=== PATIENT | male | born 1970 | race Caucasian/White ===

== ENCOUNTER 2025-05-21 10:47 | Inpatient (IN) | payer MEDICAID, SELFPAY ==
[2025-05-21] VITALS (7 sets, daily range): BP systolic 119–140; BP diastolic 71–88; PULSE 66–111; RESP 4–20; TEMP 36.5–36.9; O2SAT 91–99; BMI 25.0
--- NOTE | ~2025-05-21 | XR_ITS ---
EXAMINATION: XR CHEST CLINICAL INFORMATION: hypoxia, sz, ?aspiration COMPARISON: None available. TECHNIQUE: Frontal view of the chest was obtained. FINDINGS: The cardiac, hilar, and mediastinal contours are normal. Low lung volumes. Lungs otherwise clear. No pneumothorax or effusion. No focal osseous or soft tissue abnormality. XR/XR chest 1V IMPRESSION: Low lung volumes without evidence of active disease. No evidence of aspiration. Electronically signed by: Kyle Gibson MD 05/21/2025 11:22 AM EDT
--- NOTE | ~2025-05-21 | CT_ITS ---
EXAMINATION: CT HEAD WITHOUT CONTRAST CLINICAL INFORMATION: seizure COMPARISON: None available. TECHNIQUE: Contiguous axial imaging was performed from the skull base to vertex without intravenous administration of contrast. This CT examination was performed using dose optimization techniques as appropriate, variously including the following: *Automated exposure control *Adjustment of mA and/or kV according to patient size (this includes techniques or standardized protocols for targeted exams where dose is matched to indication/reason for exam; i.e. extremities or head) *Use of iterative reconstruction technique DLP: 723 mGy-cm FINDINGS: Traumatic deformities in the nasal bones. No acute cortical disruption in the bony calvarium or the skull base. No acute intracranial hemorrhage, mass effect, midline shift, hydrocephalus or herniation. Patel-white matter differentiation is normal. Prominence of the extra-axial CSF spaces cerebral sulci, ventricles likely central volume loss. Calcified plaques in the cavernous supraclinoid segments both ICAs. Small retention cysts versus polyp, left maxillary sinus. No air-fluid levels in the paranasal sinuses. Tympanic cavities and mastoid air cells are aerated. Normal position of the cerebellar tonsils. No gross masses or dissection or suprasellar region. No hematoma in the intraconal or extraconal compartments of the orbits. The eyeballs are intact.. CT/CT head/brain wo IV con IMPRESSION: No acute fracture, bony calvarium. No acute intracranial hemorrhage. Global cerebral atrophy. Traumatic deformity, nasal bones. Electronically signed by: Justin Mcdermott MD 05/21/2025 12:10 PM EDT
--- NOTE | 2025-05-21 11:04 | ED.SEIZURE ---
HPI - Seizure General Chief Complaint: Seizure Stated Complaint: SEIZURE, POSTICTAL Time Seen by Provider: 05/21/25 11:01 History of Present Illness ED Provider: иван HPI Narrative: 55 M with Sz and dementia hx, BIBEMS from home after Sz. ?ASM adherence. Patient provides minimal history due to clinical condition Related Data Home Medications ?Medication ?Instructions ?Recorded ?Confirmed ketoconazole 2 % topical cream 1 appl topical BID PRN Itching 05/21/25 05/21/25 lacosamide 200 mg tablet 200 mg PO BID 05/21/25 05/21/25 lamotrigine 150 mg tablet 300 mg PO BID 05/21/25 05/21/25 phenytoin 50 mg chewable tablet 150 mg PO BID 05/21/25 05/21/25 risperidone 1 mg/mL oral solution 1 mg PO BID 05/21/25 05/21/25 sertraline 100 mg tablet 150 mg PO DAILY 05/21/25 05/21/25 trazodone 50 mg tablet 50 - 150 mg PO BEDTIME PRN Sleep 05/21/25 05/21/25 zonisamide 100 mg capsule 400 mg PO BEDTIME 05/21/25 05/21/25 Allergies Allergy/AdvReac Type Severity Reaction Status Date / Time Unable to Assess Allergy Verified 05/21/25 11:07 [facility] Past Medical History Medical History (Updated 05/22/25 @ 11:32 by Karie Todd MD) Mood disorder Seizure disorder Traumatic brain injury Social History Social History Household Members: Unknown / Unable to assess Unable to assess alcohol history related to: Unknown Patient Tobacco Use Status: Tobacco use Unknown Use of substances other than those prescribed or required for medical reasons: Unknown Currently Displaying Signs/Symptoms of Drug Intoxication Withdrawal: No Advance Directives: Yes Advance Directives Information Provided: Yes Advance Directives on File: Yes Advance Directives Date on File: 05/21/25 Physical Exam Exam: Exam: EXAM: Gen: Drowsy opens eyes to loud verbal Head: Atraumatic Eyes: Anicteric, Normal conjunctiva. Pupils 3-4 mm symmetric reactive ENT: Moist mucosa, no pallor. ? Neck: Supple. Skin: ?No observable rash or bruising on exposed or examined skin Respiratory: Breathing comfortably, No distress.Clear to auscultation bilaterally, symmetric chest expansion, No wheeze, rales, ronchi. Cardiovascular: Regular rate and rhythm. No murmurs or rub. Well perfused periphery, warm extremities. No edema. ? Abdominal: No focal tenderness. Soft, no objective distension. No palpable masses or obvious organomegaly. ?No guarding, no rebound tenderness or other peritoneal findings. : No flank tenderness. Neuro: Drowsy, voluntary movements of the extremities but not following commands for motor or sensory assessment. Normal tone. Psych: Calm. Cooperative. MSK: No grossly visible deformity. Vital signs: See flowsheet Vital Signs: Vital Signs: Last Vital Signs Temp 97.9 F 05/22/25 07:26 Pulse 103 H 05/22/25 07:26 Resp 20 05/22/25 07:26 BP 124/79 05/22/25 07:26 Pulse Ox 99 05/22/25 07:26 O2 Del Method Room Air 05/22/25 07:26 BMI result Body Mass Index 23.1 Medications Administered Generic Name Dose Route Start Last Admin Trade Name Freq PRN Reason Stop Dose Admin Enoxaparin Sodium 40 mg 05/21/25 16:00 05/21/25 18:46 Enoxaparin Sodium 40 Mg/0.4 Ml Syringe SUBCUT Not Given Q24H MANOJ Lactated Ringer's 1,000 mls @ 80 mls/hr 05/22/25 01:30 05/22/25 02:15 Lr IVCONT 80 mls/hr .[id number] MANOJ Administration Lacosamide 200 mg 05/21/25 21:00 05/22/25 09:09 Lacosamide 100 Mg Tablet PO 200 mg BID MANOJ Administration Lamotrigine 300 mg 05/21/25 21:00 05/22/25 09:08 Lamotrigine 100 Mg Tablet PO 300 mg BID MANOJ Administration Phenytoin Sodium 100 mg 05/21/25 21:00 05/22/25 09:25 Phenytoin Sodium Extended 100 Mg Capsule PO Not Given TID MANOJ Sertraline HCl 150 mg 05/22/25 09:00 05/22/25 09:09 Sertraline Hcl 50 Mg Tablet PO 150 mg DAILY MANOJ Administration Sodium Chloride 3 ml 05/21/25 16:00 05/22/25 09:10 0.9 % Sodium Chloride Flush 3 Ml Syringe IVFLUSH Not Given QSHIFT MANOJ Trazodone HCl 50 mg 05/21/25 21:00 05/22/25 09:09 Trazodone Hcl 50 Mg Tablet PO 50 mg BID MANOJ Administration Zonisamide 400 mg 05/21/25 21:00 05/21/25 21:27 Zonisamide 100 Mg Capsule PO Not Given BEDTIME MANOJ Discontinued Medications Generic Name Dose Route Start Last Admin Trade Name Govind PRN Reason Stop Dose Admin Diazepam 5 mg 05/22/25 01:10 05/22/25 01:11 Diazepam 10 Mg/2 Ml Cartridge IVPUSH 05/22/25 01:11 5 mg STAT STA Administration Medical Decision Making Medical Decision Making MDM Narrative: Medical Decision Makin-year-old male purportedly with dementia, 2022 he had a subdural hematoma. Initial history limited due to patient underlying dementia and clinical condition. Later in the workup I received more extensive history report from outside hospital which are reviewed extensively. The patients spouse also arrives reporting the patient has been explained that the patient has been agitated at home and refusing anti seizure medicine. She denies any injuries or focal deficits. This is an ongoing issue tracking for months to years the setting of early onset Alzheimers. She is requesting placement. Patient self is minimally contributory to the history. Given complicated polypharmacy, medication nonadherence I made would defer medication recommendations to not emergent neurology consultation. Levels have been sent off we can follow those up. Will seek a labs a broadly to evaluate for infection or electrolyte derangement or other metabolic etiology which is less likely. Head CT without trauma or mass as the patient did previously have subdural hematoma he does not currently have this. Preliminary Favored Differential Diagnosis: Breakthrough seizure, metabolic derangement, intracranial hemorrhage, intracranial mass, psychosis or agitation secondary to cognitive decline and dementia, dehydration, substance use disorder, less likely withdrawal syndrome among additional considered etiologies Testing Interpreted Independently: ?See below for details Radiology or Lab testing Results Reviewed: ?See below for details Consults: ?See below for details Independent Historians/External Chart Reviews: ?See below for details Social Determinants of Health Impacting MDM/Planning: ?See below for details Consult Healthcare Provider Management of the patient was discussed with: Hospitalist Lab Data MDM Lab Attestation statement: I reviewed the patient's lab results. no actionable lab findings to suggest metabolic etiology of seizure 05/22/25 07:35 05/22/25 07:35 Labs: Lab Results 05/21/25 05/21/25 05/22/25 Range/Units 11:31 14:41 07:35 WBC 7.8 6.4 (4.8-10.8) X10*3/uL RBC 4.90 4.43 L (4.60-5.80) X10*6/uL Hgb 15.1 13.7 L (14.0-18.0) g/dl Hct 41.7 L 37.4 L (42.0-52.0) % MCV 85.1 84.4 (80.0-98.0) fL MCH 30.8 30.9 (27.0-33.0) pg MCHC 36.2 H 36.6 H (31.0-36.0) g/dl RDW 12.4 12.2 (11.0-16.0) % Plt Count 163 152 L (160-400) X10*3/uL MPV 8.7 L 8.3 L (9.4-12.4) fL Immature Gran % (Auto) 0.5 H 1.1 H (0.0-0.4) % Neut % (Auto) 86.9 H 79.7 H (45-73) % Lymph % (Auto) 6.1 L 10.1 L (20-40) % [place] % (Auto) 6.2 8.9 (2-11) % Eos % (Auto) 0.0 0.0 (0-4) % Baso % (Auto) 0.3 0.2 (0-2) % Lymph # (Auto) 0.5 L 0.7 L (1.2-4.9) X10*3/uL [place] # (Auto) 0.5 0.6 (0.1-1.2) X10*3/uL Eos # (Auto) 0.0 0.0 (0.0-0.4) X10*3/uL Baso # (Auto) 0.0 0.0 (0.0-0.2) X10*3/uL Abs Immat Gran (auto) 0.04 H 0.07 H (0.00-0.03) X10*3/uL Absolute Neuts (auto) 6.7 5.1 (2.0-8.3) x10*3/uL Absolute Nucleated RBC 0.000 0.000 (0.0-0.012) X10*3/uL Nucleated RBC % (auto) 0.0 0.0 (0.0-0.2) /100WBC Sodium 140 142 (135-145) mmol/L Potassium 3.6 3.3 (3.3-5.1) mmol/L Chloride 108 109 H (96-108) mmol/L Carbon Dioxide 24 23 (22-29) mmol/L Anion Gap 12 13 (12-20) BUN 12 11 (9-16) mg/dL Creatinine 0.74 0.62 (0.5-1.4) mg/dL Estim Creat Clear Calc 95.8 114.3 Estimated GFR > 60 > 60 Random Glucose 97 103 (60-115) mg/dL Lactic Acid 2.1 H* (0.5-2.0) mmol/L Lactic Acid F/U @ 2Hr 1.1 (0.5-2.0) mmol/L Calcium 9.1 8.5 D (8.4-10.2) mg/dL Magnesium 2.2 (1.6-2.6) mg/dL Total Bilirubin 0.5 (0.0-1.0) mg/dL AST 32 (5-37) U/L ALT 14 (0-40) U/L Alkaline Phosphatase 126 H (39-117) U/L Total Protein 7.2 (6.5-8.0) g/dL Albumin 4.7 (3.5-5.0) g/dL Prolactin 14.0 (2.0-18.0) ng/mL Valproic Acid < 12.5 L (50.0-100.0) mcg/mL Independent Interpretation I performed an independent interpretation of an: Rhythm Strip ( sinus rhythm) and CT Scan ( no hemorrhage or mass) Independent Historian Clinical information obtained from an independent historian. History obtained from or confirmed by: Spouse External Record Review External record reviewed: Outpatient record and Prior outpatient radiology [facility] MRI external records reviewed from 2022 with finding of the thin subdural collection of the posterolateral left temporal convexity measuring 2 mm also from [facility] previous records reveal medication list that consisted of Adderall, bupropion, lorazepam, trazodone, Zoloft no written provider notes available Discharge Plan Discharge Clinical Impression: Seizure disorder Patient Disposition: Admitted As Inpatient Discharge Date/Time: 05/22/25 02:25
[2025-05-21 11:39] LABS: MANUAL DIFF FLAG NO
[2025-05-21 11:52] LABS: Hematocrit 41.7 % (42.0-52.0); Hemoglobin 15.1 g/dl (14.0-18.0); Imm Gran Abs Auto 0.04 X10*3/uL (0.00-0.03); Imm Gran Pct Auto 0.5 % (0.0-0.4); Lymphocytes Absolute Auto 0.5 X10*3/uL (1.2-4.9); Mean Corpuscular HGB Conc 36.2 g/dl (31.0-36.0); Mean Corpuscular Hemoglobin 30.8 pg (27.0-33.0); Mean Corpuscular Volume 85.1 fL (80.0-98.0); NRBC Abs Auto 0.000 X10*3/uL (0.0-0.012); NRBC Pct Auto 0.0 /100WBC (0.0-0.2); Platelet Count 163 X10*3/uL (160-400); Red Blood Count 4.90 X10*6/uL (4.60-5.80); White Blood Count 7.8 X10*3/uL (4.8-10.8)
[2025-05-21 12:04] LABS: Alanine Aminotransferase 14 U/L (0-40); Albumin Level 4.7 g/dL (3.5-5.0); Alkaline Phosphatase 126 U/L (39-117); Anion Gap 12 (12-20); Aspartate Amino Transferase 32 U/L (5-37); Blood Urea Nitrogen 12 mg/dL (9-16); Calcium 9.1 mg/dL (8.4-10.2); Carbon Dioxide 24 mmol/L (22-29); Chloride 108 mmol/L (96-108); Creatinine Clr Calc Pharmacy 95.8; Estimated Glomerular Filt Rate > 60; Magnesium 2.2 mg/dL (1.6-2.6); Potassium 3.6 mmol/L (3.3-5.1); Sodium 140 mmol/L (135-145); Total Protein 7.2 g/dL (6.5-8.0)
[2025-05-21 13:37] LABS: Reflex Lactate? Lactic Acid Added
[2025-05-21 14:59] LABS: ~Lactic Acid-LAB USE ONLY 1.1 mmol/L (0.5-2.0)
--- NOTE | 2025-05-21 15:22 | P.HPHOSP_ITS ---
History of Present Illness Date of Service: 05/21/25 Chief Complaint: Seizure This is a 55-year-old male with pertinent history of TBI, seizure disorder, PTSD, Alzheimer's dementia who was brought to the emergency department for evaluation of a seizure. Patient is a poor historian and unable to provide any history. History obtained with the help of at bedside and ER provider. Patient's states that patient has been having episodes of delusions and agitation at home. He has been refusing his home p.o. medications including antiepileptics. Patient only took 2 of his antiepileptics 1 day prior to presentation. Patient had an episode of seizure at home witnessed by and he was sent to the ER. Patient is currently postictal at the time of my evaluation. The states that she does not feel safe with him being at home due to his periods of agitation and noncompliance with medications leading to seizures. Patient has been admitted multiple times for breakthrough seizure previously for medication noncompliance. Unable to obtain review of systems. Review of Systems 2 Review of Systems: Yes Unobtainable due to mental condition and Unobtainable due to mental status [facility] Medical History (Updated 05/21/25 @ 15:50 by Pennie Blount MD) Mood disorder Seizure disorder Traumatic brain injury Pertinent family history: Unable to obtain Social History Advance Directives: Yes Advance Directives Information Provided: Yes Advance Directives on File: Yes Advance Directives Date on File: 05/21/25 Meds Allergies Allergy/AdvReac Type Severity Reaction Status Date / Time Unable to Assess Allergy Verified 05/21/25 11:07 Home Medications ?Medication ?Instructions ?Recorded ?Confirmed ?Last Taken ?Type ketoconazole 2 % topical cream 1 appl topical BID 04/25 05/18 Unknown History lacosamide 200 mg tablet 200 mg PO BID 05/21/25 Unkn own History lamotrigine 100 mg tablet 0 mg PO DIRECTED 05/21/25 Unknown History lamotrigine 150 mg tablet 150 mg PO BID 05/21/25 Unkn own History phenytoin 50 mg chewable tablet 100 mg PO TID 05/21/25 Unknown History risperidone 1 mg/mL oral solution 1 mg PO BID 05/21/25 Unknown History sertraline 100 mg tablet 0 mg PO DIRECTED 05/21/25 Unknown History sertraline 25 mg tablet 25 mg PO DAILY 05/21/25 Unk nown History trazodone 50 mg tablet 50 - 150 mg PO BEDTIME PRN S leep 05/21/25 Unknown History zonisamide 100 mg capsule 200 mg PO BID 05/21/25 Unkn own History Physical Exam 2 Vital Signs and Narrative: Vital Signs: Last Vital Signs Temp 97.7 F 05/21/25 11:04 Pulse 111 H 05/21/25 15:12 Resp 4 L 05/21/25 15:12 BP 128/72 05/21/25 15:12 Pulse Ox 97 05/21/25 15:12 O2 Del Method Room Air 05/21/25 15:12 BMI result Body Mass Index 25.0 Const: Other: Middle-aged male lying in bed in no distress Neck supple, no JVD Regular rate and rhythm, S1-S2 heard Regular breath sounds bilaterally, no wheezing or crackles appreciated Abdomen soft nontender, no guarding, no rigidity Patient is drowsy but awakens to verbal stimulus, unable to assess orientation Psych: lethargic No pedal edema Results Labs 05/21/25 11:31 05/21/25 11:31 Labs: Laboratory Results - last 24 hr 05/21/25 05/21/25 11:31 14:41 MCV 85.1 MCH 30.8 MCHC 36.2 H RDW 12.4 Plt Count 163 MPV 8.7 L Immature Gran % (Auto) 0.5 H Neut % (Auto) 86.9 H Lymph % (Auto) 6.1 L [place] % (Auto) 6.2 Eos % (Auto) 0.0 Baso % (Auto) 0.3 Lymph # (Auto) 0.5 L [place] # (Auto) 0.5 Eos # (Auto) 0.0 Baso # (Auto) 0.0 Abs Immat Gran (auto) 0.04 H Absolute Neuts (auto) 6.7 Absolute Nucleated RBC 0.000 Nucleated RBC % (auto) 0.0 Anion Gap 12 Estim Creat Clear Calc 95.8 Estimated GFR > 60 Random Glucose 97 Lactic Acid 2.1 H* Lactic Acid F/U @ 2Hr 1.1 Calcium 9.1 Magnesium 2.2 Total Bilirubin 0.5 AST 32 ALT 14 Alkaline Phosphatase 126 H Total Protein 7.2 Albumin 4.7 Valproic Acid < 12.5 L Imaging Radiologist's Impressions: Impressions Chest X-Ray 05/21/25 10:05 IMPRESSION: Low lung volumes without evidence of active disease. No evidence of aspiration. Electronically signed by: Kyle Gibson MD 05/21/2025 11:22 AM EDT RP Head CT 05/21/25 11:38 IMPRESSION: No acute fracture, bony calvarium. No acute intracranial hemorrhage. Global cerebral atrophy. Traumatic deformity, nasal bones. Electronically signed by: Justin Mcdermott MD 05/21/2025 12:10 PM EDT RP Assessment and Plan (1) Breakthrough seizure: Status: Acute Plan This is a 55-year-old male with pertinent history of TBI, seizure disorder, PTSD, Alzheimer's dementia who was brought to the emergency department for evaluation of a seizure #. Breakthrough seizure in a patient with seizure disorder due to medication noncompliance: Will admit patient and resume home anti-epileptics (Lamictal 300 mg twice daily, Dilantin 150 mg twice daily, Vimpat 200 mg twice daily, zonisamide 400 mg daily). May need placement given cognitive impairment and recurrent admissions in the setting of medication noncompliance. Ongoing seizure precautions. Valproic acid level subtherapeutic. #. Mood disorder: reports that patient is having episodes of psychosis and is refusing p.o. meds. Will consult psych to optimize #. Alzheimer's dementia: Maintain sleep-wake cycle #. Acute lactic acidosis due to seizure Med rec pending DVT prophylaxis: Lovenox Full code. Discussed with at bedside Quality Stroke Does the patient have a stroke diagnosis?: No VTE Prior VTE?: No VTE Risk Level:: Medical - moderate - high VTE Device Contraindication: Treatment Not Indicated VTE Drug Contraindication: N/A - Med Ordered
--- OUTSIDE RECORDS SUMMARY | 2025-05-21 15:56 | XMS_ITS | Encounter Summary ---
Author Organization Formerly [facility] Address [address] [place] [address] [place] [address] Phone Care Team Providers Care Spray Gun Repairer Helper Name Role Phone Phyllis Bello Unavailable [phone] Phyllis Bello Primary Care Provider [phone] Nate Ritter MD Unavailable [phone] Nate Ritter MD Unavailable [phone] Josy Hernandez MD Primary Care Provider [phone] Phyllis Bello Primary Care Provider + [phone] Philip Lara DO Unavailable [phone] Encounter Details Date Type Department Care Team (Latest Contact Info) Description 01/29/2023 Transcribe Orders Virtual Department [address] [place] [address] Jennifer Choudhary PA-C [address] [place] [address] [email or web address] Alcoholic cirrhosis, unspecified whether ascites present (Primary Dx) Social History Tobacco Use Types Packs/Day Years Used Date Smoking Tobacco: Every Day Cigarettes Smokeless Tobacco: Never Comments:rolls his own, pot as well Alcohol Use Standard Drinks/Week Comments Not Currently 0 (1 standard drink = 0.6 oz pur e alcohol) Education Answer Date Recorded Are you interested in more education? Not on palma e 01/19/2023 Are you concerned about learning? Not on file 01/19/2023 No 01/19/2023 No 01/19/2023 Sex and Gender Information Value Date Recorded Sex Assigned at Male 11/19/2017 4:38 PM EST Legal Sex Male 9:37 PM EDT Gender Identity Male 11/19/2017 4:38 PM EST Sexual Orientation Straight 11/19/2017 4: 38 PM EST documented as of this encounter Plan of Treatment Upcoming Encounters Date Type Department Care Team (Late st Contact Info) Description 01/08/2026 8:30 AM EDT Office Visit [facility] [address] [place] [address] Philip Lara DO [address] [place] [phone] [email or web address] documented as of this encounter Results * US ABDOMEN LIMITED RIGHT UPPER QUADRANT (03/16/2023 8:06 AM EDT) Anatomical Region Laterality Modality Abdomen Ultrasound 03/18/2023 7:38 PM EDT Impressions 03/18/2023 9:27 PM EDT No suspicious focal liver lesion. Narrative 03/18/2023 9:27 PM EDT US ABDOMEN LIMITED RIGHT UPPER QUADRANT TECHNIQUE: US Abdominal limited right upper quadrant. COMPARISON: None FINDINGS: Liver: Coarse echotexture. No focal lesions. Main Portal Vein: Patent with normal direction of flow. Gallbladder: Prior cholecystectomy. Biliary: Normal. No intrahepatic or extrahepatic biliary ductal dilatation. The common bile duct measures 9 mm. Procedure Note Vladimir Barros MD - 03/18/2023 US ABDOMEN LIMITED RIGHT UPPER QUADRANT TECHNIQUE: US Abdominal limited right upper quadrant. COMPARISON: None FINDINGS: Liver: Coarse echotexture. No focal lesions. Main Portal Vein: Patent with normal direction of flow. Gallbladder: Prior cholecystectomy. Biliary: Normal. No intrahepatic or extrahepatic biliary ductaldilatation. The common bile duct measures 9 mm. IMPRESSION: No suspicious focal liver lesion. Jennifer Choudhary PA-C IMG US ABDOMEN Final Result documented in this encounter Visit Diagnoses Diagnosis Alcoholic cirrhosis, unspecified whether ascites present- Primary Alcoholic cirrhosis, unspecified whether ascites present documented in this encounter Additional Health Concerns Infection Onset Date Last Indicated Resolved Time CoV-Risk Comment:Neg covid 04/22/2024 04/22/2024 04/23/2024 7:03 AM E DT CoV-Risk Comment:Per note documentation 10/30/2024 10/30/2024 12:40 AM EST CDiff-Risk 01/30/2025 01/30/2025 01/30/2025 6:35 PM EDT CoV-Risk 01/30/2025 01/31/2025 02/11/2025 1:21 AM EDT Assessment Noted Time PHQ-2 Depression Total Score: 2 05/24/20 22 3:24 PM EDT documented as of this encounter Care Teams Spray Gun Repairer Helper Relationship Specialty Start Date End Date Phyllis Bello PA [address] [place] [id number] PCP - General Slat Basket Maker Helper Machine 08/09/17 03/02/23 Josy Hernandez MD [address] [place] [address], [address] [place] [address] [email or web address] PCP - General Family Medicine 03/03/23 06/17/23 Phyllis Bello PA [address] [place] [address] PCP - General Physician Peanut Sheller 06/18/23 Phyllis Bello PA [address] [place] [address] [place] [phone] Historical LMR Provider 07/09/17 Nate Ritter MD [address] [place] [address], [address] [address] Neurology 06/24/19 Nate Ritter MD [address] [place] [address], [address] [address] Neurology 01/10/22 Philip Lara DO [address] [place] [id number] Geriatric Medicine 01/01/24 documented as of this encounter Additional Source Comments The information contained in this document represents components of the legal health record. It is not the complete legal health record.Formerly [facility]
--- OUTSIDE RECORDS SUMMARY | 2025-05-21 15:56 | XMS_ITS | Encounter Summary ---
Author Organization [facility] Address [address] [place] [address] Phone Care Team Providers Care Vacuum Cleaner Assembler Name Role Phone Phyllis Bello Unavailable [phone] Nate Ritter MD Unavailable [phone] Nate Ritter MD Unavailable [phone] Phyllis Bello Primary Care Provider [phone] Philip Lara DO Unavailable Encounter Details Date Type Department Care Team (Late st Contact Info) Description 12/22/2023 Procedure Pass [facility], [address] [id number] Social History Tobacco Use Types Packs/Day Years Used Date Smoking Tobacco: Every Day Cigarettes Smokeless Tobacco: Never Comments:rolls his own, pot as well Alcohol Use Standard Drinks/Week Comments Not Currently 0 (1 standard drink = 0.6 oz pur e alcohol) none since 2018 Education Answer Date Recorded Are you interested in more education? Not on palma e 01/19/2023 Are you concerned about learning? Not on file 01/19/2023 No 01/19/2023 No 01/19/2023 Digital Access Answer Date Recorded No 02/16/2023 No 02/16/2023 Reliable internet access at home? Not on file 02/16/2023 Device with a working camera? Not on file Sex and Gender Information Value Date Recorded Sex Assigned at Male 11/19/2017 4:38 PM EST Legal Sex Male 9:37 PM EDT Gender Identity Male 11/19/2017 4:38 PM EST Sexual Orientation Straight 11/19/2017 4: 38 PM EST documented as of this encounter Plan of Treatment Upcoming Encounters Date Type Department Care Team (Late st Contact Info) Description 01/08/2026 8:30 AM EDT Office Visit [facility] [address] [place] [address] Philip Lara DO [address] [place] [address] [email or web address] documented as of this encounter Visit Diagnoses Not on filedocumented in this encounter Additional Health Concerns Infection [...] documented as of this encounter Care Teams Vacuum Cleaner Assembler Relationship Specialty Start Date End Date Phyllis Bello PA [address] [place] [phone] PCP - General Physician Ship/Rec/Doc Control 06/18/23 Phyllis Bello PA [address] [place] [address] [place] [phone] Historical LMR Provider 07/09/17 Nate Ritter MD [address] [place] [address], [address] [place] [address] [email or web address] Neurology 06/24/19 Nate Ritter MD [address] [place] [address], [address] [address] Neurology 01/10/22 Philip Lara DO [address] [place] [address] [email or web address] Geriatric Medicine 01/01/24 documented as of this encounter Additional Source Comments The information contained in this document represents components of the legal health record. It is not the complete legal health record.[facility]
--- OUTSIDE RECORDS SUMMARY | 2025-05-21 15:56 | XMS_ITS | Encounter Summary ---
Author Organization [facility] Address [address] [place] [address] Phone Care Team Providers Care Surgical Nurse Name Role Phone Phyllis Bello Unavailable [phone] Nate Ritter MD Unavailable [phone] Nate Ritter MD Unavailable [phone] Phyllis Bello Primary Care Provider [phone] Philip Lara DO Unavailable [phone] Encounter Details Date Type Department Care Team (Late st Contact Info) Description 12/19/2023 Procedure Pass [facility], Ct Scan - [address] [phone] Social History Tobacco Use Types Packs/Day Years [...] PM EST documented as of this encounter Functional Status * Calculated C-SSRS Risk Score (Lifetime/Recent) Answer Date of Assessment Author No Risk Indicated 12/20/2023 6:00 PM EDT Carmen Mckeon RN * [place] Suicide Severity Rating Scale (Screener/Recent Self-Report) Question Answer Date of Assessment Author 1. Wish to be (Past 1 Month) No 024 6:00 PM EDT Carmen Mckeon RN 2. Non-Specific Active Suici florentino Thoughts (Past 1 Month) No 12/20/2023 6:00 PM EDT Son Mckeon RN 6. Suicidal Behavior (Lifetime) No 6:00 PM EDT Carmen Mckeon RN documented as of this encounter Plan of Treatment Upcoming Encounters Date Type Department Care Team (Late st Contact Info) Description 01/08/2026 8:30 AM EDT Office Visit [facility] Geriatrics [address] [place] [address] Philip Lara DO [address] [place] [address] [email or web address] documented as of this encounter Visit Diagnoses [...] Time PHQ-2 Depression Total Score: 2 05/24/20 3:24 PM EDT documented as of this encounter Care Teams Surgical Nurse Relationship Specialty Start Date End Date Phyllis Bello PA [address] [place] [address] PCP - General Physician Cellophane Casting Machine Repairer 06/18/23 Phyllis Bello PA [address] [place] [address] [place] [phone] Historical LMR Provider 07/09/17 Nate Ritter MD [address] [place] [address] Neurology 06/24/19 Nate Ritter MD [address] [place] [address] Neurology 01/10/22 Philip Lara DO [address] [place] [address] Geriatric Medicine 01/01/24 documented as of this encounter Additional Source Comments The information contained in this document represents components of the legal health record. It is not the complete legal health record.[facility]
--- OUTSIDE RECORDS SUMMARY | 2025-05-21 15:56 | XMS_ITS | Encounter Summary ---
Author Organization [facility] Address [facility] [employer] [facility] [address] [place] [address] Phone Care Team Providers Care Fluorescent Lamp Replacer Name Role Phone Phyllis Bello Unavailable [phone] Nate Ritter MD Unavailable [phone] Nate Ritter MD Unavailable [phone] Phyllis Bello Primary Care Provider [phone] Philip Lara DO Unavailable [phone] Encounter Details Date Type Department Care Team (Latest Contact Info) Description 01/03/2024 Transcribe Orders Virtual Department [address] [place], [place] [phone] Phyllis Bello PA [address] [place] [phone] Other specified symptoms and signs involving the circulatory and respiratory systems (Primary Dx) Social History Tobacco Use Types [...] Description 01/08/2026 8:30 AM EDT Office Visit [facility] Geriatrics [address] [place] [address] Philip Lara DO [address] [place] [address] [email or web address] documented as of this encounter Results * FL (Speech) Video Swallow Study (01/30/2024 10:29 AM EDT) Anatomical Region Laterality Modality Radio Fluoroscop y 01/30/2024 12:1 2 PM EDT Impressions 01/30/2024 12:59 PM EDT No marv aspiration or epiglottic penetration was observed during this examination. Cricopharyngeal bar. Please refer to the clinical notes by the Speech Pathologist for detailed description of the Modified Swallow findings. FLUOROSCOPY TIME: 1 minute 28 seconds NUMBER OF IMAGES: [id number] ATTESTATION: I, Maikol Hernandez as teaching physician, have reviewed the images for this case and if necessary edited the report originally created by Misha Callaway. Narrative 01/30/2024 12:59 PM EDT FL MODIFIED BARIUM SWALLOW HISTORY: Choking when swallowing COMPARISON: Chest radiograph 01/14/2024. OPERATORS: Misha Callaway SUPERVISING PHYSICIAN: Maikol Hernandez TECHNIQUE: Fluoroscopic assistance was provided for the speech pathologist during video swallow. The patient was observed in the lateral projection while being fed various consistencies of barium (thin liquids, applesauce, pudding, cracker and cracker). FINDINGS: The oral and pharyngeal stages of swallowing will be reported separately by the Department of Speech and Language Pathology. All trial barium consistencies passed through the pharynx without difficulty. No epiglottic penetration was demonstrated during this examination. A prominent cricopharyngeal bar is observed without achalasia or a Zenker's diverticulum. No significant pharyngeal residue. Procedure Note Maikol Hernandez MD - 01/30/2024 FL MODIFIED BARIUM SWALLOW HISTORY: Choking when swallowing COMPARISON: Chest radiograph 01/14/2024. OPERATORS: Misha Callaway SUPERVISING PHYSICIAN: Maikol Hernandez TECHNIQUE: Fluoroscopic assistance was provided for the speech pathologist duringvideo swallow. The patient was observed in the lateral projection whilebeing fed various consistencies of barium (thin liquids, applesauce,pudding, cracker and cracker). FINDINGS: The oral and pharyngeal stages of swallowing will be reported separatelyby the Department of Speech and Language Pathology. All trial barium consistencies passed through the pharynx withoutdifficulty. No epiglottic penetration was demonstrated during thisexamination. A prominent cricopharyngeal bar is observed without achalasiaor a Zenker's diverticulum. No significant pharyngeal residue. IMPRESSION: No marv aspiration or epiglottic penetration was observed during thisexamination. Cricopharyngeal bar. Please refer to the clinical notes by the Speech Pathologist for detaileddescription of the Modified Swallow findings. FLUOROSCOPY TIME: 1 minute 28 seconds NUMBER OF IMAGES: [id number] ATTESTATION: I, Maikol Hernandez as teaching physician, have reviewed theimages for this case and if necessary edited the report originally createdby Misha Callaway. Phyllis CABRALES IMG FL EXAMS Final Resu lt documented in this encounter Visit Diagnoses Diagnosis Other specified symptoms and signs involving the circulatory and respiratory systems- Primary Dysphagia, unspecified type- Primary Other specified symptoms and signs involving the circulatory and respiratory systems documented in this encounter Additional Health Concerns [...] documented as of this encounter Care Teams Fluorescent Lamp Replacer Relationship Specialty Start Date End Date Phyllis Bello PA [address] [place] [address] PCP - General Physician Assessment Technician 06/18/23 Phyllis Bello PA [address] [place] [address] [place] [address] Historical LMR Provider 07/09/17 Nate Ritter MD [address] [place] [address], [address] [address] Neurology 06/24/19 Nate Ritter MD [address] [place] [address], [address] [address] Neurology 01/10/22 Philip Lara DO [address] [place] [address] [email or web address] Geriatric Medicine 01/01/24 documented as of this encounter Additional Source Comments The information contained in this document represents components of the legal health record. It is not the complete legal health record.[facility]
--- OUTSIDE RECORDS SUMMARY | 2025-05-21 15:56 | XMS_ITS | Encounter Summary ---
Author Organization [facility] Address [address] [place] [address] Phone Care Team Providers Care Apiculturist Name Role Phone Phyllis Bello Unavailable [phone] Nate Ritter MD Unavailable [phone] Nate Ritter MD Unavailable [phone] Phyllis Bello Primary Care Provider [phone] Philip Lara DO Unavailable [phone] Encounter Details Date Type Department Care Team (Late st Contact Info) Description 06/18/2023 Procedure Pass [facility] Endoscopy Admitting Dept Virtual Department [address] [place] [address] Social History Tobacco Use Types Packs/Day Years [...] Description 01/08/2026 8:30 AM EDT Office Visit [facility] Geriatrics [address] [place] [address] Philip Lara DO [address] [place] [address] [email or web address] documented as of this [...] documented as of this encounter Care Teams Apiculturist Relationship Specialty Start Date End Date Phyllis Bello PA [address] [place] [address] PCP - General Physician Process Architect 06/18/23 Phyllis Bello PA [address] [place] [address] [place] [address] Historical LMR Provider 07/09/17 Nate Ritter MD [address] [place] [address] [place] [address] Neurology 06/24/19 Nate Ritter MD [address] [place] [address], [address] [place] [address] Neurology 01/10/22 Philip Lara DO [address] [place] [address] [email or web address] Geriatric Medicine 01/01/24 documented as of this encounter Additional Source Comments The information contained in this document represents components of the legal health record. It is not the complete legal health record.[facility]
--- OUTSIDE RECORDS SUMMARY | 2025-05-21 15:57 | XMS_ITS | Encounter Summary ---
Author Organization [facility] Address [address] [place] [address] [place] [address] Phone Care Team Providers Care Commercial Loan Specialist Name Role Phone Zohra Saenz MD Unavailable Estelita Bobby NP Unavailable Phyllis Bello Unavailable [phone] Nate Dockery MD Unavailable [phone] Phyllis Bello Primary Care Provider + Nate Ritter MD Unavailable [phone] Rod Cunningham Unavailable [phone] Josy Hernandez MD Unavailable + Prakash Tolentino MD Unavailable + Josy Hernandez MD Unavailable + Prakash Tolentino MD Unavailable + Josy Hernandez MD Unavailable + Nate Ritter MD Unavailable [phone] Josy Hernandez MD Primary Care Provider [phone] Phyllis Bello Primary Care Provider [phone] Philip Lara DO Unavailable Encounter Details Date Type Department Care Team (Late st Contact Info) Description 10/22/2020 Procedure Pass [facility], Ct Scan - [address] [address] Social History Tobacco Use Types Packs/Day Years Used Date Smoking Tobacco: Every Day Cigarettes Smokeless Tobacco: Never Comments:rolls his own, pot as well Alcohol Use Standard Drinks/Week Comments Yes 0 (1 standard drink = 0.6 oz pur e alcohol) daily consumption of beer Sex and Gender Information Value Date Recorded Sex Assigned at Male 11/19/2017 4:38 PM EST Legal Sex Male 9:37 PM EDT Gender Identity Male 11/19/2017 4:38 PM EST Sexual Orientation Straight 11/19/2017 4: 38 PM EST documented as of this encounter Plan of Treatment Upcoming Encounters Date Type Department Care Team (Late Contact Info) Description 01/08/2026 8:30 AM EDT Office Visit [facility] Geriatrics [address] [place] [address] Philip Lara DO [address] [place] [address] [email or web address] documented as of this encounter Visit Diagnoses Not on filedocumented in this encounter Additional Health Concerns Infection Onset Date Last Indicated Resolved Time 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 11/02/2017 01/09/2022 9:16 AM EDT CoV-Risk Comment:Per note documentation 06/29/2021 06/29/2021 11:05 AM EDT CoV-Risk Comment:Neg covid 04/22/2024 04/22/2024 04/23/2024 7:03 AM E DT CoV-Risk Comment:Per note documentation 10/30/2024 10/30/2024 12:40 AM EST CDiff-Risk 01/30/2025 01/30/2025 01/30/2025 6:35 PM EDT CoV-Risk 01/30/2025 01/31/2025 02/11/2025 1:21 AM EDT documented as of this encounter Care Teams Commercial Loan Specialist Relationship Specialty Start Date End Date Bello, Phyllis Renetta, PA [address] [place] [address] PCP - General Upkeep Worker 08/09/17 03/02/23 Josy Hernandez MD [address] [place] [address] [email or web address] PCP - General Family Medicine 03/03/23 06/17/23 Phyllis Bello PA [address] [place] [address] PCP - General Physician Director Clinical Operations 06/18/23 Zohra Saenz MD [address] [place] [address] Historical LMR Provider 07/09/17 2 Estelita Bobby NP [address] [place] [address] 2_[place] [address] [email or web address] Historical LMR Provider 07/09/17 10/01/21 Phyllis Bello PA [address] [place] [address] [place] [address] Historical LMR Provider 07/09/17 Nate Dockery MD [address] [place] [address], [address] [place] [address] [email or web address] Historical LMR Provider 07/09/17 2 Nate Ritter MD [address] [place] [address] [address] [place] [address] [email or web address] Neurology 06/24/19 Rod Cunningham, [facility] [address] [place] [address] [email or web address] Work 08/23/20 06/13/22 Josy Hernandez MD [address] [place] [address] [email or web address] Insurance Assigned Provider 08/29/20 02/27/21 Prakash Tolentino MD [address] [place] [address] [email or web address] Insurance Assigned Provider 02/27/21 04/02/21 Josy Hernandez MD [address] [place] [address] [email or web address] Insurance Assigned Provider 04/02/21 06/04/21 Prakash Tolentino MD [address] [place] [address] [email or web address] Insurance Assigned Provider 06/04/21 07/30/21 Josy Hernandez MD [address] [place] [address] [email or web address] Insurance Assigned Provider 07/30/21 06/03/22 Nate Ritter MD [address] [place] [address], [address] [place] [address] Neurology 01/10/22 Philip Lara DO [address] [place], [place] [address] [email or web address] Geriatric Medicine 01/01/24 documented as of this encounter Additional Source Comments The information contained in this document represents components of the legal health record. It is not the complete legal health record.[facility]
--- OUTSIDE RECORDS SUMMARY | 2025-05-21 15:57 | XMS_ITS | Encounter Summary ---
Author Organization [facility] Address [address] [place] [address] [place] [address] Phone Care Team Providers Care Manager Disaster Recovery Name Role Phone Zohra Saenz MD Unavailable Estelita Bobby NP Unavailable [phone] Phyllis Bello Unavailable [phone] Nate Dockery MD Unavailable [phone] Phyllis Bello Primary Care Provider [phone] Nate Ritter MD Unavailable [phone] Prakash Tolentino MD Unavailable [phone] Rod Cunningham Unavailable [phone] Josy Hernandez MD Unavailable [phone] Prakash Tolentino MD Unavailable + Josy Hernandez MD Unavailable [phone] Prakash Tolentino MD Unavailable + Josy Hernandez MD Unavailable [phone] Nate Ritter MD Unavailable [phone] Josy Hernandez MD Primary Care Provider [phone] Phyllis Bello Primary Care Provider [phone] Philip Lara DO Unavailable Encounter Details Date Type Department Care Team (Late st Contact Info) Description 05/15/2020 Procedure Pass [facility], Ct Scan - [facility] [address] [place] [address] Social History Tobacco Use Types Packs/Day Years Used Date Smoking Tobacco: Every Day Cigarettes Smokeless Tobacco: Never Comments:rolls his own Alcohol Use Standard Drinks/Week Comments Yes 0 [...] Description 01/08/2026 8:30 AM EDT Office Visit [facility] Geriatrics [address] [place] [address] Philip Lara, [address] [place] [address] [email or web address] documented as of this encounter Visit Diagnoses [...] documented as of this encounter Care Teams Manager Disaster Recovery Relationship Specialty Start Date End Date Phyllis Bello PA [address] [place] [address] PCP - General Lcac Radar Operator/Navigator 08/09/17 03/02/23 Josy Hernandez MD [address] [place] [address] [email or web address] PCP - General Family Medicine 03/03/23 06/17/23 Phyllis Bello PA [address] [place] [address] PCP - General Physician Professional Athlete 06/18/23 Zohra Cisneros MD [address] [place] [address] Historical LMR Provider 07/09/17 2 Estelita Bobby NP [address] [place] [address] 2_[place] [address] [email or web address] Historical LMR Provider 07/09/17 10/01/21 Phyllis Bello PA [address] [place] [address] [place] [address] Historical LMR Provider 07/09/17 Nate Dockery MD [address] [place] [address], [address] [place] [address] [email or web address] Historical LMR Provider 07/09/17 2 Nate Ritter MD [address] [place] [address], [address] [place] [address] [email or web address] Neurology 06/24/19 Prakash Tolentino MD [address] [place] [address] [email or web address] Insurance Assigned Provider 08/30/19 08/29/20 Rod Cunningham, [address] [address] [email or web address] Social Work 08/23/20 06/13/22 Josy Hernandez MD [address] [place] [address] [email or web address] Insurance Assigned Provider 08/29/20 02/27/21 Prakash Tolentino MD [address] [place] [address] [email or web address] Insurance Assigned Provider 02/27/21 04/02/21 Josy Hernandez MD [address] [place] [address] [email or web address] Insurance Assigned Provider 04/02/21 06/04/21 Prakash Tolentino MD [address] [place] [address] [email or web address] Insurance Assigned Provider 06/04/21 07/30/21 Josy Hernandez MD [address] [place] [address] [email or web address] Insurance Assigned Provider 07/30/21 06/03/22 Nate Ritter MD [address] [place] [address], [address] [place] [address] Neurology 01/10/22 Philip Lara DO [address] [place] [address] Geriatric Medicine 01/01/24 documented as of this encounter Additional Source Comments The information contained in this document represents components of the legal health record. It is not the complete legal health record.[facility]
--- OUTSIDE RECORDS SUMMARY | 2025-05-21 15:57 | XMS_ITS | Encounter Summary ---
Author Organization [facility] Address [address] [place] [address] Phone Care Team Providers Care Railway Traction Line Worker Name Role Phone Phyllis Bello Unavailable [phone] Nate Ritter MD Unavailable [phone] Nate Ritter MD Unavailable [phone] Phyllis Bello Primary Care Provider [phone] Philip Lara DO Unavailable [phone] Encounter Details Date Type Department Care Team (Late st Contact Info) Description 01/30/2025 Procedure Pass , [address] [phone] Social History Tobacco Use Types Packs/Day Years [...] on file 01/19/2023 No 01/19/2023 No 01/19/2023 Food Answer Date Recorded Within the past 6 months we worried whether our food would run out before we got money to buy more. Unable to assess 025 Within the past 6 months the food we bought just didn't last and we didn't have enough money to get more. Unable to assess 01/31/2025 Residential Stability Answer Date Recor ded What is your housing situation today? Unable to assess 01/31/2025 How many times have you moved in the past 12 mon ths? Unable to assess 01/31/2025 Paying for Meds Answer Date Recorded Do you have trouble paying for medicines? Unable to assess 01/31/2025 Paying Utility Bills Answer Date Record ed Do you have trouble paying y our heating or electricity bill? Unable to assess 01/31/2025 Transportation Answer Date Recorded Has the lack of transportati on kept you from medical appointments or from getting medications? Unable to assess 01/31/2025 Digital Access Answer Date Recorded No 01/31/2025 No 01/31/2025 Do you have reliable internet access at home? Un able to assess 01/31/2025 Do you have a device (e.g., phone, tablet, computer) with a working camera? Unable to assess 01/31/2025 Intimate Partner Violence Answer Date R ecorded Are you denied basic needs s uch as food, clothing, or medical care? Patient unable to respond 01/30/2025 In the past 12 months have y ou been in a relationship with a person who hurts, threatens, or tries to control you? Patient unable to respond 01/30/2025 Are you denied basic needs s uch as food, clothing, or medical care? Patient unable to respond 01/30/2025 In the past 12 months have y ou been in a relationship with a person who hurts, threatens, or tries to control you? Patient unable to respond 01/30/2025 Sex and Gender Information Value Date Recorded Sex Assigned at Male 11/19/2017 4:38 PM EST Legal Sex Male 9:37 PM EDT Gender Identity Male 11/19/2017 4:38 PM EST Sexual Orientation Straight 11/19/2017 4: 38 PM EST documented as of this encounter Functional Status * Calculated C-SSRS Risk Score (Lifetime/Recent) Answer Date of Assessment Author No Risk Indicated 01/30/2025 6:29 AM EDT Lisa Obando RN * [place] Suicide Severity Rating Scale (Screener/Recent Self-Report) Question Answer Date of Assessment Author 1. Cheo to be (Past 1 Month) No 025 6:29 AM EDT Lisa Hernandez, KEVIN 2. Non-Specific Active Suici florentino Thoughts (Past 1 Month) No 01/30/2025 6:29 AM EDT Kishore Hernandez ra RN 6. Suicidal Behavior (Lifetime) No 6:29 AM EDT Lisa Hernandez, KEVIN documented as of this encounter Plan of Treatment Upcoming Encounters Date Type Department Care Team (Late st Contact Info) Description 01/08/2026 8:30 AM EDT Office Visit [facility] Geriatrics [address] [place] [address] Philip Lara DO [address] [place] [address] [email or web address] documented as of this encounter Visit Diagnoses Not on filedocumented in this encounter Additional Health Concerns Infection Onset Date Last Indicated Resolved Time CDiff-Risk 01/30/2025 01/30/2025 01/30/2025 6:35 PM EDT CoV-Risk 01/30/2025 01/31/2025 02/11/2025 1:21 AM EDT Assessment Noted Time PHQ-9 Depression Total Score: 6 12/27/19 9:55 AM EDT PHQ-2 Depression Total Score: 0 12/27/19 9:55 AM EDT documented as of this encounter Care Teams Railway Traction Line Worker Relationship Specialty Start Date End Date Phyllis Bello PA [address] [place] [address] PCP - General Physician Manager Utilization Management 06/18/23 Phyllis Bello PA [address] [place] [address] [place] [address] Historical LMR Provider 07/09/17 Nate Ritter MD [address] [place] [address], [address] [place] [address] [email or web address] Neurology 06/24/19 Nate Ritter MD [address] [place] [address], [address] [place] [address] Neurology 01/10/22 Philip Lara DO [address] [place] [address] [email or web address] Geriatric Medicine 01/01/24 documented as of this encounter Additional Source Comments The information contained in this document represents components of the legal health record. It is not the complete legal health record.[facility]
--- OUTSIDE RECORDS SUMMARY | 2025-05-21 15:57 | XMS_ITS | Encounter Summary ---
Author Organization [facility] Address [address] [place] [address] [place] [address] Phone Care Team Providers Care Reliability Engineer Name Role Phone Zohra Saenz MD Unavailable Estelita Bobby NP Unavailable [phone] Phyllis Bello Unavailable [phone] Nate Dockery MD Unavailable [phone] Phyllis Bello Primary Care Provider + Nate Ritter MD Unavailable [phone] Rod Cunningham Unavailable [phone] Josy Hernandez MD Unavailable + Prakash Tolentino MD Unavailable + Josy Hernandez MD Unavailable + Prakash Tolentino MD Unavailable + Josy Hernandez MD Unavailable + Nate Ritter MD Unavailable [phone] Josy Hernandez MD Primary Care Provider [phone] Phyllis Bello Primary Care Provider [phone] Philip Lara DO Unavailable [phone] Encounter Details Date Type Department Care Team (Late st Contact Info) Description 12/01/2020 Procedure Pass [facility], Ct Scan - [address] [address] Social History Tobacco Use Types Packs/Day Years [...] Description 01/08/2026 8:30 AM EDT Office Visit [facility] [address] [place] [address] Philip Lara DO [address] [place] [address] [email or web address] documented as of this encounter Care Teams Reliability Engineer Relationship Specialty Start Date End Date Bello, Phyllis Renetta, PA [address] [place] [address] PCP - General Residence Hall Director 08/09/17 03/02/23 Josy Hernanedz MD [address] [place] [address] [email or web address] PCP - General Family Medicine 03/03/23 06/17/23 Phyllis Bello PA [address] [place] [address] PCP - General Physician Preparole Counseling Aide 06/18/23 Zohra Saenz MD [address] [place] [address] Historical LMR Provider 07/09/17 2 Estelita Bobby NP [address] [place] [address] 2_[place] [address] [email or web address] Historical LMR Provider 07/09/17 10/01/21 Phyllis Bello PA [address] [place] [address] [place] [address] Historical LMR Provider 07/09/17 Nate Dockery MD [address] [place] [address], [address] [place] [address] [email or web address] Historical LMR Provider 07/09/17 2 Nate Ritter MD [address] [place] [address] [address] [place] [address] [email or web address] Neurology 06/24/19 Rod Cunningham, [facility] [address] [place] [address] [email or web address] Social Work 08/23/20 06/13/22 Josy Hernandez MD [address] [place] [address] [email or web address] Insurance Assigned Provider 08/29/20 02/27/21 Prakash Tolentino MD [address] [place] [address] [email or web address] Insurance Assigned Provider 02/27/21 04/02/21 Josy Hrenandez MD [address] [place] [address] [email or web address] Insurance Assigned Provider 04/02/21 06/04/21 Prakash Tolentino MD [address] [place] [address] [email or web address] Insurance Assigned Provider 06/04/21 07/30/21 Josy Hernandez MD [address] [place] [address] [email or web address] Insurance Assigned Provider 07/30/21 06/03/22 Nate Ritter MD [address] [place] [address], [address] [place] [address] Neurology 01/10/22 Philip Lara DO [address] [place], [place] [id number] [email or web address] Geriatric Medicine 01/01/24 documented as of this encounter Additional Source Comments The information contained in this document represents components of the legal health record. It is not the complete legal health record.[facility]
--- OUTSIDE RECORDS SUMMARY | 2025-05-21 15:57 | XMS_ITS | Encounter Summary ---
Author Organization [facility] Address [address] [place] [address] Phone Care Team Providers Care Industrial Training Specialist Name Role Phone Phyllis Bello Unavailable [phone] Nate Ritter MD Unavailable [phone] Nate Ritter MD Unavailable [phone] Phyllis Bello Primary Care Provider [phone] Philip Lara DO Unavailable [phone] Encounter Details Date Type Department Care Team (Late st Contact Info) Description 10/30/2024 Procedure Pass [facility], Ct Scan - [address] [id number] Social History Tobacco Use Types Packs/Day Years [...] before we got money to buy more. Never True 04/22/2024 Within the past 6 months the food we bought just didn't last and we didn't have enough money to get more. Never True Residential Stability Answer Date Recor ded What is your housing situation today? I have bunny pascual 04/22/2024 How many times have you move d in the past 12 months? Zero (I did not move) 04/22/2024 Paying for Meds Answer Date Recorded Do you have trouble paying for medicines? No 04/22/2024 Paying Utility Bills Answer Date Record ed Do you have trouble paying your heating or elect ricity bill? No 04/22/2024 Transportation Answer Date Recorded Has the lack of transportati on kept you from medical appointments or from getting medications? No 04/22/2024 Digital Access Answer Date Recorded No 04/22/2024 Yes 04/22/2024 Do you have reliable internet access at home? Ye s 04/22/2024 Do you have a device (e.g., phone, tablet, computer) with a working camera? Yes 04/22/2024 Intimate Partner Violence Answer Date R ecorded Are you denied basic needs s uch as food, clothing, or medical care? Patient unable to respond 10/31/2024 In the past 12 months have y ou been in a relationship with a person who hurts, threatens, or tries to control you? Patient unable to respond 10/31/2024 Are you denied basic needs s uch as food, clothing, or medical care? Patient unable to respond 10/31/2024 In the past 12 months have y ou been in a relationship with a person who hurts, threatens, or tries to control you? Patient unable to respond 10/31/2024 Sex and Gender Information Value Date Recorded Sex Assigned at Male 11/19/2017 4:38 PM EST Legal Sex Male 9:37 PM EDT Gender Identity Male 11/19/2017 4:38 PM EST Sexual Orientation Straight 11/19/2017 4: 38 PM EST documented as of this encounter Plan of Treatment Upcoming Encounters Date Type Department Care Team (Late st Contact Info) Description 01/08/2026 8:30 AM EDT Office Visit [facility] [address] [place] [address] [place] [address] Philip Lara, [address] [place] [address] documented as of this encounter Visit Diagnoses Not on filedocumented in this encounter Additional Health Concerns Infection Onset Date Last Indicated Resolved Time CoV-Risk Comment:Per note documentation 10/30/2024 10/30/2024 12:40 AM EST CDiff-Risk 01/30/2025 01/30/2025 01/30/2025 6:35 PM EDT CoV-Risk 01/30/2025 01/31/2025 02/11/2025 1:21 AM EDT Assessment Noted Time PHQ-9 Depression Total Score: 7 07/14/20 4:02 PM EDT PHQ-2 Depression Total Score: 1 07/14/20 4:02 PM EDT documented as of this encounter Care Teams Industrial Training Specialist Relationship Specialty Start Date End Date Phyllis Bello PA [address] [place] [address] PCP - General Physician Ocular Care Aide 06/18/23 Phyllis Bello PA [address] [place] [address] [place] [address] Historical LMR Provider 07/09/17 Nate Ritter MD [address] [place] [address] Neurology 06/24/19 Nate Ritter MD [address] [place] [address] Neurology 01/10/22 Philip Lara DO [address] [place] [address] [email or web address] Geriatric Medicine 01/01/24 documented as of this encounter Additional Source Comments The information contained in this document represents components of the legal health record. It is not the complete legal health record.[facility]
--- OUTSIDE RECORDS SUMMARY | 2025-05-21 15:57 | XMS_ITS | Encounter Summary ---
Author Organization [facility] Address [address] [place] [address] Phone Care Team Providers Care Senior Systems Software Engineer Name Role Phone Phyllis Bello Unavailable [phone] Nate Ritter MD Unavailable [phone] Nate Ritter MD Unavailable [phone] Phyllis Bello Primary Care Provider [phone] Philip Lara DO Unavailable [phone] Encounter Details Date Type Department Care Team (Late st Contact Info) Description 03/24/2025 Procedure Pass [facility], Ct Scan - [address] [id number] Social History Tobacco Use Types Packs/Day Years [...] money to get more. Unable to assess 03/24/2025 Residential Stability Answer Date Recor ded What is your housing situation today? Unable to assess 03/24/2025 How many times have you moved in the past 12 mon ths? Unable to assess 03/24/2025 Paying for Meds Answer Date Recorded Do you have trouble paying for medicines? Unable to assess 03/24/2025 Paying Utility Bills Answer Date Record ed Do you have trouble paying y our heating or electricity bill? Unable to assess 03/24/2025 Transportation Answer Date Recorded Has the lack of transportati on kept you from medical appointments or from getting medications? Unable to assess 03/24/2025 Digital Access Answer Date Recorded No 03/24/2025 No 03/24/2025 Do you have reliable internet access at home? Un able to assess 03/24/2025 Do you have a device (e.g., phone, tablet, computer) with a working camera? Unable to assess 03/24/2025 Intimate Partner Violence Answer Date R ecorded Are you denied basic needs s uch as food, clothing, or medical care? Patient unable to respond 03/24/2025 In the past 12 months have y ou been in a relationship with a person who hurts, threatens, or tries to control you? Patient unable to respond 03/24/2025 Are you denied basic needs s uch as food, clothing, or medical care? Patient unable to respond 03/24/2025 In the past 12 months have y ou been in a relationship with a person who hurts, threatens, or tries to control you? Patient unable to respond 03/24/2025 Sex and Gender Information Value Date Recorded Sex Assigned at Male 11/19/2017 4:38 PM EST Legal Sex Male 9:37 PM EDT Gender Identity Male 11/19/2017 4:38 PM EST Sexual Orientation Straight 11/19/2017 4: 38 PM EST documented as of this encounter Functional Status * Calculated C-SSRS Risk Score (Lifetime/Recent) Answer Date of Assessment Author No Risk Indicated 03/24/2025 9:00 PM EDT Chelsie Fishman RN * Foard Suicide Severity Rating Scale (Screener/Recent Self-Report) Question Answer Date of Assessment Author 1. Wish to be (Past 1 Month) No 03/24/2025 9:00 PM EDT Vadim Galindo RN 2. Non-Specific Active Suicidal Thoughts (Past 1 Month) No 03/24/2025 9:00 PM EDT Vadim Galindo RN 6. Suicidal Behavior (Lifetime) No 03/24/2025 9:00 PM EDT Vadim Galindo RN documented as of this encounter Plan of Treatment Upcoming Encounters Date Type Department Care Team (Late st Contact Info) Description 01/08/2026 8:30 AM EDT Office Visit [facility] [address] [place] [address] Philip Lara DO [address] [place] [address] [email or web address] documented as of this encounter Visit Diagnoses Not on filedocumented in this encounter Additional Health Concerns Assessment Noted Time PHQ-9 Depression Total Score: 6 12/27/19 9:55 AM EDT PHQ-2 Depression Total Score: 0 12/27/19 9:55 AM EDT documented as of this encounter Care Teams Senior Systems Software Engineer Relationship Specialty Start Date End Date Phyllis Bello PA [address] [place] [address] PCP - General Physician Batch And Furnace Operator 06/18/23 Phyllis Bello PA [address] [place] [address] [place] [address] Historical LMR Provider 07/09/17 Nate Ritter MD [address] [place] [address], [address] [place] [address] Neurology 06/24/19 Nate Ritter MD [address] [place] [address], [address] [place] [address] [email or web address] Neurology 01/10/22 Philip Lara DO [address] [place] [address] [email or web address] Geriatric Medicine 01/01/24 documented as of this encounter Additional Source Comments The information contained in this document represents components of the legal health record. It is not the complete legal health record.[facility]
--- OUTSIDE RECORDS SUMMARY | 2025-05-21 15:57 | XMS_ITS | Encounter Summary ---
Author Organization [facility] Address [address] [place] [address] [place] [address] Phone Care Team Providers Care Stock Trader Name Role Phone Zohra Saenz MD Unavailable Estelita Bobyb NP Unavailable [phone] Phyllis Bello Unavailable [phone] Nate Dockery MD Unavailable [phone] Phyllis Bello Primary Care Provider + Josy Hernandez MD Unavailable + Nate Ritter MD Unavailable [phone] Prakash Tolentino MD Unavailable + Rod Cunningham Unavailable [phone] Josy Hernandez MD Unavailable + Prakash Tolentino MD Unavailable + Josy Hernandez MD Unavailable + Prakash Tolentino MD Unavailable + Josy Hernandez MD Unavailable + Nate Ritter MD Unavailable [phone] Josy Hernandez MD Primary Care Provider [phone] Phyllis Belol Primary Care Provider [phone] Philip Lara DO Unavailable [phone] Encounter Details Date Type Department Care Team (Latest Contact Info) Description 07/08/2019 Transcribe Orders Virtual Department [address] [place] [address] Nate Ritter MD [address] [place] [address], [address] [place] [address] 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 Alcohol Use Standard Drinks/Week Comments No 0 (1 standard drink = 0.6 oz pure alcohol) sober since 06/2017; previous alcohol use upward of 12 nips /day Sex and Gender Information Value Date Recorded [...] [facility] [address] [place] [address] Philip Lara, [address] [place] [address] [email or web address] documented as of this encounter Visit Diagnoses Diagnosis Episode of change in speech- Primary documented in this encounter Additional Health Concerns Infection Onset Date Last Indicated Resolved Time 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 11/02/2017 01/09/2022 9:16 AM EDT CoV-Risk 01/21/2020 01/21/2020 02/04/2020 1:23 AM EDT CoV-Risk Comment:Per note documentation 06/29/2021 06/29/2021 11:05 AM EDT CoV-Risk Comment:Neg covid 04/22/2024 04/22/2024 04/23/2024 7:03 AM E DT CoV-Risk Comment:Per note documentation 10/30/2024 10/30/2024 12:40 AM EST CDiff-Risk 01/30/2025 01/30/2025 01/30/2025 6:35 PM EDT CoV-Risk 01/30/2025 01/31/2025 02/11/2025 1:21 AM EDT documented as of this encounter Care Teams Stock Trader Relationship Specialty Start Date End Date Phyllis Bello PA [address] [place] [address] PCP - General Rehabilitation Counselor 08/09/17 03/02/23 Josy Hernandez MD [address] [place] [address] [email or web address] PCP - General Family Medicine 03/03/23 06/17/23 Phlylis Bello PA [address] [place] [address] PCP - General Physician Gang Knife Fish Chopper 06/18/23 Zohra Saenz MD [address] [place] [address] Historical LMR Provider 07/09/17 2 Estelita Bobby NP [address] [place] [address] 2_[place] [address] [email or web address] Historical LMR Provider 07/09/17 10/01/21 Phyllis Bello PA [address] [place] [address] [place] [address] Historical LMR Provider 07/09/17 Nate Dockery MD [address] [place] [address], [address] [place] [address] [email or web address] Historical LMR Provider 07/09/17 2 Josy Hernandez MD [address] [place] [address] Insurance Assigned Provider 12/22/17 08/30/19 Nate Ritter MD [address] [place] [address], [address] [place] [address] Neurology 06/24/19 Prakash Tolentino MD [address] [place] [address] Insurance Assigned Provider 08/30/19 08/29/20 Rod Cunningham, [address] [address] iCMP Social Work 08/23/20 06/13/22 Josy Hernandez MD [address] [place] [address] Insurance Assigned Provider 08/29/20 02/27/21 Prakash Tolentino MD [address] [place] [address] Insurance Assigned Provider 02/27/21 04/02/21 Josy Hernandez MD [address] [place] [address] [email or web address] Insurance Assigned Provider 04/02/21 06/04/21 Prakash Tolentino MD [address] [place] [address] [email or web address] Insurance Assigned Provider 06/04/21 07/30/21 Josy Hernandez MD [address] [place] [address] [email or web address] Insurance Assigned Provider 07/30/21 06/03/22 Nate Ritter MD [address] [place] [address], [address] [place] [address] Neurology 01/10/22 Philip Lara DO [address] [place] [address] [email or web address] Geriatric Medicine 01/01/24 documented as of this encounter Additional Source Comments The information contained in this document represents components of the legal health record. It is not the complete legal health record.[facility]
--- OUTSIDE RECORDS SUMMARY | 2025-05-21 15:57 | XMS_ITS | Encounter Summary ---
Author Organization [facility] Address [address] [place] [address] Phone Care Team Providers Care Network Relations Consultant Name Role Phone Phyllis Bello Unavailable [phone] Nate Ritter MD Unavailable [phone] Nate Ritter MD Unavailable [phone] Phyllis Bello Primary Care Provider [phone] Philip Lara DO Unavailable [phone] Reason for Visit * Reason Onset Date Comments ED, [facility], [facility] 05/21/2025 Encounter Details Date Type Department Care Team ([facility] st Contact Info) Description 05/21/2025 Telephone [facility] [address] [place], [place] [phone] Naveed Carter RN [address] [place] [address] ED, Unsafe, [facility] Social History Tobacco Use Types Packs/Day Years [...] got money to buy more. Never True 04/22/2025 Within the past 6 months the food we bought just didn't last and we didn't have enough money to get more. Never True Residential Stability Answer Date Recor ded What is your housing situation today? I have bunny sing 04/22/2025 How many times have you move d in the past 12 months? Zero (I did not move) 04/22/2025 Paying for Meds Answer Date Recorded Do you have trouble paying for medicines? No 04/22/2025 Paying Utility Bills Answer Date Record ed Do you have trouble paying your heating or elect ricity bill? No 04/22/2025 Transportation Answer Date Recorded Has the lack of transportati on kept you from medical appointments or from getting medications? No 04/22/2025 Digital Access Answer Date Recorded No 04/22/2025 Yes 04/22/2025 Do you have reliable internet access at home? Ye s 04/22/2025 Do you have a device (e.g., phone, tablet, computer) with a working camera? Yes 04/22/2025 Intimate Partner Violence Answer Date R ecorded Are you denied basic needs s uch as food, clothing, or medical care? Patient unable to respond 04/22/2025 In the past 12 months have y ou been in a relationship with a person who hurts, threatens, or tries to control you? Patient unable to respond 04/22/2025 Are you denied basic needs s uch as food, clothing, or medical care? Patient unable to respond 04/22/2025 In the past 12 months have y ou been in a relationship with a person who hurts, threatens, or tries to control you? Patient unable to respond 04/22/2025 Sex and Gender Information Value Date Recorded Sex Assigned at Male 11/19/2017 4:38 PM EST Legal Sex Male 9:37 PM EDT Gender Identity Male 11/19/2017 4:38 PM EST Sexual Orientation Straight 11/19/2017 4: 38 PM EST documented as of this encounter Progress Notes * Naveed Carter RN - 05/21/2025 1:10 PM EDT Spoke to Radha Morgan, [facility], who also spoke with Beverly this morning and endorses safety risk. * Naveed Carter RN - 05/21/2025 12:43 PM EDT Call from Beverly. Affect tearful. Currently Kennedy is at ED at [facility]. Behavior has been progressively erratic and out of control, carrying knives,not taking his meds andhaving seizures. [facility]. It is not safe for him, and it is not safe for me I am not safe He is not safe Expresses concern that [facility] is not familiar with pt, his PCP is at [facility] and Geriatric and most receent care within [facility] Advised I will send notes to [facility] and ask [facility] to do the same on her behalf. Advised I am sorry to hear this is happening, advised to cont to advocate for pt and self, adv to inform care team she does not feel it is safe to bring him home and that she needs for him to be admitted for eval and stabilization. Agreeable to plan. Spoke to [facility] Nursing--they will fax recent notes and problem and med list. Recent OV note, Dot Consult during recent admission, and recent TE and PVI call faxed to [facility] ED at [phone]. Radha Morgan at [facility] updated. documented in this encounter Plan of Treatment Upcoming Encounters Date Type Department Care Team (Late st Contact Info) Description 01/08/2026 8:30 AM EDT Office Visit [facility] [address] Philip Lara DO [address] [place] [address] documented as of this encounter Visit Diagnoses Not on filedocumented in this encounter Additional Health Concerns Assessment Noted Time PHQ-9 Depression Total Score: 6 12/27/19 9:55 AM EDT PHQ-2 Depression Total Score: 0 12/27/19 9:55 AM EDT documented as of this encounter Care Teams Network Relations Consultant Relationship Specialty Start Date End Date Phyllis Bello PA [address] [place] [address] PCP - General Physician Artificial Breast Fabricator 06/18/23 Phyllis Bello PA [address] [place] [address] [place] [address] Historical LMR Provider 07/09/17 Nate Ritter MD [address] [place] [address], [address] [place] [address] Neurology 06/24/19 Nate Ritter MD [address] [place] [address], [address] [place] [address] Neurology 01/10/22 Philip Lara DO [address] [place] [address] Geriatric Medicine 01/01/24 documented as of this encounter Additional Source Comments The information contained in this document represents components of the legal health record. It is not the complete legal health record.[facility]
--- OUTSIDE RECORDS SUMMARY | 2025-05-21 15:57 | XMS_ITS | Encounter Summary ---
Author Organization [facility] Address [address] [place] [address] [place] [address] Phone Care Team Providers Care Full Stack Java Developer Name Role Phone Zohra Saenz MD Unavailable Estelita Bobby NP Unavailable [phone] Phyllis Bello Unavailable [phone] Nate Dockery MD Unavailable [phone] Phyllis Bello Primary Care Provider + Josy Hernandez MD Unavailable + Nate Ritter MD Unavailable [phone] Prakash Tolentino MD Unavailable + Rod Cunningham Unavailable [phone] Josy Hernandez MD Unavailable + Prakash Tolentino MD Unavailable + Josy Hernandez MD Unavailable + Praksah Tolentino MD Unavailable + oJsy Hernandez MD Unavailable + Nate Ritter MD Unavailable [phone] Josy Hernandez MD Primary Care Provider [phone] Phyllis Bello Primary Care Provider + [phone] Philip Lara DO Unavailable [phone] Encounter Details Date Type Department Care Team (Latest Contact Info) Description 07/08/2019 Transcribe Orders Virtual Department [address] [place] [address] Nate Ritter MD [address] [place] [address], [address] [place] [address] [email or web address] Episode of change in speech (Primary [...] Description 01/08/2026 8:30 AM EDT Office Visit [facility] [address] [place] [address] Philip Lara, [address] [place] [address] [email or web address] documented as of this encounter Results * US Carotid Duplex (Bilateral) (07/14/2019 3:36 PM EDT) Anatomical Region Laterality Modality Heart, Thoracic Vasculature, Neck Ultrasound 07/14/2019 6:28 PM EDT Impressions 07/14/2019 6:30 PM EDT Small amount of plaque within the right carotid bulb and minimal amount within the left carotid bulb. No evidence of hemodynamically significant stenosis. POS - [id number] Narrative 07/14/2019 6:30 PM EDT HISTORY: Questionable CVA. COMPARISON: None. CAROTID ULTRASOUND FINDINGS: RIGHT: Carotid artery morphology: Small amount of calcified plaque in the bulb. Narrowing of the diameter of the lumen of the proximal internal carotid artery appears less than 50% compared with the distal internal carotid artery. Peak systolic and diastolic velocity internal carotid artery: Systolic: 84 cm/sec, Diastolic: 28 cm/sec. Both values are within normal limits. Vertebral artery: Normal antegrade flow. LEFT: Carotid artery morphology: Very small amount of plaque in the bulb. Narrowing of the diameter of the lumen of the proximal internal carotid artery appears less than 50% compared with the distal internal carotid artery. Peak systolic and diastolic velocity internal carotid artery: Systolic: 94 cm/sec, Diastolic: 25 cm/sec. Both values are within normal limits. Vertebral artery: Normal antegrade flow. Any stenosis measurement is relative to the distal ICA diameters. Procedure Note Luis Manuel Corbett MD - 07/14/2019 HISTORY: Questionable CVA. COMPARISON: None. CAROTID ULTRASOUND FINDINGS: RIGHT: Carotid artery morphology: Small amount of calcified plaque in the bulb.Narrowing of the diameter of the lumen of the proximal internal carotidartery appears less than 50% compared with the distal internal carotidartery. Peak systolic and diastolic velocity internal carotid artery: Systolic:84 cm/sec, Diastolic: 28 cm/sec. Both values are within normal limits. Vertebral artery: Normal antegrade flow. LEFT: Carotid artery morphology: Very small amount of plaque in the bulb.Narrowing of the diameter of the lumen of the proximal internal carotidartery appears less than 50% compared with the distal internal carotidartery. Peak systolic and diastolic velocity internal carotid artery: Systolic:94 cm/sec, Diastolic: 25 cm/sec. Both values are within normal limits. Vertebral artery: Normal antegrade flow. Any stenosis measurement is relative to the distal ICA diameters. IMPRESSION: Small amount of plaque within the right carotid bulb and minimal amountwithin the left carotid bulb. No evidence of hemodynamically significantstenosis. POS - [id number] us Nate Ritter MD CV US NEUROVASCULAR Final Re sult documented in this encounter Visit Diagnoses Diagnosis Episode of change in speech- Primary Episode of change in speech documented in this encounter Additional Health Concerns [...] documented as of this encounter Care Teams Full Stack Java Developer Relationship Specialty Start Date End Date Phyllis Bello PA [address] [place] [address] PCP - General Foiling Machine Adjuster 08/09/17 03/02/23 Josy Hernandez MD [address] [place] [address] [email or web address] PCP - General Family Medicine 03/03/23 06/17/23 Phyllis Bello PA [address] [place] [address] PCP - General Physician Loader Operator/Ground Leader 06/18/23 Zohra Saenz MD [address] [place] [address] Historical LMR Provider 07/09/17 2 Estelita Bobby NP [address] [place] [address] 2_[place] [address] [email or web address] Historical LMR Provider 07/09/17 10/01/21 Phyllis Bello PA [address] [place] [address] [place] [address] Historical LMR Provider 07/09/17 Nate Dockery MD [address] [place] [address], [address] [place] [address] [email or web address] Historical LMR Provider 07/09/17 2 Josy Hernandez MD [address] [place] [address] Insurance Assigned Provider 12/22/17 08/30/19 Nate Ritter MD [address] [place] [address], [address] [place] [address] Neurology 06/24/19 Prakash Tolentino MD [address] [place] [address] Insurance Assigned Provider 08/30/19 08/29/20 Rod Cunningham [address] [address] [email or web address] Social Work 08/23/20 06/13/22 Josy Hernandez MD [address] [place] [address] [email or web address] Insurance Assigned Provider 08/29/20 02/27/21 Prakash Tolentino MD [address] [place] [address] [email or web address] Insurance Assigned Provider 02/27/21 04/02/21 Josy Hernandez MD [address] [place] [address] [email or web address] Insurance Assigned Provider 04/02/21 06/04/21 Prakash Tolentino MD [address] [place] [address] [email or web address] Insurance Assigned Provider 06/04/21 07/30/21 Josy Hernandez MD [address] [place] [address] [email or web address] Insurance Assigned Provider 07/30/21 06/03/22 Nate Ritter MD [address] [place] [address], [address] [place] [address] Neurology 01/10/22 Philip Lara DO [address] [place] [address] [email or web address] Geriatric Medicine 01/01/24 documented as of this encounter Additional Source Comments The information contained in this document represents components of the legal health record. It is not the complete legal health record.[facility]
--- OUTSIDE RECORDS SUMMARY | 2025-05-21 15:57 | XMS_ITS | Clinical Summary ---
Author Organization [facility] Address [address] [place] [address] Care Team Providers Care Track Walker Name Role Phone Phyllis Bello Primary Care Provider [phone] Allergies Active Allergy Reactions Criticality Noted Date Comments Levetiracetam Rash High 01/13/2022 depression/anxiety Morphine Hallucinations 10/09/2017 Topiramate Rash Low 10/25/2020 Suspected rash may have been due to topamax Medications sertraline (ZOLOFT) 100 mg tablet Take 125 mg by mouth once a day. 05/11/20 22 Active clotrimazole-betam ethasone (LOTRISONE) cream SMARTSIG:Topic al Twice Daily 07/20/20 23 Active ibuprofen (MOTRIN) 200 mg tablet Take 200 mg by mouth every 6 hours as needed. 01/14/20 22 Active ketoconazole (NIZORAL) 2% cream SMARTSIG:Topic al Daily 07/20/20 23 Active cyanocobalamin (vitamin B-12) 1,000 mcg tablet Take 1,000 mcg by mouth once a day. Active traZODone (DESYREL) 50 mg tablet SMARTSI.5-1 Tablet(s) By Mouth 1-2 Times Daily Active diazePAM 15 mg/2 spray (7.5/0.1mL x 2) spray,non-aerosolI ndications:Focal epilepsy with impairment of consciousness, intractable (HCC) Administer 15 mg into affected nostril(s) daily as needed (As needed for seizures lasting more than 5 minutes or for more than -3 seizures in an hour). 2 each 1 10/03/19 25 Active risperiDONE (RisperDAL) 1 mg/mL oral solution Take 1 mg by mouth. 04/30/20 25 Active ondansetron (ZOFRAN ODT) 4 mg disintegrating tablet 03/30/20 Active zonisamide (ZONEGRAN) 100 mg capsuleIndications :Focal epilepsy with impairment of consciousness, intractable (HCC) Take 4 capsules (400 mg total) by mouth once a day. 120 capsule 05/06/20 025 Active phenytoin (DILANTIN) 50 mg chewable tablet Chew and swallow 3 tablets (150 mg total) by mouth 2 times a day. 180 tablet 05/06/20 025 Active lamoTRIgine (LaMICtal) 150 mg tabletIndications: Focal epilepsy with impairment of consciousness, intractable (HCC) Take 1 tablet (150 mg total) by mouth 2 times a day. 180 tablet 05/06/20 025 Active lacosamide (VIMPAT) 200 mg tablet tabletIndications: Focal epilepsy with impairment of consciousness, intractable (HCC) Take 1 tablet (200 mg total) by mouth every 12 hours. 60 tablet 05/06/20 025 Active thiamine HCl (VITAMIN B1) 100 mg tablet Take 100 mg by mouth once a day. 025 Discontin ued(Disco ntinued by Patient) Active Problems Problem Noted Date Diagnosed Date Memory impairment 06/04/2024 Focal epilepsy with impairme nt of consciousness, intractable 08/24/2022 Overview (12/19/2023): ONSET: Apr 2017, GTC witnessed by SEMIOLOGY: No warning, describes rummaging mode , can answer questions but not always coherently, postictal confusion, patient amnestic LAST SEIZURES: Focal impaired aware seizures 1 month ago, q2mo GTCs x2 March 2022 (possibly missed doses), prolonged postictal period so may have a cluster of GTC due to missed doses of medication Sober since 2018 01/11/2022 -- EEG bilateral independent discharges in the temporal region R>L Slowing of background, theta 10/23/2017 MRI Brain -- No evidence of acute infarction, intracranial hemorrhage, mass, or mass effect. No findings of mesial temporal sclerosis. Moderate atrophy. New fluid signal within mastoid air cells suggestive of mastoiditis. Assessment & Plan (10/03/2024 7:12 PM EST): - Continue current regimen given improved seizure control and no significant side effects: phenytoin 150 mg BID zonisamide 300 mg nightly lamotrigine 300 mg BID lacosamide 200 mg BID - reviewed surveillance bloodwork Seizure precautions were reviewed as well as side effects of the medication(s). The patient knows to contact me should side effects occur. I spent a total of 30 minutes on the date of encounter, which included: Obtaining and/or reviewing separately obtained history Performing a medically appropriate exam and/or evaluation Counseling and educating the patient/family/caregiver Ordering medications, tests, procedures Documenting clinical information in the health record Assessment & Plan (06/17/2024 3:05 PM EDT): Per our discussion today, we will gradually start Briviact and gradually taper off Phenytoin. Rxs: Briviact 25mg tabs Phenytoin 50mg tabs Week 1 Briviact 1 tab (25mg) twice daily Phenytoin 100mg three times daily Week 2 Briviact 2 tabs (50mg) twice daily Phenytoin 50mg in am, 50mg midday, 100mg in pm Week 3 Briviact 3 tabs (75mg) twice daily Phenytoin 50mg twice daily Follow-up in clinic with Gustavo CABRALES (will provide new script for 75mg tabs) Week 4 & 5 Briviact 3 tabs (75mg) twice daily Discontinue Phenytoin Week 6 Briviact 3 tabs (75mg) twice daily Undergo repeat blood work - otherwise continue current regimen Lacosamide 200mg BID Lamotrigine 300mg BID Zonisamide 300mg daily Seizure precautions were reviewed as well as side effects of the medication(s). The patient knows to contact me should side effects occur. I spent a total of 30 minutes on the date of encounter, which included: Obtaining and/or reviewing separately obtained history Performing a medically appropriate exam and/or evaluation Counseling and educating the patient/family/caregiver Ordering medications, tests, procedures Documenting clinical information in the health record Assessment & Plan (06/04/2024 10:34 AM EDT): - will consider adjusting anti-seizure regimen which has three NA channel blockers and diversify the mechanism of action. Additionally, Dilantin has may drug drug interactions and doesn't seem to be having an impact on his seizure control. - will inquire on insurance coverage of Briviact and XCopri, other options include clobazam, oxcarbazepine - discussed most efficient way to do this med change would be to bring patient into hospital. doesn't feel comfortable at this time and doesn't have time off. Will clarify at next appointment that she doesn't need to accompany him - continue current regimen for now Lacosamide 200mg BID Lamotrigine 300mg BID Zonisamide 300mg daily Phenytoin 150mg BID Sertraline 125mg daily Trazodone 25mg nightly Seizure precautions were reviewed as well as side effects of the medication(s). The patient knows to contact me should side effects occur. I spent a total of 30 minutes on the date of encounter, which included: Obtaining and/or reviewing separately obtained history Performing a medically appropriate exam and/or evaluation Counseling and educating the patient/family/caregiver Ordering medications, tests, procedures Documenting clinical information in the health record Assessment & Plan (12/19/2023 6:48 PM EDT): - check ASM levels, I suspect dizziness is due to combination of Lamotrigine and Lacosamide at higher doses and with the addition of Zonisamide, we may be able to decrease the Lamotrigine dosage to address side effects of imbalance and dizziness. Another future consideration would be to convert to Lamotrigine ER or to exchange the Lamotrigine and Lacosamide with XCopri or just uptitrate the Zonisamide slightly to assess for improved seizure control - obtain routine and ambulatory 72 hour EEG to assess for seizure control now first - continue Lamotrigine 300mg BID - continue Lacosamide 200mg BID - continue Zonisamide 200mg daily - counseled on abstaining from daily marijuana use and provided information on how THC may be proconvulsant - will order neuropsychological testing - will refer to dementia clinic for further evaluation Seizure precautions were reviewed as well as side effects of the medication(s). The patient knows to contact me should side effects occur. I spent a total of 30 minutes on the date of encounter, which included: Obtaining and/or reviewing separately obtained history Performing a medically appropriate exam and/or evaluation Counseling and educating the patient/family/caregiver Ordering medications, tests, procedures Documenting clinical information in the health record Assessment & Plan (11/08/2022 8:35 AM EST): ASSESSMENT: ONSET: Apr 2017, GTC witnessed by SEMIOLOGY: No warning, describes rummaging mode , can answer questions but not always coherently, postictal confusion, patient amnestic LAST SEIZURES: Focal impaired aware seizures 1 month ago, q2mo GTCs x2 March 2022 (possibly missed doses), prolonged postictal period so may have a cluster of GTC due to missed doses of medication Sober since 201701/11/2022 -- EEG bilateral independent discharges in the temporal region R>L Slowing of background, theta 10/23/2017 MRI Brain -- No evidence of acute infarction, intracranial hemorrhage, mass, or mass effect. No findings of mesial temporal sclerosis. Moderate atrophy. New fluid signal within mastoid air cells suggestive of mastoiditis. PLAN: - continue Lacosamide 200mg BID - continue Lamotrigine 300mg BID - continue Zonisamide 200mg daily - continue Sertraline 200mg daily - recommend an EKG at next clinic visit - reviewed recent ASM levels from Aug 2022 Zonisamide, Latmorigine, Lacosamide and hepatic function - consider amb EEG to assess for interictal activity subclinical seizures, patient deferred for now Seizure precautions were reviewed as well as side effects of the medication(s). The patient knows to contact me should side effects occur. I spent a total of 30 minutes on the date of encounter, which included: Obtaining and/or reviewing separately obtained history Performing a medically appropriate exam and/or evaluation Counseling and educating the patient/family/caregiver Ordering medications, tests, procedures Documenting clinical information in the health record Assessment & Plan (08/24/2022 12:50 PM EST): - continue Lacosamide 200mg BID - continue Lamotrigine 300mg BID - continue Zonisamide 200mg daily - continue Sertraline 200mg daily - recommend an EKG at next clinic visit - check levels including Zonisamide, Latmorigine, Lacosamide and hepatic function and consider slight adjustment down on one of the sodium channel blockers now that compliance has improved and patient is getting medication directly from his . Seizure precautions were reviewed as well as side effects of the medication(s). The patient knows to contact me should side effects occur. I spent a total of 60 minutes on the date of encounter, which included: Obtaining and/or reviewing separately obtained history Performing a medically appropriate exam and/or evaluation Counseling and educating the patient/family/caregiver Ordering medications, tests, procedures Documenting clinical information in the health record Encounters Date Type Department Care Team Description 05/06/2025 4:00 PM EDT Office Visit [facility] [address] [place] [address] Yoandy Galaviz PA Focal epilepsy with impairment of consciousness, intractable (HCC) (Primary Dx) from Last 3 Months Social History Tobacco Use Types Packs/Day Years Used Date Smoking Tobacco: Every Day Cigarettes Smokeless Tobacco: Current Tobacco Cessation:Ready to Q uit: Not Asked; Counseling Given: Not Answered Alcohol Use Standard Drinks/Week Comments Not Currently 0 (1 standard drink = 0.6 oz pur e alcohol) Sex and Gender Information Value Date Recorded Sex Assigned at Male 11/08/2022 7:07 AM EST Legal Sex Male 10:14 AM EDT Gender Identity Male 11/08/2022 7:07 AM EST Sexual Orientation Straight 11/08/2022 7: 07 AM EST Last Filed Vital Signs Vital Sign Reading Time Taken Comments Blood Pressure 118/75 05/06/2025 3:57 PM EDT Pulse 77 05/06/2025 3:57 PM EDT Temperature - - Respiratory Rate 17 07/25/2022 12:48 PM EDT Oxygen Saturation 99% 05/06/2025 3:57 PM EDT Inhaled Oxygen Concentration - - Weight 62.9 kg (138 lb 9.6 oz) 05/06/2025 3:57 P M EDT Height 165.1 cm (5' 5 ) 07/25/2022 12:48 PM EDT Body Mass Index 23.06 07/25/2022 12:48 PM EDT Plan of Treatment Upcoming Encounters Date Type Department Care Team (Late st Contact Info) Description 12/22/2025 10:00 AM EDT Office Visit [facility] [address] [place] [address] Laurel Cabral MD [address] [place] [address] Health Maintenance Due Date Last Done Comments Cologuard 1968 Colon Cancer Screening 1968 Colonoscopy 1968 FOBT / Fit Test 1968 HIV Screening 1968 Hepatitis C Screening 1968 Sigmoidoscopy 1968 Pneumococcal Vaccine: 50+ Ye ars (2 of 2 - PCV) 06/30/2016 06/30/2015 CT Lung Cancer Screening (Baseline) 2018 Hepatitis B Vaccines (2 of 3 - 19+ 3-dose series) 10/13/2019 09/15/2019 Zoster Vaccines (2 of 2) 01/18/2021 11/23/2020 DTaP,Tdap,and Td Vaccines (2 - Td or Tdap) 10/20/2023 10/20/2013 COVID-19 Vaccine (3 - 2023-2 5 season) 2024 09/23/2021, 12/08/2020 Alcohol/Substance Use Screening 09/24/2024 Depression Screening and Follow-Up 09/24/2024 Social Drivers of Health Genna ual Screening 09/24/2024 Influenza Vaccine (#1) 2025 , 09/15/2019, 10/24/2017, Additional history exists RSV Vaccine (60+ years old a nd patients) (1 - 1-dose 75+ series) 2043 Insurance [id number] MEDICAID Care Teams Track Walker Relationship Specialty Start Date End Date Phyllis Bello [address] [place] [address] PCP - General 04/10/22
--- OUTSIDE RECORDS SUMMARY | 2025-05-21 15:57 | XMS_ITS | Encounter Summary ---
Author Organization [facility] Address [address] [place] [address] Phone Care Team Providers Care Senior Developer Name Role Phone Phyllis Bello Unavailable [phone] Nate Ritter MD Unavailable [phone] Nate Ritter MD Unavailable [phone] Phyllis Bello Primary Care Provider [phone] Philip Lara DO Unavailable [phone] Encounter Details Date Type Department Care Team (Late st Contact Info) Description 04/22/2024 Procedure Pass [facility], Ct Scan - [address] [id number] Social History Tobacco Use Types Packs/Day Years [...] or medical care? Patient unable to respond 04/22/2024 In the past 12 months have y ou been in a relationship with a person who hurts, threatens, or tries to control you? Patient unable to respond 04/22/2024 Are you denied basic needs s uch as food, clothing, or medical care? Patient unable to respond 04/22/2024 In the past 12 months have y ou been in a relationship with a person who hurts, threatens, or tries to control you? Patient unable to respond 04/22/2024 Sex and Gender Information Value Date Recorded Sex Assigned at Male 11/19/2017 4:38 PM EST Legal Sex Male 9:37 PM EDT Gender Identity Male 11/19/2017 4:38 PM EST Sexual Orientation Straight 11/19/2017 4: 38 PM EST documented as of this encounter Functional Status * Calculated C-SSRS Risk Score (Lifetime/Recent) Answer Date of Assessment Author Moderate Risk 04/22/2024 4:00 PM EDT Cherise Edge RN * [place] Suicide Severity Rating Scale (Screener/Recent Self-Report) Question Answer Date of Assessment Author 1. Wish to be (Past 1 Month) No 04/22/2024 4:00 PM EDT Cherise Edge, KEVIN 2. Non-Specific Active Suicidal Thoughts (Past 1 Month) No 04/22/2024 4:00 PM EDT Cherise Edge RN 6. Suicidal Behavior (Lifetime) Yes 04/22/2024 4:00 PM EDT Cherise Edge RN 6. Suicidal Behavior (3 Months) No 04/22/2024 4:00 PM EDT Cherise Edge RN documented as of this encounter Plan of Treatment Upcoming Encounters Date Type Department Care Team (Late st Contact Info) Description 01/08/2026 8:30 AM EDT Office Visit [facility] [address] [place] [address] Philip Lara DO [address] [place] [address] [email or web address] documented as of this encounter Visit Diagnoses [...] as of this encounter Care Teams Senior Developer Relationship Specialty Start Date End Date Phyllis Bello PA [address] [place] [address] PCP - General Physician Ems Coordinator 06/18/23 Phyllis Bello PA [address] [place] [address] Historical LMR Provider 07/09/17 Nate Ritter MD [address] [place] [address], [address] [address] Neurology 06/24/19 Nate Ritter MD [address] [place] [address], [address] [address] Neurology 01/10/22 Philip Lara DO [address] [place] [address] [email or web address] Geriatric Medicine 01/01/24 documented as of this encounter Additional Source Comments The information contained in this document represents components of the legal health record. It is not the complete legal health record.[facility]
--- OUTSIDE RECORDS SUMMARY | 2025-05-21 15:57 | XMS_ITS | Encounter Summary ---
Author Organization [facility] Address [address] [place] [address] [place] [address] Phone Care Team Providers Care Hydraulic Auto Jack Mechanic Name Role Phone Zohra Saenz MD Unavailable Esetlita Bobby NP Unavailable [phone] Phyllis Bello Unavailable +[phone] Nate Dockery MD Unavailable Phyllis Bello Primary Care Provider + [phone] Nate Ritter MD Unavailable +[phone] Rod CunninghamSW Unavailable +[phone] Prakash Tolentino MD Unavailable +[phone] Josy Hernandez MD Unavailable +[phone] Nate Ritter MD Unavailable +[phone] Josy Hernandez MD Primary Care Provider [phone] Phyllis Bello Primary Care Provider + [phone] Philip Lara DO Unavailable +[phone] Encounter Details Date Type Department Care Team (Late st Contact Info) Description 07/01/2021 Procedure Pass [facility], [address] [id number] Social History Tobacco Use Types Packs/Day Years [...] Description 01/08/2026 8:30 AM EDT Office Visit [facility] 22 [place] [address] Philip Lara DO 22 [place] [address] [email or web address] documented as of this encounter Visit Diagnoses [...] Noted Time PHQ-2 Depression Total Score: 2 12/24/19 21 11:03 AM EDT documented as of this encounter Care Teams Hydraulic Auto Jack Mechanic Relationship Specialty Start Date End Date Phyllis Bello PA [address] [place] [address] PCP - General Wharf Helper 08/09/17 03/02/23 Josy Hernandez MD [address] [place] [address] [email or web address] PCP - General Family Medicine 03/03/23 06/17/23 Phyllis Bello PA [address] [place] [address] PCP - General Physician Install And Repair Technician 06/18/23 Zohra Saenz MD [address] [place] [address] Historical LMR Provider 07/09/17 2 Estelita Bobby, JOSEPHINE [address] [place] [address] 2_[place] [address] [email or web address] Historical LMR Provider 07/09/17 10/01/21 Phyllis Bello PA [address] [place] [address] [place] [address] Historical LMR Provider 07/09/17 Nate Dockery MD [address] [place] [address], [address] [place], [place] [id number] [email or web address] Historical LMR Provider 07/09/17 2 Nate Ritter MD [address] [place] [address], [address] [place], [place] [phone] Neurology 06/24/19 Rod Cunningham, [facility] [address] [place] [address] iCMP Social Work 08/23/20 06/13/22 Prakash Tolentino MD [address] [place] [address] Insurance Assigned Provider 06/04/21 07/30/21 Josy Hernandez MD [address] [place] [address] Insurance Assigned Provider 07/30/21 06/03/22 Nate Ritter MD [address] [place], [place] [address] [place] [address] Neurology 01/10/22 Philip Lara DO [address] [place] [address] [email or web address] Geriatric Medicine 01/01/24 documented as of this encounter Additional Source Comments The information contained in this document represents components of the legal health record. It is not the complete legal health record.[facility]
--- OUTSIDE RECORDS SUMMARY | 2025-05-21 15:57 | XMS_ITS | Encounter Summary ---
Author Organization [facility] Address [address] [place] [address] [place] [address] Phone Care Team Providers Care Turntable Engineer Name Role Phone Zohra Saenz MD Unavailable Estelita Bobby NP Unavailable Phyllis Bello Unavailable +[phone] Nate Dockery MD Unavailable [phone] Phyllis Bello Primary Care Provider + [phone] Nate Ritter MD Unavailable +[phone] Rod Cunningham Unavailable +[phone] Josy Hernandez MD Unavailable +[phone] Prakash Tolentino MD Unavailable +[phone] Josy Hernandez MD Unavailable +[phone] Nate Ritter MD Unavailable +[phone] Josy Hernandez MD Primary Care Provider [phone] Phyllis Bello Primary Care Provider + [phone] Philip Lara DO Unavailable +[phone] Encounter Details Date Type Department Care Team (Late st Contact Info) Description 2021 Procedure Pass , Ct Scan - [facility] [address] [place] [address] Social History Tobacco Use Types Packs/Day Years [...] Description 01/08/2026 8:30 AM EDT Office Visit [facility] Geriatrics [address] [place] [address] Philip Lara DO [address] [place] [address] [email or web address] documented as of this encounter [...] Time PHQ-2 Depression Total Score: 2 12/24/19 11:03 AM EDT documented as of this encounter Care Teams Turntable Engineer Relationship Specialty Start Date End Date hPyllis Bello PA 238 [place] [address] PCP - General Basting Marker 08/09/17 03/02/23 Josy Hernandez MD 238 [place] [address] [email or web address] PCP - General Family Medicine 03/03/23 06/17/23 Phyllis Bello PA [address] [place] [address] PCP - General Physician Passenger Car Inspector 06/18/23 Zohra Saenz MD [address] [place] [address] Historical LMR Provider 07/09/17 2 Estelita Bobby, JOSEPHINE [address] [place] [address] 2_[place] [address] [email or web address] Historical LMR Provider 07/09/17 10/01/21 Phyllis Bello PA [address] [place] [address] [place] [address] Historical LMR Provider 07/09/17 Nate Dockery MD [address] [place] [address], [address] [place], [place] [phone] [email or web address] Historical LMR Provider 07/09/17 2 Nate Ritter MD [address] [place] [address], [address] [place] [address] Neurology 06/24/19 Rod Cunningham [address] [address] iCMP Social Work 08/23/20 06/13/22 Josy Hernandez MD [address] [place] [address] Insurance Assigned Provider 04/02/21 06/04/21 Prakash Tolentino MD [address] [place] [address] Insurance Assigned Provider 06/04/21 07/30/21 Josy Hernandez MD [address] [place] [address] Insurance Assigned Provider 07/30/21 06/03/22 Nate Ritter MD [address] [place] [address], [address] [place] [address] Neurology 01/10/22 Philip Lara DO [address] [place] [address] Geriatric Medicine 01/01/24 documented as of this encounter Additional Source Comments The information contained in this document represents components of the legal health record. It is not the complete legal health record.[facility]
--- OUTSIDE RECORDS SUMMARY | 2025-05-21 15:57 | XMS_ITS | Encounter Summary ---
Author Organization [facility] Address [address] [place] [address] [place] [address] Phone Care Team Providers Care Field Inspector Name Role Phone Pyhllis Bello Unavailable +[phone] Phyllis Bello Primary Care Provider + [phone] Nate Ritter MD Unavailable +[phone] MarisaRodSW Unavailable [phone] Josy Hernandez MD Unavailable [phone] Nate Ritter MD Unavailable +[phone] Josy Hernandez MD Primary Care Provider [phone] Phyllis Bello Primary Care Provider + [phone] Philip Lara DO Unavailable [phone] Encounter Details Date Type Department Care Team (Late st Contact Info) Description 12/23/2021 Procedure Pass [facility], Ct Scan - [address] [address] Social History Tobacco Use Types Packs/Day Years [...] Date of Assessment Author No Risk Indicated 12/26/2021 4:48 AM EDT Wilmar Eddy i, RN * Brilliant Suicide Severity Rating Scale (Screener/Recent Self-Report) Question Answer Date of Assessment Author 1. Wish to be (Past 1 Month) No 12/26/2021 4:48 AM EDT Wilmar Samaniego, KEVIN 2. Non-Specific Active Suicidal Thoughts (Past 1 Month) No 12/26/2021 4:48 AM EDT Wilmar Samaniego, KEVIN 6. Suicidal Behavior (Lifetime) No 12/26/2021 4:48 AM EDT Wilmar Samaniego, KEVIN documented as of this encounter Plan of Treatment Upcoming Encounters Date Type Department Care Team (Late st Contact Info) Description 01/08/2026 8:30 AM EDT Office Visit [facility] 22 [place] [address] Philip Lara DO [address] [place] [address] 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/02/2017 01/09/2022 9:16 AM EDT CoV-Risk Comment:Neg covid 04/22/2024 04/22/2024 04/23/2024 7:03 AM E DT CoV-Risk Comment:Per note documentation 10/30/2024 10/30/2024 12:40 AM EST CDiff-Risk 01/30/2025 01/30/2025 01/30/2025 6:35 PM EDT CoV-Risk 01/30/2025 01/31/2025 02/11/2025 1:21 AM EDT Assessment Noted Time PHQ-2 Depression Total Score: 2 12/24/19 21 11:03 AM EDT documented as of this encounter Care Teams Field Inspector Relationship Specialty Start Date End Date Phyllis Bello PA [address] [place] [address] PCP - General Intermediate School Teacher 08/09/17 03/02/23 Josy Hernandez MD [address] [place] [address] PCP - General Family Medicine 03/03/23 06/17/23 Phyllis Bello PA [address] [place] [address] PCP - General Physician Spent Grain Dryer 06/18/23 Phyllis Bello PA [address] [place] [address] [place] [address] Historical LMR Provider 07/09/17 Nate Ritter MD [address] [place] [address], [address] [address] Neurology 06/24/19 Rod Cunningham, CHIMNEY SUPERVISOR BRICK [address] [place] [address] iCMP Social Work 08/23/20 06/13/22 Josy Hernandez MD [address] [place] [address] Insurance Assigned Provider 07/30/21 06/03/22 Nate Ritter MD NPI: [id number] [place] [address], [address] [place] [address] Neurology 01/10/22 Philip Lara DO [address] [place] [address] [email or web address] Geriatric Medicine 01/01/24 documented as of this encounter Additional Source Comments The information contained in this document represents components of the legal health record. It is not the complete legal health record.[facility]
--- OUTSIDE RECORDS SUMMARY | 2025-05-21 15:57 | XMS_ITS | Encounter Summary ---
Author Organization [facility] Address [address] [place] [address] [place] [address] Phone Care Team Providers Care Edi Programmer Analyst Name Role Phone Zohra Saenz MD Unavailable Estelita Bobby NP Unavailable Phyllis Bello Unavailable [phone] Nate Dockery MD Unavailable [phone] Phyllis Bello Primary Care Provider + [phone] Nate Ritter MD Unavailable +[phone] Rod CunninghamSW Unavailable [phone] Prakash Tolentino MD Unavailable +[phone] Josy Hernandez MD Unavailable +[phone] Nate Ritter MD Unavailable +[phone] Josy Hernandez MD Primary Care Provider [phone] Phyllis Bello Primary Care Provider + [phone] Philip Lara DO Unavailable [phone] Encounter Details Date Type Department Care Team (Late st Contact Info) Description 06/29/2021 Procedure Pass [facility], Ct Scan - [address] [id number] Social History Tobacco Use Types Packs/Day Years [...] Date of Assessment Author No Risk Indicated 06/30/2021 4:00 AM EDT Sherri Still RN * Catron Suicide Severity Rating Scale (Screener/Recent Self-Report) Question Answer Date of Assessment Author 1. Wish to be (Past 1 Month) No 021 4:00 AM EDT Sherri Still RN 2. Non-Specific Active Suici florentino Thoughts (Past 1 Month) No 06/30/2021 4:00 AM EDT Jaja Still RN 6. Suicidal Behavior (Lifetime) No 4:00 AM EDT Sherri Still RN documented as of this encounter Plan of Treatment Upcoming Encounters Date Type Department Care Team (Late st Contact Info) Description 01/08/2026 8:30 AM EDT Office Visit [facility] Ger[facility] [address] [place] [address] [place] [address] Philip Lara DO [address] [place] [address] [email or web address] documented as of this encounter Visit Diagnoses [...] documented as of this encounter Care Teams Edi Programmer Analyst Relationship Specialty Start Date End Date Phyllis Bello PA [address] [place] [address] PCP - General Hard Tile Setter 08/09/17 03/02/23 Josy Hernandez MD [address] [place] [address] [email or web address] PCP - General Family Medicine 03/03/23 06/17/23 Phyllis Bello PA [address] [place] [address] PCP - General Physician Student Development Dean 06/18/23 Zohra Saenz MD [address] [place] [address] Historical LMR Provider 07/09/17 2 Estelita Bobby NP [address] [place] [address] 2_[place] [address] [email or web address] Historical LMR Provider 07/09/17 10/01/21 Phyllis Bello PA [address] [place] [address] [place] [address] Historical LMR Provider 07/09/17 Nate Dockery MD [address] [place] [address], [address] [place] [address] Historical LMR Provider 07/09/17 2 Nate Ritter MD [address] [place] [address], [address] [place] [address] Neurology 06/24/[address] [address] iCMP Social Work 08/23/20 06/13/22 Prakash Tolentino MD [address] [place] [address] Insurance Assigned Provider 06/04/21 07/30/21 Josy Hernandez MD [address] [place] [address] Insurance Assigned Provider 07/30/21 06/03/22 Nate Ritter MD [address] [place] [address], [address] [place] [address] Neurology 01/10/22 Philip Lara DO 22 [place] [address] Geriatric Medicine 01/01/24 documented as of this encounter Additional Source Comments The information contained in this document represents components of the legal health record. It is not the complete legal health record.[facility]
--- OUTSIDE RECORDS SUMMARY | 2025-05-21 15:57 | XMS_ITS | Encounter Summary ---
Author Organization [facility] Address [address] [place] [address] [place] [address] Phone Care Team Providers Care Property Adjuster Name Role Phone Zohra Saenz MD Unavailable Estelita Bobby NP Unavailable Phyllis Bello Unavailable [phone] Nate Dockery MD Unavailable Phyllis Bello Primary Care Provider +[phone] Nate Ritter MD Unavailable [phone] Prakash Tolentino MD Unavailable +[phone] Rod Cunningham Unavailable [phone] Josy Hernandez MD Unavailable [phone] Prakash Tolentino MD Unavailable + Josy Hernandez MD Unavailable +[phone] Prakash Tolentino MD Unavailable + Josy Hernandez MD Unavailable +[phone] Nate Ritter MD Unavailable [phone] Josy Hernandez MD Primary Care Provider [phone] Phyllis Bello Primary Care Provider +[phone] Philip Lara DO Unavailable Encounter Details Date Type Department Care Team (Late st Contact Info) Description 05/15/2020 Procedure Pass [facility], Ct Scan - [facility] 30 [place] [address] Social History Tobacco Use Types Packs/Day Years [...] AM EDT Office Visit [facility] [address] [place] [address] Philip Lara, [address] [place] [address] [email or web address] documented as of this encounter Visit Diagnoses [...] documented as of this encounter Care Teams Property Adjuster Relationship Specialty Start Date End Date Phyllis Bello PA [address] [place] [address] PCP - General Dump Truck Driver Off Highway 08/09/17 03/02/23 Josy Hernandez MD [address] [place] [address] [email or web address] PCP - General Family Medicine 03/03/23 06/17/23 Phyllis Bello PA [address] [place] [address] PCP - General Physician Towboat Operator 06/18/23 Zohra Cisneros MD [address] [place] [address] Historical LMR Provider 07/09/17 2 Estelita Bobby NP [address] [place] [address] 2_[place] [address] [email or web address] Historical LMR Provider 07/09/17 10/01/21 Phyllis Bello PA [address] [place] [address] [place] [address] Historical LMR Provider 07/09/17 Nate Dockery MD [address] [place] [address], [address] [place] [address] [email or web address] Historical LMR Provider 07/09/17 2 Nate Ritter MD [address] [place] [address], [address] [place] [address] [email or web address] Neurology 06/24/19 Prakash Tolentino MD [address] [place] [address] [email or web address] Insurance Assigned Provider 08/30/19 08/29/20 Rod Cunningham, [address] [address] [email or web address] Social Work 08/23/20 06/13/22 Josy Hernandez MD [address] [place] [address] [email or web address] Insurance Assigned Provider 08/29/20 02/27/21 Prakash Tolentino MD [address] [place] [address] [email or web address] Insurance Assigned Provider 02/27/21 04/02/21 Josy Hernandez MD [address] [place] [address] [email or web address] Insurance Assigned Provider 04/02/21 06/04/21 Prakash Tolentino MD [address] [place] [address] [email or web address] Insurance Assigned Provider 06/04/21 07/30/21 Josy Hernandez MD [address] [place] [address] [email or web address] Insurance Assigned Provider 07/30/21 06/03/22 Nate Ritter MD [address] [place] [address], [address] [place] [address] Neurology 01/10/22 Philip Lara DO [address] [place] [address] Geriatric Medicine 01/01/24 documented as of this encounter Additional Source Comments The information contained in this document represents components of the legal health record. It is not the complete legal health record.[facility]
--- OUTSIDE RECORDS SUMMARY | 2025-05-21 15:58 | XMS_ITS | Encounter Summary ---
Author Organization [facility] Address [address] [place] [address] [place] [address] Phone Care Team Providers Care Display Manager Name Role Phone Zohra Saenz MD Unavailable Estelita Bobby NP Unavailable [phone] Phyllis Bello Unavailable +[phone] Nate Dockery MD Unavailable [phone] Phyllis Bello Primary Care Provider + Josy Hernandez MD Unavailable + Nate Ritter MD Unavailable +[phone] Prakash Tolentino MD Unavailable + Rod Cunningham Unavailable [phone] Josy Hernandez MD Unavailable + Prakash Tolentino MD Unavailable + Josy Hernandez MD Unavailable + Prakash Tolentino MD Unavailable + Josy Hernandez MD Unavailable + Nate Ritter MD Unavailable [phone] Josy Hernandez MD Primary Care Provider +[phone] Phyllis Bello Primary Care Provider [phone] Philip Lara DO Unavailable Encounter Details Date Type Department Care Team (Late st Contact Info) Description 10/23/2017 Procedure Pass , [address] [place] [address] Social History Tobacco Use Types Packs/Day Years Used Date Smoking Tobacco: Every Day Smokeless Tobacco: Never Alcohol Use Standard Drinks/Week Comments Yes 0 (1 standard drink = 0.6 oz pure alcohol) previous alcohol use upward of 12 nips [...] Description 01/08/2026 8:30 AM EDT Office Visit [facility] Geriatrics [address] [place] [address] Philip Lara, [address] [place] [address] [email or web address] documented as of this encounter Visit Diagnoses [...] 10/30/2024 10/30/2024 12:40 AM EST CDiff-Risk 01/30/2025 01/30/202501/3001/30/2025 6:35 PM EDT CoV-Risk 01/30/2025 01/31/2025 02/11/2025 1:21 AM EDT documented as of this encounter Care Teams Display Manager Relationship Specialty Start Date End Date Phyllis Bello PA [address] [place] [address] PCP - General Cantilever Crane Operator 08/09/17 03/02/23 Josy Hernandez MD [address] [place] [address] [email or web address] PCP - General Family Medicine 03/03/23 06/17/23 Phyllis Bello PA [address] [place] [address] PCP - General Physician Customs Port Director 06/18/23 Zohra Saenz MD [address] [place] [address] Historical LMR Provider 07/09/17 2 Estelita Bobby NP [address] [place] [address] 2_[place] [address] [email or web address] Historical LMR Provider 07/09/17 10/01/21 Phyllis Bello PA [address] [place] [address] [place] [address] Historical LMR Provider 07/09/17 Nate Dockery MD [address] [facility], [address] [place] [address] [email or web address] Historical LMR Provider 07/09/17 2 Josy Hernandez MD [address] [place] [address] [email or web address] Insurance Assigned Provider 12/22/17 08/30/19 Nate Ritter MD [address] [place] [address], [address] [place] [address] [email or web address] Neurology 06/24/19 Prakash Tolentino MD [address] [place] [address] [email or web address] Insurance Assigned Provider 08/30/19 08/29/20 Rod Cunningham [address] [address] [email or web address] Social Work 08/23/20 06/13/22 Josy Hernandez MD [address] [place] [address] [email or web address] Insurance Assigned Provider 08/29/20 02/27/21 Prakash Tolentino MD [address] [place] [address] [email or web address] Insurance Assigned Provider 02/27/21 04/02/21 Josy Hernandez MD [address] [place] [address] [email or web address] Insurance Assigned Provider 04/02/21 06/04/21 Prakash Tolentino MD [address] [place] [address] [email or web address] Insurance Assigned Provider 06/04/21 07/30/21 Josy Hernandez MD [address] [place] [address] [email or web address] Insurance Assigned Provider 07/30/21 06/03/22 Nate Ritter MD [address] [place], [place] [address] [place] [address] [email or web address] Neurology 01/10/22 Philip Lara DO [address] [place] [address] [email or web address] Geriatric Medicine 01/01/24 documented as of this encounter Additional Source Comments The information contained in this document represents components of the legal health record. It is not the complete legal health record.[facility]
--- OUTSIDE RECORDS SUMMARY | 2025-05-21 15:58 | XMS_ITS | Encounter Summary ---
Author Organization [facility] Address [address] [place] [address] [place] [address] Phone Care Team Providers Care Casting Agent Name Role Phone Zohra Saenz MD Unavailable Estelita Bobby NP Unavailable [phone] Phyllis Bello Unavailable +[phone] Nate Dockery MD Unavailable +[phone] Phyllis Bello Primary Care Provider + oJsy Hernandez MD Unavailable + Nate Ritter MD Unavailable +[phone] Prakash Tolentino MD Unavailable + Rod Cunningham Unavailable Josy Hernandez MD Unavailable + Prakash Tolentino MD Unavailable + Josy Hernandez MD Unavailable + Prakash Tolentino MD Unavailable + Josy Hernandez MD Unavailable + Nate Ritter MD Unavailable +[phone] Josy Hernandez MD Primary Care Provider +1- Phyllis Bello Primary Care Provider +[phone] Philip Lara DO Unavailable +[phone] Encounter Details Date Type Department Care Team (Late Contact Info) Description 10/19/2017 Procedure Pass [facility] Endoscopy Admitting Dept Virtual Department 30 [place] [address] Social History Tobacco Use Types Packs/Day Years Used Date Smoking Tobacco: Every Day Alcohol Use Standard Drinks/Week Comments Yes 0 [...] Upcoming Encounters Date Type Department Care Team ([facility] Contact Info) Description 01/08/2026 8:30 AM EDT Office Visit [facility] Geriatrics [address] [place] [address] Philip Lara DO [address] [place] [address] [email or web address] documented as of this encounter Visit Diagnoses [...] documented as of this encounter Care Teams Casting Agent Relationship Specialty Start Date End Date Phyllis Bello PA [address] [place] [address] PCP - General Abalone Diver 08/09/17 03/02/23 Josy Hernandez MD [address] [place] [address] [email or web address] PCP - General Family Medicine 03/03/23 06/17/23 Phyllis Bello PA [address] [place] [address] PCP - General Physician Apprentice Technician 06/18/23 SalazarZohra De La Garza MD [address] [place] [address] Historical LMR Provider 07/09/17 2 Estelita Bobby LUNCHROOM ATTENDANT [address] [place] [address] 2_[place] [address] [email or web address] Historical LMR Provider 07/09/17 10/01/21 Phyllis Bello PA [address] [place] [address] [place] [address] Historical LMR Provider 07/09/17 Nate Dockery MD [address] [place] [address], [address] [place] [address] [email or web address] Historical LMR Provider 07/09/17 2 Josy Hernandez MD [address] [place] [address] [email or web address] Insurance Assigned Provider 12/22/17 08/30/19 Nate Ritter MD [address] [place] [address], [address] [place] [address] [email or web address] Neurology 06/24/19 Prakash Tolentino MD [address] [place] [address] [email or web address] Insurance Assigned Provider 08/30/19 08/29/20 Rod Cunningham [address] [address] [email or web address] iCMP Social Work 08/23/20 06/13/22 Josy Hernnadez MD [address] [place] [address] [email or web address] Insurance Assigned Provider 08/29/20 02/27/21 Prakash Tolentino MD [address] [place] [address] [email or web address] Insurance Assigned Provider 02/27/21 04/02/21 Josy Hernandez MD [address] [place] [address] [email or web address] Insurance Assigned Provider 04/02/21 06/04/21 Prakash Tolentino MD [address] [place] [address] [email or web address] Insurance Assigned Provider 06/04/21 07/30/21 Josy Hernandez MD [address] [place] [address] [email or web address] Insurance Assigned Provider 07/30/21 06/03/22 Nate Ritter MD [address] [place] [address], [address] [place] [address] [email or web address] Neurology 01/10/22 Philip Lara DO [address] [place] [address] [email or web address] Geriatric Medicine 01/01/24 documented as of this encounter Additional Source Comments The information contained in this document represents components of the legal health record. It is not the complete legal health record.[facility]
--- OUTSIDE RECORDS SUMMARY | 2025-05-21 15:58 | XMS_ITS | Encounter Summary ---
Author Organization [facility] Address [address] [place] [address] [place] [address] Phone Care Team Providers Care Catalog Library Assistant Name Role Phone Zohra Saenz MD Unavailable Estelita Bobby NP Unavailable [phone] Phyllis Bello Unavailable +[phone] Nate Dockery MD Unavailable [phone] Phyllis Bello Primary Care Provider + Josy Hernandez MD Unavailable + Nate Ritter MD Unavailable +[phone] Prakash Tolentino MD Unavailable + Rod Cunningham Unavailable +[phone] Josy Hernandez MD Unavailable + Prakash Tolentino MD Unavailable + Josy Hernandez MD Unavailable + Prakash Tolentino MD Unavailable + Josy Hernandez MD Unavailable + Nate Ritter MD Unavailable +[phone] Josy Hernandez MD Primary Care Provider +[phone]- Phyllis Bello Primary Care Provider +[phone] Philip Lara DO Unavailable Encounter Details Date Type Department Care Team (Late st Contact Info) Description 10/17/2017 Procedure Pass [facility], Ct Scan - [facility] [address] [place] [address] Social History Tobacco Use Types Packs/Day Years [...] Description 01/08/2026 8:30 AM EDT Office Visit [facility] Geriatrics [address] [place] [address] Philip Lara, [address] [place] [address] [email or web address] documented as of this encounter Visit Diagnoses [...] documented as of this encounter Care Teams Catalog Library Assistant Relationship Specialty Start Date End Date Phyllis Bello PA [address] [place] [address] PCP - General Floor Representative 08/09/17 03/02/23 Josy Hernandez MD [address] [place] [address] [email or web address] PCP - General Family Medicine 03/03/23 06/17/23 Phyllis Bello PA [address] [place] [address] PCP - General Physician Cushion Installer 06/18/23 Zohra Saenz MD [address] [place] [address] Historical LMR Provider 07/09/17 2 Estelita Bobby NP [address] [place] [address] 2_[place] [address] [email or web address] Historical LMR Provider 07/09/17 10/01/21 Phyllis Bello PA [address] [place] [address] [place] [id number] Historical LMR Provider 07/09/17 Nate Dockery MD [address] [place] [address], [address] [place] [address] [email or web address] Historical LMR Provider 07/09/17 2 Josy Hernandez MD [address] [place] [address] [email or web address] Insurance Assigned Provider 12/22/17 08/30/19 Nate Ritter MD [address] [place] [address], [address] [place] [address] [email or web address] Neurology 06/24/19 Prakash Tolentino MD [address] [place] [address] [email or web address] Insurance Assigned Provider 08/30/19 08/29/20 Rod Cunningham [address] [address] [email or web address] iCMP Social Work 08/23/20 06/13/22 Josy Hernandez MD [address] [place] [address] [email or web address] Insurance Assigned Provider 08/29/20 02/27/21 Prakash Tolentino MD [address] [place] [address] [email or web address] Insurance Assigned Provider 02/27/21 04/02/21 oJsy Hernandez MD [address] [place] [address] [email or web address] Insurance Assigned Provider 04/02/21 06/04/21 Prakash Tolentino MD [address] [place] [address] [email or web address] Insurance Assigned Provider 06/04/21 07/30/21 Josy Hernandez MD [address] [place] [address] [email or web address] Insurance Assigned Provider 07/30/21 06/03/22 Nate Ritter MD [address] [place] [address], [address] [place] [address] [email or web address] Neurology 01/10/22 Philip Lara DO [address] [place] [address] [email or web address] Geriatric Medicine 01/01/24 documented as of this encounter Additional Source Comments The information contained in this document represents components of the legal health record. It is not the complete legal health record.[facility]
--- OUTSIDE RECORDS SUMMARY | 2025-05-21 15:58 | XMS_ITS | Encounter Summary ---
Author Organization [facility] Address [address] [place] [address] [place] [address] Phone Care Team Providers Care Operator Maintainer Name Role Phone Zohra Saenz MD Unavailable Estelita Bobby NP Unavailable Phyllis Bello Unavailable [phone] Nate Dockery MD Unavailable [phone] Phyllis Bello Primary Care Provider + [phone] Nate Ritter MD Unavailable [phone] Rod CunninghamSW Unavailable [phone] Prakash Tolentino MD Unavailable +[phone] Josy Hernandez MD Unavailable +[phone] Nate Ritter MD Unavailable +[phone] Josy Hernandez MD Primary Care Provider [phone] Phyllis Bello Primary Care Provider + [phone] Philip Lara DO Unavailable +[phone] Encounter Details Date Type Department Care Team (Late st Contact Info) Description 07/29/2021 Procedure Pass Non-Invasive Cardiology 30 [place], [place] [phone] Social History Tobacco Use Types Packs/Day Years [...] 01/08/2026 8:30 AM EDT Office Visit [facility] Geriatrics 22 [place] [address] Philip Lara DO [address] [place] [address] [email or web address] documented as of this encounter Visit Diagnoses [...] documented as of this encounter Care Teams Operator Maintainer Relationship Specialty Start Date End Date Phyllis Bello PA [address] [place] [address] PCP - General Funeral Home Manager 08/09/17 03/02/23 Josy Hernandez MD [address] [place] [address] PCP - General Family Medicine 03/03/23 06/17/23 Phyllis Bello PA [address] [place] [address] PCP - General Physician Manager Background 06/18/23 Zohra Cisneros MD [address] [place] [address] Historical LMR Provider 07/09/17 Estelita Caceres NP [address] [place] [address] 2_[place] [address] [email or web address] Historical LMR Provider 07/09/17 10/01/21 Phyllis Bello PA [address] [place] [phone] Historical LMR Provider 07/09/17 Nate Dockery MD [address] [place] [address], [address] [place] [address] [email or web address] Historical LMR Provider 07/09/17 2 Nate Ritter MD [address] [place] [address], [address] [place] [address] Neurology 06/24/19 Rod Cunningham, [address] [address] iCMP Social Work 08/23/20 06/13/22 Prakash Tolentino MD [address] [place] [address] Insurance Assigned Provider 06/04/21 07/30/21 Josy Hernandez MD [address] [place] [address] Insurance Assigned Provider 07/30/21 06/03/22 Nate Ritter MD [address] [place] [address], [address] [place] [address] Neurology 01/10/22 Philip Lara DO 22 [place] [address] Geriatric Medicine 01/01/24 documented as of this encounter Additional Source Comments The information contained in this document represents components of the legal health record. It is not the complete legal health record.[facility]
--- OUTSIDE RECORDS SUMMARY | 2025-05-21 15:58 | XMS_ITS | Encounter Summary ---
Author Organization [facility] Address [address] [place] [address] [place] [address] Phone Care Team Providers Care Squeak Rattle And Leak Repairer Name Role Phone Zohra Saenz MD Unavailable Estelita Bobby NP Unavailable [phone] Phyllis Bello Unavailable +[phone] Nate Dockery MD Unavailable [phone] Phyllis Bello Primary Care Provider + Josy Hernandez MD Unavailable + Nate Ritter MD Unavailable +[phone] Prakash Tolentino MD Unavailable + Rod Cunningham Unavailable [phone] Josy Hernandez MD Unavailable + Prakash Tolentino MD Unavailable + Josy Hernandez MD Unavailable + Prakash Tolentino MD Unavailable + Josy Hernandez MD Unavailable + Nate Ritter MD Unavailable +[phone] Josy Hernandez MD Primary Care Provider +[phone]- Phyllis Bello Primary Care Provider +[phone] Philip Lara DO Unavailable [phone] Encounter Details Date Type Department Care Team ([facility] Contact Info) Description 11/02/2017 Documentation [facility] Infectious Disease Virtual Department [address] [place] [address] Pcp, Not Required [address] [place] [address] Social History Tobacco Use Types Packs/Day Years [...] Upcoming Encounters Date Type Department Care Team ([facility] Contact Info) Description 01/08/2026 8:30 AM EDT Office Visit [facility] Geriatrics 22 [place] [address] Philip Lara DO 22 [place] [address] [email or web address] documented as of this encounter [...] documented as of this encounter Care Teams Squeak Rattle And Leak Repairer Relationship Specialty Start Date End Date Phyllis Bello PA [address] [place] [address] PCP - General Mortgage Analyst 08/09/17 03/02/23 Josy Hernandez MD [address] [place] [address] [email or web address] PCP - General Family Medicine 03/03/23 06/17/23 Phyllis Bello PA [address] [place] [address] PCP - General Physician Supervisor Cigar Making Machine 06/18/23 Zohra Saenz MD [address] [place] [address] Historical LMR Provider 07/09/17 2 Estelita Bobby NP [address] [place] [address] 2_[place] [address] [email or web address] Historical LMR Provider 07/09/17 10/01/21 Phyllis Bello PA [address] [place] [address] [place] [phone] Historical LMR Provider 07/09/17 Nate Dockery MD [address] [place] [address], [address] [place] [address] [email or web address] Historical LMR Provider 07/09/17 2 Josy Hernandez MD [address] [place] [address] [email or web address] Insurance Assigned Provider 12/22/17 08/30/19 Nate Ritter MD [address] [place] [address], [address] [place] [address] [email or web address] Neurology 06/24/19 Prakash Tolentino MD [address] [place] [address] [email or web address] Insurance Assigned Provider 08/30/19 08/29/20 Rod Cunningham [address] [address] [email or web address] iCMP Social Work 08/23/20 06/13/22 Josy Hernandez MD [address] [place] [address] [email or web address] Insurance Assigned Provider 08/29/20 02/27/21 Prakash Tolentino MD [address] [place] [address] [email or web address] Insurance Assigned Provider 02/27/21 04/02/21 Josy Hernandez MD [address] [place] [address] Insurance Assigned Provider 04/02/21 06/04/21 Prakash Tolentino MD [address] [place] [address] [email or web address] Insurance Assigned Provider 06/04/21 07/30/21 Josy Hernandez MD [address] [place] [address] [email or web address] Insurance Assigned Provider 07/30/21 06/03/22 Nate Ritter MD [address] [place], [place] [address] [place] [address] Neurology 01/10/22 Philip Lara DO [address] [place] [address] [email or web address] Geriatric Medicine 01/01/24 documented as of this encounter Additional Source Comments The information contained in this document represents components of the legal health record. It is not the complete legal health record.[facility]
--- OUTSIDE RECORDS SUMMARY | 2025-05-21 15:58 | XMS_ITS | Encounter Summary ---
Author Organization [facility] Address [address] [place] [address] [place] [address] Phone Care Team Providers Care Contracts Administrator Name Role Phone Phyllis Bello Unavailable +[phone] Phyllis Bello Primary Care Provider + [phone] Nate Ritter MD Unavailable +[phone] MarisaRod FOOD AND BEVERAGE ASSOCIATE Unavailable +[phone] Josy Hernandez MD Unavailable +[phone] Nate Ritter MD Unavailable +[phone] Josy Hernandez MD Primary Care Provider [phone] Phyllis Bello Primary Care Provider + [phone] Philip Lara DO Unavailable +[phone] Encounter Details Date Type Department Care Team (Late st Contact Info) Description 12/27/2021 Procedure Pass [facility], [address] [address] Social History Tobacco Use Types Packs/Day Years [...] Description 01/08/2026 8:30 AM EDT Office Visit [facility] Geriatrics [address] [place] [address] Philip Lara DO 22 [place] [address] [email or web address] documented as of this encounter Visit Diagnoses [...] documented as of this encounter Care Teams Contracts Administrator Relationship Specialty Start Date End Date Phyllis Bello PA [address] [place] [address] PCP - General Underwear Hemmer 08/09/17 03/02/23 Josy Hernandez MD [address] [place] [address] PCP - General Family Medicine 03/03/23 06/17/23 Phyllis Bello PA [address] [place] [address] PCP - General Physician Sprayer Leather 06/18/23 Phyllis Bello PA [address] [place] [address] [place] [address] Historical LMR Provider 07/09/17 Nate Ritter MD [address] [place] [address], [address] [address] Neurology 06/24/19 Rod Cunningham, [address] [address] iCMP Social Work 08/23/20 06/13/22 Josy Hernandez MD [address] [place] [address] Insurance Assigned Provider 07/30/21 06/03/22 Nate Ritter MD [address] [place] [address], [address] [address] Neurology 01/10/22 Philip Lara DO 22 [place] [address] Geriatric Medicine 01/01/24 documented as of this encounter Additional Source Comments The information contained in this document represents components of the legal health record. It is not the complete legal health record.[facility]
--- OUTSIDE RECORDS SUMMARY | 2025-05-21 15:58 | XMS_ITS | Encounter Summary ---
Author Organization [facility] Address [address] [place] [address] [place] [address] Phone Care Team Providers Care Railcar Mechanic Name Role Phone Phyllis Bello Unavailable [phone] Phyllis Bello Primary Care Provider + [phone] Nate Ritter MD Unavailable +[phone] MarisaRodSW Unavailable [phone] Josy Hernandez MD Unavailable [phone] Nate Ritter MD Unavailable +[phone] Josy Hernandez MD Primary Care Provider [phone] Phyllis Bello Primary Care Provider + [phone] Philip Lara DO Unavailable +[phone] Encounter Details Date Type Department Care Team (Late st Contact Info) Description 01/08/2022 Procedure Pass [facility], Ct Scan - [address] [id number] Social History Tobacco Use Types Packs/Day Years [...] Date of Assessment Author No Risk Indicated 01/10/2022 3:00 PM EDT Rhina Carreon RN * [place] Suicide Severity Rating Scale (Screener/Recent Self-Report) Question Answer Date of Assessment Author 1. Wish to be (Past 1 Month) No 01/10/2022 3:00 PM EDT Rhina Francisco, KEVIN 2. Non-Specific Active Suicidal Thoughts (Past 1 Month) No 01/10/2022 3:00 PM EDT Rhina Francisco RN 6. Suicidal Behavior (Lifetime) No 01/10/2022 3:00 PM EDT Rhina Francisco RN documented as of this encounter Plan of Treatment Upcoming Encounters Date Type Department Care Team (Late st Contact Info) Description 01/08/2026 8:30 AM EDT Office Visit [facility] Geriatrics [address] [place] [address] Philip Lara DO [address] [place] [address] [email or web address] documented as of this encounter Visit [...] documented as of this encounter Care Teams Railcar Mechanic Relationship Specialty Start Date End Date Phyllis Bello PA [address] [place] [address] PCP - General Audioprosthologist 08/09/17 03/02/23 Josy Hernandez MD [address] [place] [address] PCP - General Family Medicine 03/03/23 06/17/23 Phyllis Bello PA [address] [place] [address] PCP - General Physician Soaker Helper 06/18/23 Phyllis Bello PA [address] [place] [address] [place] [address] Historical LMR Provider 07/09/17 Nate Ritter MD [address] [place] [address], [address] [place] [address] Neurology 06/24/19 Rod Cunningham, [address] [address] iCMP Social Work 08/23/20 06/13/22 Josy Hernandez MD [address] [place] [address] Insurance Assigned Provider 07/30/21 06/03/22 Nate Ritter MD [address] [place] [address], [address] [place] [address] [email or web address] Neurology 01/10/22 Philip Lara DO [address] [place] [address] [email or web address] Geriatric Medicine 01/01/24 documented as of this encounter Additional Source Comments The information contained in this document represents components of the legal health record. It is not the complete legal health record.[facility]
--- OUTSIDE RECORDS SUMMARY | 2025-05-21 15:58 | XMS_ITS | Encounter Summary ---
Author Organization [facility] Address [address] [place] [address] [place] [address] Phone Care Team Providers Care Rug Receiving Clerk Name Role Phone Zohra Saenz MD Unavailable Estelita Bobby NP Unavailable [phone] Phyllis Bello Unavailable [phone] Nate Dockery MD Unavailable Phyllis Bello Primary Care Provider + Josy Hernandez MD Unavailable + Nate Ritter MD Unavailable [phone] Prakash Tolentino MD Unavailable + Rod Cunningham Unavailable [phone] Josy Hernandez MD Unavailable + Prakash Tolentino MD Unavailable + Josy Hernandez MD Unavailable + Prakash Tolentino MD Unavailable + Josy Hernandez MD Unavailable + Nate Ritter MD Unavailable [phone] Josy Hernandez MD Primary Care Provider [phone] Phyllis Bello Primary Care Provider + [phone] Philip Larash DO Unavailable [phone] Encounter Details Date Type Department Care Team (Latest Contact Info) Description 03/20/2018 Transcribe Orders [facility] [address] [place] [address] Vee Peraza PA [address] [place] [address] Other cirrhosis of liver (Primary Dx) Social History Tobacco Use Types [...] Description 01/08/2026 8:30 AM EDT Office Visit [facility] [address] [place] [address] Philip Larash, [address] [place] [address] [email or web address] documented as of this encounter Results * PT-INR (03/20/2018 11:22 AM EDT) PT 11.0 10.2 - 12.9 sec [facility] INR 1.0 0.9 - 1.1 [facility] Comment:Therapeutic range fo r oral Vitamin K antagonists: 2.0-3.5 Blood 03/20/2018 11:2 2 AM EDT 03/20/2018 11:34 AM EDT us [facility] BLOOD ORDERABLES Final Result Performing Organization Address City/[facility]/ZIP Co de Phone Number [address] [address] * Ferritin (03/20/2018 11:22 AM EDT) FERRITIN 320 30 - 400 ug/L [facility] Blood 03/20/2018 11:2 2 AM EDT 03/20/2018 11:34 AM EDT us [facility] BLOOD ORDERABLES Final Result Performing Organization Address [facility] Co de Phone Number [address] [address] * Hepatitis C antibody, qualitative (03/20/2018 11:22 AM EDT) HCV Negative Negative [facility] Comment: This is a screening test and should be confirmed with molecular testing Blood 03/20/2018 11:2 2 AM EDT 03/20/2018 11:34 AM EDT [facility] BLOOD ORDERABLES Final Result Performing Organization Address [facility] Co de Phone Number [address] [address] * (ABNORMAL) Liver fibrosis test (03/20/2018 11:22 AM EDT) Cow Milk Conv Class 0.24 [facility] MED AND PAT+ Neuron Specific Enolase (NOTE) [facility] PAT+ Comment:RESULT: F0-F1 Interleukin 2 no fibrosis [facility] PAT+ Comment: (NOTE) FibroTest estimates liver fibrosis FibroTest Score Stage Interpretation 0.00-0.21 F0 no fibrosis 0.21-0.27 F0-F1 no fibrosis 0.27-0.31 F1 minimal fibrosis 0.31-0.48 F1-F2 minimal fibrosis 0.48-0.58 F2 moderate fibrosis 0.58-0.72 F3 advanced fibrosis 0.72-0.74 F3-F4 advanced fibrosis 0.74-1.00 F4 severe fibrosis (Cirrhosis) ActiTest Score 0.06 [facility] MED AND PAT+ ANCA YOANNA at 1:20 dilution A0 [facility] MED [facility] PAT+ ActiTest Interpretation no activity [facility] MED AND PAT+ Comment: (NOTE) ActiTest estimates necroinflammatory activity ActiTest Score Grade Interpretation 0.00-0.17 A0 no activity 0.17-0.29 A0-A1 no activity 0.29-0.36 A1 minimal activity 0.36-0.52 A1-A2 minimal activity 0.52-0.60 A2 significant activity 0.60-0.62 A2-A3 significant activity 0.62-1.00 A3 severe activity FibroTest-ActiTest Comment SEE NOTE [facility] LAB MED AND PAT+ Comment: (NOTE) The reliability of results is dependent on compliance with the preanalytical and analytical conditions recommended by [employer]. The tests have to be deferred for: acute hemolysis, acute hepatitis, acute inflammation, extra hepatic cholestasis. The advice of a specialist should be sought for interpretation in chronic hemolysis and Gilbert's syndrome. The test interpretation is not validated in liver transplant patients. Isolated extreme values of one of the components should lead to caution in interpreting the results. In case of discordance between a biopsy result and a test, it is recommended to seek advice of a specialist. The causes of these discordances could be due to a flaw of the test or to a flaw in the biopsy: i.e. a liver biopsy has a 33% variability rate for one fibrosis stage. FibroTest is interpretable for chronic hepatitis B and C, alcoholic and non alcoholic steatosis. ActiTest is interpretable for chronic hepatitis B and C. ADDITIONAL INFORMATION This test was developed and its performance characteristics determined by [facility] in a manner consistent with CLIA requirements. This test has not been cleared or approved by the U.S. Food and Drug Administration. BioPredictive Serial Number [id number] [facility] LAB MED AND PAT+ Apolipoprotein A1, S 121 >=120 mg/dL [facility] PAT+ Ebjgk-0-Iydtjpdzxkskm, S 148 100 - 280 mg/dL [facility] MED AND PAT+ Haptoglobin, S 146 30 - 200 mg/dL [facility] MED [facility] PAT+ Alanine Aminotransferase (ALT), S 18 7 - 55 U/L [facility] MED [facility] PAT+ Gamma Glutamyltransferase (GGT), S 62(H) 8 - 61 U/L [facility] MED AND PAT+ Bilirubin, Total, S 0.6 <=1.2 mg/dL [facility] MED AND PAT+ Blood 03/20/2018 11:2 2 AM EDT 03/20/2018 11:34 AM EDT us [facility] BLOOD ORDERABLES Final Result [facility] MED AND PAT+ [address] [place] [address] * (ABNORMAL) Comprehensive metabolic panel (03/20/2018 11:22 AM EDT) SODIUM 136 133 - 146 mmol/L [facility] POTASSIUM 4.6 3.3 - 5.1 mmol/L [facility] CHLORIDE 94(L) 96 - 108 mmol/L [facility] CO2 28 21 - 35 mmol/L [facility] BUN 5(L) 6 - 19 mg/dL [facility] CREATININE 0.60 0.5 - 1.5 mg/dL [facility] GLUCOSE 95 70 - 99 mg/dL [facility] ALBUMIN 4.9(H) 3.9 - 4.8 g/dL [facility] TOTAL PROTEIN 8.1(H) 6.5 - 8.0 g/dL [facility] CALCIUM 9.9 8.4 - 10.3 mg/dL [facility] ALKALINE PHOSPHATASE 116 39 - 117 U/L [facility] TOTAL BILIRUBIN 0.6 0.0 - 1.2 mg/dL [facility] AST 16 0 - 37 U/L [facility] ALT 17 0 - 40 U/L [facility] GLOBULIN 3.2 1 - 4.8 g/dL [facility] EGFR 118 >59 mL/min/1.7 3m2 [facility] Comment:If patient is black, multiply result by 1.159. Estimated glomerular filtration rate calculated using the CKD-EPI equation. ANION GAP 19 10 - 20 mmol/L [facility] Blood 03/20/2018 11:2 2 AM EDT 03/20/2018 11:34 AM EDT us [facility] BLOOD ORDERABLES Final Result [address] [address] * (ABNORMAL) CBC (03/20/2018 11:22 AM EDT) WBC 6.14 3.40 - 11.20 K/uL [facility] RBC 4.97 4.50 - 5.50 M/uL [facility] HGB 15.4 13.0 - 17.0 g/dL [facility] HCT 41.6 40.0 - 51.0 % [facility] PLT 197 130 - 400 K/uL [facility] MCV 83.7 79.0 - 98.0 fL [facility] MCH 31.0 27.0 - 34.8 pg [facility] MCHC 37.0(H) 31.5 - 36.0 g/dL [facility] RDW 12.3 10.8 - 14.6 % [facility] MPV 9.3(L) 9.4 - 12.4 fl [facility] NRBC 0.00 /100 WBCs [facility] ABSOLUTE NRBC 0.00 K/uL [facility] Blood 03/20/2018 11:2 2 AM EDT 03/20/2018 11:34 AM EDT us [facility] BLOOD ORDERABLES Final Result Performing Organization Address City/[facility]/ZIP Co de Phone Number [address] [address] * Smooth Muscle Antibody (03/20/2018 11:22 AM EDT) ANTI-SMOOTH MUSCLE AB Negative Negative [facility] MED AND PAT+ Comment: (NOTE) ADDITIONAL INFORMATION This test was developed and its performance characteristics determined by [facility] in a manner consistent with CLIA requirements. This test has not been cleared or approved by the U.S. Food and Drug Administration. Blood 03/20/2018 11:2 2 AM EDT 03/20/2018 11:33 AM EDT us [facility] BLOOD ORDERABLES Final Result Performing Organization Address [facility] Co de Phone Number [facility] MED AND PAT+ [address] [place] [address] * (ABNORMAL) Antinuclear antibody (YOANNA) (03/20/2018 11:22 AM EDT) Pathologist [facility] YOANNA SCREEN ON HEP 2 Positive(A ) Negative [facility] Comment:An YOANNA Titer has bee n reflexed. The results will follow. Blood 03/20/2018 11:2 2 AM EDT 03/20/2018 11:34 AM EDT us [facility] BLOOD ORDERABLES Final Result Performing Organization Address City/[facility] Co de Phone Number [address] [address] * Anti-Mitochondrial Antibody (AMA) (03/20/2018 11:22 AM EDT) MITOCHONDRIAL AB M2 <0.1 <0.1 (Negative) U [facility] MED AND PAT+ Blood 03/20/2018 11:2 2 AM EDT 03/20/2018 11:33 AM EDT [facility] BLOOD ORDERABLES Final Result Performing Organization Address City/[facility]/ZIP Co de Phone Number [facility] MED AND PAT+ [address] [place] [address] * AFP (non-maternal specimens) (03/20/2018 11:22 AM EDT) AFP (NON-MATERNAL) 2.3 0.8 - 7.5 ng/mL [facility] Blood 03/20/2018 11:2 2 AM EDT 03/20/2018 11:34 AM EDT [facility] BLOOD ORDERABLES Final Result Performing Organization Address [facility] Co de Phone Number [facility] [address] [place] [address] * Yajhg-5-kphlumjegcz phenotyping (03/20/2018 11:22 AM EDT) ALPHA 1 ANTITRYPSIN 178 100 - 190 mg/dL [facility] LAB MED AND PAT+ A1A PHENOTYPE MM bands [facility] DPT OF LAB MED AND PAT+ Comment: (NOTE) A single M isoform is detected. In the context of a normal zlltq-3-ksgvdydmvdd concentration, this is consistent with an MM phenotype. Blood 03/20/2018 11:2 2 AM EDT 03/20/2018 11:33 AM EDT [facility] BLOOD ORDERABLES Final Result Performing Organization Address City/[facility] Co de Phone Number [facility] MED AND PAT+ [address] [place] [address] documented in this encounter Visit Diagnoses Diagnosis Other cirrhosis of liver- Primary documented in this encounter Additional Health [...] documented as of this encounter Care Teams Rug Receiving Clerk Relationship Specialty Start Date End Date Phyllis Bello PA [address] [place] [id number] PCP - General Manager Of Internal Audit 08/09/17 03/02/23 Josy Hernandez MD [address] [place] [phone] [email or web address] PCP - General Family Medicine 03/03/23 06/17/23 Phyllis Bello PA [address] [place] [address] PCP - General Physician Rad Technologist 06/18/23 Zohra Saenz MD [address] [place] [address] Historical LMR Provider 07/09/17 2 Estelita Bobby NP [address] [place] [address] 2_[place] [address] [email or web address] Historical LMR Provider 07/09/17 10/01/21 Phyllis Bello PA [address] [place] [address] [place] [address] Historical LMR Provider 07/09/17 Nate Dockery MD [address] [place] [address], [address] [place] [address] [email or web address] Historical LMR Provider 07/09/17 2 Josy Hernandez MD [address] [place] [address] Insurance Assigned Provider 12/22/17 08/30/19 Nate Ritter MD [address] [place] [address], [address] [place] [address] Neurology 06/24/19 Prakash Tolentino MD [address] [place] [address] Insurance Assigned Provider 08/30/19 08/29/20 Rod Cunningham, [address] [address] [email or web address] Social Work 08/23/20 06/13/22 Josy Hernandez MD [address] [place] [address] Insurance Assigned Provider 08/29/20 02/27/21 Prakash Tolentino MD [address] [place] [address] [email or web address] Insurance Assigned Provider 02/27/21 04/02/21 Josy Hernandez MD [address] [place] [phone] [email or web address] Insurance Assigned Provider 04/02/21 06/04/21 Prakash Tolentino MD [address] [place] [address] [email or web address] Insurance Assigned Provider 06/04/21 07/30/21 Josy Hernandez MD [address] [place] [phone] [email or web address] Insurance Assigned Provider 07/30/21 06/03/22 Nate iRtter MD [address] [place], [place] [id number] [place] [address] Neurology 01/10/22 Philip Lara DO [address] [place] [address] [email or web address] Geriatric Medicine 01/01/24 documented as of this encounter Additional Source Comments The information contained in this document represents components of the legal health record. It is not the complete legal health record.[facility]
--- OUTSIDE RECORDS SUMMARY | 2025-05-21 15:58 | XMS_ITS | Clinical Summary ---
Author Organization [facility] Address [address] [place] [address] [place] [id number] Phone Care Team Providers Care Stationary Plant Operators Name Role Phone Phyllis Bello Unavailable [phone] Nate Ritter MD Unavailable [phone] Nate Ritter MD Unavailable [phone] Phyllsi Bello Primary Care Provider [phone] Philip Lara DO Unavailable [phone] Allergies Active Allergy Reactions Criticality Noted Date Comments Levetiracetam Rash High 01/13/2022 depression/anxiety Morphine Hallucinations High 10/09/2017 Topiramate Maculopapular Rash,Rash Low 10/25/2020 Suspected rash may have been due to topamax Medications VIMPAT 200 mg Tab Take 200 mg by mouth 2 (two) times a day. 2 Active lamoTRIgine (LAMICTAL) 100 MG IMMEDIATE release tablet Take 300 mg by mouth 2 (two) times a day. 2 Active phenytoin (DILANTIN) 50 mg tablet Take 3 tablets (150 mg total) by mouth 2 (two) times a day. 4 Active sertraline (ZOLOFT) 25 MG tablet Take 125 mg by mouth daily. Active zonisamide (ZONEGRAN) 100 MG capsule Take 4 capsules (400 mg total) by mouth every evening. 120 capsule 5 Active traZODone (DESYREL) 50 MG tablet Take 0.5 tablets (25 mg total) by mouth 3 (three) times a day. 45 tablet 5 025 Active traZODone (DESYREL) 50 MG tablet Take 0.5 tablets (25 mg total) by mouth 3 (three) times a day as needed (agitation, agression). 15 tablet 5 Active traZODone (DESYREL) 50 MG tablet Take 25 mg by mouth 2 (two) times a day. 025 Discontinued Active Problems Problem Noted Date Diagnosed Date Seizures 03/25/2025 Diarrhea of presumed infectious origin Assessment & Plan (01/31/2025 3:06 PM EDT): Per patient's has also had episodic diarrhea, unclear how many episodes at home, and unclear duration at this time. Had diarrhea in the ED --Will monitor. If recurrent diarrhea, send C. difficile and stool culture Assessment & Plan (01/30/2025 9:54 PM EDT): -Per patient's has also had episodic diarrhea, unclear how many episodes at home, and unclear duration at this time. -Upon presenting to ED had diarrheal bowel movement Plan: Check C. difficile, stool culture, ova and parasites Check COVID-19. Seizure 04/25/2024 Assessment & Plan (04/27/2025 4:30 PM EDT): admitted with breakthrough seizure witnessed by at home. Received IV vimpat 200mg, IV ativan 2mg, IV fosphenytoin. Concern for medication nonadherent as this has been the case in recent past admissions. notes sometimes difficult to get him to take Lamotrigine level <2 (LOW) Dilantin level 3.6 (LOW) Patient's postictal state cleared and he was able to take oral medications. Now resumed on prior home mediation regimen per teleneurology: discussed with his neurologist Dr Cabral who is going to get him in for urgent fu but suggests continue as recommended and monitor w/ increased risk of SJS, symptoms reviewed with . Mainly looking for rash, gabriel in oral area - lamotrigine 300mg BID - phenytoin 150mg BID - lacosamide 200mg BID - zonisamide 400mg nightly -EEG ordered as per recommendation of telemetry neuro. Patient is alert and conversing no evidence of status epilepticus. Assessment & Plan (04/26/2025 3:14 PM EDT): Patient admitted with breakthrough seizure witnessed by at home. In ED patient had another witnessed tonic-clonic event lasting less than 1 minute. He has well-documented postictal state. Received IV vimpat 200mg, IV ativan 2mg, IV fosphenytoin. Concern for medication nonadherent as this has been the case in recent past admissions. CM tells me has reported patient intermittently refuses to take medications from her. Lamotrigine level <2 (LOW) Dilantin level 3.6 (LOW) Patient's postictal state cleared and he was able to take oral medications. Now resumed on prior home mediation regimen per teleneurology: - lamotrigine 300mg BID - phenytoin 150mg BID - lacosamide 200mg BID - zonisamide 400mg nightly Levels for lamotrigine and lacosamide as well as Dilantin were drawn today at 11 AM and not before patient received the IV load as recommended by neurology. Plan - Follow per neurology, if he has another seizure, please load with IV depakote 15mg/kg (roughly 1g of VPA IV x1) . If patient loaded with Depakote then repeat LFTs the following morning. -EEG ordered as per recommendation of telemetry neuro. EEG not available on weekends ordered for 04/27. Patient is alert and conversing no evidence of status epilepticus. - Follow drug levels if abnormal discuss with neurology dose adjustments. - Monitor for recurrent seizures. -As needed IM lorazepam for recurrent seizure. (Patient refuses and pulled out all IVs). ASSOCIATION EXECUTIVE-discussed with psychiatry raise questions about intermittent Lamictal use and risk for Calero-Ho syndrome. *Neurosurgery was reconsulted and did state that there was a risk for SJS as patient's lamotrigine level was,2.0. He did note that discontinuing the medication was not simple and that his primary neurologist Dr. Laurel Cabral at [facility] should contacted for further guidance as discontinuing lamotrigine has multiple levels of complexity. Assessment & Plan (04/25/2025 2:16 PM EDT): Patient admitted with breakthrough seizure witnessed by at home. In ED patient had another witnessed tonic-clonic event lasting less than 1 minute. He has well-documented postictal state. Received IV vimpat 200mg, IV ativan 2mg, IV fosphenytoin. Concern for medication nonadherent as this has been the case in recent past admissions. CM tells me has reported patient intermittently refuses to take medications from her. Lamotrigine level <2 (LOW) Dilantin level 3.6 (LOW) Patient's postictal state cleared and he was able to take oral medications. Now resumed on prior home mediation regimen per teleneurology: - lamotrigine 300mg BID - phenytoin 150mg BID - lacosamide 200mg BID - zonisamide 400mg nightly Levels for lamotrigine and lacosamide as well as Dilantin were drawn today at 11 AM and not before patient received the IV load as recommended by neurology. Plan - Follow Per neurology, if he has another seizure, please load with IV depakote 15mg/kg (roughly 1g of VPA IV x1) . If patient loaded with Depakote then repeat LFTs the following morning. -EEG ordered as per recommendation of telemetry neuro. EEG not available on weekends. Patient is alert and conversing no evidence of status epilepticus. - Follow drug levels if abnormal discuss with neurology dose adjustments. - Monitor for recurrent seizures. -As needed IM lorazepam for recurrent seizure. (Patient refuses and pulled out all IVs). Assessment & Plan (04/24/2025 8:03 PM EDT): Now resolved. Received IV vimpat 200mg, IV ativan 2mg, IV fosphenytoin. Unclear if he is medication nonadherent, but this has been the case in recent past admissions. Lamotrigine level <2 (LOW) Dilantin level 3.6 (LOW) Picture worrisome for medication non adherence. CM tells me has reported patient intermittently refuses to take medications from her. Here, patient has been accepting medications thus far. Per neurology, if he has another seizure, please load with IV depakote 15mg/kg (roughly 1g of VPA IV x1) Now resumed on prior home mediation regimen: - lamotrigine 300mg BID - phenytoin 150mg BID - lacosamide 200mg BID - zonisamide 400mg nightly [ ] reviewed with pharmacy, will draw drug levels tomorrow morning and discuss with neurology dose adjustments. [ ] follow up EEG Assessment & Plan (04/23/2025 10:52 PM EDT): Now resolved. Received IV vimpat 200mg, IV ativan 2mg, IV fosphenytoin. Unclear if he is medication nonadherent, but this has been the case in recent past admissions. Monitor on telemetry Checking levels for lamotrigine, phenytoin, hopefully sent from initial blood work Per neurology If he has another event despite loading with vimpat and fosphenytoin as ordered, then please load with IV depakote 15mg/kg (roughly 1g of VPA IV x1) Restart zonisamide and lamotrigine PO once able to take. Case management for possible placement per request Geriatrics consult to evaluate for dementia Assessment & Plan (04/22/2025 4:38 PM EDT): Now resolved, but he is postictal. Received IV vimpat 200mg, IV ativan 2mg, IV fosphenytoin. Unclear if he is medication nonadherent, but this has been the case in recent past admissions. Monitor on telemetry Checking levels for lamotrigine, phenytoin, hopefully sent from initial blood work Per neurology If he has another event despite loading with vimpat and fosphenytoin as ordered, then please load with IV depakote 15mg/kg (roughly 1g of VPA IV x1) Restart zonisamide and lamotrigine PO once able to take. Case management for possible placement per request Assessment & Plan (03/25/2025 10:16 AM EDT): Patient with a history of seizure disorder with multiple admissions. Pt with 4 seizures on 03/24 each lasting < 1 minute with approximately 1 hour between seizures. Patient's denies any recent EtOH use states it has been many years since he was drinking. She denies any recent changes in sleep habits or any recent fevers, chills, complaints of pain anywhere or falls. Patients provides medications at home and states no missed doses. At home patient maintained on: - Lamotrigine 300 mg twice daily - Phenytoin 150 mg twice daily - Lacosamide 200 mg twice daily - Zonisamide 300 mg nightly He follows with Epilepsy specialist Laurel Cabral and Neurologist Dr. Ritter. Patient had been prescribed Valtoco 15 mg daily as needed his states she tried it once and it would did not work. Head CT unremarkable Tele neurology recommending continuing home medications as patient is able to tolerate p.o. Cerebell placed for 7 minutes in ED with no seizure activity noted. If ongoing seizures or prolonged, unstable postictal phase patient may need transfer to a neuro ICU for continuous EEG monitoring. Assessment & Plan (03/24/2025 2:47 PM EDT): Patient with a history of seizure disorder with multiple admissions. Pt with 4 seizures on 03/24 each lasting < 1 minute with approximately 1 hour between seizures. Patient's denies any recent EtOH use states it has been many years since he was drinking. She denies any recent changes in sleep habits or any recent fevers, chills, complaints of pain anywhere or falls. Patients provides medications at home and states no missed doses. At home patient maintained on: - Lamotrigine 300 mg twice daily - Phenytoin 150 mg twice daily - Lacosamide 200 mg twice daily - Zonisamide 300 mg nightly He follows with Epilepsy specialist Laurel Cabral and Neurologist Dr. Ritter. Patient had been prescribed Valtoco 15 mg daily as needed his states she tried it once and it would did not work. Tele neurology recommendations: In the ED pt received Fosphenytoin 1,450 mg (IV equivalent of phenytoin) - Plan to continue home maintenance dose of phenytoin - If patient unable to take PO will need IV maintenance dose ordered. - EKG NSR with MA interval 170 ms - Patient mental status improved and able to take PO home Vimpat. - If unable to take PO will need IV Vimpat 200mg twice daily (home equivalent) - Continue home lamotrigine and ZNS - If he does not sufficiently clear for lamotrigine and ZNS will need a third agent of IV valproate. (See teleneuro note for dosing.) - Cerebell placed for 7 minutes in ED with no seizure activity noted. -If ongoing seizures or prolonged, unstable postictal phase patient may need transfer to a neuro ICU for continuous EEG monitoring. - Follow up Head CT Assessment & Plan (01/31/2025 3:06 PM EDT): Presented to the ED after multiple seizures at home, appeared postictal. On n multiple AEDs including lacosamide, phenytoin, zonisamide Known to have prolonged postictal episode MRI brain showing motion artifact, no acute findings otherwise. EEG in the ED showed rare right frontotemporal discharges and background delta/theta slowing. No seizures Diarrhea reported prior to admission. Tox screen positive for THC/cannabinoid, phencyclidine (may be 2/2 home medications) and benzodiazepines (given for sz). Workup otherwise not demonstrating any new infectious or metabolic derangements. Recent diarrhea, unclear if contribute -- Teleneurology recommending continuing current antiepileptic regimen --Seizure precautions --Continue close monitoring of mental status, supportive management of presumed resolving postictal state --Consult to PT Assessment & Plan (01/30/2025 9:54 PM EDT): - Multiple seizures at home, currently postictally with known history of epilepsy -Is on multiple AEDs including lacosamide, phenytoin, zonisamide -Prolonged postictal state after prior seizures, is not unusual for the patient, currently postictal at this time. -Teleneurology consulted, recommended further imaging studies with MRI with and without contrast seizure protocol, as well as resume patient's home medications without further adjustment of AEDs Plan: Resume patient's AEDs, appears to be able to tolerate orally. MRI with and without contrast ordered and pending EEG performed the ED, currently pending official read Further infectious workup including Pro-Gianluca, C. difficile, stool culture Postictal confusion 04/22/2024 Assessment & Plan (04/27/2025 4:30 PM EDT): Patient has a history of prolonged confused state attributed to typical prolonged post ictal period after witnessed seizures. Well documented in notes. Overnight he has had marked improvement Assessment & Plan (04/26/2025 2:03 PM EDT): Patient has a history of prolonged confused state attributed to typical prolonged post ictal period after witnessed seizures. He was confused on admission to the floor. Overnight he has had marked improvement now is awake alert oriented to person and place and appropriate. Assessment & Plan (04/25/2025 2:16 PM EDT): Patient has a history of prolonged confused state attributed to typical prolonged post ictal period after witnessed seizures. He was confused on admission to the floor. Overnight he has had marked improvement now is awake alert oriented to person and place and appropriate. Assessment & Plan (04/24/2025 8:02 PM EDT): Ongoing confused state attributed to typical prolonged post ictal period after witnessed seizures. Appears to be improving steadily Assessment & Plan (04/24/2024 12:34 PM EDT): -no further seizures here -regimen of 4 antiseizure meds including Lamictal 300mg bid, Dilantin 150mg bid, Vimpat 200 mg bid, and Zonisamide 300 mg qhs. He missed his evening dose of meds the night before admission and had 3 breakthrough seizures in the morning, hx of prolonged post ictal period in past. He is clearing up a little bit. -Dilantin level was low on admission 3.2 and he was loaded with IV dilantin but doubt missing one dose causes subtherapeutic serum levels. Recent levels were normal and then high so concern would be that he missed more than one dose. Follow up levels remain within therapeutic range. -Chart review notable for geriatrics eval (Dr Lara) and diagnosis of moderate dementia at baseline; chronic intermittent use of cannabis which can lower sx threshold and variable behaviors at baseline (see note 01/09) - working with pharmacy to titrate medications as above. 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 Assessment & Plan (04/26/2025 2:03 PM EDT): Cm/sw looking into LTC. - Met with at bedside who states that if patient is more calm and cooperative she would be willing to take him home. Assessment & Plan (04/25/2025 2:16 PM EDT): Cm/sw looking into LTC Assessment & Plan (04/24/2025 8:02 PM EDT): Cm/sw looking into LTC Cognitive decline 12/28/2023 Assessment & Plan (04/27/2025 4:30 PM EDT): Patient followed by gerontology for neurogenic degenerative process Alzheimer's v.s. Lewy body dementia. Per patients at baseline he is oriented to self and can recognize his family members but requires assistance with medical decision making. Healthcare proxy invoked Patient was agitated equiring doses of trazodone. Psychiatry consulted and after discussion with patient was on scheduled trazodone twice daily at home. Per psychiatry - Trazodone 25 mg in the morning, 25 mg at noon and 50 mg at at bedtime scheduled. - Continue as needed trazodone for breakthrough agitation Assessment & Plan (04/26/2025 2:03 PM EDT): Patient followed by gerontology for neurogenic degenerative process Alzheimer's v.s. Lewy body dementia. Per patients at baseline he is oriented to self and can recognize his family members but requires assistance with medical decision making. Healthcare proxy invoked Geriatrics consult to evaluate for dementia. Drill Press Tender not available till next week. 04/26 Patient was agitated last night and again this morning requiring doses of trazodone. Psychiatry consulted and after discussion with patient was on scheduled trazodone twice daily at home. Per psychiatry - Trazodone 25 mg in the morning, 25 mg at noon and 50 mg at at bedtime scheduled. - Continue as needed trazodone for breakthrough agitation - Will follow with formal consult from psychiatry. - Check EKG in a.m. Assessment & Plan (04/25/2025 2:16 PM EDT): Patient followed by gerontology for neurogenic degenerative process Alzheimer's v.s. Lewy body dementia. Per patients at baseline he is oriented to self and can recognize his family members but requires assistance with medical decision making. Healthcare proxy invoked Geriatrics consult to evaluate for dementia. Drill Press Tender not available till next week. Assessment & Plan (04/24/2025 8:03 PM EDT): Patient followed by gerontology for neurogenic degenerative process Alzheimer's v.s. Lewy body dementia. Per patients at baseline he is oriented to self and can recognize his family members but requires assistance with medical decision making. Healthcare proxy invoked Geriatrics consult to evaluate for dementia Assessment & Plan (03/25/2025 10:16 AM EDT): Patient followed by gerontology for neurogenic degenerative process Alzheimer's v.s. Lewy body dementia. Per patients at baseline he is oriented to self and can recognize his family members but requires assistance with medical decision making. Healthcare proxy invoked Assessment & Plan (03/24/2025 2:47 PM EDT): Patient followed by gerontology for neurogenic degenerative process Alzheimer's v.s. Lewy body dementia. Per patients at baseline he is oriented to self and can recognize his family members but requires assistance with medical decision making. - Healthcare proxy invoked Assessment & Plan (10/30/2024 4:09 PM EST): -Healthcare proxy invoked -Continue with Zoloft -Continue with B vitamins Assessment & Plan (12/28/2023 3:15 PM EDT): Discussed with geriatrics He will need further workup for potential cognitive decline but at this point is impairing him greatly and we safest placement disposition given difficulty increasingly at home Breakthrough seizure 12/20/2023 Assessment & Plan (12/28/2023 3:13 PM EDT): -Presented w/ breakthrough seizure- Post ictal with persistent confusion, disorientation but appears to be underlying cognitive decline for quite some time according to , I had plaster whittler see him today for fu. -CT head was negative for any acute intracranial pathology. -EEG abnormal in encephalopathic state, no sz -Neuro rec loading with phenytoin and maintenance. Consult initially recommended continuous EEG, transfer though discussed with [facility] transfer line and neuro attending, Dr. Almodovar, who feels this may be a postictal state for patient. Feels there is no need for transfer or continuous EEG at this time. -Teleneurology was reconsulted on 12/24. Did not feel there is a need for repeat imaging or EEG at this point. LP might be considered if he remained persistently altered. In that case they would recommend sending [employer] panel -For now, continue current antiepileptics including Vimpat, Lamotrigine, Zonisamide, phenytoin 100 mg 3 times daily (+loaded). -Ativan 2 mg PRN for seizure activity -Outpatient neurology had recommended routine and ambulatory 72-hour EEG to assess for seizure control prior to medication changes. -If ongoing seizure activity may require transfer for continuous EEG monitoring -Dr. Cabral, [facility] outpatient Neurologist had been contacted, I left her a message yesterday. Requires f/u in 1 week with drug level monitoring Alcoholic fatty liver 12/20/2023 Alcohol use disorder in remission 12/20/2023 Alcoholic cirrhosis of liver without ascites Assessment & Plan (12/28/2023 3:13 PM EDT): -Currently compensated. Abstinent several years -thiamine supplement -empirically started on lactulose on 12/18, nh3 normal, will hold History of torsades de pointes 12/20/2023 Assessment & Plan (12/20/2023 12:49 AM EDT): Secondary to severe electrolyte derangements. Traumatic brain injury 12/20/2023 PTSD (post-traumatic stress disorder) 12/20/2023 Post-ictal state 12/20/2023 Altered mental status 12/20/2023 Assessment & Plan (10/30/2024 4:23 PM EST): Patient at baseline is usually alert to self, able to hold conversation and follow direction. Pleasant. He has history of dementia. He currently is postictal, improving and alert to self currently. Uncertain of situation, not able to follow complete directions currently. CTA head and neck shows no acute intracranial abnormality. Moderate stenosis of the proximal cervical segment of the right internal carotid noted. Neurology was consulted in ED recommends restarting home antiepileptics when taking PO. History of prolonged postictal state. Etiology likely from prolonged postictal state following witnessed seizure. Seizure is secondary to not taking all of his antiepileptics. Currently no signs of superimposed infection, no recent alcohol use. He was loaded with fosphenytoin in ED, not following directions to take his oral meds currently. -Await passing of bedside swallow eval; hopefully in the next few hours -Restart home antiseizure meds when accepting of p.o. Lamictal 300 mg twice daily Lacosamide 200 mg twice daily Zonisamide 300 mg nightly Dilantin 150 mg twice daily -Seizure precautions, telemetry monitoring -As needed lorazepam for seizure activity -EEG pending -Follow-up Vimpat, lamictal, phenytonin, lacosmide levels -Screening urinalysis, toxicology screen pending collection -Confirmed with patient's , now has refills of all antiseizure medications today Altered awareness, transient 12/20/2023 Acute metabolic encephalopathy 12/26/2021 Assessment & Plan (03/29/2022 3:35 PM EDT): -Secondary to postictal state and receiving multiple doses of benzodiazepines -Continue to closely monitor, vitals are currently stable with oxygen saturation in the high 90s Assessment & Plan (12/28/2021 10:12 AM EDT): Unclear etiology however possibilities include postictal state versus Wernicke's encephalopathy versus stroke Prolactin was 15 Drug screen is positive for THC/cannabinoids which the patient uses, barbiturates and benzodiazepine which the patient received last admission (discharged 12/25). Lamictal level on 12/23 8.5 EEG obtained which showed slowing no seizure activity. 4 discussed with neurology patient did not appear to be back to baseline per his . Status change attributed to possible Wernicke's encephalopathy per neurology versus medications MRI obtained, no acute pathology, B12 level within normal limits, recommended high-dose thiamine supplementation -Thiamine 500 mg [address] on daily thiamine thereafter Will need follow-up with Dr. Ritter. Today the patient knows he is at [facility], knows the year and the month as well as what his antiseizure medications are for, he did not know the doses and states that his typically gives these to him Focal epilepsy with impairme nt of consciousness, intractable 10/22/2020 Overview (12/20/2023): ONSET: Apr 2017, GTC witnessed by SEMIOLOGY: [...] within mastoid air cells suggestive of mastoiditis. Last Assessment & Plan: - check ASM levels, I suspect dizziness [...] in the health record Assessment & Plan (12/27/2023 2:12 PM EDT): Past epsiodes of prolonged post-ictal confusion with post ictal amnesia EEG confirmed bilateral discharged in temporal regions R>L earlier in hospital stay, most recent no sz. Prior MRI Brain without infarct, hemorrhage, mass or mass effecs. No mesial temporal sclerosis with moderate atrophy. Came in on Lamotrigine 300 mg BID, Lacosamide 200 mg BID, Zonisamide 200 mg daily, started phenytoin here. MRI showed no acute pathology So far his altered mental status is being attributed to being post ictal, he remains confused, YOANNA was positive, discussed with rheum dr dill, very low likelihood of impact of autoimmune disorder in this case, she would suspect more elevation in inflammatory markers as well as noticeable systemic inflammation and symptoms Assessment & Plan (12/27/2021 1:44 PM EDT): Continue Vimpat and Lamictal Assessment & Plan (12/24/2021 12:27 PM EDT): Patient with multiple seizures on Sunday. While in the emergency department he had a another seizure and was given a lot of phenobarbital, Haldol and Ativan. He remains markedly somnolent. ICU was consulted and placed a CereBell on him and he had no seizure activity currently. They did not feel ICU level of care was warranted. It seems that he was given the phenobarbital over concerns of alcohol withdrawal seizure as he has had this previously. His indicates that he does not drink alcohol anymore and this is a similar story to when he was admitted here in June 2021 with seizures. Neurology was consulted and recommended and increase of home meds however the increase recommended was to his chronic home dose. Neurology recs formal EEG is still somnolent over the next 12-24 hrs. I will reconsult neurology. We will observe him while the sedative medications wear off. Assessment & Plan (07/01/2021 9:44 AM EDT): He is receiving his home seizure meds and in addition did receive a phenobarb load as there was some concern about alcohol, which has since been resolved. (He quit drinking several years ago). Today he is more alert and bright, answering questions but with notable word finding difficulty and trouble with processes, (he cant dial his phone) Tele neuro consult Suggested increase his Vimpat to 150 BID Will get MRI now as well given this notable deficit as well as unclear trigger of seizures etc. If all is well we will expect discharge tomorrow morning. Assessment & Plan (10/24/2020 2:26 PM EST): - history of TBI and alcohol dependence in remission - follows with neurologist Dr. Ritter - chronic antiepileptic Lamictal 300 - Dr. Ritter was contacted and recommended cont lamictal and add topamax - received 2 doses of topamax and developed maculopapular rash, stopped and started lacosamide as recommended by neurology - avoided keppra as he did not tolerate it in the past - planned for discharge today but lacosamide requires prior auth - CM working on this - will be able to discuss new plan with his regular neurologist Dr. Ritter tomorrow morning Mixed anxiety depressive disorder 10/22/2020 Assessment & Plan (12/27/2021 1:43 PM EDT): Continue zoloft Assessment & Plan (12/24/2021 1:26 AM EDT): Continue sertraline when he awakens more. Assessment & Plan (10/22/2020 3:51 PM EST): Continue zoloft Tobacco use 10/22/2020 Assessment & Plan (04/22/2024 2:40 PM EDT): -Nicotine patch ordered Assessment & Plan (03/03/2023 3:43 PM EDT): - Nicotine patch ordered Assessment & Plan (03/29/2022 3:39 PM EDT): - Nicotine patch ordered Assessment & Plan (12/26/2021 3:28 AM EDT): Continue nicotine replacement therapy. Assessment & Plan (12/24/2021 1:27 AM EDT): As needed nicotine gum when he awakens more. Assessment & Plan (06/30/2021 1:54 AM EDT): We will give nicotine replacement therapy. Assessment & Plan (10/22/2020 4:21 PM EST): Smokes 10-20 cigs per day Nicotine patch Resolved Problems Problem Noted Date Diagnosed Date Resolved Date Seizures 03/24/2025 03/24/2025 Wheeze 12/20/2023 12/28/2023 Assessment & Plan (12/23/2023 11:23 AM EDT): Improving Seizure 03/29/2022 12/20/2023 Assessment & Plan (03/03/2023 3:46 PM EDT): - Patient presented to the ED after 3 tonic-clonic seizures at home followed by 1 seizure in the ED that lasted about 1 minute. Patient received IV Ativan 2 mg in the ED and is now lethargic -Seizure precautions -Restart Vimpat. Due to insurance/pharmacy issues patient has been unable to get his medications for the past 5 days -IVF hydration Assessment & Plan (03/29/2022 3:43 PM EDT): -Patient with history of seizure disorder, on multiple medications including Vimpat 200 mg twice daily, Zonegran 100 mg daily, and Lamictal 300 mg twice daily -At home on the morning of admission patient had 5 or 6 seizures and was postictal in the ED. He then had 1 more seizure in the ED quickly terminated on its own. However he had several episodes of severe agitation, nonepileptic, but received several doses of IV Ativan and Versed -ED discussed case with tele neurology, patient has been loaded and started on IV Keppra until he is no longer postictal and able to restart his oral medications -Aspiration precautions, chest x-ray is currently clear -Seizure precautions -As needed IV Ativan for any further seizures -He was evaluated with the Ever by ICU and had seizure burden of 0% -N.p.o. until patient's mental status improves, then he can start a regular diet -Patient with metabolic acidosis this morning likely secondary to multiple seizures, repeat labs to ensure bicarb is trending up -Alcohol level less than 10 Seizures 01/08/2022 12/20/2023 Agitation 12/24/2021 12/26/2021 Rash and nonspecific skin eruption 07/01/2021 12/24/2021 Assessment & Plan (07/01/2021 9:49 AM EDT): Likely a drug rash based on appearance, developed overnight Non-itchy, not raised or warm just full body red macular confluences. Phenobarb was discontinued yesterday. I have stopped all other new meds (vitamins, nicotine patch..) as well to avoid any possible trigger. We will monitor for any signs of systemic involvement. Get CRP, ESR, RPR, Will also get lyme studies. Status epilepticus 05/15/2020 Long Q-T syndrome 10/10/2017 12/20/2023 Assessment & Plan (12/20/2023 12:48 AM EDT): Baseline EKG with QTC 410-460. Unclear if congenital. Charted history of Torsades, attributed to severe electrolyte derangements from alcohol use. Likely erroneous diagnosis. Will resolve. Assessment & Plan (10/23/2017 5:39 PM EST): Resolved on most recent EKG. Assessment & Plan (10/10/2017 3:24 AM EST): Torsades during his last admission with long QT related to electrolyte disturbances and possibly psychotropic medications; will document QTc q 6 hours; keep Mag and K replete. Acute respiratory failure with hypoxia 10/09/2017 12/24/2021 Assessment & Plan (06/30/2021 11:09 AM EDT): Chest x-ray was unremarkable. He is now on room air. Resolved. Assessment & Plan (10/23/2017 5:38 PM EST): Resolved Assessment & Plan (10/10/2017 3:06 AM EST): Intubated for airway protection after large amount of benzos for withdrawal delirium with agitation and seizures in ED. Unclear if there was any evidence of aspiration. CXR doesn't show infiltrate. He is requiring higher oxygen supp on the vent than I would have expected unless underlying pulm issue. I do believe he is a smoker, ordered nebs and guaifenesin. Encounters Date Type Department Care Team Description 05/21/2025 Telephone [facility] [address] [place] [address] Naveed Carter RN ED, [facility] 05/06/2025 Patient Outreach [facility] [address] [place] [address] Josefina Glaser [facility] support 04/29/2025 Telephone [facility] [address] [place] [address] Naveed Carter RN Personality Changes; escalating behavior risk seizure risk 04/27/2025 Orders Only [facility] [address] [place] [phone] Homehealth, Interface ProviderMD 04/22/2025 7:32 AM EDT - 04/28/2025 3:53 PM EDT Hospital Encounter [facility] [address] [address] Price Castaneda MD Arepally, Sandeep, MD Barbosa-Angles, Nikkie Patel DO, MPH Angy Collado MD Altman, Evan K, DO, MPH Discharge Disposition: Home or Self Care 03/25/2025 Orders Only [facility] [address] [place] [phone] Homehealth, Interface ProviderMD 03/24/2025 8:30 AM EDT - 03/26/2025 1:02 PM EDT Hospital Encounter [facility] [address] [address] Christiano Broussard MD Kielbasa, Shasta A, MD Anser, MD Maris Discharge Disposition: Home or Self Care 03/24/2025 Procedure Pass [facility], Ct Scan - [facility] [address] [place] [phone] from Last 3 Months Immunizations Immunization Administration Dates Next Due COVID-19 (Pre-07/16) Ciara Vaccine, [id number], PF 12/08/2020 Hepatitis B Adult 09/15/2019 INFLUENZA, SPLIT VIRUS, TRIV ALENT W/ PRESERVATIVE IM 07/03/2017 Influenza Quadrivalent Prese rvative Free IM 07/18/2021,09/15/2019,10/24/2017,06/30 Influenza trivalent preserva tive free intradermal 07/13/2014 Pneumococcal polysaccharide PPSV23 06/30/2015 Tdap 10/20/2013 Zoster recombinant 11/23/2020 Social History Tobacco Use Types Packs/Day Years Used Date Smoking Tobacco: Every Day Cigarettes Smokeless Tobacco: Never Tobacco Cessation:Ready to Q uit: Not Asked; Counseling Given: Not Answered Comments:rolls his own, pot as well Alcohol Use Standard Drinks/Week Comments Not Currently 0 (1 standard drink = 0.6 oz pur e alcohol) none since 2017 Education Answer Date Recorded Are you interested [...] 4:38 PM EST Sexual Orientation Straight 11/19/2017 4 :38 PM EST Last Filed Vital Signs Vital Sign Reading Time Taken Comments Blood Pressure 152/93 04/27/2025 9:35 PM EDT Pulse 69 04/27/2025 9:35 PM EDT Temperature 36.5 C (97.7 F) 04/27/2025 9:35 PM EDT Respiratory Rate 20 04/27/2025 9:35 PM EDT Oxygen Saturation 98% 04/27/2025 9:35 PM EDT Inhaled Oxygen Concentration 60% 05/17/2020 4 :24 PM EDT Weight 62.1 kg (136 lb 12.8 oz) 04/26/2025 5:49 AM EDT Height 167.6 cm (5' 6 ) 04/22/2025 4:26 PM EDT Body Mass Index 22.08 04/22/2025 4:26 PM EDT Plan of Treatment Upcoming Encounters Date Type Department Care Team (Late st Contact Info) Description 01/08/2026 8:30 AM EDT [facility] [address] [place] [phone] Philip Lara DO [address] [place] [phone] [email or web address] Health Maintenance Due Date Last Done Comments SMOKING Hx and SMOKELESS TOBACCO SCREENING 1981 HIV ONE-TIME SCREENING (18-65 YEARS) 1986 HEPATITIS A VACCINES (1 of 2 - Risk 2-dose series) 1987 COLOGUARD 2013 FIT TEST 2013 FOBT 2013 SIGMOIDOSCOPY 2013 VIRTUAL COLONOSCOPY 2013 PNEUMOCOCCAL VACCINES (50+ years) (2 of 2 - PCV) 06/30/2016 06/30/2015 ZOSTER VACCINES (2 of 2) 01/18/2021 11/23/2020 Adult Td,Tdap Booster 10/20/2023 10/20/2013 COVID-19 VACCINE ( season) 2024 09/23/2021, 12/08/2020 INFLUENZA VACCINE (#1) 2025 , 09/15/2019, 10/24/2017, Additional history exists DEPRESSION SCREENING 12/26/2025 12/26/2024, 12/27/19 PHENYTOIN (DILANTIN) LEVEL 04/28/202604/28, 04/28/2025, 04/25/2025, Additional history exists LIPID PANEL 05/30/2029 05/30/2024, 02/2024, 02/07/2023, Additional history exists COLONOSCOPY 06/18/2033 06/18/2023 COLORECTAL CANCER SCREENING 06/18/2033 HEPATITIS C SCREENING Completed 03/20/2018 , 03/20/2018, 03/20/2018 HIB VACCINES Aged Out No longer eligi ble based on patient's age to complete this topic MENINGOCOCCAL VACCINES (ACWY) Aged Out No longer eligible based on patient's age to complete this topic MENINGOCOCCAL VACCINES (B) Aged Out N o longer eligible based on patient's age to complete this topic Medical Devices Not on file Procedures Procedure Name Priority Date/Time Associated Diagnosis Comments DILANTIN (FREE) LEVEL STAT 04/28/2025 12:41 PM EDT DILANTIN LEVEL STAT 04/28/2025 12:41 PM EDT ECG 12-LEAD Routine 04/27/2025 8:11 AM EDT LAMOTRIGINE LEVEL Timed 04/25/2025 11: 03 AM EDT LACOSAMIDE LEVEL Timed 04/25/2025 11:0 3 AM EDT DILANTIN (FREE) LEVEL Timed 04/25/2025 11:03 AM EDT PHOSPHORUS Routine 04/25/2025 5:34 AM EDT MAGNESIUM Routine 04/25/2025 5:34 AM EDT COMPREHENSIVE METABOLIC PANEL Routine 04/25/2025 5:34 AM EDT CBC Routine 04/25/2025 5:34 AM EDT PHOSPHORUS Routine 04/24/2025 6:33 AM EDT MAGNESIUM Routine 04/24/2025 6:33 AM EDT COMPREHENSIVE METABOLIC PANEL Routine 04/24/2025 6:33 AM EDT CBC Routine 04/24/2025 6:33 AM EDT URINALYSIS W/REFLEX URINE CULTURE STAT 04/24/2025 4:43 AM EDT TSH WITH REFLEX Routine 04/23/2025 6:03 AM EDT PHOSPHORUS Routine 04/23/2025 6:03 AM EDT MAGNESIUM Routine 04/23/2025 6:03 AM EDT COMPREHENSIVE METABOLIC PANEL Routine 04/23/2025 6:03 AM EDT CBC Routine 04/23/2025 6:03 AM EDT POCT GLUCOSE Routine 04/22/2025 9:03 AM EDT DILANTIN LEVEL STAT 04/22/2025 8:26 AM EDT LAMOTRIGINE LEVEL STAT 04/22/2025 8:2 6 AM EDT ETHANOL, BLOOD STAT 04/22/2025 8:26 AM EDT LFTS (HEPATIC PANEL) STAT 04/22/2025 8:26 AM EDT BASIC METABOLIC PANEL STAT 04/22/2025 8:26 AM EDT CBC AND DIFFERENTIAL STAT 04/22/2025 8:26 AM EDT ECG 12-LEAD STAT 04/22/2025 7:39 AM EDT VITAMIN B1 (THIAMINE) Routine 03/26/2025 5:58 AM EDT PHOSPHORUS Routine 03/26/2025 5:58 AM EDT MAGNESIUM Routine 03/26/2025 5:58 AM EDT BASIC METABOLIC PANEL Routine 03/26/2025 5:58 AM EDT CBC AND DIFFERENTIAL Routine 03/26/2025 5:58 AM EDT PHOSPHORUS STAT 03/25/2025 10:32 AM EDT MAGNESIUM STAT 03/25/2025 10:32 AM EDT BASIC METABOLIC PANEL STAT 03/25/2025 10:32 AM EDT CBC AND DIFFERENTIAL Routine 03/25/2025 5:[address] HEAD WITHOUT CONTRAST Routine 03/24/2025 4:01 PM EDT MAGNESIUM STAT 03/24/2025 9:46 AM EDT LFTS (HEPATIC PANEL) STAT 03/24/2025 9:46 AM EDT BASIC METABOLIC PANEL STAT 03/24/2025 9:46 AM EDT CBC AND DIFFERENTIAL STAT 03/24/2025 9:46 AM EDT POCT GLUCOSE Routine 03/24/2025 8:42 AM EDT ECG 12-LEAD STAT 03/24/2025 8:40 AM EDT ENDOSCOPY, COLON 06/18/2023 1:55 PM EDT LIVER FIBROSIS TEST Routine 03/20/2018 1 1:22 AM EDT Other cirrhosis of liver from Last 3 Months or Most Recently Relevant to Health Maintenance Results * Dilantin (free) level (04/28/2025 12:41 PM EDT) Only the most recent of2 resultswithin the time period is included. FREE DILANTIN 1.0 1.0 - 2.0 mcg/mL [facility] OF LAB MED AND PAT+ Blood 04/28/2025 12:4 1 PM EDT 04/28/2025 12:53 PM EDT Mihir Mcguire DO, MPH LAB BLOOD ORDERABLES Final Result Performing Organization Address City/[facility]/ZIP Co de Phone Number [facility] OF LAB MED AND PAT+ [address] [place] [address] * Dilantin level (04/28/2025 12:41 PM EDT) Only the most recent of2 resultswithin the time period is included. DILANTIN 10.4 10 - 20 ug/mL [facility] Blood 04/28/2025 12:4 1 PM EDT 04/28/2025 12:53 PM EDT Mihir Mcguire DO, MPH LAB BLOOD ORDERABLES Final Result [facility] [address] [place] [address] * ECG 12-LEAD (04/27/2025 8:11 AM EDT) Only the most recent of3 resultswithin the time period is included. Ventricular Rate EKG/MIN 78 BPM [facility] Atrial Rate 78 BPM [facility] MA Interval 160 ms [facility] QRS Duration 82 ms [facility] QT Interval 394 ms [facility] QTC Interval 449 ms [facility] P [place] 43 degrees [facility] R Wave [place] 60 degrees [facility] T Wave [place] 42 degrees [facility] 04/27/2025 8:11 AM EDT 04/28/2025 8:48 AM EDT Narrative [facility] - 04/28/2025 8:49 AM EDT Normal sinus rhythm Normal ECG When compared with ECG of 22-Apr-2025 07:39, No significant change was found Confirmed by Antolin Car ([id number]) on 04/28/2025 8:48:54 AM Angy Collado MD ECG ORDERABLES Final Result Performing Organization Address [facility] de Phone Number [email or web address] * (ABNORMAL) Lacosamide Level (04/25/2025 11:03 AM EDT) Pathologist [facility] LACOSAMIDE 10.7(H) 1.0 - 10.0 mcg/mL [facility] Comment: (NOTE) ADDITIONAL INFORMATION This test was developed and its performance characteristics determined by [facility] in a manner consistent with CLIA requirements. This test has not been cleared or approved by the U.S. Food and Drug Administration. Blood 04/25/2025 11:0 3 AM EDT 04/25/2025 11:12 AM EDT us Angy Collado MD LAB BLOOD ORDERABLES Final Resu lt Performing Organization Address City/[facility] Co de Phone Number [facility] [address] [place] [address] * Lamotrigine level (04/25/2025 11:03 AM EDT) Only the most recent of2 resultswithin the time period is included. Pathologist [facility] LAMOTRIGINE 8.3 4.0 - 18.0 mcg/mL [facility] Comment:This test was develo ped and its performance characteristics determined by the [facility]. It has not been cleared or approved by the US Food and Drug Administration. This laboratory is certified under CLIA as qualified to perform high complexity clinical laboratory testing. Blood 04/25/2025 11:0 3 AM EDT 04/25/2025 11:12 AM EDT us Angy Collado MD LAB BLOOD ORDERABLES Final Resu lt [facility] [address] [place] [address] * Comprehensive metabolic panel (04/25/2025 5:34 AM EDT) Only the most recent of3 resultswithin the time period is included. SODIUM 142 133 - 146 mmol/L [facility] POTASSIUM 3.8 3.3 - 5.1 mmol/L [facility] CHLORIDE 105 96 - 108 mmol/L [facility] CO2 23 21 - 35 mmol/L [facility] BUN 7 6 - 19 mg/dL [facility] CREATININE 0.70 0.5 - 1.5 mg/dL [facility] GLUCOSE 88 70 - 99 mg/dL [facility] ALBUMIN 4.2 3.9 - 4.8 g/dL [facility] TOTAL PROTEIN 6.6 6.5 - 8.0 g/dL [facility] CALCIUM 9.0 8.4 - 10.3 mg/dL [facility] ALKALINE PHOSPHATASE 102 39 - 117 U/L [facility] TOTAL BILIRUBIN 0.6 0.0 - 1.2 mg/dL [facility] AST 13 0 - 37 U/L [facility] ALT 12 0 - 40 U/L [facility] GLOBULIN 2.4 1 - 4.8 g/dL [facility] EGFR 107 >59 mL/min/1.7 3m2 [facility] Comment:Estimated glomerular filtration rate calculated using the CKD-EPI refit equation. ANION GAP 18 10 - 20 mmol/L [facility] Blood 04/25/2025 5:34 AM EDT 04/25/2025 5:58 AM EDT Ceasar Loyd MD LAB BLOOD ORDERABLES Final R esult Performing Organization Address [facility] Co de Phone Number [address] [phone] * (ABNORMAL) CBC (04/25/2025 5:34 AM EDT) Only the most recent of3 resultswithin the time period is included. WBC 4.10 4.00 - 11.00 K/uL [facility] RBC 4.52 4.50 - 5.90 M/uL [facility] HGB 13.9 13.5 - 17.5 g/dL [facility] HCT 39.3(L) 41.0 - 53.0 % [facility] PLT 164 150 - 450 K/uL [facility] MCV 86.9 80.0 - 100.0 fL [facility] MCH 30.8 27.0 - 31.0 pg [facility] MCHC 35.4 32.0 - 36.0 g/dL [facility] RDW 12.7 11.5 - 14.5 % [facility] MPV 8.6 8.4 - 12.0 fL [facility] NRBC 0.00 0.00 /100 WBCs [facility] ABSOLUTE NRBC 0.00 0.00 K/uL [facility] Blood 04/25/2025 5:3 4 AM EDT 04/25/2025 5:58 AM EDT Ceasar Loyd MD LAB BLOOD ORDERABLES Final R esult [address] [address] * Phosphorus (04/25/2025 5:34 AM EDT) Only the most recent of5 resultswithin the time period is included. PHOSPHORUS 3.1 2.7 - 4.5 mg/dL [facility] Blood 04/25/2025 5:34 AM EDT 04/25/2025 5:58 AM EDT us Ceasar Loyd MD LAB BLOOD ORDERABLES Final R esult Performing Organization Address City[facility]/ZIP Co de Phone Number [address] [address] * Magnesium (04/25/2025 5:34 AM EDT) Only the most recent of6 resultswithin the time period is included. MAGNESIUM 2.1 1.6 - 2.6 mg/dL [facility] Blood 04/25/2025 5:34 AM EDT 04/25/2025 5:58 AM EDT us Ceasar Loyd MD LAB BLOOD ORDERABLES Final R esult Performing Organization Address [facility] de Phone Number [address] [address] * (ABNORMAL) Urinalysis w/reflex Urine Culture (04/24/2025 4:43 AM EDT) COLOR Yellow Yellow [facility] CLARITY HAZY [facility] GLUCOSE Negative Negative [facility] BILI 1+(A) Negative [facility] KETONES Negative Negative [facility] SPECIFIC GRAVITY 1.025 1.005 - 1.030 [facility] BLOOD Negative Negative [facility] PH 5.5 5.0 - 8.0 [facility] Protein-UA Negative Negative [facility] NITRITE Negative Negative [facility] Leukocyte esterase, ur Negative Negative [facility] Urine (Urine) 04/24/2025 4:4 3 AM EDT 04/24/2025 4:48 AM EDT us Price Castaneda MD URINE ORDERABLES Final Result Performing Organization Address [facility] Co de Phone Number [address] [address] * TSH with reflex (04/23/2025 6:03 AM EDT) TSH 0.92 0.27 - 4.20 uIU/mL [facility] Blood 04/23/2025 6:03 AM EDT 04/23/2025 6:10 AM EDT us Ceasar Loyd MD LAB BLOOD ORDERABLES Final R esult Performing Organization Address [facility] Co de Phone Number [address] [address] * (ABNORMAL) POCT Glucose (04/22/2025 9:03 AM EDT) Only the most recent of2 resultswithin the time period is included. Pathologist [facility] Glucose, POCT 130(H) 70 - 100 mg/dL [facility] 04/22/2025 9:03 AM EDT 04/22/2025 9:04 AM EDT us Unknown Unknown POINT OF CARE TEST ORDERABLES Final Result Performing Organization Address [facility] Co de Phone Number [address] [address] * Ethanol, blood (04/22/2025 8:26 AM EDT) Pathologist [facility] ETHANOL <10 <10 mg/dL [facility] Blood 04/22/2025 8:26 AM EDT 04/22/2025 8:34 AM EDT us Price Castaneda MD LAB BLOOD ORDERABLES Final Resu lt Performing Organization Address [facility] Co de Phone Number [address] [address] * (ABNORMAL) LFTs (hepatic panel) (04/22/2025 8:26 AM EDT) Only the most recent of2 resultswithin the time period is included. ALKALINE PHOSPHATASE 123(H) 39 - 117 U/L [facility] TOTAL BILIRUBIN 0.4 0.0 - 1.2 mg/dL [facility] DIRECT BILIRUBIN 0.1 0.0 - 0.2 mg/dL [facility] Bilirubin (Indirect) NOT CALCULATED 0 - 1.5 mg/dL [facility] AST 20 0 - 37 U/L [facility] ALT 20 0 - 40 U/L [facility] TOTAL PROTEIN 7.3 6.5 - 8.0 g/dL [facility] ALBUMIN 4.7 3.9 - 4.8 g/dL [facility] GLOBULIN 2.6 1 - 4.8 g/dL [facility] A/G Ratio 1.81 1.00 - 4.80 RATIO [facility] Blood 04/22/2025 8:26 AM EDT 04/22/2025 8:34 AM EDT us Price Castaneda MD LAB BLOOD ORDERABLES Final Resu lt Performing Organization Address City/State/[facility] Co de Phone Number [address] [address] * (ABNORMAL) CBC and differential (04/22/2025 8:26 AM EDT) Only the most recent of4 resultswithin the time period is included. WBC 7.08 4.00 - 11.00 K/uL [facility] RBC 5.14 4.50 - 5.90 M/uL [facility] HGB 15.7 13.5 - 17.5 g/dL [facility] HCT 45.5 41.0 - 53.0 % [facility] PLT 181 150 - 450 K/uL [facility] MCV 88.5 80.0 - 100.0 fL [facility] MCH 30.5 27.0 - 31.0 pg [facility] MCHC 34.5 32.0 - 36.0 g/dL [facility] RDW 12.5 11.5 - 14.5 % [facility] MPV 8.7 8.4 - 12.0 fL [facility] NRBC 0.00 0.00 /100 WBCs [facility] ABSOLUTE NRBC 0.00 0.00 K/uL [facility] DIFF METHOD Auto [facility] NEUTS 87.4(H) 48.0 - 76.0 % [facility] LYMPHS 5.5(L) 18.0 - 41.0 % [facility] MONOS 5.1 4.0 - 11.0 % [facility] EOS 0.0 0.0 - 5.0 % [facility] BASOS 0.6 0.0 - 1.5 % [facility] Granulocytes, immature (%) 1.4(H) 0.0 - 0.9 % [facility] ABSOLUTE NEUTS 6.19 1.92 - 7.60 K/uL [facility] ABSOLUTE LYMPHS 0.39(L) 0.72 - 4.10 K/uL [facility] ABSOLUTE MONOS 0.36 0.16 - 1.10 K/uL [facility] ABSOLUTE EOS 0.00 0.00 - 0.50 K/uL [facility] ABSOLUTE BASOS 0.04 0.00 - 0.15 K/uL [facility] Granulocytes, immature 0.10(H) 0.00 - 0.09 K/uL [facility] Blood 04/22/2025 8:26 AM EDT 04/22/2025 8:34 AM EDT us Price Castaneda MD LAB BLOOD ORDERABLES Final Resu lt Performing Organization Address City/State/[facility] Co de Phone Number [address] [address] * (ABNORMAL) Basic metabolic panel (04/22/2025 8:26 AM EDT) Only the most recent of4 resultswithin the time period is included. SODIUM 141 133 - 146 mmol/L [facility] CHLORIDE 104 96 - 108 mmol/L [facility] POTASSIUM 3.7 3.3 - 5.1 mmol/L [facility] CO2 13(LL) 21 - 35 mmol/L [facility] Comment: Critical value: Results called to and read back by: MIRTHA Velázquez ED 5224 BUN 10 6 - 19 mg/dL [facility] CREATININE 0.90 0.5 - 1.5 mg/dL [facility] GLUCOSE 143(H) 70 - 99 mg/dL [facility] CALCIUM 9.5 8.4 - 10.3 mg/dL [facility] EGFR 100 >59 mL/min/1.7 3m2 [facility] Comment:Estimated glomerular filtration rate calculated using the CKD-EPI refit equation. ANION GAP 28(H) 10 - 20 mmol/L [facility] Blood 04/22/2025 8:26 AM EDT 04/22/2025 8:34 AM EDT Price Castaneda MD LAB BLOOD ORDERABLES Final Resu lt Performing Organization Address [facility] de Phone Number [facility] [address] [place] [address] * Vitamin B1 (thiamine) (03/26/2025 5:58 AM EDT) Pathologist [facility] VITAMIN B1 144 70 - 180 nmol/L [facility] Comment: (NOTE) ADDITIONAL INFORMATION This test was developed and its performance characteristics determined by [facility] in a manner consistent with CLIA requirements. This test has not been cleared or approved by the U.S. Food and Drug Administration. Blood 03/26/2025 5:58 AM EDT 03/26/2025 6:33 AM EDT Maris Mary MD LAB BLOOD ORDERABLES Final Resul t Performing Organization Address [facility] Co de Phone Number [facility] [address] [place] [address] * CT HEAD WITHOUT CONTRAST (03/24/2025 4:01 PM EDT) Anatomical Region Laterality Modality Head Computed Tomogra phy 03/24/2025 4:10 PM EDT Impressions 03/24/2025 4:13 PM EDT 1. No acute intracranial findings. Narrative 03/24/2025 4:[address] HEAD WITHOUT CONTRAST Referring clinician's provided indication for this examination in [facility]: * Seizure, abnormal neuro exam TECHNIQUE: Multidetector-row CT of the head was performed without intravenous contrast using tailored dose modulation techniques. Images were reconstructed in the axial, coronal, and sagittal planes. COMPARISON: MRI brain January 30, 2025 FINDINGS: Brain Parenchyma: No midline shift, mass effect, parenchymal hemorrhage, or evidence of acute territorial infarct. Ventricular System and Extra-Axial Spaces: No extra-axial fluid collections. Basal cisterns are patent. No hydrocephalus. Osseous and Extracranial Structures: Mild mucosal thickening throughout the ethmoids. The mastoids are clear. No calvarial fracture. No suspicious bone lesion. Procedure Note Jayjay Ann DO - 03/24/2025 CT HEAD WITHOUT CONTRAST Referring clinician's provided indication for this examination in [facility]: *Seizure, abnormal neuro exam TECHNIQUE: Multidetector-row CT of the head was performed withoutintravenous contrast using tailored dose modulation techniques. Imageswere reconstructed in the axial, coronal, and sagittal planes. COMPARISON: MRI brain January 30, 2025 FINDINGS: Brain Parenchyma: No midline shift, mass effect, parenchymal hemorrhage,or evidence of acute territorial infarct. Ventricular System and Extra-Axial Spaces: No extra-axial fluidcollections. Basal cisterns are patent. No hydrocephalus. Osseous and Extracranial Structures: Mild mucosal thickening throughoutthe ethmoids. The mastoids are clear. No calvarial fracture. No suspiciousbone lesion. IMPRESSION: 1. No acute intracranial findings. Rhina Burt Nathen [employer] EXECUTIVE IMG CT HEAD/NECK Final R esult * ENDOSCOPY, COLON (06/18/2023 1:55 PM EDT) Narrative Transcriptions Marcial Noguera MD - 06/18/2023 1:55 PM EDT [facility] Patient Name: Arash Ng Attending MD:: MARCIAL NOGUERA MD, , Procedure Date: 06/18/2023 1:55 PM Date of : 1970 Age: 53 Admit Type: Outpatient Gender: Male Room: Endo 05 Referring MD: Phyllis Bello Exam Type: Colonoscopy Indications: Screening for colorectal malignant neoplasm Medications: Monitored Anesthesia Care Procedure: Informed consent was obtained from the patientafter discussion of the indications, limitations, alternatives, benefits, and risks of the procedure. Risks specifically discussed include but are not limited to medication reactions, missed lesions, bleeding, perforation, or the need for emergent surgery. Throughout the procedure, the patient's blood pressure, pulse, end-tidal CO2, and oxygensaturations were monitored continuously. The Olympus pediatric variable [id number] #6 was introduced through the anus and advanced tothe cecum, identified by appendiceal orifice andileocecal valve. The colonoscopy was performed without difficulty. The patient tolerated the procedurewell. The quality of the bowel preparation was excellent. The quality of the bowel preparation was evaluated using the BBPS ([place] Bowel Preparation Scale)with scores of: Right Colon = 3, Transverse Colon = 3and Left Colon = 3 (entire mucosa seen well with no residual staining, small fragments of stool oropaque liquid). The total BBPS score equals 9. Anatomical landmarks were photographed. Complications: No immediate complications. Estimated blood loss: Minimal. Findings: The perianal and digital rectal examinations were normal. Two sessile polyps were found in the ascendingcolon. The polyps were 4 to 7 mm in size. These polypswere removed with a cold snare. Resection and retrieval were complete. A 5 mm polyp was found in the transverse colon. The polyp was sessile. The polyp was removed with acold snare. Resection and retrieval were complete. An 8 mm polyp was found in the transverse colon.The polyp was semi-pedunculated. The polyp was removed with a hot snare. Resection and retrieval were complete. A 15 mm polyp was found in the sigmoid colon. The polyp was pedunculated. The polyp was removed witha hot snare. Resection and retrieval were complete. Internal hemorrhoids were found duringretroflexion. The hemorrhoids were mild. The exam was otherwise normal throughout theexamined colon. Impression: - Two 4 to 7 mm polyps in the ascending colon,removed with a cold snare. Resected and retrieved. - One 5 mm polyp in the transverse colon, removedwith a cold snare. Resected and retrieved. - One 8 mm polyp in the transverse colon, removedwith a hot snare. Resected and retrieved. - One 15 mm polyp in the sigmoid colon, removedwith a hot snare. Resected and retrieved. - Internal hemorrhoids. Recommendation: - Discharge patient to home. - Await pathology results. MARCIAL NOGUERA MD, 06/18/2023 2:34:00 PM This report has been signed electronically. Number of Addenda: 0 Note Initiated On: 06/18/2023 1:55 PM Procedure Code(s): --- Professional --- 88266, Colonoscopy, flexible; with removal of tumor(s), polyp(s), or other lesion(s) by snare technique --- Technical --- 71936, Colonoscopy, flexible; with removal of tumor(s), polyp(s), or other lesion(s) by snare technique Diagnosis Code(s): --- Professional --- Z12.11, Encounter for screening for malignantneoplasm of colon D12.2, Benign neoplasm of ascending colon D12.3, Benign neoplasm of transverse colon (hepatic flexure or splenic flexure) D12.5, Benign neoplasm of sigmoid colon K64.8, Other hemorrhoids --- Technical --- Z12.11, Encounter for screening for malignantneoplasm of colon D12.2, Benign neoplasm of ascending colon D12.3, Benign neoplasm of transverse colon (hepatic flexure or splenic flexure) D12.5, Benign neoplasm of sigmoid colon K64.8, Other hemorrhoids CPT copyright 2021 [employer]. All rights reserved. The codes documented in this report are preliminary and upon bowling ball mold assembler reviewmay be revised to meet current compliance requirements. Procedure Date: 06/18/2023 1:55:38 PM [address] [place] [address] Phyllis CABRALES GI PROCEDURE ORDERABLES Fi nal Result * (ABNORMAL) Liver fibrosis test (03/20/2018 11:22 AM EDT) Cow Milk Conv Class 0.24 [facility] DPT OF LAB MED AND PAT+ Neuron Specific Enolase (NOTE) [facility] PAT+ Comment:RESULT: F0-F1 Interleukin 2 no fibrosis [facility] PAT+ Comment: (NOTE) FibroTest estimates liver fibrosis FibroTest Score Stage Interpretation 0.00-0.21 F0 no fibrosis 0.21-0.27 F0-F1 no fibrosis 0.27-0.31 F1 minimal fibrosis 0.31-0.48 F1-F2 minimal fibrosis 0.48-0.58 F2 moderate fibrosis 0.58-0.72 F3 advanced fibrosis 0.72-0.74 F3-F4 advanced fibrosis 0.74-1.00 F4 severe fibrosis (Cirrhosis) ActiTest Score 0.06 [facility] OF LAB MED AND PAT+ ANCA YOANNA at 1:20 dilution A0 [facility] MED AND PAT+ ActiTest Interpretation no activity [facility] MED AND PAT+ Comment: (NOTE) ActiTest estimates necroinflammatory activity ActiTest Score Grade Interpretation 0.00-0.17 A0 no activity 0.17-0.29 A0-A1 no activity 0.29-0.36 A1 minimal activity 0.36-0.52 A1-A2 minimal activity 0.52-0.60 A2 significant activity 0.60-0.62 A2-A3 significant activity 0.62-1.00 A3 severe activity FibroTest-ActiTest Comment SEE NOTE [facility] MED AND PAT+ Comment: (NOTE) The reliability of results is dependent on compliance with the preanalytical and analytical conditions recommended by [employer]. The tests have to be deferred for: [...] developed and its performance characteristics determined by [facility] in a manner consistent with CLIA requirements. This test has not been cleared or approved by the U.S. Food and Drug Administration. [employer] Serial Number [id number] [facility] OF LAB MED AND PAT+ Apolipoprotein A1, S 121 >=120 mg/dL [facility] PAT+ Yztxw-[id number], S 148 100 - 280 mg/dL [facility] MED AND PAT+ Haptoglobin, S 146 30 - 200 mg/dL [facility] MED AND PAT+ Alanine Aminotransferase (ALT), S 18 7 - 55 U/L [facility] MED AND PAT+ Gamma Glutamyltransferase (GGT), S 62(H) 8 - 61 U/L [facility] MED AND PAT+ Bilirubin, Total, S 0.6 <=1.2 mg/dL [facility] PAT+ Blood 03/20/2018 11:2 2 AM EDT 03/20/2018 11:34 AM EDT us Vee CABRALES LAB BLOOD ORDERABLES Final Result [facility] OF [facility] MED AND PAT+ [address] [place] [address] from Last 3 Months or Most Recently Relevant to Health Maintenance [place] [address] [place] [address] [place] [address] [address] [place] [address] [place] [address] [place] [address] [place] [place] [address] ACO [facility] ACO Advance Directives For more information, please contact: [phone] (9AM - 5PM [facility], Sunday-Sunday) Documents on File Type Date Recorded Patient Lead Cashier Expl anation Healthcare Proxy 05/19/2020 2:36 PM * Full Code (Latest Code Status on File) Date Activated Date Inactivated Comments 04/22/2025 4:25 PM Question Answer Comments Code Status Confirmed With: Patient * Full Code Date Activated Date Inactivated Comments 03/24/2025 1:59 PM 04/22/2025 4:25 PM Question Answer Comments Code Status Confirmed With: PatientFamily * Full Code Date Activated Date Inactivated Comments 01/30/2025 9:53 PM 03/24/2025 1:59 PM Question Answer Comments Code Status Confirmed With: Patient Code Status Communicated To: Inpatient Attending * Full Code Date Activated Date Inactivated Comments 10/30/2024 3:52 PM 01/30/2025 9:53 PM Question Answer Comments Code Status Confirmed With: Patient Code Status Communicated To: Inpatient Attending * Full Code Date Activated Date Inactivated Comments 04/22/2024 4:44 PM 10/30/2024 3:52 PM Question Answer Comments Code Status Confirmed With: Patient Healthcare Agents on File Name Relationship Healthcare Agent Relationship Communication Beverly Ng Spouse .Primary Health Care Agent (Proxy form on file) Care Teams Stationary Plant Operators Relationship Specialty Start Date End Date Phyllis Bello PA [address] [place] [phone] PCP - General Physician Insurance Risk Surveyor 06/18/23 Phyllis Bello PA [address] [place] [phone] Historical LMR Provider 07/09/17 Nate Ritter MD [address] [place] [address], [address] [address] Neurology 06/24/19 Nate Ritter MD [address] [place] [address], [address] [address] Neurology 01/10/22 Philip Lara DO [address] [place] [address] Geriatric Medicine 01/01/24 Additional Source Comments The information contained in this document represents components of the legal health record. It is not the complete legal health record.[facility]
--- OUTSIDE RECORDS SUMMARY | 2025-05-21 15:58 | XMS_ITS | Encounter Summary ---
Author Organization [facility] Address [address] [place] [address] [place] [address] Phone Care Team Providers Care Dormitory Keeper Name Role Phone Zohra Saenz MD Unavailable Estelita Bobby NP Unavailable [phone] Phyllis Bello Unavailable [phone] Nate Dockery MD Unavailable [phone] Phyllis Bello Primary Care Provider + Josy Hernandez MD Unavailable + Nate Ritter MD Unavailable [phone] Prakash Tolentino MD Unavailable + Rod Cunningham Unavailable [phone] Josy Hernandez MD Unavailable + Prakash Tolentino MD Unavailable + Josy Hernandez MD Unavailable + Prakash Tolentino MD Unavailable + Josy Hernandez MD Unavailable + Nate Ritter MD Unavailable [phone] Josy Hernandez MD Primary Care Provider [phone] Phyllis Bello Primary Care Provider [phone] Philip Lara DO Unavailable [phone] Encounter Details Date Type Department Care Team (Late st Contact Info) Description 10/17/2017 Procedure Pass [facility], Ct Scan - [facility] [address] [place] [address] Social History Tobacco Use Types Packs/Day Years [...] Description 01/08/2026 8:30 AM EDT Office Visit [facility] [address] [place] [address] Philip Lara, [address] [place] [address] [email or web address] documented as of this encounter Visit Diagnoses [...] documented as of this encounter Care Teams Dormitory Keeper Relationship Specialty Start Date End Date Phyllis Bello PA [address] [place] [address] PCP - General Global Program Manager 08/09/17 03/02/23 Josy Hernandez MD [address] [place] [address] [email or web address] PCP - General Family Medicine 03/03/23 06/17/23 Phyllis Bello PA [address] [place] [address] PCP - General Physician Medieval English Literature Professor 06/18/23 Zohra Saenz MD [address] [place] [address] Historical LMR Provider 07/09/17 2 Estelita Bobby NP [address] [place] [address] 2_[place] [address] [email or web address] Historical LMR Provider 07/09/17 10/01/21 Phyllis Bello PA [address] [place] [address] [place] [phone] Historical LMR Provider 07/09/17 Nate Dockery MD [address] [place] [address], [address] [place] [address] [email or web address] Historical LMR Provider 07/09/17 2 Josy Hernandez MD [address] [place] [address] [email or web address] Insurance Assigned Provider 12/22/17 08/30/19 Nate Ritter MD [address] [place] [address], [address] [place] [address] [email or web address] Neurology 06/24/19 Prakash Tolentino MD [address] [place] [address] [email or web address] Insurance Assigned Provider 08/30/19 08/29/20 Rod Cunningham [address] [address] [email or web address] Social Work 08/23/20 06/13/22 Josy Hernandez MD [address] [place] [address] [email or web address] Insurance Assigned Provider 08/29/20 02/27/21 Prakash Tolentino MD [address] [place] [address] [email or web address] Insurance Assigned Provider 02/27/21 04/02/21 Josy Hernandez MD [address] [place] [address] [email or web address] Insurance Assigned Provider 04/02/21 06/04/21 Prakash Tolentino MD [address] [place] [address] [email or web address] Insurance Assigned Provider 06/04/21 07/30/21 Josy Hernandez MD [address] [place] [address] [email or web address] Insurance Assigned Provider 07/30/21 06/03/22 Nate Ritter MD [address] [place] [address], [address] [place] [address] [email or web address] Neurology 01/10/22 Philip Lara DO [address] [place] [address] [email or web address] Geriatric Medicine 01/01/24 documented as of this encounter Additional Source Comments The information contained in this document represents components of the legal health record. It is not the complete legal health record.[facility]
--- OUTSIDE RECORDS SUMMARY | 2025-05-21 15:59 | XMS_ITS | Encounter Summary ---
Author Organization [facility] Address [address] [place] [address] [place] [address] Phone Care Team Providers Care Scrap Handler Name Role Phone Zohra Saenz MD Unavailable Estelita Bobby NP Unavailable [phone] Phyllis Bello Unavailable [phone] Nate Dockery MD Unavailable [phone] Phyllis Bello Primary Care Provider + Josy Hernandez MD Unavailable + Nate Ritter MD Unavailable [phone] Prakash Tolentino MD Unavailable + Rod Cunningham Unavailable Josy Hernandez MD Unavailable + Prakash Tolentino MD Unavailable + Josy Hernandez MD Unavailable + Prakash Tolentino MD Unavailable + Josy Hernandez MD Unavailable + Nate Ritter MD Unavailable [phone] Josy Hernandez MD Primary Care Provider [phone] Phyllis Bello Primary Care Provider [phone] Philip Lara DO Unavailable [phone] Encounter Details Date Type Department Care Team (Late st Contact Info) Description 10/15/2017 Procedure Pass [facility], Ct Scan - [facility] [address] [place] [address] Social History Tobacco Use Types Packs/Day Years [...] Description 01/08/2026 8:30 AM EDT Office Visit [facility] [address] [place] [address] Philip Lara, [address] [place] [phone] [email or web address] documented as of this encounter Visit Diagnoses [...] documented as of this encounter Care Teams Scrap Handler Relationship Specialty Start Date End Date Phyllis Bello PA [address] [place] [address] PCP - General Psych Coordinator 08/09/17 03/02/23 Josy Hernandez MD [address] [place] [phone] [email or web address] PCP - General Family Medicine 03/03/23 06/17/23 Phyllis Bello PA [address] [place] [address] PCP - General Physician Business Services Manager 06/18/23 Zohra Saenz MD [address] [place] [address] Historical LMR Provider 07/09/17 2 Estelita Bobby NP [address] [place] [address] 2_[place] [address] [email or web address] Historical LMR Provider 07/09/17 10/01/21 Phyllis Bello PA [address] [place] [address] [place] [id number] Historical LMR Provider 07/09/17 Nate Dockery MD [address] [place] [address], [address] [place] [address] [email or web address] Historical LMR Provider 07/09/17 2 Josy Hernandez MD [address] [place] [phone] [email or web address] Insurance Assigned Provider 12/22/17 08/30/19 Nate Ritter MD [address] [place] [address], [address] [place] [address] [email or web address] Neurology 06/24/19 Prakash Tolentino MD [address] [place] [phone] [email or web address] Insurance Assigned Provider 08/30/19 08/29/20 Rod Cunningham [address] [address] [email or web address] Social Work 08/23/20 06/13/22 Josy Hernandez MD [address] [place] [address] [email or web address] Insurance Assigned Provider 08/29/20 02/27/21 Prakash Tolentino MD [address] [place] [address] [email or web address] Insurance Assigned Provider 02/27/21 04/02/21 Josy Hernandez MD [address] [place] [phone] [email or web address] Insurance Assigned Provider 04/02/21 06/04/21 Prakash Tolentino MD [address] [place] [address] [email or web address] Insurance Assigned Provider 06/04/21 07/30/21 Josy Hernandez MD [address] [place] [address] [email or web address] Insurance Assigned Provider 07/30/21 06/03/22 Nate Ritter MD [address] [place] [address], [address] [place] [address] [email or web address] Neurology 01/10/22 Philip Lara DO [address] [place] [phone] [email or web address] Geriatric Medicine 01/01/24 documented as of this encounter Additional Source Comments The information contained in this document represents components of the legal health record. It is not the complete legal health record.[facility]
--- OUTSIDE RECORDS SUMMARY | 2025-05-21 15:59 | XMS_ITS | Encounter Summary ---
Author Organization [facility] Address [address] [place] [address] [place] [address] Phone Care Team Providers Care Government Affairs Researcher Name Role Phone Zohra Saenz MD Unavailable Estelita Bobby NP Unavailable [phone] Phyllis Bello Unavailable [phone] Nate Dockery MD Unavailable [phone] Phyllis Bello Primary Care Provider + Josy Hernandez MD Unavailable + Nate Ritter MD Unavailable [phone] Prakash Tolentino MD Unavailable + Rod Cunningham Unavailable [phone] Josy Hernandez MD Unavailable + Prkaash Tolentino MD Unavailable + Josy Hernandez MD Unavailable + Prakash Tolentino MD Unavailable + Josy Hernandez MD Unavailable + Nate Ritter MD Unavailable [phone] Josy Hernandez MD Primary Care Provider +[phone]- Phyllis Bello Primary Care Provider [phone] Philip Lara DO Unavailable [phone] Encounter Details Date Type Department Care Team (Late st Contact Info) Description 06/04/2018 Procedure Pass [facility] Endoscopy Admitting Dept Virtual Department [address] [place] [address] Social History Tobacco Use Types Packs/Day Years [...] Description 01/08/2026 8:30 AM EDT Office Visit [facility] Ger[facility] [address] [place] [address] Philip Lara, [address] [place] [address] [email or web address] documented as of this encounter Visit Diagnoses [...] 10/30/2024 10/30/2024 12:40 AM EST CDiff-Risk 01/30/2025 01/30/202501/30/2025 6:35 PM EDT CoV-Risk 01/30/2025 01/31/2025 02/11/2025 1:21 AM EDT documented as of this encounter Care Teams Government Affairs Researcher Relationship Specialty Start Date End Date Phyllis Bello PA [address] [place] [address] PCP - General Tar Heater Operator 08/09/17 03/02/23 Josy Hernandez MD [address] [place] [address] [email or web address] PCP - General Family Medicine 03/03/23 06/17/23 Phyllis Bello PA [address] [place] [address] PCP - General Physician Seam Taper Machine 06/18/23 Zohra Saenz MD [address] [place] [address] Historical LMR Provider 07/09/17 2 Estelita Bobby NP [address] [place] [address] 2_[place] [address] [email or web address] Historical LMR Provider 07/09/17 10/01/21 Phyllis Bello PA [address] [place] [address] [place] [phone] Historical LMR Provider 07/09/17 Nate Dockery MD [address] [facility] [place] [address] [email or web address] Historical LMR Provider 07/09/17 2 Josy Hernandez MD [address] [place] [address] [email or web address] Insurance Assigned Provider 12/22/17 08/30/19 Nate Ritter MD [address] [place] [address], [address] [place] [address] [email or web address] [email or web address] 06/24/19 Prakash Tolentino MD [address] [place] [address] [email or web address] Insurance Assigned Provider 08/30/19 08/29/20 Rod Cunningham [address] [address] [email or web address] [email or web address] Social Work 08/23/20 06/13/22 Josy Hernandez MD [address] [place] [address] [email or web address] Insurance Assigned Provider 08/29/20 02/27/21 Prakash Tolentino MD [address] [place] [address] [email or web address] Insurance Assigned Provider 02/27/21 04/02/21 Josy Hernandez MD [address] [place] [address] [email or web address] Insurance Assigned Provider 04/02/21 06/04/21 Prakash Tolentino MD [address] [place] [address] [email or web address] Insurance Assigned Provider 06/04/21 07/30/21 Josy Hernandez MD [address] [place] [address] [email or web address] Insurance Assigned Provider 07/30/21 06/03/22 Nate Ritter MD [address] [place] [address], [address] [place] [address] [email or web address] Neurology 01/10/22 Philip Lara DO [address] [place] [address] [email or web address] [email or web address] Medicine 01/01/24 documented as of this encounter Additional Source Comments The information contained in this document represents components of the legal health record. It is not the complete legal health record.[facility]
--- OUTSIDE RECORDS SUMMARY | 2025-05-21 15:59 | XMS_ITS | Encounter Summary ---
Author Organization [facility] Address [address] [place] [address] [place] [address] Phone Care Team Providers Care Conservator Artifacts Name Role Phone Zohra Saenz MD Unavailable Estelita Bobby NP Unavailable [phone] Phyllis Bello Unavailable [phone] Nate Dockery MD Unavailable Phyllis Bello Primary Care Provider + Josy Hernandez MD Unavailable + Nate Ritter MD Unavailable [phone] Prakash Tolentino MD Unavailable + Rod Cunningham Unavailable [phone] Josy Hernandez MD Unavailable + Prakash Tolentino MD Unavailable + Josy Hernandez MD Unavailable + Prakash Tolentino MD Unavailable + Josy Hernandez MD Unavailable + Nate Ritter MD Unavailable [phone] Josy Hernandez MD Primary Care Provider +[phone]- Phyllis Bello Primary Care Provider [phone] Philip Lara DO Unavailable Encounter Details Date Type Department Care Team (Late st Contact Info) Description 10/09/2017 Procedure Pass [facility], Ct Scan - [facility] [place] [address] [place] [address] Social History Tobacco Use Types Packs/Day Years [...] Description 01/08/2026 8:30 AM EDT Office Visit [facility] Geriatrics [address] [place] [address] Philip Lara, [address] [place] [address] [email or web address] documented [...] documented as of this encounter Care Teams Conservator Artifacts Relationship Specialty Start Date End Date Phyllis Bello PA [address] [place] [address] PCP - General Electronic Equipment Set Up Operator 08/09/17 03/02/23 Josy Hernandez MD [address] [place] [address] [email or web address] PCP - General Family Medicine 03/03/23 06/17/23 Phyllis Bello PA [address] [place] [address] PCP - General Physician Academic Specialist 06/18/23 Zohra Saenz MD [address] [place] [address] Historical LMR Provider 07/09/17 2 Estelita Bobby NP [address] [place] [address] 2_[place] [address] [email or web address] Historical LMR Provider 07/09/17 10/01/21 Phyllis Bello PA [address] [place] [address] [place] [id number] Historical LMR Provider 07/09/17 Nate Dockery MD [address] [place] [address], [address] [place] [address] [email or web address] Historical LMR Provider 07/09/17 2 Josy Hernandez MD [address] [place] [address] [email or web address] Insurance Assigned Provider 12/22/17 08/30/19 Nate Ritter MD [address] [place] [address], [address] [place] [address] [email or web address] Neurology 06/24/19 Prakash Tolentino MD [address] [place] [address] [email or web address] Insurance Assigned Provider 08/30/19 08/29/20 Rod Cunningham [address] [address] [email or web address] iCMP Social Work 08/23/20 06/13/22 Josy Hernandez MD [address] [place] [address] [email or web address] Insurance Assigned Provider 08/29/20 02/27/21 Prakash Tolentino MD [address] [place] [address] [email or web address] Insurance Assigned Provider 02/27/21 04/02/21 Josy Hernandez MD [address] [place] [address] [email or web address] Insurance Assigned Provider 04/02/21 06/04/21 Prakash Tolentino MD [address] [place] [address] [email or web address] Insurance Assigned Provider 06/04/21 07/30/21 Josy Hernandez MD [address] [place] [address] [email or web address] Insurance Assigned Provider 07/30/21 06/03/22 Nate Ritter MD [address] [place] [address], [address] [place] [address] [email or web address] Neurology 01/10/22 Philip Lara DO [address] [place] [address] [email or web address] Geriatric Medicine 01/01/24 documented as of this encounter Additional Source Comments The information contained in this document represents components of the legal health record. It is not the complete legal health record.[facility]
--- OUTSIDE RECORDS SUMMARY | 2025-05-21 15:59 | XMS_ITS | Encounter Summary ---
Author Organization [facility] Address [address] [place] [address] [place] [address] Phone Care Team Providers Care Social Studies Department Chair Name Role Phone Zohra Saenz MD Unavailable Estelita Bobby NP Unavailable [phone] Phyllis Bello Unavailable [phone] Nate Dockery MD Unavailable [phone] Phyllis Bello Primary Care Provider + Josy Hernandez MD Unavailable + Nate Ritter MD Unavailable [phone] Prakash Tolentino MD Unavailable + Rod Cunningham Unavailable [phone] Josy Hernandez MD Unavailable + Prakash Tolentino MD Unavailable + Josy Hernandez MD Unavailable + Prakash Tolentino MD Unavailable + Josy Hernandez MD Unavailable + Nate Ritter MD Unavailable [phone] Josy Hernandez MD Primary Care Provider +[phone]- Phyllis Bello Primary Care Provider [phone] Philip Lara DO Unavailable [phone] Encounter Details Date Type Department Care Team (Late Contact Info) Description 11/12/2018 Ancillary Orders Virtual Department [address] [place] [address] Nate Ritter MD [address] [place] [address], [address] [place] [address] [email or web address] TIA (transient ischemic attack) Social History Tobacco Use Types Packs/Day Years [...] Description 01/08/2026 8:30 AM EDT Office Visit [facility] Ger[facility]s [address] [place] [address] Philip Lara, [address] [place] [address] [email or web address] documented as of this encounter Visit Diagnoses Diagnosis TIA (transient ischemic attack) Unspecified transient cerebral ischemia documented in this encounter Additional Health Concerns [...] documented as of this encounter Care Teams Social Studies Department Chair Relationship Specialty Start Date End Date Phyllis Bello PA [address] [place] [address] PCP - General Russian Teacher 08/09/17 03/02/23 Josy Hernandez MD [address] [place] [address] [email or web address] PCP - General Family Medicine 03/03/23 06/17/23 Phyllis Bello PA [address] [place] [address] PCP - General Physician Supervisor [employer] 06/18/23 Zohra Saenz MD [address] [place] [address] Historical LMR Provider 07/09/17 2 Estelita Bobby NP [address] [place] [address] 2_[place] [address] [email or web address] Historical LMR Provider 07/09/17 10/01/21 Phyllis Bello PA [address] [place] [address] [place] [phone] Historical LMR Provider 07/09/17 Nate Dockery MD [address] [place] [address], [address] [place] [address] [email or web address] Historical LMR Provider 07/09/17 2 Josy Hernandez MD [address] [place] [address] Insurance Assigned Provider 12/22/17 08/30/19 Nate Ritter MD [address] [place] [address], [address] [place] [address] Neurology 06/24/19 Prakash Tolentino MD [address] [place] [address] Insurance Assigned Provider 08/30/19 08/29/20 Rod Cunningham, [address] [address] iCMP Social Work 08/23/20 06/13/22 Josy Hernandez MD [address] [place] [address] Insurance Assigned Provider 08/29/20 02/27/21 Prakash Tolentino MD [address] [place] [address] Insurance Assigned Provider 02/27/21 04/02/21 Josy Hernandez MD [address] [place] [address] Insurance Assigned Provider 04/02/21 06/04/21 Prakash Tolentino MD [address] [place] [address] Insurance Assigned Provider 06/04/21 07/30/21 Josy Hernandez MD [address] [place] [address] Insurance Assigned Provider 07/30/21 06/03/22 Nate Ritter MD [address] [place], [place] [address] [place] [address] Neurology 01/10/22 Philip Lara DO [address] [place] [address] [email or web address] Geriatric Medicine 01/01/24 documented as of this encounter Additional Source Comments The information contained in this document represents components of the legal health record. It is not the complete legal health record.[facility]
--- OUTSIDE RECORDS SUMMARY | 2025-05-21 15:59 | XMS_ITS | Encounter Summary ---
Author Organization [facility] Address [address] [place] [address] [place] [address] Phone Care Team Providers Care Dog Beautician Name Role Phone Zohra Saenz MD Unavailable Estelita Bobby NP Unavailable [phone] Phyllis Bello Unavailable [phone] Nate Dockery MD Unavailable [phone] Phyllis Bello Primary Care Provider + Josy Hernandez MD Unavailable + Nate Ritter MD Unavailable [phone] Prakash Tolentino MD Unavailable + Rod Cunningham Unavailable [phone] Josy Hernandez MD Unavailable + Prakash Tolentino MD Unavailable + Josy Hernandez MD Unavailable + Prakash Tolentino MD Unavailable + Josy Hernandez MD Unavailable + Nate Ritter MD Unavailable [phone] Josy Hernandez MD Primary Care Provider +1- Phyllis Bello Primary Care Provider +- [phone] Marco Philip Dash DO Unavailable [phone] Encounter Details Date Type Department Care Team (Late Contact Info) Description 03/26/2018 Ancillary Orders Virtual Department 30 [place] [address] Vee Peraza PA [address] [place] [address] Hepatic cirrhosis, unspecified hepatic cirrhosis type, unspecified whether ascites present Social History Tobacco Use Types Packs/Day Years [...] Description 01/08/2026 8:30 AM EDT Office Visit [facility] 22 [place] [address] MarcoPhilip quiroz, [address] [place] [address] [email or web address] documented as of this encounter Results * CT ABDOMEN/PELVIS WITH CONTRAST (04/30/2018 10:06 AM EDT) Anatomical Region Laterality Modality Abdomen, Pelvis Computed Tomogra phy 04/30/2018 11:0 3 AM EDT Impressions 04/30/2018 2:18 PM EDT Cirrhotic liver without a mass detected. Splenomegaly has resolved. No evidence of portal venous thrombosis. Multifocal varices as described. No evidence of ascites. Diffuse compression deformities in the visualized thoracolumbar spine with new mild compression deformities at T10, L1, and L4. Mildly progressive compression deformity at L5. Others are not significantly changed. TOTAL CTDIvol: 6.8 mGy POS - [id number] Edited by: Kaylynn Stevens on 04/30/2018 12:05 PM Narrative 04/30/2018 2:18 PM EDT COMPARISON: 10/17/2017. TECHNIQUE: CT of the abdomen and pelvis with IV and oral contrast. Multiplanar reformatted images generated. Automated exposure control utilized. FINDINGS: CT ABDOMEN: Lower thorax: Scattered tiny calcified granulomata. No infiltrate in the basal lungs. No pleural or pericardial effusions. Liver: Hypertrophy of the lateral left hepatic lobe and caudate segment as well as nodular hepatic contours compatible with known cirrhosis. No mass detected. Gallbladder/biliary tree: Cholecystectomy clips. Common bile duct is dilated up to 0.8 cm and tapers distally and there is prominence of the central intrahepatic ducts, similar to prior exams. Spleen: Splenomegaly has resolved. No abnormality detected. Pancreas: No abnormality detected. Adrenal glands: Stable bilateral nodularity. Kidneys/ureters: No hydronephrosis or focal lesions. Vasculature: Abdominal aorta has normal caliber. Small amounts of atherosclerotic calcifications in the aorta and iliac vessels. Circumaortic left renal vein. Hepatic veins and portal vein are patent. Splenic hilar, perigastric, and paraesophageal varices. Recanalized paraumbilical vein. Peritoneum: No evidence of free intraperitoneal air, free fluid, or organized collections. Lymph nodes: Prominent periportal lymph nodes. No enlarged lymph nodes. Stomach/duodenum: Small hiatal hernia. Proximal duodenal diverticulosis including in the periampullary region. Body wall: Small bilateral fat-filled inguinal rings. CT PELVIS: Bladder: Decompressed, limiting evaluation. Reproductive: Mild prostatomegaly. Seminal vesicles are unremarkable. Bowel: No bowel obstruction. Apparent wall thickening of the descending and portions of sigmoid colon is probably artifactual secondary to underdistention. Stable top normal caliber of the appendix measuring 1.0 cm which contains hyperdense material which may related to inspissated debris and/or appendicoliths. Possible wall thickening as before. No periappendiceal fat stranding. Mild colonic diverticulosis. Peritoneum: No free fluid or organized collections. Lymph nodes: No iliac chain or inguinal lymphadenopathy. Bones: Diffuse compression deformities from T10 through L5. The T10, L1, and L4 compression deformities are new and mild in degree. Mildly progressive moderate compression deformity at L5. Stable mild compression deformity at T12 with stable mild retropulsion of the posterior-superior corner into the spinal canal. No new destructive bone lesions. Procedure Note Jamel More MD - 04/30/2018 COMPARISON: 10/17/2017. TECHNIQUE: CT of the abdomen and pelvis with IV and oral contrast.Multiplanar reformatted images generated. Automated exposure controlutilized. FINDINGS: CT ABDOMEN: Lower thorax: Scattered tiny calcified granulomata. No infiltrate in thebasal lungs. No pleural or pericardial effusions. Liver: Hypertrophy of the lateral left hepatic lobe and caudate segment aswell as nodular hepatic contours compatible with known cirrhosis. No massdetected. Gallbladder/biliary tree: Cholecystectomy clips. Common bile duct isdilated up to 0.8 cm and tapers distally and there is prominence of thecentral intrahepatic ducts, similar to prior exams. Spleen: Splenomegaly has resolved. No abnormality detected. Pancreas: No abnormality detected. Adrenal glands: Stable bilateral nodularity. Kidneys/ureters: No hydronephrosis or focal lesions. Vasculature: Abdominal aorta has normal caliber. Small amounts ofatherosclerotic calcifications in the aorta and iliac vessels.Circumaortic left renal vein. Hepatic veins and portal vein are patent.Splenic hilar, perigastric, and paraesophageal varices. Recanalizedparaumbilical vein. Peritoneum: No evidence of free intraperitoneal air, free fluid, ororganized collections. Lymph nodes: Prominent periportal lymph nodes. No enlarged lymph nodes. Stomach/duodenum: Small hiatal hernia. Proximal duodenal diverticulosisincluding in the periampullary region. Body wall: Small bilateral fat-filled inguinal rings. CT PELVIS: Bladder: Decompressed, limiting evaluation. Reproductive: Mild prostatomegaly. Seminal vesicles are unremarkable. Bowel: No bowel obstruction. Apparent wall thickening of the descendingand portions of sigmoid colon is probably artifactual secondary tounderdistention. Stable top normal caliber of the appendix measuring 1.0cm which contains hyperdense material which may related to inspissateddebris and/or appendicoliths. Possible wall thickening as before. Noperiappendiceal fat stranding. Mild colonic diverticulosis. Peritoneum: No free fluid or organized collections. Lymph nodes: No iliac chain or inguinal lymphadenopathy. Bones: Diffuse compression deformities from T10 through L5. The T10, L1,and L4 compression deformities are new and mild in degree. Mildlyprogressive moderate compression deformity at L5. Stable mild compressiondeformity at T12 with stable mild retropulsion of the posterior-superiorcorner into the spinal canal. No new destructive bone lesions. IMPRESSION: Cirrhotic liver without a mass detected. Splenomegaly has resolved. No evidence of portal venous thrombosis. Multifocal varices asdescribed. No evidence of ascites. Diffuse compression deformities in the visualized thoracolumbar spine withnew mild compression deformities at T10, L1, and L4. Mildly progressivecompression deformity at L5. Others are not significantly changed. TOTAL CTDIvol: 6.8 mGy POS - [id number] Edited by: Kaylynn Stevens on 04/30/2018 12:05 PM Vee CABRALES IMG CT ABD/PELVIS Final Res ult documented in this encounter Visit Diagnoses Diagnosis Hepatic cirrhosis, unspecified hepatic cirrhosis type, unspecified whether ascites present Hepatic cirrhosis, unspecified hepatic cirrhosis type, unspecified whether ascites present documented in this [...] documented as of this encounter Care Teams Dog Beautician Relationship Specialty Start Date End Date Phyllis Bello PA [address] [place] [address] PCP - General Optometric Assistant 08/09/17 03/02/23 Josy Hernandez MD [address] [place] [address] [email or web address] PCP - General Family Medicine 03/03/23 06/17/23 Phyllis Bello PA [address] [place] [address] PCP - General Physician Mower Sharpener 06/18/23 SalazarZohra Cisneros MD [address] [place] [address] Historical LMR Provider 07/09/17 2 Estelita Bobby NP [address] [place] [address] 2_[place] [address] [email or web address] LMR Provider 07/09/17 10/01/21 Phyllis Bello PA [address] [place] [address] [place] [address] Historical LMR Provider 07/09/17 Nate Dockery MD [address] [place] [address], [address] [place] [address] [email or web address] Historical LMR Provider 07/09/17 2 Josy Hernandez MD [address] [place] [address] [email or web address] Insurance Assigned Provider 12/22/17 08/30/19 Nate Ritter MD [address] [place] [address], [address] [place] [address] [email or web address] Neurology 06/24/19 Prakash Tolentino MD [address] [place] [address] [email or web address] Insurance Assigned Provider 08/30/19 08/29/20 Rod Cunningham [address] [address] [email or web address] iCMP Social Work 08/23/20 06/13/22 Josy Hernandez MD [address] [place] [address] [email or web address] Insurance Assigned Provider 08/29/20 02/27/21 Prakash Tolentino MD [address] [place] [address] [email or web address] Insurance Assigned Provider 02/27/21 04/02/21 Josy Hernandez MD [address] [place] [address] [email or web address] Insurance Assigned Provider 04/02/21 06/04/21 Prakash Tolentino MD [address] [place] [address] [email or web address] Insurance Assigned Provider 06/04/21 07/30/21 Josy Hernandez MD [address] [place] [address] Insurance Assigned Provider 07/30/21 06/03/22 Nate Ritter MD [address] [place] [address], [address] [place] [address] [email or web address] Neurology 01/10/22 Philip Lara DO [address] [place] [address] [email or web address] Geriatric Medicine 01/01/24 documented as of this encounter Additional Source Comments The information contained in this document represents components of the legal health record. It is not the complete legal health record.[facility]
--- OUTSIDE RECORDS SUMMARY | 2025-05-21 15:59 | XMS_ITS | Encounter Summary ---
Author Organization [facility] Address [address] [place] [address] [place] [address] Phone Care Team Providers Care Assistant Manager Bilingual Name Role Phone Zohra Saenz MD Unavailable Estelita Bobby NP Unavailable [phone] Phyllis Bello Unavailable [phone] Nate Dockery MD Unavailable [phone] Phyllis Bello Primary Care Provider + Josy Hernandez MD Unavailable + Nate Ritter MD Unavailable [phone] Prakash Tolentino MD Unavailable + Rod Cunningham Unavailable [phone] Josy Hernandez MD Unavailable + Prakash Tolentino MD Unavailable + Josy Hernandez MD Unavailable + Prakash Tolentino MD Unavailable + Josy Hernandez MD Unavailable + Nate Ritter MD Unavailable [phone] Josy Hernandez MD Primary Care Provider +1- Phyllis Bello Primary Care Provider [phone] Philip Lara DO Unavailable [phone] Encounter Details Date Type Department Care Team ([facility] Contact Info) Description 09/05/2018 Procedure Pass [facility] Endoscopy Admitting Dept Virtual Department 30 [place] [address] Social History Tobacco Use Types Packs/Day Years [...] Description 01/08/2026 8:30 AM EDT Office Visit [facility] Ger[facility] [address] [place] [address] Philip Lara, [address] [place] [address] [email or web address] documented as of this encounter Care Teams Assistant Manager Bilingual Relationship Specialty Start Date End Date Phyllis Bello PA [address] [place] [address] PCP - General Cell Room Supervisor 08/09/17 03/02/23 Josy Hernandez MD [address] [place] [address] [email or web address] PCP - General Family Medicine 03/03/23 06/17/23 Phyllis Bello PA [address] [place] [address] PCP - General Physician Mortgage Specialist 06/18/23 Zohra Saenz MD [address] [place] [address] Historical LMR Provider 07/09/17 2 Estelita Bobby NP [address] [place] [address] 2_[place] [address] [email or web address] Historical LMR Provider 07/09/17 10/01/21 Phyllis Bello PA [address] [place] [address] [place] [address] Historical LMR Provider 07/09/17 Nate Dockery MD [address] [place] [address], [address] [place] [address] [email or web address] Historical LMR Provider 07/09/17 2 Josy Hernandez MD [address] [place] [address] Insurance Assigned Provider 12/22/17 08/30/19 Nate Ritter MD [address] [place] [address], [address] [place] [address] Neurology 06/24/19 Prakash Tolentino MD [address] [place] [address] Insurance Assigned Provider 08/30/19 08/29/20 Rod Cunningham, [address] [address] [email or web address] iCMP Social Work 08/23/20 06/13/22 Josy Hernandez MD [address] [place] [address] Insurance Assigned Provider 08/29/20 02/27/21 Prakash Tolentino MD [address] [place] [address] Insurance Assigned Provider 02/27/21 04/02/21 Josy Hernandez MD [address] [place] [address] [email or web address] Insurance Assigned Provider 04/02/21 06/04/21 Prakash Tolentino MD [address] [place] [address] [email or web address] Insurance Assigned Provider 06/04/21 07/30/21 Josy Hernandez MD [address] [place] [address] [email or web address] Insurance Assigned Provider 07/30/21 06/03/22 Nate Ritter MD [address] [place], [place] [address] [place] [address] Neurology 01/10/22 Philip Lara DO [address] [place] [address] [email or web address] Geriatric Medicine 01/01/24 documented as of this encounter Additional Source Comments The information contained in this document represents components of the legal health record. It is not the complete legal health record.[facility]
--- OUTSIDE RECORDS SUMMARY | 2025-05-21 15:59 | XMS_ITS | Encounter Summary ---
Author Organization [facility] Address [address] [place] [address] [place] [address] Phone Care Team Providers Care Chief Of Vital Statistics Name Role Phone Zohra Saenz MD Unavailable Estelita Bobby NP Unavailable [phone] Phyllis Bello Unavailable [phone] Nate Dockery MD Unavailable [phone] Phyllis Bello Primary Care Provider + Josy Hernandez MD Unavailable + Nate Ritter MD Unavailable [phone] Prakash Tolentino MD Unavailable + Rod Cunningham Unavailable [phone] Josy Hernandez MD Unavailable + Prakash Tolentino MD Unavailable + Josy Hernandez MD Unavailable + Prakash Tolentino MD Unavailable + Josy Hernandez MD Unavailable + Nate Ritter MD Unavailable [phone] Josy Hernandez MD Primary Care Provider +1- Phyllis Bello Primary Care Provider [phone] Philip Lara DO Unavailable Encounter Details Date Type Department Care Team (Late Contact Info) Description 03/22/2018 Procedure Pass [facility] Endoscopy Admitting Dept Virtual Department 30 [place] [address] Social History Tobacco Use Types Packs/Day Years [...] Description 01/08/2026 8:30 AM EDT Office Visit [facility] [address] [place] [address] Philip Lara DO [address] [place] [address] [email or web address] documented as of [...] documented as of this encounter Care Teams Chief Of Vital Statistics Relationship Specialty Start Date End Date Phyllis Bello PA [address] [place] [address] PCP - General Brush Washer 08/09/17 03/02/23 Josy Hernandez MD [address] [place] [address] [email or web address] PCP - General Family Medicine 03/03/23 06/17/23 Phyllis Bello PA [address] [place] [address] PCP - General Physician Formal Service Waiter 06/18/23 Zohra Saenz MD [address] [place] [address] Historical LMR Provider 07/09/17 2 Estelita Bobby NP [address] [place] [address] 2_[place] [address] [email or web address] Historical LMR Provider 07/09/17 10/01/21 Phyllis Bello PA [address] [place] [address] [place] [phone] Historical LMR Provider 07/09/17 Nate Dockery MD 22 [facility], [address] [place] [address] [email or web address] Historical LMR Provider 07/09/17 2 Josy Hernandez MD [address] [place] [address] [email or web address] Insurance Assigned Provider 12/22/17 08/30/19 Nate Ritter MD [address] [place] [address], [address] [place] [address] [email or web address] Neurology 06/24/19 Prakash Tolentino MD [address] [place] [address] [email or web address] Insurance Assigned Provider 08/30/19 08/29/20 Rod Cunningham [address] [address] [email or web address] iCMP Social Work 08/23/20 06/13/22 Josy Hernandez MD [address] [place] [address] [email or web address] Insurance Assigned Provider 08/29/20 02/27/21 Prakash Tolentino MD [address] [place] [address] [email or web address] Insurance Assigned Provider 02/27/21 04/02/21 Josy Hernandez MD [address] [place] [address] [email or web address] Insurance Assigned Provider 04/02/21 06/04/21 Prakash Tolentino MD [address] [place] [address] [email or web address] Insurance Assigned Provider 06/04/21 07/30/21 Josy Hernandez MD [address] [place] [address] [email or web address] Insurance Assigned Provider 07/30/21 06/03/22 Nate Ritter MD [address] [place] [address], [address] [place] [address] [email or web address] Neurology 01/10/22 Philip Lara DO [address] [place] [address] [email or web address] Geriatric Medicine 01/01/24 documented as of this encounter Additional Source Comments The information contained in this document represents components of the legal health record. It is not the complete legal health record.[facility]
--- OUTSIDE RECORDS SUMMARY | 2025-05-21 15:59 | XMS_ITS | Encounter Summary ---
Author Organization [facility] Address [address] [place] [address] [place] [address] Phone Care Team Providers Care Shuttle Bus Driver Name Role Phone Zohra Saenz MD Unavailable Estelita Bobby NP Unavailable [phone] Phyllis Bello Unavailable [phone] Nate Dockery MD Unavailable [phone] Phyllis Bello Primary Care Provider + Josy Hernandez MD Unavailable + Nate Ritter MD Unavailable [phone] Prakash Tolentino MD Unavailable + Rod Cunningham Unavailable Josy Hernandez MD Unavailable + Prakash Tolentino MD Unavailable + Josy Hernandez MD Unavailable + Prakash Tolentino MD Unavailable + Josy Hernandez MD Unavailable + Nate Ritter MD Unavailable [phone] Josy Hernandez MD Primary Care Provider +1- Phyllis Bello Primary Care Provider [phone] Philip Lara DO Unavailable [phone] Encounter Details Date Type Department Care Team (Late Contact Info) Description 07/18/2018 Procedure Pass [facility], Ct Scan [facility] [address] [place] [address] Social History Tobacco Use Types Packs/Day Years [...] Description 01/08/2026 8:30 AM EDT Office Visit [facility] [address] [place] [address] Philip Lara, [address] [place] [address] [email or web address] documented as of this encounter Visit [...] documented as of this encounter Care Teams Shuttle Bus Driver Relationship Specialty Start Date End Date Phyllis Bello PA [address] [place] [address] PCP - General Metal Ceiling Builder 08/09/17 03/02/23 Josy Hernandez MD [address] [place] [address] [email or web address] PCP - General Family Medicine 03/03/23 06/17/23 Phyllis Bello PA [address] [place] [address] PCP - General Physician Ship'S Electronic Warfare Officer 06/18/23 Zohra Saenz MD [address] [place] [address] Historical LMR Provider 07/09/17 2 Estelita Bobby NP [address] [place] [address] 2_[place] [address] [email or web address] Historical LMR Provider 07/09/17 10/01/21 Phyllis Bello PA [address] [place] [address] [place] [address] Historical LMR Provider 07/09/17 Nate Dockery MD 22 [facility], [address] [place] [address] [email or web address] Historical LMR Provider 07/09/17 2 Josy Hernandez MD [address] [place] [address] [email or web address] Insurance Assigned Provider 12/22/17 08/30/19 Nate Ritter MD [address] [place] [address], [address] [place] [address] [email or web address] Neurology 06/24/19 Prakash Tolentino MD [address] [place] [address] [email or web address] Insurance Assigned Provider 08/30/19 08/29/20 Rod Cunningham, [address] [address] [email or web address] iCMP Social Work 08/23/20 06/13/22 Josy Hernandez MD [address] [place] [address] [email or web address] Insurance Assigned Provider 08/29/20 02/27/21 Prakash Tolentino MD [address] [place] [address] [email or web address] Insurance Assigned Provider 02/27/21 04/02/21 Josy Hernandez MD [address] [place] [address] [email or web address] Insurance Assigned Provider 04/02/21 06/04/21 Prakash Tolentino MD [address] [place] [address] [email or web address] Insurance Assigned Provider 06/04/21 07/30/21 Josy Hernandez MD [address] [place] [address] [email or web address] Insurance Assigned Provider 07/30/21 06/03/22 Nate Ritter MD [address] [place], [place] [address] [place] [address] [email or web address] Neurology 01/10/22 Philip Lara DO [address] [place] [address] [email or web address] Geriatric Medicine 01/01/24 documented as of this encounter Additional Source Comments The information contained in this document represents components of the legal health record. It is not the complete legal health record.[facility]
--- OUTSIDE RECORDS SUMMARY | 2025-05-21 15:59 | XMS_ITS | Encounter Summary ---
Author Organization [facility] Address [address] [place] [address] [place] [phone] Phone Care Team Providers Care Leather Stripping Machine Operator Name Role Phone Zohra Saenz MD Unavailable Estelita Bobby NP Unavailable [phone] Phyllsi Bello Unavailable [phone] Nate Dockery MD Unavailable [phone] Phyllis Bello Primary Care Provider + Josy Hernandez MD Unavailable + Nate Ritter MD Unavailable [phone] Prakash Tolentino MD Unavailable + Rod Cunningham Unavailable [phone] Josy Hernandez MD Unavailable + Prakash Tolentino MD Unavailable + Josy Hernandez MD Unavailable + Prakash Tolentino MD Unavailable + Josy Hernandez MD Unavailable + Nate Ritter MD Unavailable [phone] Josy Hernandez MD Primary Care Provider [phone] Phyllis Bello Primary Care Provider [phone] Philip Lara DO Unavailable [phone] Encounter Details Date Type Department Care Team (Late Contact Info) Description 03/26/2018 Procedure Pass [facility], Ct Scan - [facility] [address] [place] [address] Social History Tobacco Use Types Packs/Day Years [...] Description 01/08/2026 8:30 AM EDT Office Visit [facility] [address] [place] [address] Philip Lara, [address] [place] [phone] [email or web address] documented as of this encounter Visit [...] documented as of this encounter Care Teams Leather Stripping Machine Operator Relationship Specialty Start Date End Date Phyllis Bello PA [address] [place] [address] PCP - General Broadcast Correspondent 08/09/17 03/02/23 Josy Hernandez MD [address] [place] [address] [email or web address] PCP - General Family Medicine 03/03/23 06/17/23 Phyllis Bello PA [address] [place] [address] PCP - General Physician Drop Wire Stringer 06/18/23 Zohra Saenz MD [address] [place] [phone] Historical LMR Provider 07/09/17 2 Estelita Bobby NP [address] [place] [address] 2_[place] [address] [email or web address] Historical LMR Provider 07/09/17 10/01/21 Phyllis Bello PA [address] [place] [address] [place] [address] Historical LMR Provider 07/09/17 Nate Dockery MD [address] [facility], [address] [place] [address] [email or web address] Historical LMR Provider 07/09/17 2 Josy Hernandez MD [address] [place] [address] [email or web address] Insurance Assigned Provider 12/22/17 08/30/19 Nate Ritter MD [address] [place] [address], [address] [place] [address] [email or web address] Neurology 06/24/19 Prakash Tolentino MD [address] [place] [address] [email or web address] Insurance Assigned Provider 08/30/19 08/29/20 Rod Cunningham, [address] [address] [email or web address] Work 08/23/20 06/13/22 Josy Hernandez MD [address] [place] [address] [email or web address] Insurance Assigned Provider 08/29/20 02/27/21 Prakash Tolentino MD [address] [place] [address] [email or web address] Insurance Assigned Provider 02/27/21 04/02/21 Josy Hernandez MD [address] [place] [address] [email or web address] Insurance Assigned Provider 04/02/21 06/04/21 Prakash Tolentino MD [address] [place] [address] [email or web address] Insurance Assigned Provider 06/04/21 07/30/21 Josy Hernandez MD [address] [place] [address] [email or web address] Insurance Assigned Provider 07/30/21 06/03/22 Nate Ritter MD [address] [place], [place] [id number] [place] [address] [email or web address] Neurology 01/10/22 Philip Lara DO [address] [place] [phone] [email or web address] Geriatric Medicine 01/01/24 documented as of this encounter Additional Source Comments The information contained in this document represents components of the legal health record. It is not the complete legal health record.[facility]
--- NOTE | 2025-05-21 16:17 | PHA.MEDREC ---
Addendum entered by Matthew Holm PharmD 05/21/25 16:31: reviewed Original Note: Pharmacy Consult ? Medication Reconciliation Pharmacy has completed the medication reconciliation. Spoke with pt spouse (Beverly) @bedside and she had a list on hand she utilized to confirm pt med list. Per spouse pt is taking: Lamotrigine 300mg BID (Claims shows LF 05/21 Qty 60 Fr 30) and pt has been refusing to take his medication and has not taken them altogether since ~1 week ago.
--- NOTE | 2025-05-21 18:44 | PC.NURSE ---
Patient arrived to the unit on stretcher, confirmed his name but refused to answer any other questions. Patient did not want to change into hospital gown, refused to get up from the stretches to the bed and was slid in. Unable to do swallow test as patient will not follow directions.
--- NOTE | 2025-05-21 21:19 | PC.NURSE ---
This RN attempted to give patient his bedtime medications one by one. Pt took and swallowed trazodone without issue, no s/s of apiration noted.No coughing and pt speaking clear one word answers. Provided pt with next medication in a med cup and the pt placed it into his water cup. Tried to explain to patient that these are his medications that he takes at night. Pt states I don't know what is going on here and handed medications back to this RN. Pt would not take any additional medications. Pt noted to be attempting to get out of bed multiple times in the first part of this RN;'s shift. Pt expressed frustration over the bed alarm going off. Attempted to explain to patient that the alarm is a safety precaution so that he doesn't fall. Pt did not appear to understand.
[2025-05-22] VITALS (8 sets, daily range): BP systolic 112–139; BP diastolic 69–85; PULSE 90–116; RESP 16–20; TEMP 36.5–36.8; O2SAT 96–100; BMI 23.1
[2025-05-22] MEDS: diazePAM 10 MG/2 ML CARTRIDGE 5 MG IVPUSH (01:11)
--- NOTE | 2025-05-22 01:26 | PM.EVENT ---
Event Note Date of Service: 05/22/25 Event Note: I was alerted by patient's nurse that patient was seizing. seizure lasted for about 45 seconds, he had a convulsive episode, eyes rolled backwards, no urinary incontinence, has been postictal, not responding to verbal or painful stimuli since. Breathing has remained stable. Vital signs stable, no hypoxia. The patient refused to seizure meds earlier, he has been very confused. She reports that he took his trazodone but refused the remainder of his medications. Ordered telemetry, IV fluids and neurology consult. Patient was given 5 mg IV diazepam. Will have diazepam p.r.n. for seizures. Bladder scan was 460ml, straight cath ordered. Time Spent With Patient Time: Total time managing care of this patient today ____ minutes.
--- NOTE | 2025-05-22 01:55 | PC.NURSE ---
Pt yelled out and then was witnessed having a seizure with full body shaking. Seizure lasted less than 45 seconds. Dianelys Dubon and Dr Velasquez notified and to bedside. Pt medicated per NOV. Pt to be changed to tele monitoring. Notified Hannah film vault supervisor. Report called to [facility] and pt transported by film vault supervisor.
[2025-05-22] MEDS: Lactated Ringers 1,000 ML 80 ML IVCONT ×2 (02:15→15:57)
[2025-05-22 07:49] LABS: MANUAL DIFF FLAG NO
[2025-05-22 07:52] LABS: Hematocrit 37.4 % (42.0-52.0); Hemoglobin 13.7 g/dl (14.0-18.0); Imm Gran Abs Auto 0.07 X10*3/uL (0.00-0.03); Imm Gran Pct Auto 1.1 % (0.0-0.4); Lymphocytes Absolute Auto 0.7 X10*3/uL (1.2-4.9); Mean Corpuscular HGB Conc 36.6 g/dl (31.0-36.0); Mean Corpuscular Hemoglobin 30.9 pg (27.0-33.0); Mean Corpuscular Volume 84.4 fL (80.0-98.0); NRBC Abs Auto 0.000 X10*3/uL (0.0-0.012); NRBC Pct Auto 0.0 /100WBC (0.0-0.2); Platelet Count 152 X10*3/uL (160-400); Red Blood Count 4.43 X10*6/uL (4.60-5.80); White Blood Count 6.4 X10*3/uL (4.8-10.8)
--- NOTE | 2025-05-22 07:58 | P.PNIM_ITS ---
Subjective Subjective Date of Service: 05/22/25 Interval History: f/u on breakthrough seizures had seizures overnight, he is refusing meds he has confusion ? baseline Physical Exam 2 Exam: Exam: General: AO X 3, no acute distress Resp: CTA bilateral CVS: S1,S2,RRR GI: +BS, NT, no distention Skin: No rash Neuro: motor grossly intact Psych: appropriate affect Vital Signs: Vital Signs: Last Vital Signs Temp 97.9 F 05/22/25 07:26 Pulse 103 H 05/22/25 07:26 Resp 20 05/22/25 07:26 BP 124/79 05/22/25 07:26 Pulse Ox 99 05/22/25 07:26 O2 Del Method Room Air 05/22/25 07:26 BMI result Body Mass Index 23.1 Const: Other: General: confused at baseline, Resp: CTA bilateral CVS: S1,S2,RRR GI: +BS, NT, no distention Skin: No rash Neuro: motor grossly intact Psych: appropriate affect Objective Data Active Medications Acetaminophen (Acetaminophen 325 Mg Tablet) 650 mg PO Q6H PRN PRN Reason: Pain, Mild 1-3,fever,headache Calcium Carbonate (Calcium Carbonate 750 Mg Tab.Chew) 750 mg PO Q4H PRN PRN Reason: Heartburn Diazepam (Diazepam 10 Mg/2 Ml Cartridge) 5 mg IVPUSH Q4H PRN PRN Reason: Seizures Enoxaparin Sodium (Enoxaparin Sodium 40 Mg/0.4 Ml Syringe) 40 mg SUBCUT Q24H [facility] Last Admin: 05/21/25 18:46 Dose: Not Given Documented By: SISSY Non-Admin Reason: Patient Refused Lactated Ringer's (Lr) 1,000 mls @ 80 mls/hr IVCONT .[id number] [facility] Last Admin: 05/22/25 02:15 Dose: 80 mls/hr Documented By: ANTLETITIA Lacosamide (Lacosamide 100 Mg Tablet) 200 mg PO BID [facility] Last Admin: 05/21/25 21:30 Dose: Not Given Documented By: ABHISHEK Non-Admin Reason: Patient Refused Lamotrigine (Lamotrigine 100 Mg Tablet) 300 mg PO BID [facility] Last Admin: 05/21/25 21:27 Dose: Not Given Documented By: ABHISHEK Non-Admin Reason: Patient Refused Magnesium Hydroxide (Milk Of Magnesia 30 Ml Oral.Susp) 30 ml PO DAILY PRN PRN Reason: Constipation Melatonin (Melatonin 3 Mg Tablet) 6 mg PO BEDTIME PRN PRN Reason: Insomnia Ondansetron HCl (Ondansetron Hcl 4 Mg/2 Ml Vial) 4 mg IVPUSH Q8H PRN PRN Reason: Nausea and Vomiting Phenytoin Sodium (Phenytoin Sodium Extended 100 Mg Capsule) 100 mg PO TID [facility] Last Admin: 05/21/25 21:27 Dose: Not Given Documented By: ABHISHEK Non-Admin Reason: Patient Refused Sertraline HCl (Sertraline Hcl 50 Mg Tablet) 150 mg PO DAILY [facility] Sodium Chloride (0.9 % Sodium Chloride Flush 3 Ml Syringe) 3 ml IVFLUSH QSHIFT [facility] Last Admin: 05/22/25 00:12 Dose: Not Given Documented By: ABHISHEK Non-Admin Reason: No Access Trazodone HCl (Trazodone Hcl 50 Mg Tablet) 50 mg PO BID [facility] Last Admin: 05/21/25 21:15 Dose: 50 mg Documented By: ABHISHEK Zonisamide (Zonisamide 100 Mg Capsule) 400 mg PO BEDTIME [facility] Last Admin: 05/21/25 21:27 Dose: Not Given Documented By: ABHISHEK Non-Admin Reason: Patient Refused Labs 05/22/25 07:35 05/22/25 07:35 Labs: Laboratory Results - last 24 hr 05/21/25 05/21/25 05/22/25 11:31 14:41 07:35 MCV 85.1 84.4 MCH 30.8 30.9 MCHC 36.2 H 36.6 H RDW 12.4 12.2 Plt Count 163 152 L MPV 8.7 L 8.3 L Immature Gran % (Auto) 0.5 H 1.1 H Neut % (Auto) 86.9 H 79.7 H Lymph % (Auto) 6.1 L 10.1 L [place] % (Auto) 6.2 8.9 Eos % (Auto) 0.0 0.0 Baso % (Auto) 0.3 0.2 Lymph # (Auto) 0.5 L 0.7 L [place] # (Auto) 0.5 0.6 Eos # (Auto) 0.0 0.0 Baso # (Auto) 0.0 0.0 Abs Immat Gran (auto) 0.04 H 0.07 H Absolute Neuts (auto) 6.7 5.1 Absolute Nucleated RBC 0.000 0.000 Nucleated RBC % (auto) 0.0 0.0 Anion Gap 12 Estim Creat Clear Calc 95.8 Estimated GFR > 60 Random Glucose 97 Lactic Acid 2.1 H* Lactic Acid F/U @ 2Hr 1.1 Calcium 9.1 Magnesium 2.2 Total Bilirubin 0.5 AST 32 ALT 14 Alkaline Phosphatase 126 H Total Protein 7.2 Albumin 4.7 Prolactin 14.0 Valproic Acid < 12.5 L Assessment and Plan (1) Mood disorder: Status: Acute (2) Traumatic brain injury: Status: Acute (3) Breakthrough seizure: Status: Acute (4) Seizure disorder: Status: Acute Plan This is a 55-year-old male with pertinent history of TBI, seizure disorder, PTSD, Alzheimer's dementia who was brought to the emergency department for evaluation of a seizure, non compliant with meds Breakthrough seizure in a patient with seizure disorder due to medication noncompliance, additional seizure overnight after refusing meds continue present meds (Lamictal 300 mg twice daily, Dilantin 150 mg twice daily, Vimpat 200 mg twice daily, zonisamide 400 mg daily). Neurology consult May need placement given cognitive impairment and recurrent admissions in the setting of medication noncompliance. Ongoing seizure precautions. Valproic acid level subtherapeutic. will try to convert possible meds to IV Mood disorder, reports that patient is having episodes of psychosis and is refusing p.o. meds. consult psych to optimize meds Alzheimer's dementia: Maintain sleep-wake cycle Acute lactic acidosis due to seizure DVT prophylaxis: Lovenox Full code. Quality Stroke Does the patient have a stroke diagnosis?: No VTE Prior VTE?: No VTE Risk Level:: Medical - moderate - high VTE Device Contraindication: Treatment Not Indicated VTE Drug Contraindication: N/A - Med Ordered
[2025-05-22 08:08] LABS: Anion Gap 13 (12-20); Blood Urea Nitrogen 11 mg/dL (9-16); Calcium 8.5 mg/dL (8.4-10.2); Carbon Dioxide 23 mmol/L (22-29); Chloride 109 mmol/L (96-108); Creatinine Clr Calc Pharmacy 114.3; Estimated Glomerular Filt Rate > 60; Potassium 3.3 mmol/L (3.3-5.1); Sodium 142 mmol/L (135-145)
--- NOTE | 2025-05-22 11:28 | P.CNNE_ITS ---
History of Present Illness Data of Consult Service Date: 05/22/25 Primary Care Provider: Phyllis Bello PA-C HPI Reason for consult: Possible seizure 55 years old man who apparently has diagnosis of traumatic brain injury, his head CT revealed traumatic nasal bone fracture type of findings, dementia and possible seizure disorder. He was noted to have a seizure-like episode at home and again here in hospital but apparently he was refusing to take medicine and was confused and not responsive or cooperative. Review of Systems 2 Review of Systems: Could not be done with a [facility] Past Medical History Medical History (Updated 05/22/25 @ 11:32 by Karie Todd MD) Mood disorder Seizure disorder Traumatic brain injury Social History Social History Household Members: Unknown / Unable to assess Unable to assess alcohol history related to: Unknown Patient Tobacco Use Status: Tobacco use Unknown Use of substances other than those prescribed or required for medical reasons: Unknown Currently Displaying Signs/Symptoms of Drug Intoxication Withdrawal: No Advance Directives: Yes Advance Directives Information Provided: Yes Advance Directives on File: Yes Advance Directives Date on File: 05/21/25 Meds Allergies Allergy/AdvReac Type Severity Reaction Status Date / Time Unable to Assess Allergy Verified 05/21/25 11:07 Active Medications: Current Medications Acetaminophen (Acetaminophen 325 Mg Tablet) 650 mg PO Q6H PRN PRN Reason: Pain, Mild 1-3,fever,headache Calcium Carbonate (Calcium Carbonate 750 Mg Tab.Chew) 750 mg PO Q4H PRN PRN Reason: Heartburn Diazepam (Diazepam 10 Mg/2 Ml Cartridge) 5 mg IVPUSH Q4H PRN PRN Reason: Seizures Enoxaparin Sodium (Enoxaparin Sodium 40 Mg/0.4 Ml Syringe) 40 mg SUBCUT Q24H [facility] Last Admin: 05/21/25 18:46 Dose: Not Given Lactated Ringer's (Lr) 1,000 mls @ 80 mls/hr IVCONT .[id number] [facility] Last Admin: 05/22/25 02:15 Dose: 80 mls/hr Lacosamide (Lacosamide 100 Mg Tablet) 200 mg PO BID [facility] Last Admin: 05/22/25 09:09 Dose: 200 mg Lamotrigine (Lamotrigine 100 Mg Tablet) 300 mg PO BID [facility] Last Admin: 05/22/25 09:08 Dose: 300 mg Magnesium Hydroxide (Milk Of Magnesia 30 Ml Oral.Susp) 30 ml PO DAILY PRN PRN Reason: Constipation Melatonin (Melatonin 3 Mg Tablet) 6 mg PO BEDTIME PRN PRN Reason: Insomnia Ondansetron HCl (Ondansetron Hcl 4 Mg/2 Ml Vial) 4 mg IVPUSH Q8H PRN PRN Reason: Nausea and Vomiting Phenytoin Sodium (Phenytoin Sodium Extended 100 Mg Capsule) 100 mg PO TID [facility] Last Admin: 05/22/25 09:25 Dose: Not Given Sertraline HCl (Sertraline Hcl 50 Mg Tablet) 150 mg PO DAILY [facility] Last Admin: 05/22/25 09:09 Dose: 150 mg Sodium Chloride (0.9 % Sodium Chloride Flush 3 Ml Syringe) [address] [facility] Last Admin: 05/22/25 09:10 Dose: Not Given Trazodone HCl (Trazodone Hcl 50 Mg Tablet) 50 mg PO BID [facility] Last Admin: 05/22/25 09:09 Dose: 50 mg Zonisamide (Zonisamide 100 Mg Capsule) 400 mg PO BEDTIME [facility] Last Admin: 05/21/25 21:27 Dose: Not Given Home Medications ?Medication ?Instructions ?Recorded ?Confirmed ?Last Taken ?Type ketoconazole 2 % topical cream 1 appl topical BID PRN Itching 05/21/25 05/21/25 Unknown History lacosamide 200 mg tablet 200 mg PO BID 05/21/2505/21 Unknown History lamotrigine 150 mg tablet 300 mg PO BID 05/21/2505/21 Unknown History phenytoin 50 mg chewable tablet 150 mg PO BID 05/21/25 05/21/25 Unknown History risperidone 1 mg/mL oral solution 1 mg PO BID 05/21/25 05/21/25 Unknown History sertraline 100 mg tablet 150 mg PO DAILY 05/21/25 Unknown History trazodone 50 mg tablet 50 - 150 mg PO BEDTIME PRN S leep 05/21/25 05/21/25 Unknown History zonisamide 100 mg capsule 400 mg PO BEDTIME 05/21/25 0 05/21/25 Unknown History Physical Exam 2 Vital Signs: Vital Signs: Last Vital Signs Temp 97.9 F 08/29/25 07:26 Pulse 103 H 05/22/25 07:26 Resp 20 05/22/25 07:26 BP 124/79 05/22/25 07:26 Pulse Ox 99 05/22/25 07:26 O2 Del Method Room Air 05/22/25 07:26 BMI result Body Mass Index 23.1 Neuro: Other: Drowsy but able to make an eye contact. He told me his 1st name but did not follow all one-step commands in did not answer many of the questions I asked. He was not spontaneously speaking. Face was flat. Visual suarez could not be determined. Was moving extremities. No obvious twitches or seizure-like phenomena was noted. Results Labs 05/22/25 07:35 05/22/25 07:35 Labs: Short CBC 05/21/25 05/22/25 Range/Units 11:31 07:35 WBC 7.8 6.4 (4.8-10.8) X10*3/uL Hgb 15.1 13.7 L (14.0-18.0) g/dl Hct 41.7 L 37.4 L (42.0-52.0) % Plt Count 163 152 L (160-400) X10*3/uL BMP 05/21/25 05/22/25 11:31 07:35 Sodium 140 142 Potassium 3.6 3.3 Chloride 108 109 H Carbon Dioxide 24 23 BUN 12 11 Creatinine 0.74 0.62 Calcium 9.1 8.5 D Liver Function 05/21/25 Range/Units 11:31 Total Bilirubin 0.5 (0.0-1.0) mg/dL AST 32 (5-37) U/L ALT 14 (0-40) U/L Alkaline Phosphatase 126 H (39-117) U/L Albumin 4.7 (3.5-5.0) g/dL Head CT revealed moderately severe diffuse cerebral atrophy. Assessment and Plan (1) Encephalopathy: Qualifiers: Encephalopathy type: unspecified encephalopathy Qualified Code(s): G 93.40 - Encephalopathy, unspecified Status: Acute 55 years old man who probably has an underlying condition causing diffuse cerebral atrophy. This could be long-term exposure to or excessive exposure to alcohol or genetic based. In addition, there are some signs of head trauma, which might suggest the former than the latter. This type of patient frequently get into multiple behavioral symptoms and epilepsy. He is taking multiple antiepileptic medicines suggesting that he has been suffering from epilepsy for long time. His present mental condition or encephalopathy might be epileptic in nature. My recommendation is to obtain an EEG to rule out nonepileptic status. Otherwise, consider talking to his treating neurologist for guidance. His medicines included lacosamide 200 mg twice a day and lamotrigine 300 mg twice a day, both of them have been maximized. He is on zonisamide 400 mg at bedtime which is a good dose of this medicine. In addition, he is on phenytoin 150 twice a day. Other than epileptic encephalopathy, encephalopathy might be from polypharmacy or excessive medicines. EEG would help. Procedures Date of Service Date of Service: 05/22/25
--- NOTE | 2025-05-22 13:19 | MHC.SL.SWA ---
Speech Pathologist Impression: Risk of Aspiration Risk of Aspiration Due to: Mentation Dysphasia Diet Status: Start on NDD3/THIN Liquid Consistency and Strategies for Safe Swallow: Liquid Intake Recommendation: Thin Solid Food Consistency: Dietary Recommendations: Chopped/Advanced (NDD3) Oral Medication Intake: Crushed with Puree Please contact the pharmacy regarding appropriate crushable or liquid drug formulations that are available whenever modified delivery is recommended. Supervision While Eating and Drinking for Safe Swallow: Total Assistance (1:1) Recommendation for Speech: Inpatient Speech Therapy Comment: SMALL CRAFT OPERATOR will continue to follow as needed during inpatient stay to monitor tolerance of recommended diet and re-assess feeding needs. Frequency/Duration: Date Range for Service Req: Timeline to reassess: Hat Conditioner Clinican/Clinical Fellow: No Supervisory Statement: I have reviewed and agree with the student/clinical fellow's documentation: N/A Speech Language Pathologist: Ariella Palacio M.A., CCC-SMALL CRAFT OPERATOR
--- NOTE | 2025-05-22 18:27 | PC.NURSE ---
pt bladder scanned for 339, no straight cath needed below 350mL
[2025-05-23 03:35] VITALS: BP 117/68; PULSE 91; RESP 18; TEMP 36; O2SAT 99
[2025-05-23] MEDS: Lactated Ringers 1,000 ML 80 ML IVCONT (05:52)
[2025-05-23 07:16] VITALS: BP 136/75; PULSE 87; RESP 18; TEMP 36.4; O2SAT 100
--- NOTE | 2025-05-23 08:48 | MHC.CM.PN ---
PT WITH DEMENTIA, MARKETING PLANNING MANAGER COMPLETED WITH PTS , JULIUS, VIA T/C [phone] SHE REPORTS THE PT LIVES WITH HERSELF AND THEIR 29 YO SON PT WAS INDEPENDENT WITH CARE AND USES A CANE TO AMBULATE PT HAD NO SERVICES IN THE HOME HCP ON FILE PCP: BARBIE SONI DCP TBD: JULIUS IS HOPING PT CAN BE PLACED, SHE UNDERSTANDS CM WILL MAKE A BROAD REFERRAL SHE ALSO UNDERSTANDS IF PT IS UNABLE TO BE PLACED, AND BEHAVIORS ARE IMPROVED, A PLAN TO RETURN HOME WOULD BE MADE TRANSPORT TBD BY DISPO
--- NOTE | 2025-05-23 10:02 | P.PNIM_ITS ---
Subjective Subjective Date of Service: 05/23/25 Interval History: f/u on breakthrough seizures New seizures overnight he has confusion at baseline took meds today Physical Exam 2 Exam: Exam: General: AO X 3, no acute distress Resp: CTA bilateral CVS: S1,S2,RRR GI: +BS, NT, no distention Skin: No rash Neuro: motor grossly intact Psych: appropriate affect Vital Signs: Vital Signs: Last Vital Signs Temp 97.6 F 05/23/25 07:16 Pulse 87 05/23/25 07:16 Resp 18 05/23/25 07:16 BP 136/75 05/23/25 07:16 Pulse Ox 100 05/23/25 07:16 O2 Del Method Room Air 05/23/25 07:16 BMI result Body Mass Index 23.1 Const: Other: General: confused at baseline, Resp: CTA bilateral CVS: S1,S2,RRR GI: +BS, NT, no distention Skin: No rash Neuro: motor grossly intact Psych: appropriate affect Objective Data Active Medications Acetaminophen (Acetaminophen 325 Mg Tablet) 650 mg PO Q6H PRN PRN Reason: Pain, Mild 1-3,fever,headache Calcium Carbonate (Calcium Carbonate 750 Mg Tab.Chew) 750 mg PO Q4H PRN PRN Reason: Heartburn Diazepam (Diazepam 10 Mg/2 Ml Cartridge) 5 mg IVPUSH Q4H PRN PRN Reason: Seizures Enoxaparin Sodium (Enoxaparin Sodium 40 Mg/0.4 Ml Syringe) 40 mg SUBCUT Q24H [facility] Last Admin: 05/22/25 15:57 Dose: 40 mg Documented By: HOA Lactated Ringer's (Lr) 1,000 mls @ 80 mls/hr IVCONT .[id number] [facility] Last Admin: 05/23/25 05:52 Dose: 80 mls/hr Documented By: AVA Lacosamide (Lacosamide 100 Mg Tablet) 200 mg PO BID [facility] Last Admin: 05/23/25 08:17 Dose: 200 mg Documented By: ANNE Lamotrigine (Lamotrigine 100 Mg Tablet) 300 mg PO BID [facility] Last Admin: 05/23/25 08:17 Dose: 300 mg Documented By: ANNE Magnesium Hydroxide (Milk Of Magnesia 30 Ml Oral.Susp) 30 ml PO DAILY PRN PRN Reason: Constipation Melatonin (Melatonin 3 Mg Tablet) 6 mg PO BEDTIME PRN PRN Reason: Insomnia Ondansetron HCl (Ondansetron Hcl 4 Mg/2 Ml Vial) 4 mg IVPUSH Q8H PRN PRN Reason: Nausea and Vomiting Phenytoin Sodium (Phenytoin Sodium Extended 100 Mg Capsule) 100 mg PO TID [facility] Last Admin: 05/23/25 08:15 Dose: 100 mg Documented By: ANNE Sertraline HCl (Sertraline Hcl 50 Mg Tablet) 150 mg PO DAILY [facility] Last Admin: 05/23/25 08:17 Dose: 150 mg Documented By: ANNE Sodium Chloride (0.9 % Sodium Chloride Flush 3 Ml Syringe) 3 ml IVFLUSH QSHIFT [facility] Last Admin: 05/23/25 08:18 Dose: Not Given Documented By: ANNE Non-Admin Reason: IV Running Trazodone HCl (Trazodone Hcl 50 Mg Tablet) 50 mg PO BID [facility] Last Admin: 05/23/25 08:17 Dose: 50 mg Documented By: ANNE Zonisamide (Zonisamide 100 Mg Capsule) 400 mg PO BEDTIME [facility] Last Admin: 05/22/25 20:49 Dose: 400 mg Documented By: COURTNEYTYBAI Labs 05/22/25 07:35 05/22/25 07:35 Labs: Laboratory Results - last 24 hr 05/21/25 05/21/25 05/22/25 11:31 14:41 07:35 MCV 85.1 84.4 MCH 30.8 30.9 MCHC 36.2 H 36.6 H RDW 12.4 12.2 Plt Count 163 152 L MPV 8.7 L 8.3 L Immature Gran % (Auto) 0.5 H 1.1 H Neut % (Auto) 86.9 H 79.7 H Lymph % (Auto) 6.1 L 10.1 L [place] % (Auto) 6.2 8.9 Eos % (Auto) 0.0 0.0 Baso % (Auto) 0.3 0.2 Lymph # (Auto) 0.5 L 0.7 L [place] # (Auto) 0.5 0.6 Eos # (Auto) 0.0 0.0 Baso # (Auto) 0.0 0.0 Abs Immat Gran (auto) 0.04 H 0.07 H Absolute Neuts (auto) 6.7 5.1 Absolute Nucleated RBC 0.000 0.000 Nucleated RBC % (auto) 0.0 0.0 Anion Gap 12 Estim Creat Clear Calc 95.8 Estimated GFR > 60 Random Glucose 97 Lactic Acid 2.1 H* Lactic Acid F/U @ 2Hr 1.1 Calcium 9.1 Magnesium 2.2 Total Bilirubin 0.5 AST 32 ALT 14 Alkaline Phosphatase 126 H Total Protein 7.2 Albumin 4.7 Prolactin 14.0 Valproic Acid < 12.5 L Assessment and Plan (1) Mood disorder: Status: Acute (2) Traumatic brain injury: Status: Acute (3) Breakthrough seizure: Status: Acute (4) Seizure disorder: Status: Acute Plan This is a 55-year-old male with pertinent history of TBI, seizure disorder, PTSD, Alzheimer's dementia who was brought to the emergency department for evaluation of a seizure, non compliant with meds Breakthrough seizure in a patient with seizure disorder due to medication noncompliance, additional seizure overnight after refusing meds continue present meds (Lamictal 300 mg twice daily, Dilantin 150 mg twice daily, Vimpat 200 mg twice daily, zonisamide 400 mg daily). Neurology consult May need placement given cognitive impairment and recurrent admissions in the setting of medication noncompliance. Ongoing seizure precautions. Valproic acid level subtherapeutic. will try to convert possible PO to IV if refusing meds Neuro is recommending EEG and to follow with his neuroligst and to continue present meds, EEG won't be available till sunday Mood disorder, reports that patient is having episodes of psychosis and is refusing p.o. meds. consult psych to optimize meds Alzheimer's dementia: Maintain sleep-wake cycle Acute lactic acidosis due to seizure DVT prophylaxis: Lovenox Full code. Quality Stroke Does the patient have a stroke diagnosis?: No VTE Prior VTE?: No VTE Risk Level:: Medical - moderate - high VTE Device Contraindication: Treatment Not Indicated VTE Drug Contraindication: N/A - Med Ordered
[2025-05-23 11:09] VITALS: BP 103/64; PULSE 98; RESP 18; TEMP 36.4; O2SAT 98
[2025-05-23 15:23] VITALS: BP 131/67; PULSE 72; RESP 18; TEMP 36.2; O2SAT 100
[2025-05-23 19:00] VITALS: BP 127/92; PULSE 78; RESP 18; TEMP 36.9; O2SAT 98
[2025-05-24 01:01] VITALS: BP 120/63; PULSE 74; RESP 20; TEMP 36.4; O2SAT 98
[2025-05-24 04:29] LABS: Levetiracetam Keppra <2.0 mcg/mL (6.0-46.0)
[2025-05-24 08:00] VITALS: BP 121/70; PULSE 75; RESP 18; TEMP 36.3; O2SAT 97
--- NOTE | 2025-05-24 09:47 | HO.PM.IMPN ---
Subjective Subjective Date of Service: 05/24/25 Interval History: No seizues overnight, fairly calm this morning he has been taken his meds Physical Exam Vital Signs: Vital Signs: Last Vital Signs Temp 97.3 F 05/24/25 08:00 Pulse 75 05/24/25 08:00 Resp 18 05/24/25 08:00 BP 121/70 05/24/25 08:00 Pulse Ox 97 05/24/25 08:00 O2 Del Method Room Air 05/24/25 08:00 BMI result Body Mass Index 23.1 Const: Other: General: confused at baseline, Resp: CTA bilateral CVS: S1,S2,RRR GI: +BS, NT, no distention Skin: No rash Neuro: motor grossly intact Psych: appropriate affect Objective Data Active Medications Acetaminophen (Acetaminophen 325 Mg Tablet) 650 mg PO Q6H PRN PRN Reason: Pain, Mild 1-3,fever,headache Last Admin: 05/23/25 20:06 Dose: 650 mg Documented By: CHRISTI Calcium Carbonate (Calcium Carbonate 750 Mg Tab.Chew) 750 mg PO Q4H PRN PRN Reason: Heartburn Clotrimazole (Clotrimazole 1 % Cream 15 Gm Tube) 1 appl TOPICAL BID PRN PRN Reason: Itching Diazepam (Diazepam 10 Mg/2 Ml Cartridge) 5 mg IVPUSH Q4H PRN PRN Reason: Seizures Enoxaparin Sodium (Enoxaparin Sodium 40 Mg/0.4 Ml Syringe) 40 mg SUBCUT Q24H [facility] Last Admin: 05/23/25 14:56 Dose: 40 mg Documented By: GAVIN Lacosamide (Lacosamide 100 Mg Tablet) 200 mg PO BID [facility] Last Admin: 05/24/25 08:22 Dose: 200 mg Documented By: ANNE Lamotrigine (Lamotrigine 100 Mg Tablet) 300 mg PO BID [facility] Last Admin: 05/24/25 08:22 Dose: 300 mg Documented By: ANNE Magnesium Hydroxide (Milk Of Magnesia 30 Ml Oral.Susp) 30 ml PO DAILY PRN PRN Reason: Constipation Melatonin (Melatonin 3 Mg Tablet) 6 mg PO BEDTIME PRN PRN Reason: Insomnia Last Admin: 05/23/25 20:06 Dose: 6 mg Documented By: HO.SHTYBAI Ondansetron HCl (Ondansetron Hcl 4 Mg/2 Ml Vial) 4 mg IVPUSH Q8H PRN PRN Reason: Nausea and Vomiting Phenytoin Sodium (Phenytoin Sodium Extended 100 Mg Capsule) 100 mg PO TID [facility] Last Admin: 05/24/25 08:22 Dose: 100 mg Documented By: ANNE Sertraline HCl (Sertraline Hcl 50 Mg Tablet) 150 mg PO DAILY [facility] Last Admin: 05/24/25 08:22 Dose: 150 mg Documented By: ANNE Sodium Chloride (0.9 % Sodium Chloride Flush 3 Ml Syringe) 3 ml IVFLUSH QSHIFT [facility] Last Admin: 05/24/25 08:22 Dose: Not Given Documented By: ANNE Non-Admin Reason: No Access Trazodone HCl (Trazodone Hcl 50 Mg Tablet) 50 mg PO BID [facility] Last Admin: 05/24/25 08:22 Dose: 50 mg Documented By: ANNE Zonisamide (Zonisamide 100 Mg Capsule) 400 mg PO BEDTIME [facility] Last Admin: 05/23/25 20:06 Dose: 400 mg Documented By: COURTNEYTYBAI Labs 05/22/25 07:35 05/22/25 07:35 Labs: Laboratory Results - last 24 hr 05/21/25 11:31 Levetiracetam <2.0 L Assessment and Plan (1) Mood disorder: Status: Acute (2) Traumatic brain injury: Status: Acute (3) Breakthrough seizure: Status: Acute (4) Seizure disorder: Status: Acute Plan This is a 55-year-old male with pertinent history of TBI, seizure disorder, PTSD, Alzheimer's dementia who was brought to the emergency department for evaluation of a seizure, non compliant with meds Breakthrough seizure in a patient with seizure disorder due to medication noncompliance, additional seizure overnight after refusing meds continue present meds (Lamictal 300 mg twice daily, Dilantin 150 mg twice daily, Vimpat 200 mg twice daily, zonisamide 400 mg daily). Neurology consult May need placement given cognitive impairment and recurrent admissions in the setting of medication noncompliance. Ongoing seizure precautions. Valproic acid level subtherapeutic. will try to convert possible PO to IV if refusing meds Neuro is recommending EEG and to follow with his neurologist and to continue present meds, EEG won't be available till sunday Mood disorder, reports that patient is having episodes of psychosis and is refusing p.o. meds. consult psych to optimize meds Alzheimer's dementia: Maintain sleep-wake cycle Acute lactic acidosis due to seizure DVT prophylaxis: Lovenox Full code. May need LTAC placement Quality Stroke Does the patient have a stroke diagnosis?: No VTE Prior VTE?: No VTE Risk Level:: Medical - moderate - high VTE Device Contraindication: Treatment Not Indicated VTE Drug Contraindication: N/A - Med Ordered
[2025-05-24 12:00] VITALS: BP 130/77; PULSE 88; RESP 18; TEMP 36.5; O2SAT 100
[2025-05-24 16:00] VITALS: BP 129/81; PULSE 79; RESP 18; TEMP 36.6; O2SAT 98
[2025-05-24 19:23] VITALS: BP 145/88; PULSE 70; RESP 18; TEMP 36.6; O2SAT 100
[2025-05-25] VITALS (7 sets, daily range): BP systolic 116–152; BP diastolic 41–77; PULSE 68–79; RESP 16–18; TEMP 36.2–37.1; O2SAT 97–100
--- NOTE | 2025-05-25 10:11 | P.PNIM_ITS ---
Subjective Subjective Date of Service: 05/25/25 Interval History: No seizues overnight, fairly calm this morning he has been taken his meds Psych has not yet seen him Physical Exam 2 Vital Signs: Vital Signs: Last Vital Signs Temp 98.7 F 05/25/25 07:38 Pulse 68 05/25/25 07:38 Resp 18 05/25/25 07:38 BP 116/68 05/25/25 07:38 Pulse Ox 98 05/25/25 07:38 O2 Del Method Room Air 05/25/25 07:38 BMI result Body Mass Index 23.1 Const: Other: General: confused at baseline, Resp: CTA bilateral CVS: S1,S2,RRR GI: +BS, NT, no distention Skin: No rash Neuro: motor grossly intact Psych: appropriate affect Objective Data Active Medications Acetaminophen (Acetaminophen 325 Mg Tablet) 650 mg PO Q6H PRN PRN Reason: Pain, Mild 1-3,fever,headache Last Admin: 05/23/25 20:06 Dose: 650 mg Documented By: CHRISTI Calcium Carbonate (Calcium Carbonate 750 Mg Tab.Chew) 750 mg PO Q4H PRN PRN Reason: Heartburn Clotrimazole (Clotrimazole 1 % Cream 15 Gm Tube) 1 appl TOPICAL BID PRN PRN Reason: Itching Diazepam (Diazepam 10 Mg/2 Ml Cartridge) 5 mg IVPUSH Q4H PRN PRN Reason: Seizures Enoxaparin Sodium (Enoxaparin Sodium 40 Mg/0.4 Ml Syringe) 40 mg SUBCUT Q24H [facility] Last Admin: 05/24/25 15:17 Dose: 40 mg Documented By: ANNE Lacosamide (Lacosamide 100 Mg Tablet) 200 mg PO BID [facility] Last Admin: 05/25/25 08:49 Dose: 200 mg Documented By: MARIA ANTONIA Lamotrigine (Lamotrigine 100 Mg Tablet) 300 mg PO BID [facility] Last Admin: 05/25/25 08:49 Dose: 300 mg Documented By: MARIA ANTONIA Magnesium Hydroxide (Milk Of Magnesia 30 Ml Oral.Susp) 30 ml PO DAILY PRN PRN Reason: Constipation Melatonin (Melatonin 3 Mg Tablet) 6 mg PO BEDTIME PRN PRN Reason: Insomnia Last Admin: 05/23/25 20:06 Dose: 6 mg Documented By: CHRISTI Ondansetron HCl (Ondansetron Hcl 4 Mg/2 Ml Vial) 4 mg IVPUSH Q8H PRN PRN Reason: Nausea and Vomiting Phenytoin Sodium (Phenytoin Sodium Extended 100 Mg Capsule) 100 mg PO TID [facility] Last Admin: 05/25/25 08:49 Dose: 100 mg Documented By: MARIA ANTONIA Sertraline HCl (Sertraline Hcl 50 Mg Tablet) 150 mg PO DAILY [facility] Last Admin: 05/25/25 08:49 Dose: 150 mg Documented By: MARIA ANTONIA Sodium Chloride (0.9 % Sodium Chloride Flush 3 Ml Syringe) 3 ml IVFLUSH QSHIFT [facility] Last Admin: 05/25/25 08:50 Dose: Not Given Documented By: MARIA ANTONIA Non-Admin Reason: No Access Trazodone HCl (Trazodone Hcl 50 Mg Tablet) 50 mg PO BID [facility] Last Admin: 05/25/25 08:49 Dose: 50 mg Documented By: MARIA ANTONIA Zonisamide (Zonisamide 100 Mg Capsule) 400 mg PO BEDTIME [facility] Last Admin: 05/24/25 20:35 Dose: 400 mg Documented By: FOGARTB Labs 05/22/25 07:35 05/22/25 07:35 Labs: Laboratory Results - last 24 hr 05/21/25 11:31 Levetiracetam <2.0 L Assessment and Plan (1) Mood disorder: Status: Acute (2) Traumatic brain injury: Status: Acute (3) Breakthrough seizure: Status: Acute (4) Seizure disorder: Status: Acute Plan This is a 55-year-old male with pertinent history of TBI, seizure disorder, PTSD, Alzheimer's dementia who was brought to the emergency department for evaluation of a seizure, non compliant with meds Breakthrough seizure in a patient with seizure disorder due to medication noncompliance, additional seizure overnight after refusing meds continue present meds (Lamictal 300 mg twice daily, Dilantin 150 mg twice daily, Vimpat 200 mg twice daily, zonisamide 400 mg daily). Neurology consult May need placement given cognitive impairment and recurrent admissions in the setting of medication noncompliance. Ongoing seizure precautions. Valproic acid level subtherapeutic. will try to convert possible PO to IV if refusing meds Neuro is recommending EEG and to follow with his neurologist and to continue present meds, EEG won't be available till sunday Mood disorder, reports that patient is having episodes of psychosis and is refusing p.o. meds. consult psych to optimize meds--Multiple consults requested and Psych has not yet seen Alzheimer's dementia: Maintain sleep-wake cycle Acute lactic acidosis due to seizure DVT prophylaxis: Lovenox Full code. May need LTAC placement Quality Stroke Does the patient have a stroke diagnosis?: No VTE Prior VTE?: No VTE Risk Level:: Medical - moderate - high VTE Device Contraindication: Treatment Not Indicated VTE Drug Contraindication: N/A - Med Ordered
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
--- NOTE | 2025-05-25 14:18 | MHC.SLORD ---
Speech Language Pathology Order Status: Unable to see pt for dysphagia tx as RNs de-escalating pt with good return. RECEIVING WORKER to check status of pt PO tolerance when indicated.
[2025-05-25] MEDS: risperiDONE Oral Sol 1 MG/ML SOLUTION PO (20:32)
--- NOTE | 2025-05-26 | ECG_ITS ---
Test Reason : for qtc Blood Pressure : */* mmHG Vent. Rate : 81 BPM Atrial Rate : 81 BPM P-R Int : 180 ms QRS Dur : 84 ms QT Int : 374 ms P-R-T Axes : 33 38 24 degrees QTcB Int : 434 ms Normal sinus rhythm Normal ECG No previous ECGs available Referred By: Melody Zeng Electronically Signed By: Dhaval Soares
[2025-05-26 03:20] VITALS: BP 132/82; PULSE 87; RESP 18; TEMP 36.3; O2SAT 98
[2025-05-26 07:32] VITALS: BP 132/92; PULSE 105; RESP 20; TEMP 36.7; O2SAT 99
[2025-05-26] MEDS: risperiDONE Oral Sol 1 MG/ML SOLUTION PO ×2 (07:45→21:27)
[2025-05-26 11:15] VITALS: BP 138/80; PULSE 84; RESP 20; TEMP 36.4; O2SAT 98
--- NOTE | 2025-05-26 14:44 | MHC.CM.PN ---
EMR REVIEWED, PT MEDICALLY CLEARED HOWEVER CM WORKING ON LTC BED FOR PT, UPDATES SENT TO [facility] PER REQUEST AND REFERRAL ALSO EXPANDED, CM WILL CONT TO FOLLOW.
[2025-05-26 15:24] VITALS: BP 109/56; PULSE 97; RESP 18; TEMP 36.6; O2SAT 100
--- NOTE | 2025-05-26 18:13 | MHC.SL.SWA ---
Speech Pathologist Impression: Risk of Aspiration Due to: Dysphasia Diet Status: Recommend continue on current diet of chopped advanced (for ease of access) think liquids, pills crushed in puree. Liquid Consistency and Strategies for Safe Swallow: Liquid Intake Recommendation: Thin Liquid Intake Strategies: Solid Food Consistency: Dietary Recommendations: Chopped/Advanced (NDD3) Additional Modifications to Solid Foods: Oral Medication Intake: Crushed with Puree Please contact the pharmacy regarding appropriate crushable or liquid drug formulations that are available whenever modified delivery is recommended. Compensatory Strategies and Precautions to be Taken for Safe Swallow: Sitting Upright (90 deg) Liquids from Cup Liquids from Straw Alternate Liquids/Solids Supervision While Eating and Drinking for Safe Swallow: Direct Supervision (1:1) Foods to Avoid: Swallowing Recommended Treatments: Recommendation for Speech: Inpatient Speech Therapy Comment: Patient seen this morning at breakfast. Patient using remote control as a phone talking/commenting with remote control to ear, e.g. I have homework to do, but they won't let me people are shouting at me. ELECTRICAL INSTALLATION INSPECTOR set up tray for patient, with patient continuing to perseverate on need to do homework. Patient eventually took bite of [place] toast on tray, produced normal oral and pharyngeal phase of swallow on this bite, but then continued to complain food was a distraction from doing homework, and refused more food. Patient presenting with motoric ability to swallow, however behaviors/confusion is disrupting food intake. Recommend continue on current diet of chopped advanced (for ease of access) think liquids, pills crushed in puree. Frequency/Duration: Date Range for Service Req: Timeline to reassess: Electrician Constructor Supervisor Clinican/Clinical Fellow: No Supervisory Statement: I have reviewed and agree with the student/clinical fellow's documentation: N/A Speech Language Pathologist: Belle Marmolejo M.A., CCC-ELECTRICAL INSTALLATION INSPECTOR
--- NOTE | 2025-05-26 18:37 | HO.PM.IMPN ---
Subjective Subjective Date of Service: 05/26/25 Interval History: Pt was seen this am, was getting agitated and trying to leave AMA, security was called to escort pt back to his room, IM haldol x 1 was given for agitation, Pt stated that security was knocking him down and that he needs to leave. Vitals stable no more seizures ON, taking PO meds Review of Systems -ve except as stated above Physical Exam Exam: Exam: General: confused at baseline, advance dementia Resp: CTA bilateral CVS: S1,S2,RRR GI: +BS, NT, no distention Skin: No rash Neuro: motor grossly intact Psych: appropriate affect Vital Signs: Vital Signs: Last Vital Signs Temp 97.8 F 05/26/25 15:24 Pulse 97 05/26/25 15:24 Resp 18 05/26/25 15:24 BP 109/56 L 05/26/25 15:24 Pulse Ox 100 05/26/25 15:24 O2 Del Method Room Air 05/26/25 15:24 BMI result Body Mass Index 23.1 Objective Data Active Medications Acetaminophen (Acetaminophen 325 Mg Tablet) 650 mg PO Q6H PRN PRN Reason: Pain, Mild 1-3,fever,headache Last Admin: 05/23/25 20:06 Dose: 650 mg Documented By: CHRISTI Calcium Carbonate (Calcium Carbonate 750 Mg Tab.Chew) 750 mg PO Q4H PRN PRN Reason: Heartburn Clotrimazole (Clotrimazole 1 % Cream 15 Gm Tube) 1 appl TOPICAL BID PRN PRN Reason: Itching Diazepam (Diazepam 10 Mg/2 Ml Cartridge) 5 mg IVPUSH Q4H PRN PRN Reason: Seizures Enoxaparin Sodium (Enoxaparin Sodium 40 Mg/0.4 Ml Syringe) 40 mg SUBCUT Q24H [facility] Last Admin: 05/26/25 16:55 Dose: 40 mg Documented By: MARIA ANTONIA Lacosamide (Lacosamide 100 Mg Tablet) 200 mg PO BID [facility] Last Admin: 05/26/25 07:45 Dose: 200 mg Documented By: MARIA ANTONIA Lamotrigine (Lamotrigine 100 Mg Tablet) 300 mg PO BID [facility] Last Admin: 05/26/25 07:45 Dose: 300 mg Documented By: MARIA ANTONIA Magnesium Hydroxide (Milk Of Magnesia 30 Ml Oral.Susp) 30 ml PO DAILY PRN PRN Reason: Constipation Melatonin (Melatonin 3 Mg Tablet) 6 mg PO BEDTIME PRN PRN Reason: Insomnia Last Admin: 05/25/25 20:32 Dose: 6 mg Documented By: CHRISTI Ondansetron HCl (Ondansetron Hcl 4 Mg/2 Ml Vial) 4 mg IVPUSH Q8H PRN PRN Reason: Nausea and Vomiting Phenytoin Sodium (Phenytoin Sodium Extended 100 Mg Capsule) 100 mg PO TID [facility] Last Admin: 05/26/25 16:55 Dose: 100 mg Documented By: MARIA ANTONIA Risperidone (Risperidone Oral Cee 1 Mg/Ml Solution) 1 mg PO BID [facility] Last Admin: 05/26/25 07:45 Dose: 1 mg Documented By: MARIA ANTONIA Sertraline HCl (Sertraline Hcl 50 Mg Tablet) 150 mg PO DAILY [facility] Last Admin: 05/26/25 07:45 Dose: 150 mg Documented By: MARIA ANTONIA Sodium Chloride (0.9 % Sodium Chloride Flush 3 Ml Syringe) 3 ml IVFLUSH QSHIFT [facility] Last Admin: 05/26/25 16:54 Dose: Not Given Documented By: MARIA ANTONIA Non-Admin Reason: No Access Trazodone HCl (Trazodone Hcl 50 Mg Tablet) 50 mg PO BID [facility] Last Admin: 05/26/25 07:45 Dose: 50 mg Documented By: MARIA ANTONIA Zonisamide (Zonisamide 100 Mg Capsule) 400 mg PO BEDTIME [facility] Last Admin: 05/25/25 20:31 Dose: 400 mg Documented By: CHRISTI Labs 05/22/25 07:35 05/22/25 07:35 Assessment and Plan (1) Mood disorder: Status: Acute (2) Seizure disorder: Status: Acute (3) 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 May need placement given cognitive impairment and recurrent admissions in the setting of medication noncompliance. Ongoing seizure precautions. Valproic acid level subtherapeutic. Neuro is recommending EEG and to follow with his neurologist and to continue present meds, EEG ordered Mood disorder, reports that patient is having episodes of psychosis and is refusing p.o. meds. psych consulted, reccs restarting risperidone 1 mg bid and skilled nursing placement in memory care unit. CM aware Alzheimer's dementia: Maintain sleep-wake cycle Acute lactic acidosis due to seizure resolved DVT prophylaxis: Lovenox Full code. May need LTAC placement Quality Stroke Does the patient have a stroke diagnosis?: No VTE Prior VTE?: No VTE Risk Level:: Medical - moderate - high VTE Device Contraindication: Treatment Not Indicated VTE Drug Contraindication: N/A - Med Ordered
[2025-05-26 20:00] VITALS: BP 112/63; PULSE 62; RESP 16; TEMP 36.9; O2SAT 96
[2025-05-26] MEDS: Phenytoin Chewable 50 MG TAB.CHEW 150 MG PO (21:27)
[2025-05-26 23:12] VITALS: BP 113/57; PULSE 76; RESP 16; TEMP 36.5; O2SAT 97
[2025-05-27 03:31] VITALS: BP 130/75; PULSE 81; RESP 16; TEMP 37.4; O2SAT 98
[2025-05-27 07:53] VITALS: BP 107/59; PULSE 83; RESP 16; TEMP 37.3; O2SAT 96
[2025-05-27 08:07] LABS: Hematocrit 39.7 % (42.0-52.0); Hemoglobin 14.2 g/dl (14.0-18.0); Mean Corpuscular HGB Conc 35.8 g/dl (31.0-36.0); Mean Corpuscular Hemoglobin 30.7 pg (27.0-33.0); Mean Corpuscular Volume 85.9 fL (80.0-98.0); NRBC Abs Auto 0.000 X10*3/uL (0.0-0.012); NRBC Pct Auto 0.0 /100WBC (0.0-0.2); Platelet Count 176 X10*3/uL (160-400); Red Blood Count 4.62 X10*6/uL (4.60-5.80); White Blood Count 3.6 X10*3/uL (4.8-10.8)
[2025-05-27 08:30] LABS: Alanine Aminotransferase 30 U/L (0-40); Albumin Level 4.7 g/dL (3.5-5.0); Alkaline Phosphatase 125 U/L (39-117); Anion Gap 11 (12-20); Aspartate Amino Transferase 35 U/L (5-37); Blood Urea Nitrogen 6 mg/dL (9-16); Calcium 8.9 mg/dL (8.4-10.2); Carbon Dioxide 27 mmol/L (22-29); Chloride 107 mmol/L (96-108); Creatinine Clr Calc Pharmacy 78.7; Estimated Glomerular Filt Rate > 60; Potassium 3.9 mmol/L (3.3-5.1); Sodium 141 mmol/L (135-145); Total Protein 7.0 g/dL (6.5-8.0)
[2025-05-27] MEDS: risperiDONE Oral Sol 1 MG/ML SOLUTION PO ×2 (10:36→21:43)
[2025-05-27] MEDS: Phenytoin Chewable 50 MG TAB.CHEW 150 MG PO ×2 (10:37→22:00)
[2025-05-27 11:00] VITALS: BP 117/63; PULSE 82; RESP 18; TEMP 37.3; O2SAT 96
--- NOTE | 2025-05-27 12:13 | MHC.CM.PN ---
EMR REVIEWED, PER HOSPITALIST D/T PT RECEIVING IM HALDOL LAST EVENING WILL RECONSULT PSYCH FOR ? OF ADDITIONAL MED CHANGES, [facility] REQUESTING ADDITIONAL NSG NOTES, NSG AWAY AND NOTE WILL BE SENT ONCE AVAILABLE, CM WILL CONT TO FOLLOW DC NEEDS.
--- NOTE | 2025-05-27 15:29 | MHC.SLORD ---
Speech Language Pathology Order Status: Pt not seen today, per report pt is tolerating current diet but appetite remains reduced.
[2025-05-27 15:32] VITALS: BP 131/75; PULSE 82; RESP 20; TEMP 37.2; O2SAT 98
--- NOTE | 2025-05-27 17:22 | P.PNIM_ITS ---
Subjective Subjective Date of Service: 05/27/25 Interval History: Seen at bedside with and son in attendance. Patient is overtly confused, avoids eye contact generally. Pleasant, non aggressive. Cooperative with discussion and commands. Review of Systems Review of Systems: Yes all other systems are reviewed and are negative Physical Exam 2 Exam: Exam: General: alert and oriented to self only. Comfortable, no pain Cardiac: S1, S2 auscultated with no S3/4, no MRG. Well perfused. Respiratory: Normal breath sounds auscultated throughout all lung zones, without wheezing, rales. Normal rate. GI/ : No abdominal pain on palpation, no masses or distentions. MSK: Normal ambulation without pain at bony prominences or musculature Neurological: Normal neurological examination on overview, without obvious CN II-XII abnormalities. Vital Signs: Vital Signs: Last Vital Signs Temp 98.9 F 05/27/25 15:32 Pulse 82 05/27/25 15:32 Resp 20 05/27/25 15:32 BP 131/75 05/27/25 15:32 Pulse Ox 98 05/27/25 15:32 O2 Del Method Room Air 05/27/25 15:32 BMI result Body Mass Index 23.1 Objective Data Active Medications Acetaminophen (Acetaminophen 325 Mg Tablet) 650 mg PO Q6H PRN PRN Reason: Pain, Mild 1-3,fever,headache Last Admin: 05/23/25 20:06 Dose: 650 mg Documented By: CHRISTI Calcium Carbonate (Calcium Carbonate 750 Mg Tab.Chew) 750 mg PO Q4H PRN PRN Reason: Heartburn Clotrimazole (Clotrimazole 1 % Cream 15 Gm Tube) 1 appl TOPICAL BID PRN PRN Reason: Itching Diazepam (Diazepam 10 Mg/2 Ml Cartridge) 5 mg IVPUSH Q4H PRN PRN Reason: Seizures Enoxaparin Sodium (Enoxaparin Sodium 40 Mg/0.4 Ml Syringe) 40 mg SUBCUT Q24H [facility] Last Admin: 05/27/25 17:01 Dose: 40 mg Documented By: JOSSY Folic Acid (Folic Acid 1 Mg Tablet) 1 mg PO DAILY [facility] Last Admin: 05/27/25 10:37 Dose: 1 mg Documented By: JOSSY Lacosamide (Lacosamide 100 Mg Tablet) 200 mg PO BID [facility] Last Admin: 05/27/25 10:36 Dose: 200 mg Documented By: JOSSY Lamotrigine (Lamotrigine 100 Mg Tablet) 300 mg PO BID [facility] Last Admin: 05/27/25 10:37 Dose: 300 mg Documented By: JOSSY Magnesium Hydroxide (Milk Of Magnesia 30 Ml Oral.Susp) 30 ml PO DAILY PRN PRN Reason: Constipation Melatonin (Melatonin 3 Mg Tablet) 6 mg PO BEDTIME PRN PRN Reason: Insomnia Last Admin: 05/25/25 20:32 Dose: 6 mg Documented By: CHRISTI Ondansetron HCl (Ondansetron Hcl 4 Mg/2 Ml Vial) 4 mg IVPUSH Q8H PRN PRN Reason: Nausea and Vomiting Phenytoin (Phenytoin Chewable 50 Mg Tab.Chew) 150 mg PO BID [facility] Last Admin: 05/27/25 10:37 Dose: 150 mg Documented By: JOSSY Risperidone (Risperidone Oral Cee 1 Mg/Ml Solution) 1 mg PO BID [facility] Last Admin: 05/27/25 10:36 Dose: 1 mg Documented By: JOSSY Sertraline HCl (Sertraline Hcl 50 Mg Tablet) 150 mg PO DAILY [facility] Last Admin: 05/27/25 10:37 Dose: 150 mg Documented By: JOSSY Sodium Chloride (0.9 % Sodium Chloride Flush 3 Ml Syringe) 3 ml IVFLUSH QSHIFT [facility] Last Admin: 05/27/25 17:00 Dose: Not Given Documented By: JOSSY Non-Admin Reason: No Access Thiamine HCl (Thiamine Hcl 100 Mg Tablet) 100 mg PO DAILY [facility] Last Admin: 05/27/25 10:36 Dose: 100 mg Documented By: JOSSY Trazodone HCl (Trazodone Hcl 50 Mg Tablet) 50 mg PO BID [facility] Last Admin: 05/27/25 10:36 Dose: 50 mg Documented By: JOSSY Zonisamide (Zonisamide 100 Mg Capsule) 400 mg PO BEDTIME [facility] Last Admin: 05/26/25 21:28 Dose: 400 mg Documented By: LOWELL Labs 05/27/25 08:01 05/27/25 08:01 Labs: Laboratory Results - last 24 hr 05/27/25 08:01 MCV 85.9 MCH 30.7 MCHC 35.8 RDW 12.5 Plt Count 176 MPV 8.5 L Absolute Nucleated RBC 0.000 Nucleated RBC % (auto) 0.0 Anion Gap 11 L Estim Creat Clear Calc 78.7 Estimated GFR > 60 Random Glucose 85 Calcium 8.9 Total Bilirubin 0.4 AST 35 ALT 30 Alkaline Phosphatase 125 H Total Protein 7.0 Albumin 4.7 Assessment and Plan (1) Encephalopathy: Status: Acute (2) 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: Status: Acute (3) Traumatic brain injury: Status: Acute (4) Breakthrough seizure: Status: Acute (5) Seizure disorder: Status: Acute Plan 55-year-old male with pertinent history of TBI, seizure disorder, PTSD, Alzheimer's dementia who was brought to the emergency department for evaluation of a seizure admitted for multiple breakthrough seizures due to medication noncompliance Breakthrough seizure in a patient with seizure disorder due to medication noncompliance, additional seizure inpt after refusing meds continue present meds (Lamictal 300 mg twice daily, Dilantin 150 mg twice daily, Vimpat 200 mg twice daily, zonisamide 400 mg daily). May need placement given cognitive impairment and recurrent admissions in the setting of medication noncompliance. Ongoing seizure precautions. Valproic acid level subtherapeutic. Neuro is recommending EEG and to follow with his neurologist and to continue present meds, EEG ordered Mood disorder, reports that patient is having episodes of psychosis and is refusing p.o. meds. Psych consulted, reccs restarting risperidone 1 mg bid and fdc placement in memory care unit. CM aware Alzheimer's dementia: Maintain sleep-wake cycle Acute lactic acidosis due to seizure resolved DVT prophylaxis: Lovenox Full code Pending LTAC placement Total time managing care of this patient today: 30 minutes. Quality Stroke Does the patient have a stroke diagnosis?: No VTE Prior VTE?: No VTE Risk Level:: Medical - moderate - high VTE Device Contraindication: Treatment Not Indicated VTE Drug Contraindication: N/A - Med Ordered
--- NOTE | 2025-05-27 17:45 | PC.NURSE ---
Addendum entered by Deyanira Torres RN 05/27/25 18:20: Pt with increased agitation and profanity towards staff. Attempting to leave the unit. Unable to redirect back to room. Security called. Able to get pt back into room. Pt in room with 1:1 sitter. Calm at this time. aware. See new order. Original Note: Pt alert and oriented to name. Seems to have some understanding of underlying TBI deficits. Pt calm and cooperative during assessment and med pass. Compliant with AM and afternoon medications. Meds crushed in puree. No complaints at this time. 1:1 sitter at bedside. Bed in lowest locked position. Safety precautions in place.
[2025-05-27 19:20] VITALS: BP 107/66; PULSE 85; RESP 18; TEMP 37.1; O2SAT 97
--- NOTE | 2025-05-27 21:00 | PC.NURSE ---
patient pleasantly confused at this time, refused meds at initial attempt stating does not like applesauce . patient took meds whole with water at second attempt. no other complaints at this time. 1:1 sitter at bedside. patient resting comfortably
[2025-05-27 23:52] VITALS: BP 111/71; PULSE 66; RESP 18; TEMP 37.2; O2SAT 96
[2025-05-28 03:20] VITALS: BP 121/82; PULSE 75; RESP 18; TEMP 36.7; O2SAT 96
[2025-05-28 07:57] VITALS: BP 118/71; PULSE 81; RESP 18; TEMP 36.6; O2SAT 96
[2025-05-28] MEDS: diazePAM 10 MG/2 ML CARTRIDGE 2.5 MG IM (12:03)
--- NOTE | 2025-05-28 13:54 | MHC.CM.PN ---
EMR REVIEWED, PER HOSPITALIST PLAN FOR PSYCH TO REVIST MEDS D/T AGITATION/ATTEMPTING TO [facility], CM STILL AWAITING BED OFFER, REF EXPANDED TO 75 ADDITIONAL FACILITIES, AT TIME OF THIS NOTE MAJORITY OF FACILITIES ARE NOT CONTRACTED W/PT'S INSURANCE, [facility] HAVE BEEN ASKING FOR UPDATES HOWEVER NO OFFICIAL BED OFFER AT THIS TIME. CM WILL CONT TO FOLLOW DC NEEDS.
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
[2025-05-28] MEDS: OLANZapine 10 MG VIAL 5 MG IM (14:33)
[2025-05-28] MEDS: diazePAM 10 MG/2 ML CARTRIDGE 5 MG IM (14:33)
[2025-05-28 15:11] VITALS: BP 81/45; PULSE 64
[2025-05-28 15:39] VITALS: TEMP 36.8; O2SAT 96
[2025-05-28] MEDS: Lactated Ringers 500 ML 999 ML IV (15:58)
[2025-05-28] MEDS: 0.9 % Sodium Chloride Flush 3 ML SYRINGE IVFLUSH (16:01)
--- NOTE | 2025-05-28 16:17 | MHC.SLORD ---
Speech Language Pathology Order Status: Patient has been stable on current diet of Chopped/Advanced (NDD3) - recommended due to ease of access secondary to behavioral concerns, and thin liquids. However behaviorally, patient refuses meals at times. No further speech/swallow service indicated at this time, will d/c speech. Please re-consult if additional swallowing related concerns arise.
[2025-05-28 16:44] LABS: MANUAL DIFF FLAG NO
[2025-05-28 16:46] LABS: Hematocrit 36.4 % (42.0-52.0); Hemoglobin 13.3 g/dl (14.0-18.0); Imm Gran Abs Auto 0.06 X10*3/uL (0.00-0.03); Imm Gran Pct Auto 1.1 % (0.0-0.4); Lymphocytes Absolute Auto 1.0 X10*3/uL (1.2-4.9); Mean Corpuscular HGB Conc 36.5 g/dl (31.0-36.0); Mean Corpuscular Hemoglobin 31.1 pg (27.0-33.0); Mean Corpuscular Volume 85.0 fL (80.0-98.0); NRBC Abs Auto 0.000 X10*3/uL (0.0-0.012); NRBC Pct Auto 0.0 /100WBC (0.0-0.2); Platelet Count 181 X10*3/uL (160-400); Red Blood Count 4.28 X10*6/uL (4.60-5.80); White Blood Count 5.5 X10*3/uL (4.8-10.8)
[2025-05-28 16:58] LABS: Anion Gap 12 (12-20); Blood Urea Nitrogen 5 mg/dL (9-16); Calcium 8.9 mg/dL (8.4-10.2); Carbon Dioxide 25 mmol/L (22-29); Chloride 105 mmol/L (96-108); Creatinine Clr Calc Pharmacy 90.8; Estimated Glomerular Filt Rate > 60; Potassium 3.7 mmol/L (3.3-5.1); Sodium 138 mmol/L (135-145)
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
[2025-05-28 19:03] VITALS: BP 105/58; PULSE 65; RESP 18; TEMP 36.6; O2SAT 100
[2025-05-28] MEDS: Phenytoin Chewable 50 MG TAB.CHEW 150 MG PO (19:09)
[2025-05-28] MEDS: risperiDONE Oral Sol 1 MG/ML SOLUTION 2 MG PO (19:20)
[2025-05-29] VITALS (7 sets, daily range): BP systolic 107–123; BP diastolic 61–76; PULSE 67–81; RESP 18; TEMP 36.2–36.8; O2SAT 96–99
[2025-05-29] MEDS: Phenytoin Chewable 50 MG TAB.CHEW 150 MG PO ×2 (08:20→20:01)
[2025-05-29] MEDS: risperiDONE Oral Sol 1 MG/ML SOLUTION 2 MG PO ×2 (08:20→20:02)
--- NOTE | 2025-05-29 12:38 | HO.PM.IMPN ---
Subjective Subjective Date of Service: 05/29/25 Interval History: Mr. Arash Ng is a 55-year-old male presenting with disorganized thought processes, periods of agitation, confusion, and combativeness with staff. He has been experiencing impaired sleep for quite some time, but has been sleeping since yesterday after administration of diazepam and olanzapine. The patient demonstrates a complete lack of attentiveness and loses focus easily. He often forgets tasks immediately after being given instructions, such as taking medications or keeping track of objects. Mr. Ng exhibits very short attention span and difficulty maintaining focus on tasks. He has been observed putting medication cups down and wandering off, forgetting where he placed them, or attempting to put medications in his pocket instead of taking them. Mr. Ng's condition has required medical intervention, including the administration of 2.5 mg of diazepam via IV push. He initially refused and pulled out an IV line that was attempted to be placed. The patient reports feeling out of it but did not provide further details about his symptoms or experiences. Sleep has improved since the administration of medications yesterday, with the patient sleeping for an extended period. This mayo a significant change from his previous sleep impairment. The patient's ability to engage in conversation appears limited, as he struggles to articulate his thoughts and experiences when asked about his condition or any new developments. Review of Systems General: Positive for feeling out of it and fatigue. Psychiatric: Positive for disorganized thought process, periods of agitation, confusion, and combativeness. Negative for sleep impairment. Neurological: Positive for lack of attentiveness, losing focus, and short attention span. Review of Systems: Yes Unobtainable due to mental status Physical Exam Exam: Exam: General: Patient is awake and able to engage in conversation. Appears somewhat disoriented and confused. comfortable, no pain Neurological: Exhibits disorganized thought process and lack of attentiveness. Short attention span and difficulty focusing observed. Patient loses focus easily and forgets tasks quickly. Psychiatric: Periods of agitation and combativeness with staff noted. Disorganized behavior observed. Cardiac: S1, S2 auscultated with no S3/4, no MRG. Well perfused. Respiratory: Normal breath sounds auscultated throughout all lung zones, without wheezing, rales. Normal rate. GI/ : No abdominal pain on palpation, no masses or distentions. MSK: Normal ambulation without pain at bony prominences or musculature Vital Signs: Vital Signs: Last Vital Signs Temp 98.0 F 05/29/25 07:58 Pulse 78 05/29/25 12:00 Resp 18 05/29/25 12:00 BP 123/76 05/29/25 12:00 Pulse Ox 97 05/29/25 12:00 O2 Del Method Room Air 05/29/25 12:00 BMI result Body Mass Index 23.1 Objective Data Active Medications Acetaminophen (Acetaminophen 325 Mg Tablet) 650 mg PO Q6H PRN PRN Reason: Pain, Mild 1-3,fever,headache Last Admin: 05/23/25 20:06 Dose: 650 mg Documented By: CHRISTI Calcium Carbonate (Calcium Carbonate 750 Mg Tab.Chew) 750 mg PO Q4H PRN PRN Reason: Heartburn Clotrimazole (Clotrimazole 1 % Cream 15 Gm Tube) 1 appl TOPICAL BID PRN PRN Reason: Itching Diazepam (Diazepam 10 Mg/2 Ml Cartridge) 5 mg IVPUSH Q4H PRN PRN Reason: Seizures Enoxaparin Sodium (Enoxaparin Sodium 40 Mg/0.4 Ml Syringe) 40 mg SUBCUT Q24H [facility] Last Admin: 05/28/25 15:54 Dose: 40 mg Documented By: SCOTT Folic Acid (Folic Acid 1 Mg Tablet) 1 mg PO DAILY [facility] Last Admin: 05/29/25 08:20 Dose: 1 mg Documented By: MICHELLE Lacosamide (Lacosamide 100 Mg Tablet) 200 mg PO BID [facility] Last Admin: 05/29/25 08:20 Dose: 200 mg Documented By: MICHELLE Lamotrigine (Lamotrigine 100 Mg Tablet) 300 mg PO BID [facility] Last Admin: 05/29/25 08:19 Dose: 300 mg Documented By: MICHELLE Lorazepam (Lorazepam 0.5 Mg Tablet) 0.5 mg PO Q8H PRN PRN Reason: severe anxiety. Magnesium Hydroxide (Milk Of Magnesia 30 Ml Oral.Susp) 30 ml PO DAILY PRN PRN Reason: Constipation Melatonin (Melatonin 3 Mg Tablet) 6 mg PO BEDTIME [facility] Last Admin: 05/28/25 19:10 Dose: 6 mg Documented By: AVA Olanzapine (Olanzapine 5 Mg Tablet) 5 mg PO Q4H PRN PRN Reason: agitation Ondansetron HCl (Ondansetron Hcl 4 Mg/2 Ml Vial) 4 mg IVPUSH Q8H PRN PRN Reason: Nausea and Vomiting Phenytoin (Phenytoin Chewable 50 Mg Tab.Chew) 150 mg PO BID [facility] Last Admin: 05/29/25 08:20 Dose: 150 mg Documented By: MICHELLE Risperidone (Risperidone Oral Cee 1 Mg/Ml Solution) 2 mg PO BID [facility] Last Admin: 05/29/25 08:20 Dose: 2 mg Documented By: MICHELLE Sertraline HCl (Sertraline Hcl 50 Mg Tablet) 150 mg PO DAILY [facility] Last Admin: 05/29/25 08:20 Dose: 150 mg Documented By: MICHELLE Sodium Chloride (0.9 % Sodium Chloride Flush 3 Ml Syringe) 3 ml IVFLUSH QSHIFT [facility] Last Admin: 05/29/25 09:22 Dose: Not Given Documented By: MICHELLE Non-Admin Reason: No Access Thiamine HCl (Thiamine Hcl 100 Mg Tablet) 100 mg PO DAILY [facility] Last Admin: 05/29/25 08:20 Dose: 100 mg Documented By: MICHELLE Trazodone HCl (Trazodone Hcl 50 Mg Tablet) 50 mg PO BEDTIME MRX1 [facility] Last Admin: 05/28/25 23:58 Dose: Not Given Documented By: NYDIA Non-Admin Reason: Patient Asleep Zonisamide (Zonisamide 100 Mg Capsule) 400 mg PO BEDTIME [facility] Last Admin: 05/28/25 19:08 Dose: 400 mg Documented By: AVA Labs 05/28/25 16:29 05/28/25 16:29 Labs: Laboratory Results - last 24 hr 05/28/25 16:29 MCV 85.0 MCH 31.1 MCHC 36.5 H RDW 12.5 Plt Count 181 MPV 8.3 L Immature Gran % (Auto) 1.1 H Neut % (Auto) 69.8 Lymph % (Auto) 17.9 L [place] % (Auto) 10.5 Eos % (Auto) 0.0 Baso % (Auto) 0.7 Lymph # (Auto) 1.0 L [place] # (Auto) 0.6 Eos # (Auto) 0.0 Baso # (Auto) 0.0 Abs Immat Gran (auto) 0.06 H Absolute Neuts (auto) 3.9 Absolute Nucleated RBC 0.000 Nucleated RBC % (auto) 0.0 Anion Gap 12 Estim Creat Clear Calc 90.8 Estimated GFR > 60 Random Glucose 96 Calcium 8.9 Assessment and Plan (1) Mood disorder: Status: Acute (2) Aggression: Status: Acute (3) Encephalopathy: Status: Acute (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 Altered mental status with disorganized thought process - Possible Korsakoff Enceph? - Possible disorganized schizophrenia with agitation and behaviours? Assessment: Mr. Ng exhibits disorganized thought process, periods of agitation, confusion, and combativeness with staff. He demonstrates a complete lack of attentiveness, losing focus easily and forgetting tasks moments after being given instructions. There is suspicion of Korsakoff syndrome and Wernicke's encephalopathy (Wernicke-Korsakoff syndrome) based on his presentation. However, a differential diagnosis of schizophrenia is also being considered due to his disorganized behavior. The patient's sleep has been impaired for some time, but he has been sleeping since yesterday after administration of diazepam and olanzapine. The patient has been medically cleared, suggesting that his current symptoms are primarily psychiatric in nature. Plan: - Continue diazepam and olanzapine as needed for agitation and sleep (doses not specified) - Implement strategies to reduce distractions and improve focus: ??- Remove unnecessary items from patient's environment ??- Present one task or item at a time to patient - Administer medications with meals to improve compliance - Monitor sleep patterns and report improvements - Continue to advocate for transfer to psychiatric floor for specialized care - Reassess patient's mental status regularly throughout the day Breakthrough seizure due to medication noncompliance Seizure disorder Additional seizure inpt after refusing meds continue present meds May need placement given cognitive impairment and recurrent admissions in the setting of medication noncompliance. Ongoing seizure precautions. Valproic acid level subtherapeutic. Neuro is recommending EEG and to follow with his neurologist and to continue present meds, EEG ordered; however the patient is unable to follow commands or requests and resorts to agitation and aggression. There have been no recurrent seizures observed. Given demonstrated symptoms on evaluation, the question of Korsakoff encephalopathy was raised. Psychiatry consult was requested Care consultation was requested. Urgent evaluation for transfer to psychiatric floor for primarily psychiatric management. Alzheimer's dementia: Maintain sleep-wake cycle Acute lactic acidosis due to seizure resolved Total time managing care of this patient today: 45 minutes. Quality Stroke Does the patient have a stroke diagnosis?: No VTE Prior VTE?: No VTE Risk Level:: Medical - moderate - high VTE Device Contraindication: Treatment Not Indicated VTE Drug Contraindication: N/A - Med Ordered
--- NOTE | 2025-05-29 12:40 | MHC.CM.PN ---
PT [facility] BED SEARCH, WILL LIKELY TRANSFER TODAY
[2025-05-30 03:39] VITALS: BP 110/67; PULSE 72; RESP 12; TEMP 36.2; O2SAT 96
[2025-05-30 07:34] VITALS: BP 107/57; PULSE 67; RESP 16; TEMP 36.7; O2SAT 98
[2025-05-30] MEDS: Phenytoin Chewable 50 MG TAB.CHEW 150 MG PO ×2 (09:21→20:18)
[2025-05-30] MEDS: risperiDONE Oral Sol 1 MG/ML SOLUTION 2 MG PO ×2 (09:22→20:18)
[2025-05-30 11:29] VITALS: BP 102/58; PULSE 87; RESP 16; TEMP 36.5; O2SAT 95
--- NOTE | 2025-05-30 13:44 | P.PNIM_ITS ---
Subjective Subjective Date of Service: 05/30/25 Interval History: No episodes of agitation overnight. No episodes of aggression. The patient slept well overnight He is in a good mood today, communicating well, thought process seems to be a bit more organized as compared to the past few days. He remains with significant inattentive disorder, lack of focus, distractibility, difficulty engaging in coherent and contiguous conversation/line of thought. No visual or auditory hallucinations Taking his meds Review of Systems Review of Systems: Yes all other systems are reviewed and are negative Physical Exam 2 Exam: Exam: General: Patient is awake and able to engage in conversation. Appears disoriented and confused. comfortable, no pain Neurological: Exhibits disorganized thought process and lack of attentiveness. Short attention span and difficulty focusing observed. Patient loses focus easily and forgets tasks quickly. Psychiatric: Periods of agitation and combativeness with staff noted. Disorganized behavior observed. Cardiac: S1, S2 auscultated with no S3/4, no MRG. Well perfused. Respiratory: Normal breath sounds auscultated throughout all lung zones, without wheezing, rales. Normal rate. GI/ : No abdominal pain on palpation, no masses or distentions. MSK: Normal ambulation without pain at bony prominences or musculature Vital Signs: Vital Signs: Last Vital Signs Temp 97.7 F 05/30/25 11:29 Pulse 87 05/30/25 11:29 Resp 16 05/30/25 11:29 BP 102/58 L 05/30/25 11:29 Pulse Ox 95 05/30/25 11:29 O2 Del Method Room Air 05/30/25 11:29 BMI result Body Mass Index 23.1 Objective Data Active Medications Acetaminophen (Acetaminophen 325 Mg Tablet) 650 mg PO Q6H PRN PRN Reason: Pain, Mild 1-3,fever,headache Last Admin: 05/23/25 20:06 Dose: 650 mg Documented By: CHRISTI Calcium Carbonate (Calcium Carbonate 750 Mg Tab.Chew) 750 mg PO Q4H PRN PRN Reason: Heartburn Clotrimazole (Clotrimazole 1 % Cream 15 Gm Tube) 1 appl TOPICAL BID PRN PRN Reason: Itching Diazepam (Diazepam 10 Mg/2 Ml Cartridge) 5 mg IVPUSH Q4H PRN PRN Reason: Seizures Enoxaparin Sodium (Enoxaparin Sodium 40 Mg/0.4 Ml Syringe) 40 mg SUBCUT Q24H [facility] Last Admin: 05/29/25 16:31 Dose: Not Given Documented By: MICHELLE Non-Admin Reason: Patient Refused Folic Acid (Folic Acid 1 Mg Tablet) 1 mg PO DAILY [facility] Last Admin: 05/30/25 09:21 Dose: 1 mg Documented By: FLORECITA Lacosamide (Lacosamide 100 Mg Tablet) 200 mg PO BID [facility] Last Admin: 05/30/25 09:21 Dose: 200 mg Documented By: FLORECITA Lamotrigine (Lamotrigine 100 Mg Tablet) 300 mg PO BID [facility] Last Admin: 05/30/25 09:21 Dose: 300 mg Documented By: FLORECITA Lorazepam (Lorazepam 0.5 Mg Tablet) 0.5 mg PO Q8H PRN PRN Reason: severe anxiety. Magnesium Hydroxide (Milk Of Magnesia 30 Ml Oral.Susp) 30 ml PO DAILY PRN PRN Reason: Constipation Melatonin (Melatonin 3 Mg Tablet) 6 mg PO BEDTIME [facility] Last Admin: 05/29/25 20:02 Dose: 6 mg Documented By: MARIA LUZ Olanzapine (Olanzapine 5 Mg Tablet) 5 mg PO Q4H PRN PRN Reason: agitation Last Admin: 05/30/25 09:21 Dose: 5 mg Documented By: FLORECITA Ondansetron HCl (Ondansetron Hcl 4 Mg/2 Ml Vial) 4 mg IVPUSH Q8H PRN PRN Reason: Nausea and Vomiting Phenytoin (Phenytoin Chewable 50 Mg Tab.Chew) 150 mg PO BID [facility] [place] Last Admin: 05/30/25 09:21 Dose: 150 mg Documented By: FLORECITA Risperidone (Risperidone Oral Cee 1 Mg/Ml Solution) 2 mg PO BID [facility] Last Admin: 05/30/25 09:22 Dose: 2 mg Documented By: FLORECITA Sertraline HCl (Sertraline Hcl 50 Mg Tablet) 150 mg PO DAILY [facility] Last Admin: 05/30/25 09:22 Dose: 150 mg Documented By: FLORECITA Sodium Chloride (0.9 % Sodium Chloride Flush 3 Ml Syringe) 3 ml IVFLUSH QSHIFT [facility] Last Admin: 05/30/25 09:20 Dose: Not Given Documented By: FLORECITA Non-Admin Reason: No Access Thiamine HCl (Thiamine Hcl 100 Mg Tablet) 100 mg PO DAILY [facility] [place] Last Admin: 05/30/25 09:21 Dose: 100 mg Documented By: FLORECITA Trazodone HCl (Trazodone Hcl 50 Mg Tablet) 50 mg PO BEDTIME MRX1 [facility] [place] Last Admin: 05/29/25 23:48 Dose: Not Given Documented By: MARIA LUZ Non-Admin Reason: Patient Asleep Zonisamide (Zonisamide 100 Mg Capsule) 400 mg PO BEDTIME [facility] Last Admin: 05/29/25 20:01 Dose: 400 mg Documented By: MARIA LUZ Labs 05/28/25 16:29 05/28/25 16:29 Assessment and Plan (1) Mood disorder: Status: Acute (2) Aggression: Status: Acute (3) Encephalopathy: Status: Acute (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 Altered mental status with disorganized thought process - Possible Korsakoff Enceph? - Possible disorganized schizophrenia with agitation and behaviours? Assessment: Mr. Ng exhibits disorganized thought process, periods of agitation, confusion, and combativeness with staff. He demonstrates a complete lack of attentiveness, losing focus easily and forgetting tasks moments after being given instructions. There is suspicion of Korsakoff syndrome based on his presentation and symptomology. However, a differential diagnosis of schizophrenia is also being considered due to his disorganized behavior. The patient's sleep has been impaired for some time, but he has been sleeping since yesterday after administration of diazepam and olanzapine. The patient has been medically cleared, suggesting that his current symptoms are primarily psychiatric in nature. Plan: - Continue diazepam and olanzapine as needed for agitation and sleep (doses not specified) - Implement strategies to reduce distractions and improve focus: ??- Remove unnecessary items from patient's environment ??- Present one task or item at a time to patient - Administer medications with meals to improve compliance - Monitor sleep patterns and report improvements - Continue to advocate for transfer to psychiatric floor for specialized care - Reassess patient's mental status regularly throughout the day - Thiamine 100mg OD PO daily Breakthrough seizure due to medication noncompliance Seizure disorder Additional seizure inpt after refusing meds continue present meds May need placement given cognitive impairment and recurrent admissions in the setting of medication noncompliance. Ongoing seizure precautions. Valproic acid level subtherapeutic. Neuro is recommending EEG and to follow with his neurologist and to continue present meds, EEG ordered; however the patient is unable to follow commands or requests and resorts to agitation and aggression. There have been no recurrent seizures observed. Given demonstrated symptoms on evaluation, the question of Korsakoff encephalopathy was raised. Psychiatry consult was requested Care consultation was requested. Urgent evaluation for transfer to psychiatric floor for primarily psychiatric management. Alzheimer's dementia: Maintain sleep-wake cycle Acute lactic acidosis due to seizure resolved [employer] - VTE: Enoxaparin 40mg - CODE STATUS: Full code - DIET: Regular Total time managing care of this patient today: 35 minutes. Quality Stroke Does the patient have a stroke diagnosis?: No VTE Prior VTE?: No VTE Risk Level:: Medical - moderate - high VTE Device Contraindication: Treatment Not Indicated VTE Drug Contraindication: N/A - Med Ordered
[2025-05-30 15:00] VITALS: BP 106/60; PULSE 75; RESP 16; TEMP 36.4; O2SAT 98
[2025-05-30 19:20] VITALS: BP 112/59; PULSE 75; RESP 18; TEMP 36.3; O2SAT 95
[2025-05-30 23:09] VITALS: BP 120/58; PULSE 54; RESP 18; TEMP 36.1; O2SAT 93
[2025-05-31 03:14] VITALS: BP 127/60; PULSE 74; RESP 18; TEMP 36; O2SAT 97
[2025-05-31 07:53] VITALS: BP 128/63; PULSE 106; RESP 18; TEMP 36.3; O2SAT 97
[2025-05-31] MEDS: Phenytoin Chewable 50 MG TAB.CHEW 150 MG PO ×2 (08:14→20:22)
[2025-05-31] MEDS: risperiDONE Oral Sol 1 MG/ML SOLUTION 2 MG PO ×2 (08:15→20:12)
[2025-05-31 11:34] VITALS: BP 109/60; PULSE 77; RESP 16; TEMP 36.5; O2SAT 96
[2025-05-31 15:38] VITALS: BP 107/62; PULSE 85; RESP 16; TEMP 36.3; O2SAT 99
--- NOTE | 2025-05-31 16:07 | HO.PM.IMPN ---
Subjective Subjective Date of Service: 05/31/25 Interval History: Wandering on medical floor. Attempts to leave unit frequently; multiple times a day. Can be redirected intermittently. No other acute issues. Medically cleared Review of Systems Review of Systems: Yes Unobtainable due to mental condition and Unobtainable due to mental status Physical Exam Exam: Exam: General: Patient is awake and able to engage in conversation. Appears disoriented and confused. comfortable, no pain Neurological: Exhibits disorganized thought process and lack of attentiveness. Short attention span and difficulty focusing observed. Patient loses focus easily and forgets tasks quickly. Psychiatric: Periods of agitation and combativeness with staff noted. Disorganized behavior observed. Cardiac: S1, S2 auscultated with no S3/4, no MRG. Well perfused. Respiratory: Normal breath sounds auscultated throughout all lung zones, without wheezing, rales. Normal rate. GI/ : No abdominal pain on palpation, no masses or distentions. MSK: Normal ambulation without pain at bony prominences or musculature Vital Signs: Vital Signs: Last Vital Signs Temp 97.3 F 05/31/25 15:38 Pulse 85 05/31/25 15:38 Resp 16 05/31/25 15:38 BP 107/62 05/31/25 15:38 Pulse Ox 99 05/31/25 15:38 O2 Del Method Room Air 05/31/25 15:38 BMI result Body Mass Index 23.1 Objective Data Active Medications Acetaminophen (Acetaminophen 325 Mg Tablet) 650 mg PO Q6H PRN PRN Reason: Pain, Mild 1-3,fever,headache Last Admin: 05/23/25 20:06 Dose: 650 mg Documented By: CHRISTI Calcium Carbonate (Calcium Carbonate 750 Mg Tab.Chew) 750 mg PO Q4H PRN PRN Reason: Heartburn Clotrimazole (Clotrimazole 1 % Cream 15 Gm Tube) 1 appl TOPICAL BID PRN PRN Reason: Itching Diazepam (Diazepam 10 Mg/2 Ml Cartridge) 5 mg IVPUSH Q4H PRN PRN Reason: Seizures Enoxaparin Sodium (Enoxaparin Sodium 40 Mg/0.4 Ml Syringe) 40 mg SUBCUT Q24H [facility] Last Admin: 05/31/25 15:52 Dose: 40 mg Documented By: FLORECITA Folic Acid (Folic Acid 1 Mg Tablet) 1 mg PO DAILY [facility] Last Admin: 05/31/25 08:15 Dose: 1 mg Documented By: FLORECITA Lacosamide (Lacosamide 100 Mg Tablet) 200 mg PO BID [facility] Last Admin: 05/31/25 08:14 Dose: 200 mg Documented By: FLORECITA Lamotrigine (Lamotrigine 100 Mg Tablet) 300 mg PO BID [facility] Last Admin: 05/31/25 08:15 Dose: 300 mg Documented By: FLORECITA Lorazepam (Lorazepam 0.5 Mg Tablet) 0.5 mg PO Q8H PRN PRN Reason: severe anxiety. Magnesium Hydroxide (Milk Of Magnesia 30 Ml Oral.Susp) 30 ml PO DAILY PRN PRN Reason: Constipation Melatonin (Melatonin 3 Mg Tablet) 6 mg PO BEDTIME [facility] Last Admin: 05/30/25 20:19 Dose: 6 mg Documented By: HOME Olanzapine (Olanzapine 5 Mg Tablet) 5 mg PO Q4H PRN PRN Reason: agitation Last Admin: 05/31/25 08:15 Dose: 5 mg Documented By: FLORECITA Ondansetron HCl (Ondansetron Hcl 4 Mg/2 Ml Vial) 4 mg IVPUSH Q8H PRN PRN Reason: Nausea and Vomiting Phenytoin (Phenytoin Chewable 50 Mg Tab.Chew) 150 mg PO BID [facility] Last Admin: 05/31/25 08:14 Dose: 150 mg Documented By: FLORECITA Risperidone (Risperidone Oral Cee 1 Mg/Ml Solution) 2 mg PO BID [facility] Last Admin: 05/31/25 08:15 Dose: 2 mg Documented By: FLORECITA Sertraline HCl (Sertraline Hcl 50 Mg Tablet) 150 mg PO DAILY [facility] Last Admin: 05/31/25 08:14 Dose: 150 mg Documented By: FLORECITA Sodium Chloride (0.9 % Sodium Chloride Flush 3 Ml Syringe) 3 ml IVFLUSH QSHIFT [facility] Last Admin: 05/31/25 15:50 Dose: Not Given Documented By: FLORECITA Non-Admin Reason: No Access Thiamine HCl (Thiamine Hcl 100 Mg Tablet) 100 mg PO DAILY [facility] Last Admin: 05/31/25 08:15 Dose: 100 mg Documented By: FLORECITA Trazodone HCl (Trazodone Hcl 50 Mg Tablet) 50 mg PO BEDTIME MRX1 [facility] Last Admin: 05/30/25 22:49 Dose: Not Given Documented By: HOME Non-Admin Reason: Patient Asleep Zonisamide (Zonisamide 100 Mg Capsule) 400 mg PO BEDTIME [facility] Last Admin: 05/30/25 20:19 Dose: 400 mg Documented By: HOME Labs 05/28/25 16:29 05/28/25 16:29 Assessment and Plan (1) Mood disorder: Status: Acute (2) Aggression: Status: Acute (3) Seizure disorder: Status: Acute (4) Korsakoff's psychosis: Status: Acute Plan 55-year-old male with pertinent history of TBI, seizure disorder, PTSD, Alzheimer's dementia who was brought to the emergency department for evaluation of a seizure admitted for multiple breakthrough seizures due to medication noncompliance. Altered mental status with disorganized thought process - Possible Korsakoff Enceph? - Possible disorganized schizophrenia with agitation and behaviours? Assessment: Mr. Ng exhibits disorganized thought process, periods of agitation, confusion, and combativeness with staff. He demonstrates a complete lack of attentiveness, losing focus easily and forgetting tasks moments after being given instructions. There is suspicion of Korsakoff syndrome based on his presentation and symptomology. However, a differential diagnosis of schizophrenia is also being considered due to his disorganized behavior. The patient's sleep has been impaired for some time, but he has been sleeping since yesterday after administration of diazepam and olanzapine. The patient has been medically cleared, suggesting that his current symptoms are primarily psychiatric in nature. Medically cleared Plan: - Continue diazepam and olanzapine as needed for agitation and sleep (doses not specified) - Implement strategies to reduce distractions and improve focus: ??- Remove unnecessary items from patient's environment ??- Present one task or item at a time to patient - Administer medications with meals to improve compliance - Monitor sleep patterns and report improvements - Continue to advocate for transfer to psychiatric floor for specialized care - Reassess patient's mental status regularly throughout the day - Thiamine 100mg OD PO daily Breakthrough seizure due to medication noncompliance Seizure disorder Additional seizure inpt after refusing meds continue present meds May need placement given cognitive impairment and recurrent admissions in the setting of medication noncompliance. Ongoing seizure precautions. Valproic acid level subtherapeutic. Neuro is recommending EEG and to follow with his neurologist and to continue present meds, EEG ordered; however the patient is unable to follow commands or requests and resorts to agitation and aggression. There have been no recurrent seizures observed. Given demonstrated symptoms on evaluation, the question of Korsakoff encephalopathy was raised. Psychiatry consult was requested Care consultation was requested. Urgent evaluation for transfer to psychiatric floor for primarily psychiatric management. Alzheimer's dementia: Maintain sleep-wake cycle Acute lactic acidosis due to seizure resolved [employer] - VTE: Enoxaparin 40mg - CODE STATUS: Full code - DIET: Regular Total time managing care of this patient today: 35 minutes. Quality Stroke Does the patient have a stroke diagnosis?: No VTE Prior VTE?: No VTE Risk Level:: Medical - moderate - high VTE Device Contraindication: Treatment Not Indicated VTE Drug Contraindication: N/A - Med Ordered
[2025-05-31 19:04] VITALS: BP 136/71; PULSE 83; RESP 16; TEMP 36.1; O2SAT 100
[2025-06-01 03:35] VITALS: BP 110/60; PULSE 60; RESP 16; TEMP 36.1; O2SAT 97
--- NOTE | 2025-06-01 06:16 | PC.NURSE ---
Pt found wandering in the hallway, this RN and multiple staff members tried redirecting pt back to room. Pt became agitated, not listening to staff, security was called to unit for assistance. Security took pt back to his room. This RN went to pt with his PRN Damian SLATER but refused from this RN. An NETWORK CONTROLLER was pulled off the unit to sit with the pt until next shift. Camera in place, bed in lowest position. Will continue to monitor pt's behavior.
[2025-06-01 08:18] VITALS: BP 130/87; PULSE 104; RESP 16; TEMP 36.6; O2SAT 99
[2025-06-01] MEDS: risperiDONE Oral Sol 1 MG/ML SOLUTION 2 MG PO (08:44)
[2025-06-01] MEDS: Phenytoin Chewable 50 MG TAB.CHEW 150 MG PO (08:45)
--- NOTE | 2025-06-01 11:46 | MHC.CM.PN ---
Awaiting decision from psych on dispo. Goal is IPL[facility] makenzie-psych. CM will continue to follow.
[2025-06-01 12:00] VITALS: BP 132/80; PULSE 99; RESP 16; TEMP 36.7; O2SAT 98
--- NOTE | 2025-06-01 14:11 | P.PNIM_ITS ---
Subjective Subjective Date of Service: 06/01/25 Interval History: No issues today. No new reported complaints No episodes of agitation or aggression. Taking medication Review of Systems Review of Systems: Yes all other systems are reviewed and are negative Physical Exam 2 Exam: Exam: General: Patient is awake and able to engage in conversation. Appears disoriented and confused. comfortable, no pain Neurological: Exhibits disorganized thought process and lack of attentiveness. Short attention span and difficulty focusing observed. Patient loses focus easily and forgets tasks quickly. Psychiatric: Periods of agitation and combativeness with staff noted. Disorganized behavior observed. Cardiac: S1, S2 auscultated with no S3/4, no MRG. Well perfused. Respiratory: Normal breath sounds auscultated throughout all lung zones, without wheezing, rales. Normal rate. GI/ : No abdominal pain on palpation, no masses or distentions. MSK: Normal ambulation without pain at bony prominences or musculature Vital Signs: Vital Signs: Last Vital Signs Temp 97.8 F 06/01/25 08:18 Pulse 104 H 06/01/25 08:18 Resp 16 06/01/25 08:18 BP 130/87 06/01/25 08:18 Pulse Ox 99 06/01/25 08:18 O2 Del Method Room Air 06/01/25 08:18 BMI result Body Mass Index 23.1 Objective Data Active Medications Acetaminophen (Acetaminophen 325 Mg Tablet) 650 mg PO Q6H PRN PRN Reason: Pain, Mild 1-3,fever,headache Last Admin: 05/23/25 20:06 Dose: 650 mg Documented By: CHRISTI Calcium Carbonate (Calcium Carbonate 750 Mg Tab.Chew) 750 mg PO Q4H PRN PRN Reason: Heartburn Clotrimazole (Clotrimazole 1 % Cream 15 Gm Tube) 1 appl TOPICAL BID PRN PRN Reason: Itching Diazepam (Diazepam 10 Mg/2 Ml Cartridge) 5 mg IVPUSH Q4H PRN PRN Reason: Seizures Enoxaparin Sodium (Enoxaparin Sodium 40 Mg/0.4 Ml Syringe) 40 mg SUBCUT Q24H [facility] Last Admin: 05/31/25 15:52 Dose: 40 mg Documented By: FLORECITA Folic Acid (Folic Acid 1 Mg Tablet) 1 mg PO DAILY [facility] Last Admin: 06/01/25 08:45 Dose: 1 mg Documented By: GAVIN Lacosamide (Lacosamide 100 Mg Tablet) 200 mg PO BID [facility] Last Admin: 06/01/25 08:45 Dose: 200 mg Documented By: GAVIN Lamotrigine (Lamotrigine 100 Mg Tablet) 300 mg PO BID [facility] Last Admin: 06/01/25 08:45 Dose: 300 mg Documented By: GAVIN Lorazepam (Lorazepam 0.5 Mg Tablet) 0.5 mg PO Q8H PRN PRN Reason: severe anxiety. Magnesium Hydroxide (Milk Of Magnesia 30 Ml Oral.Susp) 30 ml PO DAILY PRN PRN Reason: Constipation Melatonin (Melatonin 3 Mg Tablet) 6 mg PO BEDTIME [facility] Last Admin: 05/31/25 20:13 Dose: 6 mg Documented By: NYDIA Olanzapine (Olanzapine 5 Mg Tablet) 5 mg PO Q4H PRN PRN Reason: agitation Last Admin: 05/31/25 08:15 Dose: 5 mg Documented By: FLORECITA Ondansetron HCl (Ondansetron Hcl 4 Mg/2 Ml Vial) 4 mg IVPUSH Q8H PRN PRN Reason: Nausea and Vomiting Phenytoin (Phenytoin Chewable 50 Mg Tab.Chew) 150 mg PO BID [facility] Last Admin: 06/01/25 08:45 Dose: 150 mg Documented By: GAVIN Risperidone (Risperidone Oral Cee 1 Mg/Ml Solution) 2 mg PO BID [facility] Last Admin: 06/01/25 08:44 Dose: 2 mg Documented By: GAVIN Sertraline HCl (Sertraline Hcl 50 Mg Tablet) 150 mg PO DAILY [facility] Last Admin: 06/01/25 08:45 Dose: 150 mg Documented By: GAVIN Sodium Chloride (0.9 % Sodium Chloride Flush 3 Ml Syringe) 3 ml IVFLUSH QSHIFT [facility] Last Admin: 06/01/25 08:43 Dose: Not Given Documented By: GAVIN Non-Admin Reason: No Access Thiamine HCl (Thiamine Hcl 100 Mg Tablet) 100 mg PO DAILY [facility] Last Admin: 06/01/25 08:46 Dose: 100 mg Documented By: GAVIN Trazodone HCl (Trazodone Hcl 50 Mg Tablet) 50 mg PO BEDTIME MRX1 [facility] Last Admin: 05/31/25 22:04 Dose: Not Given Documented By: NYDIA Non-Admin Reason: Patient Asleep Zonisamide (Zonisamide 100 Mg Capsule) 400 mg PO BEDTIME [facility] Last Admin: 05/31/25 20:14 Dose: 400 mg Documented By: NYDIA Labs 05/28/25 16:29 05/28/25 16:29 Assessment and Plan (1) Mood disorder: Status: Acute (2) Aggression: Status: Acute (3) Korsakoff's psychosis: Status: Acute (4) Encephalopathy: Status: Acute (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 Altered mental status with disorganized thought process - Possible Korsakoff Enceph? - Possible disorganized schizophrenia with agitation and behaviours? Assessment: Mr. Ng exhibits disorganized thought process, periods of agitation, confusion, and combativeness with staff. He demonstrates a complete lack of attentiveness, losing focus easily and forgetting tasks moments after being given instructions. There is suspicion of Korsakoff syndrome based on his presentation and symptomology. However, a differential diagnosis of schizophrenia is also being considered due to his disorganized behavior. The patient's sleep has been impaired for some time, but he has been sleeping since yesterday after administration of diazepam and olanzapine. The patient has been medically cleared, suggesting that his current symptoms are primarily psychiatric in nature. Medically cleared Plan: - Continue diazepam and olanzapine as needed for agitation and sleep (doses not specified) - Implement strategies to reduce distractions and improve focus: ??- Remove unnecessary items from patient's environment ??- Present one task or item at a time to patient - Administer medications with meals to improve compliance - Monitor sleep patterns and report improvements - Continue to advocate for transfer to psychiatric floor for specialized care - Reassess patient's mental status regularly throughout the day - Thiamine 100mg OD PO daily Breakthrough seizure due to medication noncompliance Seizure disorder Additional seizure inpt after refusing meds continue present meds May need placement given cognitive impairment and recurrent admissions in the setting of medication noncompliance. Ongoing seizure precautions. Valproic acid level subtherapeutic. Neuro is recommending EEG and to follow with his neurologist and to continue present meds, EEG ordered; however the patient is unable to follow commands or requests and resorts to agitation and aggression. There have been no recurrent seizures observed. Given demonstrated symptoms on evaluation, the question of Korsakoff encephalopathy was raised. Psychiatry consult was requested Care consultation was requested. Urgent evaluation for transfer to psychiatric floor for primarily psychiatric management. Alzheimer's dementia: Maintain sleep-wake cycle Acute lactic acidosis due to seizure resolved [employer] - VTE: Enoxaparin 40mg - CODE STATUS: Full code - DIET: Regular - DISPOSITION: Medically cleared, pending placement to long-term care facility versus inpatient admission Total time managing care of this patient today: 35 minutes. Quality Stroke Does the patient have a stroke diagnosis?: No VTE Prior VTE?: No VTE Risk Level:: Medical - moderate - high VTE Device Contraindication: Treatment Not Indicated VTE Drug Contraindication: N/A - Med Ordered
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
--- NOTE | 2025-06-01 15:21 | MHC.CARE ---
Pt seen by CARE team and disposition was for psych consult. Pt seen by hospital psychiatry team 06/01/25 and will be referred to case management for discharge planning. See psychiatry note for recommendations.
[2025-06-01 16:00] VITALS: BP 130/73; PULSE 98; RESP 16; TEMP 37; O2SAT 98
[2025-06-01 21:48] VITALS: BP 138/74; PULSE 72; RESP 16; O2SAT 98
[2025-06-01 23:45] VITALS: BP 142/80; PULSE 73; RESP 18; TEMP 36.2; O2SAT 99
[2025-06-02 07:54] VITALS: BP 149/84; PULSE 80; RESP 17; TEMP 36.6; O2SAT 100
[2025-06-02] MEDS: risperiDONE Oral Sol 1 MG/ML SOLUTION 2 MG PO ×2 (08:06→20:41)
[2025-06-02] MEDS: Phenytoin Chewable 50 MG TAB.CHEW 150 MG PO ×2 (08:06→20:46)
--- NOTE | 2025-06-02 11:12 | HO.PM.IMPN ---
Subjective Subjective Date of Service: 06/02/25 Interval History: No new issues Confused yet cooperative Review of Systems Review of Systems: Yes all other systems are reviewed and are negative Physical Exam Exam: Exam: General: Patient is awake and able to engage in conversation. Appears disoriented and confused. comfortable, no pain Neurological: Exhibits disorganized thought process and lack of attentiveness. Short attention span and difficulty focusing observed. Patient loses focus easily and forgets tasks quickly. Psychiatric: Periods of agitation and combativeness with staff noted. Disorganized behavior observed. Cardiac: S1, S2 auscultated with no S3/4, no MRG. Well perfused. Respiratory: Normal breath sounds auscultated throughout all lung zones, without wheezing, rales. Normal rate. GI/ : No abdominal pain on palpation, no masses or distentions. MSK: Normal ambulation without pain at bony prominences or musculature Vital Signs: Vital Signs: Last Vital Signs Temp 97.8 F 06/02/25 07:54 Pulse 80 06/02/25 07:54 Resp 17 06/02/25 07:54 BP 149/84 H 06/02/25 07:54 Pulse Ox 100 06/02/25 07:54 O2 Del Method Room Air 06/02/25 07:54 BMI result Body Mass Index 23.1 Objective Data Active Medications Acetaminophen (Acetaminophen 325 Mg Tablet) 650 mg PO Q6H PRN PRN Reason: Pain, Mild 1-3,fever,headache Last Admin: 05/23/25 20:06 Dose: 650 mg Documented By: CHRISTI Calcium Carbonate (Calcium Carbonate 750 Mg Tab.Chew) 750 mg PO Q4H PRN PRN Reason: Heartburn Clotrimazole (Clotrimazole 1 % Cream 15 Gm Tube) 1 appl TOPICAL BID PRN PRN Reason: Itching Diazepam (Diazepam 10 Mg/2 Ml Cartridge) 5 mg IVPUSH Q4H PRN PRN Reason: Seizures Diazepam (Diazepam 5 Mg Tablet) 5 mg PO TID PRN PRN Reason: severe anxiety/restlessness Enoxaparin Sodium (Enoxaparin Sodium 40 Mg/0.4 Ml Syringe) 40 mg SUBCUT Q24H [facility] Last Admin: 06/01/25 17:11 Dose: 40 mg Documented By: GAVNI Folic Acid (Folic Acid 1 Mg Tablet) 1 mg PO DAILY [facility] Last Admin: 06/02/25 08:06 Dose: 1 mg Documented By: LEVON Lacosamide (Lacosamide 100 Mg Tablet) 200 mg PO BID [facility] Last Admin: 06/02/25 08:05 Dose: 200 mg Documented By: LEVON Lamotrigine (Lamotrigine 100 Mg Tablet) 300 mg PO BID [facility] Last Admin: 06/02/25 08:05 Dose: 300 mg Documented By: LEVON Magnesium Hydroxide (Milk Of Magnesia 30 Ml Oral.Susp) 30 ml PO DAILY PRN PRN Reason: Constipation Melatonin (Melatonin 3 Mg Tablet) 6 mg PO BEDTIME [facility] Last Admin: 06/01/25 22:35 Dose: Not Given Documented By: NYDIA Non-Admin Reason: Patient Refused Olanzapine (Olanzapine 5 Mg Tablet) 5 mg PO Q4H PRN PRN Reason: agitation Last Admin: 05/31/25 08:15 Dose: 5 mg Documented By: FLORECITA Ondansetron HCl (Ondansetron Hcl 4 Mg/2 Ml Vial) 4 mg IVPUSH Q8H PRN PRN Reason: Nausea and Vomiting Phenytoin (Phenytoin Chewable 50 Mg Tab.Chew) 150 mg PO BID [facility] Last Admin: 06/02/25 08:06 Dose: 150 mg Documented By: LEVON Risperidone (Risperidone Oral Cee 1 Mg/Ml Solution) 2 mg PO BID [facility] Last Admin: 06/02/25 08:06 Dose: 2 mg Documented By: LEVON Sertraline HCl (Sertraline Hcl 50 Mg Tablet) 150 mg PO DAILY [facility] Last Admin: 06/02/25 08:05 Dose: 150 mg Documented By: LEVON Sodium Chloride (0.9 % Sodium Chloride Flush 3 Ml Syringe) 3 ml IVFLUSH QSHIFT [facility] Last Admin: 06/02/25 08:07 Dose: Not Given Documented By: LEVON Non-Admin Reason: No Access Thiamine HCl (Thiamine Hcl 100 Mg Tablet) 100 mg PO DAILY [facility] Last Admin: 06/02/25 08:05 Dose: 100 mg Documented By: LEVON Trazodone HCl (Trazodone Hcl 50 Mg Tablet) 50 mg PO BEDTIME MRX1 [facility] Last Admin: 06/01/25 22:51 Dose: Not Given Documented By: NYDIA Non-Admin Reason: Patient Refused Zonisamide (Zonisamide 100 Mg Capsule) 400 mg PO BEDTIME [facility] Last Admin: 06/01/25 22:50 Dose: Not Given Documented By: NYDIA Non-Admin Reason: NPO Labs 05/28/25 16:29 05/28/25 16:29 Assessment and Plan (1) Mood disorder: Status: Acute (2) Aggression: Status: Acute (3) Korsakoff's psychosis: Status: Acute (4) Encephalopathy: Status: Acute (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 Altered mental status with disorganized thought process - Possible Korsakoff Enceph? - Possible disorganized schizophrenia with agitation and behaviours? Assessment: Mr. Ng exhibits disorganized thought process, periods of agitation, confusion, and combativeness with staff. He demonstrates a complete lack of attentiveness, losing focus easily and forgetting tasks moments after being given instructions. There is suspicion of Korsakoff syndrome based on his presentation and symptomology. However, a differential diagnosis of schizophrenia is also being considered due to his disorganized behavior. The patient's sleep has been impaired for some time, but he has been sleeping since yesterday after administration of diazepam and olanzapine. The patient has been medically cleared, suggesting that his current symptoms are primarily psychiatric in nature. Medically cleared Plan: - Continue diazepam and olanzapine as needed for agitation and sleep (doses not specified) - Implement strategies to reduce distractions and improve focus: ??- Remove unnecessary items from patient's environment ??- Present one task or item at a time to patient - Administer medications with meals to improve compliance - Monitor sleep patterns and report improvements - Continue to advocate for transfer to psychiatric floor for specialized care - Reassess patient's mental status regularly throughout the day - Thiamine 100mg OD PO daily Breakthrough seizure due to medication noncompliance Seizure disorder Additional seizure inpt after refusing meds continue present meds May need placement given cognitive impairment and recurrent admissions in the setting of medication noncompliance. Ongoing seizure precautions. Valproic acid level subtherapeutic. Neuro is recommending EEG and to follow with his neurologist and to continue present meds, EEG ordered; however the patient is unable to follow commands or requests and resorts to agitation and aggression. There have been no recurrent seizures observed. Given demonstrated symptoms on evaluation, the question of Korsakoff encephalopathy was raised. Psychiatry consult was requested Care consultation was requested. Urgent evaluation for transfer to psychiatric floor for primarily psychiatric management. Alzheimer's dementia: Maintain sleep-wake cycle Acute lactic acidosis due to seizure resolved [employer] - VTE: Enoxaparin 40mg - CODE STATUS: Full code - DIET: Regular - DISPOSITION: Medically cleared, pending placement to long-term care facility versus inpatient admission Total time managing care of this patient today: 35 minutes. Quality Stroke Does the patient have a stroke diagnosis?: No VTE Prior VTE?: No VTE Risk Level:: Medical - moderate - high VTE Device Contraindication: Treatment Not Indicated VTE Drug Contraindication: N/A - Med Ordered
--- NOTE | 2025-06-02 14:56 | MHC.CM.PN ---
CM CONTINUES TO EXPAND REFERRALS FOR A SECURE MEMORY UNIT/LTC BED THAT IS CONTRACTED WITH HIS INSURANCE. NO BED OFFERS AT THIS TIME. JULIUS UPDATED. VERBALIZES SHE UNDERSTANDS THAT IF A LTC BED IS NOT SECURED THEN PT WILL NEED TO RETURN HOME. CM WILL CONTINUE TO SEEK LTC BED/FOLLOW FOR PLAN.
--- NOTE | 2025-06-02 16:06 | PC.NURSE ---
pt refusing vitals and nursing assessment, Dr. Merchant aware.
[2025-06-02 19:03] VITALS: BP 133/89; PULSE 75; RESP 18; TEMP 37; O2SAT 96
[2025-06-03 03:11] VITALS: BP 123/69; PULSE 78; RESP 18; TEMP 36.7; O2SAT 99
[2025-06-03 06:47] VITALS: BP 152/72; PULSE 84; RESP 15; TEMP 36.6; O2SAT 99
[2025-06-03] MEDS: Phenytoin Chewable 50 MG TAB.CHEW 150 MG PO (08:27)
[2025-06-03] MEDS: risperiDONE Oral Sol 1 MG/ML SOLUTION 2 MG PO (08:27)
--- NOTE | 2025-06-03 09:44 | PC.NURSE ---
assumed care of patient @ 0700. Pt has been cooperative all morning. Took all medication. Performed own ADLs w a shower. no issues w patient.
--- NOTE | 2025-06-03 10:28 | P.DS_ITS ---
DS: Providers Provider Date of Service: 06/03/25 Date of admission: 05/22/25 10:21 Date of discharge: 06/03/25 Primary care physician: Phyllis Bello PA-C Consults: 05/21/25 15:45 Consult to Psychiatry Routine Consulting Provider: [facility] Reason for consultation: Decompensated mood, psychosis, refusing meds 05/22/25 01:14 Consult to Neurology Routine Consulting Provider: [facility] Reason for consultation: seizure 05/24/25 09:50 Consult to Psychiatry Routine Consulting Provider: [facility] [facility] Reason for consultation: No response to earlier consult re med management Has provider been notified: No 05/28/25 11:37 Consult to Psychiatry Routine Consulting Provider: [facility] [place] [facility] Reason for consultation: agitation & combativeness; med recs/ management Has provider been notified: No 05/28/25 14:16 ED CARE Team Crisis Consult Stat Comment: Reason for consultation: Need IPLOC admit DS: Diagnosis Discharge Diagnosis (1) Mood disorder: Status: Acute (2) Aggression: Status: Acute (3) Korsakoff's psychosis: Status: Acute (4) Encephalopathy: Status: Acute (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 Patient is a poor historian and unable to provide any history. History obtained with the help of at bedside and ER provider. Patient's states that patient has been having episodes of delusions and agitation at home. He has been refusing his home p.o. medications including antiepileptics. Patient only took 2 of his antiepileptics 1 day prior to presentation. Patient had an episode of seizure at home witnessed by and he was sent to the ER. Patient is currently postictal at the time of my ev aluation. The states that she does not feel safe with him being at home due to his periods of agitation and noncompliance with medications leading to seizures. Patient has been admitted multiple times for breakthrough seizure previously for medication noncompliance. Unable to obtain review of systems. Hospital course: This is a 55-year-old male with pertinent history of TBI, seizure disorder, PTSD, Alzheimer's dementia who was brought to the emergency department for evaluation of a seizure, non compliant with meds. It appears that he was having Breakthrough seizures due to medication noncompliance, and becoming more confused, agresive and uncooperative with his . Patient was basically restarted on his usual seizure medications and had not had any further siezures in the hospital. He was seen by Neurology and did not change meds but rather advised reaching out to his Neuroligist for further advised and possible EEG--His behavior and restlestness will not allow an EEG to be done. As for his behavior and agression issues, Psych saw him with the following adjustment recommendations to his meds. Start Zyprexa 5mg TID PRN for agitation Ativan 0.5mg q8hr PRN for severe anxiety Scheduled Melatonin 6mg at HS instead of PRN for insomnia Increase Risperidone 1mg BID to 2mg BID for mood Change trazodone 50mg BID to 50mg PRN at HS for insomnia With theaw changes, his behaviors are much better controlled and now think she can managed him at home rather than him going to SNF..The above changes with be added to his DC meds. He has been compliant with all meds. Alzheimer's dementia: Maintain sleep-wake cycle Acute lactic acidosis due to seizure Time Attestation Discharge Coordination Time (in mins): 45 Quality: Safe Use of Opioids Does Pt have an Active Cancer Diagnosis on the Problem List?: No Quality: Stroke Does the patient have a stroke diagnosis?: No Physical Exam Vital Signs: Vital Signs: Last Vital Signs Temp 98 F 06/03/25 06:47 Pulse 84 06/03/25 06:47 Resp 15 06/03/25 06:47 BP 152/72 H 06/03/25 06:47 Pulse Ox 99 06/03/25 06:47 O2 Del Method Room Air 06/03/25 06:47 BMI result Body Mass Index 23.1 Const: Other: General: confused at baseline, Resp: CTA bilateral CVS: S1,S2,RRR GI: +BS, NT, no distention Skin: No rash Neuro: motor grossly intact Psych: appropriate affect Discharge Plan Discharge Anticipated Discharge Date/Time: 06/03/25 10:15 Patient Disposition: Home Health Service Discharge Diagnosis: Breakthrough seizures, neurocognitive disorder, metabolic encephalopathy Referrals: [facility] [Outside] - 1 Day Referral Note: [facility] will call you to schedule home nursing visits to assist in medication management Phyllis Bello PA-C [Primary Care Provider, Family Practice] - 1 Week Discharge Medications: New folic acid 1 mg Tablet 1 mg PO DAILY Qty: 90 0RF thiamine mononitrate (vit B1) 100 mg Tablet 100 mg PO DAILY Qty: 90 0RF trazodone 50 mg Tablet 50 mg PO BEDTIME MRX1 Qty: 90 0RF melatonin 5 mg tablet 5 mg PO BEDTIME PRN (Reason: sleep) Qty: 90 0RF olanzapine 5 mg Tablet 5 mg PO Q4H PRN (Reason: agitation) Qty: 60 0RF lorazepam [Ativan] 0.5 mg tablet 0.5 mg PO TID PRN (Reason: anxiety) Qty: 20 0RF Continued lamotrigine 150 mg tablet 300 mg PO BID sertraline 100 mg tablet 150 mg PO DAILY phenytoin 50 mg tablet,chewable 150 mg PO BID zonisamide 100 mg capsule 400 mg PO BEDTIME ketoconazole 2 % cream 1 appl topical BID PRN (Reason: Itching) lacosamide 200 mg tablet 200 mg PO BID Changed risperidone 1 mg/mL solution 2 mg PO BID Qty: 30 0RF Discontinued trazodone 50 mg tablet 50 - 150 mg PO BEDTIME PRN (Reason: Sleep) Discharge Orders: Discharge Order (Routine); Ordered 06/03/25 Ordered By: Harjinder Merchant Diet: Advance to usual diet Activity on Discharge: As tolerated Stand Alone Forms: Patient Portal Discharge page Print Language: Tamazight Care Plan Goals: recovery and control of seizures and neurocognitive disorders Health Concerns: Dementia, seizures, neurocognitive disorder Plan of Treatment: Take all your medications as recommended and follow up with your Doctor in a week Please note that risperidol has been increased to 2 mg twice daily Trazadone has been changed to 50 mg as needed for sleep at bedtime Ativan 0.5 mg is added for anxiety Olanzapine 5 mg is prescribed for agression Assessment: see above Discharge Date/Time: 06/03/25 15:11
--- NOTE | 2025-06-03 14:07 | MHC.CM.PN ---
Patient remains in behavioral control per RN. Cleared for dc by hospitalist and psych. Discussed dc plan with Beverly at bedside. She is aware there are no LTC bed offers at this time. She is able to take patient home w/ family support and continue LTC search outpatient. Requesting VNA services to assist w/ med management. [facility] has accepted. will transport. aware.
--- NOTE | 2025-06-03 15:33 | W.MHC.F2F ---
Service Date Service Date: 06/03/25 Encounter Date of encounter: 06/03/25 Reasons for Services Signs and symptoms assessed: 43 Reason for [facility]: neurological assessment, medication management and teach disease management Homebound: Leaving the home is medically contraindicated at this time without the asist of a device and/or another person due th the listed conditions above and below. Reason homebound: psychologically impaired / unsafe, cognitively impaired / unsafe and unable to drive Homebound supporting statement: Homebound due to advanced neurocognitive dysfunction and needs 24 hours care and monitoring and therefore needs the assistance of another person Certification: Based on the above findings, I certify that this patient is confined to the home and needs intermittent [facility] care, physical therapy and/or speech therapy, or continues to need occupational therapy. The patient is under my care, and I have initiated the establishment of the plan of care. The patient will be followed by a physician who will periodically review the plan of care. Time Spent With Patient Time: Total time managing care of this patient today ____ minutes.
== END 2025-06-03 15:11 | disposition home health service (06) | DRG 53 ==
LOC: HO.ED 15:32 → HO.EDOVER 15:33 → HO.IMC 05-22 01:59 → HO.S3 05-28 19:50
PROVIDERS: Hospitalist; Admitting Provider Student in an Organized Health Care Education/Training Program; Emergency Provider Emergency Medicine; PCP Physician Assistant Medical; Visit Provider Internal Medicine
DX: G40.909 Epilepsy, unspecified, not intractable, without status epilepticus (principal); E87.21 Acute metabolic acidosis; G30.0 Alzheimer's disease with early onset; F02.811 Dementia in other diseases classified elsewhere, unspecified severity, with agitation; F02.818 Dementia in other diseases classified elsewhere, unspecified severity, with other behavioral disturbance; F20.1 Disorganized schizophrenia; F10.96 Alcohol use, unspecified with alcohol-induced persisting amnestic disorder; S06.9XAS Unspecified intracranial injury with loss of consciousness status unknown, sequela; X58.XXXS Exposure to other specified factors, sequela; T42.76XA Underdosing of unspecified antiepileptic and sedative-hypnotic drugs, initial encounter; Z75.1 Person awaiting admission to adequate facility elsewhere; Z79.899 Other long term (current) drug therapy
CPT/HCPCS: 36415; 70450; 71045; 80048; 80053; 80164; 80177; 83605; 83735; 84146; 85025; 85027; 92526; 92610; 93005; 97163; 99285; J1630; J1650; J2359; J3360; J7120; S9485

== ENCOUNTER → 2025-05-21 11:07 | Outpatient (BNV) | payer MEDICAID, SELFPAY | PROVIDERS: Emergency Provider Emergency Medicine; Visit Provider Radiology Diagnostic Radiology | DX: R56.9 Unspecified convulsions (principal); G31.9 Degenerative disease of nervous system, unspecified; S02.2XXA Fracture of nasal bones, initial encounter for closed fracture; R09.02 Hypoxemia; R91.8 Other nonspecific abnormal finding of lung field | CPT/HCPCS: 70450; 71045 ==

== ENCOUNTER → 2025-05-21 15:32 | Outpatient (BNV) | payer MEDICAID, SELFPAY | PROVIDERS: Admitting Provider Student in an Organized Health Care Education/Training Program; Emergency Provider Emergency Medicine; PCP Physician Assistant Medical; Visit Provider Student in an Organized Health Care Education/Training Program | DX: G40.909 Epilepsy, unspecified, not intractable, without status epilepticus (principal); F02.80 Dementia in other diseases classified elsewhere, unspecified severity, without behavioral disturbance, psychotic disturbance, mood disturbance, and anxiety; F39 Unspecified mood [affective] disorder; S09.90XS Unspecified injury of head, sequela | CPT/HCPCS: 99223; 99232; 99499 ==

== ENCOUNTER 2025-05-22 10:21 | Outpatient (BNV) | payer MEDICAID, SELFPAY | END 2025-05-26 11:02 | PROVIDERS: Admitting Provider Student in an Organized Health Care Education/Training Program; Emergency Provider Emergency Medicine; PCP Physician Assistant Medical; Visit Provider Internal Medicine Cardiovascular Disease | DX: Z13.6 Encounter for screening for cardiovascular disorders (principal) | CPT/HCPCS: 93010 ==

== ENCOUNTER → 2025-05-22 10:21 | Outpatient (BNV) | payer OTHER, SELFPAY | PROVIDERS: Admitting Provider Student in an Organized Health Care Education/Training Program; Emergency Provider Emergency Medicine; PCP Physician Assistant Medical; Visit Provider Psychiatry & Neurology Psychiatry | DX: F03.918 Unspecified dementia, unspecified severity, with other behavioral disturbance (principal) | CPT/HCPCS: 99222; 99232 ==

== ENCOUNTER → 2025-05-22 10:21 | Outpatient (BNV) | payer MEDICAID, SELFPAY | PROVIDERS: Admitting Provider Student in an Organized Health Care Education/Training Program; Emergency Provider Emergency Medicine; PCP Physician Assistant Medical; Visit Provider Psychiatry & Neurology Neurology | DX: G93.40 Encephalopathy, unspecified (principal) | CPT/HCPCS: 99222 ==

== ENCOUNTER 2025-06-10 17:19 | Emergency (ER) | payer MEDICAID, SELFPAY ==
[2025-06-10 17:22] VITALS: BP 150/85; PULSE 80; O2SAT 99
[2025-06-10 17:26] VITALS: BP 147/73; PULSE 82; RESP 18; TEMP 36.8; O2SAT 100; BMI 23.4
--- NOTE | 2025-06-10 17:46 | PC.NURSE ---
per she believes he has been compliant with his meds over the past week, today he was agitated and yelling at strangers walking by the house, when family confronted him to stop he became agitated with family and went to the knife drawer but never grabbed a knife but they were concerned for their and his safety, reports speaking with his child psychologist today and that she thinks the pt should not return home and needs placement for safety, doesn't think he should return home
--- NOTE | 2025-06-10 17:58 | ED.GENADULT ---
HPI - General Adult General Chief complaint: Altered Mental Status Stated complaint: Multiple psych concerns/? seizure earlier today Time Seen by Provider: 06/10/25 17:40 Source: patient Mode of arrival: EMS History of Present Illness ED Provider: Gerald HPI narrative: 55M running out into the yard and yelling at people, then when son intervened became aggressive, reports that he had approached the knife drawer but did not actually open it. HOwever, due to the erratic behavior she is not comfortable having him at home. Patient was just discharged last week and has known Korsakoff's, dementia, TBI. Patient is not oriented. Related Data Home Medications ?Medication ?Instructions ?Recorded ?Confirmed ketoconazole 2 % topical cream 1 appl topical BID PRN Itching 05/21/25 06/11/25 lacosamide 200 mg tablet 200 mg PO BID 05/21/25 06/11/25 lamotrigine 150 mg tablet 300 mg PO BID 05/21/25 06/11/25 phenytoin 50 mg chewable tablet 150 mg PO BID 05/21/25 06/11/25 sertraline 100 mg tablet 150 mg PO DAILY 05/21/25 06/11/25 zonisamide 100 mg capsule 400 mg PO BEDTIME 05/21/25 06/11/25 Previous Rx's ?Medication ?Instructions ?Recorded folic acid 1 mg tablet 1 mg PO DAILY #90 tabs 06/03/25 lorazepam 0.5 mg tablet (Ativan) 0.5 mg PO TID PRN anxiety #20 tabs 06/03/25 melatonin 5 mg tablet 5 mg PO BEDTIME PRN sleep #90 tabs 06/03/25 olanzapine 5 mg tablet 5 mg PO Q4H PRN agitation #60 tabs 06/03/25 risperidone 1 mg/mL oral solution 2 mg (2 mL) PO BID #30 mL 06/03/25 thiamine mononitrate (vit B1) 100 100 mg PO DAILY #90 tabs 06/03/25 mg tablet trazodone 50 mg tablet 50 mg PO BEDTIME MRX1 #90 tabs 06/03/25 Allergies Allergy/AdvReac Type Severity Reaction Status Date / Time No Known Allergies Allergy Verified 06/10/25 17:32 Review of Systems Review of Systems: Petrinent positives and negatives as stated in the HPI PMFSH Past Medical History Source: nursing notes reviewed Medical History Mood disorder Seizure disorder Traumatic brain injury Social History Social History Household Members: Unknown / Unable to assess Unable to assess alcohol history related to: Unknown Comment: 1 :1sitter Patient Tobacco Use Status: Tobacco use Unknown Smoked in Last 30 Days: No Use of substances other than those prescribed or required for medical reasons: Yes Substance Use Type: Marijuana Advance Directives: Yes Advance Directives on File: Yes Advance Directives Date on File: 05/21/25 Do you have a plan to hurt others: No Plan service: No Physical Exam ED Exam Exam: VITAL SIGNS: Reviewed. GENERAL: Well developed, well nourished, in no acute distress. HEAD: Normocephalic/atraumatic EYES: PERRLA, EOMI EARS: Ext canals without abnormality NOSE: Nares patent bilateral OROPHARYNX: no oral lesions noted, posterior pharynx clear NECK: Supple, no adenopathy LUNGS: Normal breath sounds. No adventitious sounds or accessory muscle use. CARDIOVASCULAR: Regular rate and rhythm without noted murmurs ABDOMEN: Soft, non-tender, non-distended with bowel sounds. MUSCULOSKELETAL: No tenderness, deformities, or effusions noted on gross inspection. EXTREMITIES: No cyanosis, clubbing or edema. SKIN: Inspection of the skin reveals no rashes NEUROLOGIC: Alert and oriented x 2. Strength and sensation to light touch were grossly intact x 4, cranial nerves 2-12 are grossly intact Vital Signs: Vital Signs - 24 hr 07/22/25 09:24 07/22/25 15:37 07/22/25 21:35 Temperature 97.9 F 97.4 F 97.6 F Pulse Rate 79 79 72 Respiratory Rate 14 16 17 Blood Pressure 105/66 118/66 118/65 Pulse Oximetry 96 100 100 Oxygen Delivery Method Room Air Room Air Room Air 07/23/25 06:26 Temperature 97.6 F Pulse Rate 81 Respiratory Rate 16 Blood Pressure 111/72 Pulse Oximetry 100 Oxygen Delivery Method Room Air BMI result Body Mass Index 23.4 Course Reevaluation(s) Reevaluation #1: Crisis evaluated patient at bedside and is recommending a psychiatric consult for appropriate disposition. They do note that patient was found more appropriate for a SNF on 06/01 however the declined at that time and patient was discharged into her care. They do express concerns regarding the 's ability to continue caring for him. I agree with this assessment and will place the psychiatric consult at this time. Time: 21:28 Reevaluation #2: Pt still being angry and trying to hit people, spitting, kicking, so restraint will need to continue. Ordered Droperidol 5mg IM Time: 23:26 Reevaluation #3: Patient evaluated, [id number], easy breathing, calm, will be taken out of restraints. Time: 00:29 Additional Reevaluation(s): Time: 06:14 Date: 06/11/25 Provider: Saundra Barrow, DO Patient in physician observation for psychiatric evaluation.? sleeping after chemical and physical restraints. No current complaints. VS stable.? Pending CARE team evaluation. Will continue to monitor. Time: 06:06 Date: 06/12/25 Provider: Saundra Barrow, DO Patient in physician observation for LTC evaluation.? No acute events reported overnight. No current complaints. VS stable.? Pending CM input cleared by psych yesterday. Will continue to monitor. Consultations Consultation #1: Time: Date: 06/13/25 Provider: DR. Sen Patient in physician observation for LTC evaluation.? No acute events reported overnight. No current complaints. VS stable.? Patient is in bed search status. Will continue to monitor. Time: Date: 06/14/25 Provider: DR. Sen Patient in physician observation for LTC evaluation.? No acute events reported overnight. No current complaints. VS stable.? Patient is in bed search status. Will continue to monitor. Time: 06:03 Date: 06/15/25 Provider: Saundra Barrow, DO Patient in physician observation for LTC evaluation.? No acute events reported overnight. No current complaints. VS stable.? Patient is in bed search status. Will continue to monitor. Time: 06:03 Date: 06/16/25 Provider: Saundra Barrow, DO Patient in physician observation for LTC evaluation.? No acute events reported overnight. No current complaints. VS stable.? Patient is in bed search status awaiting LTC placement. Will continue to monitor. Time: Date: 06/17/25 Provider: DR. Sen Patient in physician observation for psychiatric evaluation.? No acute events reported overnight. No current complaints. VS stable.? Patient is in bed search status. Will continue to monitor. Time: Date: 06/18/25 Provider: DR. Sen Patient in physician observation for psychiatric evaluation.? No acute events reported overnight. No current complaints. VS stable.? Patient is in bed search status. Will continue to monitor. Time: 11:24 Date: 06/19/25 Provider: Gunnar Washington MD Patient in case management observation. psychiatric evaluation term the patient has dementia with no acute need for [facility] psychiatric hospitalization. case management is working on placing the patient in LTC facility/? No acute events reported overnight. No current complaints. VS stable.? Patient is in bed search status as per case management. Will continue to monitor. Time: 05:02 Date: 06/20/25 Provider: Gunnar Washington MD Patient in physician observation for case management needs. No acute events reported overnight.? No current issues or complaints. VS stable. Patient is pending placement at facility. Will continue to monitor. Time: 06:44 Date: 06/21/25 Provider: Gunnar Washington MD Patient in physician observation for case management needs. No acute events reported overnight.? No current issues or complaints. VS stable. Patient is pending placement at facility. Will continue to monitor. DR. Sen's Progress note 08:00, 06/22/2025: Patient in physician observation for LTC evaluation, no acute events reported by nurse overnight, no current complaints, VSS, care team input is appreciated, bed search is underway, continue physician observation. DR. Sen's Progress note 09:00, 06/23/2025: Patient in physician observation for LTC evaluation, no acute events reported by nurse overnight, no current complaints, VSS, care team input is appreciated, bed search is underway, continue physician observation. 7:53 AM 06/24/2025 (Dr. Ramo Mooney) Patient in physician observation for LTC evaluation.? No acute events reported overnight. on the [facility] [place] Physician observation continued. Uneventful night. Vital signs stable. No complaints from nursing overnight. Med reconciliation reviewed and done. Pending disposition. Will continue to monitor. Time: 05:59 Date: 07/20/25 Provider: Saundra Barrow, DO Patient in physician observation for case management evaluation.? No acute events reported overnight. No current complaints. VS stable.? Patient is in LTC search. Will continue to monitor. 07/21 2025 06:00 PATIENT REMAINED HEMODYNAMICALLY STABLE, NO EVENT REPORTED OVERNIGHT CONTINUE SEARCH FOR LTC 07/22/25 6 AM pt remain stable no clinical changes ,waiting for placement,VS reviewed stable as 5:36 AM Health care proxy invoke secondary to dementia pt will go to [facility] Consultation #2: MAUDE Maynard Physician observation continued. Uneventful night. Vital signs stable. No complaints from nursing overnight. Med reconciliation reviewed and done. Pending disposition. Will continue to monitor. Time: : Consultation #3: DR. Sen's Progress note 09:00, 06/28/2025: Patient in physician observation for LTC evaluation, no acute events reported by nurse overnight, no current complaints, VSS, care team input is appreciated, bed search is underway, continue physician observation. Time: 06:50 Date: 06/29/25 Provider: Saundra Barrow, DO Patient in physician observation for LTC evaluation.? No acute events reported overnight. No current complaints. VS stable.? Patient is in bed search status. Possible [facility]. Will discuss with CM. Will continue to monitor. Saundra Barrow DO 06/30/25 0720 Patient in physician observation for LTC evaluation.? No acute events reported overnight. No current complaints. VS stable.? Patient is in bed search status. Possible [facility]. Will discuss with CM. Will continue to monitor Time: 07:58 Date: 07/01/25 Provider: Gunnar Washington MD Patient in physician observation for case management needs. No acute events reported overnight.? No current issues or complaints. VS stable. Placement at LTC facility pending [facility]. Will continue to monitor. Time: 07:45 Date: 07/02/25 Provider: Gunnar Washington MD Patient in physician observation for case management needs. No acute events reported overnight.? No current issues or complaints. VS stable. Placement at LTC facility still pending [facility]. Will continue to monitor. Time: 05:32 Date: 07/03/25 Provider: Gunnar Washington MD Patient in physician observation for case management evaluation.? No acute events reported overnight. No current complaints. VS stable.? Placement at LTC facility still pending [facility]. Will continue to monitor. Time: 17:34 Date: 07/06/25 Provider: Srini Lau MD Patient in physician observation for case management evaluation.? No acute events reported overnight. No current complaints. VS stable.? Placement at LTC facility still pending [facility]. Will continue to monitor. Time: 19:50 Date: 07/07/25 Provider: Srini Lau MD Patient in physician observation for case management needs. No acute events reported overnight.? No current issues or complaints. VS stable. Placement at LTC facility still pending [facility]. Will continue to monitor. Time: 730 Date: 07/09/25 Provider: DR. Sen. Patient in physician observation for case management needs. No acute events reported overnight.? No current issues or complaints. VS stable. Placement at LTC facility still pending [facility]. Will continue to monitor. Time: 06:04 Date: 07/10/25 Provider: Saundra Barrow, DO Patient in physician observation for LTC needs.? No acute events reported overnight. No current complaints. VS stable.? Patient is in bed search status. Will continue to monitor. DR. Sen's progress note, 07/11/2025: 09:30. VSS, no events overnight reported by nursing, bed search is underway, continue with physician observation. Time: 06:18 Date: 07/13/25 Provider: Saundra Barrow, DO Patient in physician observation for LTC needs.? No acute events reported overnight. No current complaints. VS stable.? Patient is in bed search status.. Will continue to monitor. DR. Sen's progress note; 07/14/2025;8;00. VSS, no events reported overnight, await for LTC needs, care team input is appreciated, continue with physician observation. Time: 06:23 Date: 07/15/25 Provider: Saundra Barrow, DO Patient in physician observation for LTC needs.? No acute events reported overnight. No current complaints. VS stable.? Pending placement Will continue to monitor. Saundra Barrow, DO 07/16/25 0602 Patient in physician observation for LTC needs.? No acute events reported overnight. No current complaints. VS stable.? Pending placement Will continue to monitor. Saundra Pushpa, DO 07/17/25 0602 Patient in physician observation for LTC needs.? No acute events reported overnight. No current complaints. VS stable.? Pending placement Will continue to monitor. Time: 05:21 Date: 07/18/25 Provider: Gunnar Washington MD Patient in physician observation for LTC needs.? No acute events reported overnight. No current complaints. VS stable.? Pending placement Will continue to monitor. Time: 05:33 Date: 07/19/25 Provider: Gunnar Washington MD Patient in physician observation for LTC needs.? No acute events reported overnight. No current complaints. VS stable.? Pending placement Will continue to monitor. Time: 5:12 Date: 07/21/25 Provider: Nj Maynard PA-C Physician observation continued. Uneventful night. Vital signs stable. No complaints from nursing overnight. Pending disposition. Will continue to monitor. 07/22/25 0600 am PUSHPA physician observation continued for LTC nedds. Pt remain stable,no events reported overnight physician observation continue, we are waiting for counselling psychologist care placement 07/23/2025 6:55AM Dr Bah patient remained stable no event reported overnight, plan is to transfer to the long-term facility hopefully today 07/23/2025 09:[address] Bah patient will be transferred to counselling psychologist facility at this point we will end the ED observation status Medications Administered Generic Name Dose Route Start Last Admin Trade Name Freq PRN Reason Stop Dose Admin Folic Acid 1 mg 06/11/25 09:00 07/23/25 09:04 Folic Acid 1 Mg Tablet PO Not Given DAILY MANOJ Lacosamide 200 mg 06/11/25 09:00 07/23/25 08:23 Lacosamide 100 Mg Tablet PO 200 mg BID MANOJ Administration Lamotrigine 300 mg 06/11/25 09:00 07/23/25 09:04 Lamotrigine 100 Mg Tablet PO Not Given BID MANOJ Melatonin 6 mg 06/11/25 04:54 07/17/25 20:49 Melatonin 3 Mg Tablet PO 6 mg BEDTIME PRN Administration sleep Olanzapine 5 mg 06/11/25 04:54 07/23/25 09:05 Olanzapine 5 Mg Tablet PO 5 mg Q4H PRN Administration Restlessness Phenytoin 150 mg 06/11/25 09:00 07/23/25 08:23 Phenytoin Chewable 50 Mg Tab.Chew PO 150 mg BID MANOJ Administration Risperidone 2 mg 06/11/25 15:00 07/23/25 08:23 Risperidone 2 Mg Tablet PO 2 mg TID MANOJ Administration Sertraline HCl 150 mg 06/11/25 09:00 07/23/25 09:04 Sertraline Hcl 50 Mg Tablet PO Not Given DAILY MANOJ Thiamine HCl 100 mg 06/11/25 09:00 07/23/25 08:23 Thiamine Hcl 100 Mg Tablet PO 100 mg DAILY MANOJ Administration Trazodone HCl 50 mg 06/11/25 21:00 07/22/25 23:15 Trazodone Hcl 50 Mg Tablet PO Not Given BEDTIME MRX1 MANOJ Zonisamide 400 mg 06/11/25 21:00 07/22/25 21:28 Zonisamide 100 Mg Capsule PO 400 mg BEDTIME MANOJ Administration Discontinued Medications Generic Name Dose Route Start Last Admin Trade Name Freq PRN Reason Stop Dose Admin Diazepam 2.5 mg 06/10/25 22:45 06/10/25 22:55 Diazepam 10 Mg/2 Ml Cartridge IM 06/10/25 22:46 2.5 mg STAT STA Administration Diphenhydramine HCl 50 mg 06/10/25 22:45 06/10/25 22:56 Diphenhydramine Hcl 50 Mg/Ml Vial IM 06/10/25 22:46 50 mg ONCE ONE Administration Droperidol 5 mg 06/10/25 23:29 06/10/25 23:35 Droperidol 5 Mg/2 Ml Vial IM 06/10/25 23:30 5 mg ONCE ONE Administration Olanzapine 5 mg 06/10/25 22:45 06/10/25 22:56 Olanzapine 10 Mg Vial IM 06/10/25 22:46 5 mg STAT STA Administration Risperidone 2 mg 06/11/25 09:00 06/11/25 07:56 Risperidone 2 Mg Tablet PO 2 mg BID MANOJ Administration Medical Decision Making Medical Decision Making MDM Narrative: 55-year-old male who does not provide the history, we called the together additional/collateral information as well as reviewing the prior charts on this patient. He has a significant neurologic/behavioral history with TBI/neurocognitive disorder/Korsakoff's/dementia with erratic behavior that raises significant concern for the which prompted calling EMS. Patient is not currently section 12, however is not safe for discharge at this time though I do not suspect that this will be an issue. Will obtain basic lab work and then asked crisis to see the patient he will need to be inpatient bed search for likely [facility] psych. 1918: I reviewed and interpreted all investigations and there is no leukocytosis, anemia, no thrombocytopenia. There is no demonstrated TREY/electrolyte or liver enzyme derangements. Urinalysis negative for UTI or hematuria. At this time patient is medically cleared for further evaluation by crisis. Physician observation started at [1920]. Patient placed in physician observation because the patient needed more time for evaluation by the crisis team but suspect the need for psych admission. At the time observation was started the patient's vital signs were stable, patient is alert and oriented x2, calm, cooperative, neuro: Nonfocal, CV RRR, lungs clear Patricia Díaz MD 06/27/25 0634 Patient remains PT/case management. Patient is in the behavioral health pod, due to high risk of elopement. It was determined that it would be best to keep the patient in the POD or the main ED with a 1-1 sitter. Overnight, there were no issues. Patient's vitals this morning within normal limits. Differential Diagnosis Differential Diagnoses: The differential diagnosis associated with the presentation includes See above Admission/Observation Consideration of admission/observation: Escalation of care including admission/observation considered See above Consult Healthcare Provider Management of the patient was discussed with: Digital Communications Manager and Behavioral Health Provider See above Lab Data MDM Lab Attestation statement: I reviewed the patient's lab results. See above 06/10/25 18:43 06/10/25 18:44 Labs: Lab Results 06/10/25 06/10/25 06/10/25 Range/Units 18:43 18:44 19:03 WBC 5.0 (4.8-10.8) X10*3/uL RBC 4.53 L (4.60-5.80) X10*6/uL Hgb 14.2 (14.0-18.0) g/dl Hct 39.7 L (42.0-52.0) % MCV 87.6 (80.0-98.0) fL MCH 31.3 (27.0-33.0) pg MCHC 35.8 (31.0-36.0) g/dl RDW 12.7 (11.0-16.0) % Plt Count 228 D (160-400) X10*3/uL MPV 8.0 L (9.4-12.4) fL Immature Gran % (Auto) 1.2 H (0.0-0.4) % Neut % (Auto) 72.4 (45-73) % Lymph % (Auto) 15.7 L (20-40) % Ventura % (Auto) 10.1 (2-11) % Eos % (Auto) 0.0 (0-4) % Baso % (Auto) 0.6 (0-2) % Lymph # (Auto) 0.8 L (1.2-4.9) X10*3/uL Ventura # (Auto) 0.5 (0.1-1.2) X10*3/uL Eos # (Auto) 0.0 (0.0-0.4) X10*3/uL Baso # (Auto) 0.0 (0.0-0.2) X10*3/uL Abs Immat Gran (auto) 0.06 H (0.00-0.03) X10*3/uL Absolute Neuts (auto) 3.6 (2.0-8.3) x10*3/uL Absolute Nucleated RBC 0.000 (0.0-0.012) X10*3/uL Nucleated RBC % (auto) 0.0 (0.0-0.2) /100WBC ESR 7 (0-15) MM/HR Sodium 143 (135-145) mmol/L Potassium 4.1 (3.3-5.1) mmol/L Chloride 111 H (96-108) mmol/L Carbon Dioxide 25 (22-29) mmol/L Anion Gap 11 L (12-20) BUN 10 (9-16) mg/dL Creatinine 0.70 (0.5-1.4) mg/dL Estim Creat Clear Calc 116.4 Estimated GFR > 60 Random Glucose 101 (60-115) mg/dL Calcium 9.3 (8.4-10.2) mg/dL Total Bilirubin 0.2 (0.0-1.0) mg/dL AST 21 (5-37) U/L ALT 26 (0-40) U/L Alkaline Phosphatase 148 H (39-117) U/L C-Reactive Protein 0.43 (< or = 0.50) mg/dL C-React Prot High Sens Cancelled Total Protein 7.0 (6.5-8.0) g/dL Albumin 4.7 (3.5-5.0) g/dL Hold Yellow Top See Note Urine Color Yellow Urine Appearance Clear Urine pH 8.5 (5.0-9.0) Ur Specific Penn <= 1.005 (1.005-1.025) Urine Protein Negative (Neg-Trace) mg/dL Urine Glucose (UA) Negative (Negative) mg/dL Urine Ketones Negative (Negative) mg/dL Urine Blood Negative (Negative) Urine Nitrite Negative (Negative) Ur Leukocyte Esterase Negative (Negative) Urine Opiates Screen Not Detected (Not Detect) Ur Buprenorphine Scrn Not Detected (Not Detect) ng/mL Ur Oxycodone Screen Not Detected (Not Detect) ng/mL Urine Methadone Screen Not Detected (Not Detect) ng/mL Urine Fentanyl Screen Not Detected (Not Detect) Ur Barbiturates Screen Not Detected (Not Detect) Ur Phencyclidine Scrn Not Detected (Not Detect) Ur Amphetamines Screen Not Detected (Not Detect) U Benzodiazepines Scrn Not Detected (Not Detect) Urine Cocaine Screen Not Detected (Not Detect) U Marijuana (THC) Screen Not Detected (Not Detect) COVID-19 (ALEX) (Negative) COVID-19 Clin Com Influenza Type A (KJ) (Negative) Influenza Type B (KJ) (Negative) Influenza A & B Note 07/19/25 Range/Units 02:03 WBC (4.8-10.8) X10*3/uL RBC (4.60-5.80) X10*6/uL Hgb (14.0-18.0) g/dl Hct (42.0-52.0) % MCV (80.0-98.0) fL MCH (27.0-33.0) pg MCHC (31.0-36.0) g/dl RDW (11.0-16.0) % Plt Count (160-400) X10*3/uL MPV (9.4-12.4) fL Immature Gran % (Auto) (0.0-0.4) % Neut % (Auto) (45-73) % Lymph % (Auto) (20-40) % Ventura % (Auto) (2-11) % Eos % (Auto) (0-4) % Baso % (Auto) (0-2) % Lymph # (Auto) (1.2-4.9) X10*3/uL [place]ura # (Auto) (0.1-1.2) X10*3/uL Eos # (Auto) (0.0-0.4) X10*3/uL Baso # (Auto) (0.0-0.2) X10*3/uL Abs Immat Gran (auto) (0.00-0.03) X10*3/uL Absolute Neuts (auto) (2.0-8.3) x10*3/uL Absolute Nucleated RBC (0.0-0.012) X10*3/uL Nucleated RBC % (auto) (0.0-0.2) /100WBC ESR (0-15) MM/HR Sodium (135-145) mmol/L Potassium (3.3-5.1) mmol/L Chloride (96-108) mmol/L Carbon Dioxide (22-29) mmol/L Anion Gap (12-20) BUN (9-16) mg/dL Creatinine (0.5-1.4) mg/dL Estim Creat Clear Calc Estimated GFR Random Glucose (60-115) mg/dL Calcium (8.4-10.2) mg/dL Total Bilirubin (0.0-1.0) mg/dL AST (5-37) U/L ALT (0-40) U/L Alkaline Phosphatase (39-117) U/L C-Reactive Protein (< or = 0.50) mg/dL C-React Prot High Sens Total Protein (6.5-8.0) g/dL Albumin (3.5-5.0) g/dL Hold Yellow Top Urine Color Urine Appearance Urine pH (5.0-9.0) Ur Specific Penn (1.005-1.025) Urine Protein (Neg-Trace) mg/dL Urine Glucose (UA) (Negative) mg/dL Urine Ketones (Negative) mg/dL Urine Blood (Negative) Urine Nitrite (Negative) Ur Leukocyte Esterase (Negative) Urine Opiates Screen (Not Detect) Ur Buprenorphine Scrn (Not Detect) ng/mL Ur Oxycodone Screen (Not Detect) ng/mL Urine Methadone Screen (Not Detect) ng/mL Urine Fentanyl Screen (Not Detect) Ur Barbiturates Screen (Not Detect) Ur Phencyclidine Scrn (Not Detect) Ur Amphetamines Screen (Not Detect) U Benzodiazepines Scrn (Not Detect) Urine Cocaine Screen (Not Detect) U Marijuana (THC) Screen (Not Detect) COVID-19 (ALEX) Negative (Negative) COVID-19 Clin Com See Note Influenza Type A (KJ) Negative (Negative) Influenza Type B (KJ) Negative (Negative) Influenza A & B Note See Note Independent Historian Clinical information obtained from an independent historian. 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 Traumatic brain injury Qualifiers: Encounter type: sequela Loss of consciousness presence/duration: unknown LOC status Qualified Code(s): S06.9XAS - Unspecified intracranial injury with loss of consciousness status unknown, sequela Patient Disposition: Xfer SNF Transfer Details: TO: [facility], , DR HARDY ACCEPTING Prescriptions: No Action lamotrigine 150 mg tablet 300 mg PO BID sertraline 100 mg tablet 150 mg PO DAILY phenytoin 50 mg tablet,chewable 150 mg PO BID zonisamide 100 mg capsule 400 mg PO BEDTIME ketoconazole 2 % cream 1 appl topical BID PRN (Reason: Itching) lacosamide 200 mg tablet 200 mg PO BID folic acid 1 mg Tablet 1 mg PO DAILY Qty: 90 0RF thiamine mononitrate (vit B1) 100 mg Tablet 100 mg PO DAILY Qty: 90 0RF risperidone 1 mg/mL solution 2 mg PO BID Qty: 30 0RF trazodone 50 mg Tablet 50 mg PO BEDTIME MRX1 Qty: 90 0RF melatonin 5 mg tablet 5 mg PO BEDTIME PRN (Reason: sleep) Qty: 90 0RF olanzapine 5 mg Tablet 5 mg PO Q4H PRN (Reason: agitation) Qty: 60 0RF lorazepam [Ativan] 0.5 mg tablet 0.5 mg PO TID PRN (Reason: anxiety) Qty: 20 0RF Referrals: [facility] [Other] Phyllis Bello PA-C [Primary Care Provider, Family Practice] Print Language: Georgian
--- NOTE | 2025-06-10 18:05 | MHC.CARE ---
CARE Team received a call from Pt's outpatient provider (Ainsley Vines MANAGER TELEMARKETING; [phone]) who reports that Pt was seen by TAPE DECK INSTALLER in the community and has concerns for his safety. She reports that Pt was recently discharged from one of our psychiatric units and quickly decompensated due to suspected medication non-compliance. Called TAPE DECK INSTALLER crisis who confirms that Pt was seen by a TAPE DECK INSTALLER co-reponse clinician who works for [facility] a few hours ago. TAPE DECK INSTALLER crisis reports that Pt has a dx of Dementia and was acting erratically today; yelling at strangers, grabbing a knife to protect the home. T/W has received a copy of the TAPE DECK INSTALLER note and a copy will be placed in his chart. No formal disposition was decided.
--- NOTE | 2025-06-10 18:11 | PC.NURSE ---
security to bedside and pt changed into hosp crisis attire, sitter to bedside, pt was calm and cooperative but slow to follow commands and struggled with simple instructions, seemingly not being uncooperative but due to confusion and forgetfulness
[2025-06-10 18:47] LABS: MANUAL DIFF FLAG NO
[2025-06-10 18:53] LABS: Hematocrit 39.7 % (42.0-52.0); Hemoglobin 14.2 g/dl (14.0-18.0); Imm Gran Abs Auto 0.06 X10*3/uL (0.00-0.03); Imm Gran Pct Auto 1.2 % (0.0-0.4); Lymphocytes Absolute Auto 0.8 X10*3/uL (1.2-4.9); Mean Corpuscular HGB Conc 35.8 g/dl (31.0-36.0); Mean Corpuscular Hemoglobin 31.3 pg (27.0-33.0); Mean Corpuscular Volume 87.6 fL (80.0-98.0); NRBC Abs Auto 0.000 X10*3/uL (0.0-0.012); NRBC Pct Auto 0.0 /100WBC (0.0-0.2); Platelet Count 228 X10*3/uL (160-400); Red Blood Count 4.53 X10*6/uL (4.60-5.80); White Blood Count 5.0 X10*3/uL (4.8-10.8)
[2025-06-10 19:03] VITALS: BP 149/87; PULSE 71; RESP 16; TEMP 36.8; O2SAT 99
[2025-06-10 19:05] LABS: Anion Gap 11 (12-20)
[2025-06-10 19:06] LABS: Alanine Aminotransferase 26 U/L (0-40); Albumin Level 4.7 g/dL (3.5-5.0); Alkaline Phosphatase 148 U/L (39-117); Aspartate Amino Transferase 21 U/L (5-37); Blood Urea Nitrogen 10 mg/dL (9-16); Calcium 9.3 mg/dL (8.4-10.2); Carbon Dioxide 25 mmol/L (22-29); Chloride 111 mmol/L (96-108); Creatinine Clr Calc Pharmacy 116.4; Estimated Glomerular Filt Rate > 60; Potassium 4.1 mmol/L (3.3-5.1); Sodium 143 mmol/L (135-145); Total Protein 7.0 g/dL (6.5-8.0)
[2025-06-10 19:11] LABS: Appearance Urine Clear; Glucose Urine UA Negative (Negative); PH 8.5 (5.0-9.0); Specific Gravity - Urine <= 1.005 (1.005-1.025)
--- OUTSIDE RECORDS SUMMARY | 2025-06-10 19:28 | XMS_ITS | Encounter Summary ---
Author Organization [facility] Address [address] [place] [address] [place] [address] Phone Care Team Providers Care Tubing Oiler Name Role Phone Phyllis Bello Unavailable [phone] Phyllis Bello Primary Care Provider [phone] Nate Ritter MD Unavailable [phone] Nate Ritter MD Unavailable [phone] Josy Hernandez MD Primary Care Provider [phone] Phyllis Bello Primary Care Provider + [phone] Philip Lara DO Unavailable [phone] Encounter Details Date Type Department Care Team (Latest Contact Info) Description 01/29/2023 Transcribe Orders Virtual Department [address] [place] [address] Jennifer Choudhary PA-C [address] [place] [address] [email or web address] Alcoholic cirrhosis, unspecified whether ascites present (Primary [...] 01/08/2026 8:30 AM EDT Office Visit [facility] [address] [place] [address] Philip Lara DO [address] [place] [address] [email or web address] documented as of this encounter Results * [...] documented as of this encounter Care Teams Tubing Oiler Relationship Specialty Start Date End Date Phyllis Bello PA [address] [place] [address] PCP - General Building Energy Retrofit Technician 08/09/17 03/02/23 Josy Hernandez MD [address] [place] [address], [address] [place] [address] [email or web address] PCP - General Family Medicine 03/03/23 06/17/23 Phyllis Bello PA [address] [place] [address] PCP - General Physician Sales Service Assistant 06/18/23 Phyllis Bello PA [address] [place] [address] [place] [address] Historical LMR Provider 07/09/17 Nate Ritter MD [address] [place] [address], [address] [address] Neurology 06/24/19 Nate Ritter MD [address] [place] [address], [address] [address] Neurology 01/10/22 Philip Lara DO [address] [place] [address] Geriatric Medicine 01/01/24 documented as of this encounter Additional Source Comments The information contained in this document represents components of the legal health record. It is not the complete legal health record.[facility]
--- OUTSIDE RECORDS SUMMARY | 2025-06-10 19:28 | XMS_ITS | Encounter Summary ---
Author Organization [facility] Address [address] [place] [address] Phone Care Team Providers Care Reiki Practitioner Name Role Phone Phyllis Bello Unavailable Nate Ritter MD Unavailable [phone] Nate Ritter MD Unavailable [phone] Phyllis Bello Primary Care Provider [phone] Philip Lara DO Unavailable [phone] Encounter Details Date Type Department Care Team (Late st Contact Info) Description 12/22/2023 Procedure Pass [facility], [address] [id number] Social History Tobacco Use Types Packs/Day Years [...] Office Visit [facility] [address] [place] [address] Philip Lara DO [address] [place] [address] [email or web address] documented as of this encounter Visit Diagnoses [...] documented as of this encounter Care Teams Reiki Practitioner Relationship Specialty Start Date End Date Phyllis Bello PA [address] [place] [address] PCP - General Physician Air Quality Technician 06/18/23 Phyllis Bello PA [address] [place] [address] [place] [phone] Historical LMR Provider 07/09/17 Nate Ritter MD [address] [place] [address], [address] [place] [address] [email or web address] Neurology 06/24/19 Nate Ritter MD [address] [place] [address], [address] [address] Neurology 01/10/22 Philip Lara DO [address] [place] [address] [email or web address] Geriatric Medicine 01/01/24 documented as of this encounter Additional Source Comments The information contained in this document represents components of the legal health record. It is not the complete legal health record.[facility]
--- OUTSIDE RECORDS SUMMARY | 2025-06-10 19:28 | XMS_ITS | Encounter Summary ---
Author Organization [facility] Address [address] [place] [address] Phone Care Team Providers Care Office Coordinator Receptionist Name Role Phone Phyllis Bello Unavailable [phone] Nate Ritter MD Unavailable [phone] Nate Ritter MD Unavailable [phone] Phyllis Bello Primary Care Provider [phone] Philip Lara DO Unavailable [phone] Encounter Details Date Type Department Care Team (Late st Contact Info) Description 06/18/2023 Procedure Pass [facility] Admitting Dept Virtual Department [address] [place] [address] Social History Tobacco Use Types Packs/Day [...] Description 01/08/2026 8:30 AM EDT Office Visit [facility] [address] [place] [address] Philip Lara DO [address] [place] [address] [email or web address] documented as of this encounter [...] documented as of this encounter Care Teams Office Coordinator Receptionist Relationship Specialty Start Date End Date Phyllis Bello PA [address] [place] [address] PCP - General Physician Insurance Risk Surveyor 06/18/23 Phyllis Bello PA [address] [place] [address] [place] [address] Historical LMR Provider 07/09/17 Nate Ritter MD [address] [place] [address] [address] [place] [address] Neurology 06/24/19 Nate Ritter MD [address] [place] [address], [address] [place] [address] Neurology 01/10/22 Philip Lara DO [address] [place] [address] [email or web address] Geriatric Medicine 01/01/24 documented as of this encounter Additional Source Comments The information contained in this document represents components of the legal health record. It is not the complete legal health record.[facility]
--- OUTSIDE RECORDS SUMMARY | 2025-06-10 19:28 | XMS_ITS | Encounter Summary ---
Author Organization [facility] Address [address] [place] [address] Phone Care Team Providers Care Painting Department Supervisor Name Role Phone Phyllis Bello Unavailable [phone] Nate Ritter MD Unavailable [phone] Nate Ritter MD Unavailable [phone] Phyllis Bello Primary Care Provider [phone] Philip Lara DO Unavailable [phone] Encounter Details Date Type Department Care Team (Late st Contact Info) Description 12/19/2023 Procedure Pass [facility], Ct Scan - [address] [phone] Social History Tobacco Use Types Packs/Day Years [...] 6:00 PM EDT Carmen Mckeon RN * [place] Suicide Severity Rating Scale (Screener/Recent Self-Report) Question [...] Description 01/08/2026 8:30 AM EDT Office Visit [facility] [address] [place] [address] Philip Lara DO [address] [place] [address] [email or web address] documented as of this encounter [...] documented as of this encounter Care Teams Painting Department Supervisor Relationship Specialty Start Date End Date Phyllis Bello PA [address] [place] [address] PCP - General Physician Marking Devices Assembler 06/18/23 Phyllis Bello PA [address] [place] [address] [place] [address] Historical LMR Provider 07/09/17 Nate Ritter MD [address] [place] [address] Neurology 06/24/19 Nate Ritter MD [address] [place] [address] Neurology 01/10/22 Philip Lara DO [address] [place] [address] Geriatric Medicine 01/01/24 documented as of this encounter Additional Source Comments The information contained in this document represents components of the legal health record. It is not the complete legal health record.[facility]
--- OUTSIDE RECORDS SUMMARY | 2025-06-10 19:28 | XMS_ITS | Encounter Summary ---
Author Organization [facility] Address [facility] [employer] [facility] [address] [place] [address] Phone Care Team Providers Care Roping Tender Name Role Phone Phyllis Bello Unavailable [phone] Nate Ritter MD Unavailable [phone] Nate Ritter MD Unavailable [phone] Phyllis Bello Primary Care Provider [phone] Philip Lara DO Unavailable [phone] Encounter Details Date Type Department Care Team (Latest Contact Info) Description 01/03/2024 Transcribe Orders Virtual Department [address] [place], [place] [phone] Phyllis Bello PA [address] [place] [phone] Other specified symptoms and signs involving the [...] Description 01/08/2026 8:30 AM EDT Office Visit [facility] [address] [place] [address] Philip Lara DO [address] [place] [address] [email or web address] documented as of this encounter Results * [...] documented as of this encounter Care Teams Roping Tender Relationship Specialty Start Date End Date Phyllis Bello PA [address] [place] [address] PCP - General Physician Steward/Stewardess Banquet 06/18/23 Phyllis Bello PA [address] [place] [address] [place] [address] Historical LMR Provider 07/09/17 Nate Ritter MD [address] [place] [address], [address] [address] Neurology 06/24/19 Nate Ritter MD [address] [place] [address], [address] [address] Neurology 01/10/22 Philip Lara DO [address] [place] [address] [email or web address] Geriatric Medicine 01/01/24 documented as of this encounter Additional Source Comments The information contained in this document represents components of the legal health record. It is not the complete legal health record.[facility]
--- OUTSIDE RECORDS SUMMARY | 2025-06-10 19:29 | XMS_ITS | Encounter Summary ---
Author Organization [facility] Address [address] [place] [address] [place] [address] Phone Care Team Providers Care Hand Tennis Ball Coverer Name Role Phone Zohra Saenz MD Unavailable Estelita Bobby NP Unavailable Phyllis Bello Unavailable [phone] Nate Dockery MD Unavailable [phone] Phyllis Bello Primary Care Provider + [phone] Nate Ritter MD Unavailable [phone] Rod CunninghamSW Unavailable [phone] Prakash Tolentino MD Unavailable [phone] Josy Hernandez MD Unavailable [phone] Nate Ritter MD Unavailable [phone] Josy Hernandez MD Primary Care Provider [phone] Phyllis Bello Primary Care Provider + [phone] Philip Lara DO Unavailable [phone] Encounter Details Date Type Department Care Team (Late st Contact Info) Description 06/29/2021 Procedure Pass [facility], Ct Scan - [address] [phone] Social History Tobacco Use Types Packs/Day Years [...] 4:00 AM EDT Sherri Still RN * [place] Suicide Severity Rating Scale (Screener/Recent Self-Report) Question [...] Description 01/08/2026 8:30 AM EDT Office Visit [facility] [address] [place] [address] [place] [address] Philip Lara DO [address] [place] [address] [email or web address] documented as of this encounter Visit Diagnoses [...] documented as of this encounter Care Teams Hand Tennis Ball Coverer Relationship Specialty Start Date End Date Phyllis Bello PA [address] [place] [address] PCP - General And Drying Supervisor Cooking Casing 08/09/17 03/02/23 Josy Hernandez MD [address] [place] [address] [email or web address] PCP - General Family Medicine 03/03/23 06/17/23 Phyllis Bello PA [address] [place] [address] PCP - General Physician Wire Twisting Machine Operator 06/18/23 Zohra Saenz MD [address] [place] [address] Historical LMR Provider 07/09/17 2 Estelita Bobby NP [address] [place] [address] 2_[place] [address] [email or web address] Historical LMR Provider 07/09/17 10/01/21 Phyllis Bello PA [address] [place] [address] [place] [address] Historical LMR Provider 07/09/17 Nate Dockery MD [address] [place] [address], [address] [place] [address] Historical LMR Provider 07/09/17 2 Nate Ritter MD [address] [place] [address], [address] [place] [address] Neurology 06/24/[address] [address] [email or web address] Social Work 08/23/20 06/13/22 Prakash Tolentino MD [address] [place] [address] Insurance Assigned Provider 06/04/21 07/30/21 Josy Hernandez MD [address] [place] [address] Insurance Assigned Provider 07/30/21 06/03/22 Nate Ritter MD [address] [place] [address], [address] [place] [address] Neurology 01/10/22 Philip Lara DO [address] [place] [address] Geriatric Medicine 01/01/24 documented as of this encounter Additional Source Comments The information contained in this document represents components of the legal health record. It is not the complete legal health record.[facility]
--- OUTSIDE RECORDS SUMMARY | 2025-06-10 19:29 | XMS_ITS | Clinical Summary ---
Author Organization [facility] Address [address] [place] [address] [place] [address] Phone Care Team Providers Care Linen Room Worker Name Role Phone Phyllis Bello Unavailable [phone] Nate Ritter MD Unavailable Nate Ritter MD Unavailable [phone] Phyllis Bello Primary Care Provider [phone] Philip Lara DO Unavailable [phone] Allergies Active Allergy Reactions Criticality Noted Date Comments Levetiracetam Rash High 01/13/2022 depression/anxiety Morphine Hallucinations High 10/09/2017 Topiramate Maculopapular Rash,Rash Low 10/25/2020 Suspected rash may have been due to topamax Medications VIMPAT 200 mg Tab Take 200 mg by mouth 2 (two) times a day. 12/01/2021 Active lamoTRIgine (LAMICTAL) 100 MG IMMEDIATE release tablet Take 300 mg by mouth 2 (two) times a day. 12/08/2021 Active phenytoin (DILANTIN) 50 mg tablet Take 3 tablets (150 mg total) by mouth 2 (two) times a day. 04/25/2024 Active sertraline (ZOLOFT) 25 MG tablet Take 125 mg by mouth daily. Active zonisamide (ZONEGRAN) 100 MG capsule Take 4 capsules (400 mg total) by mouth every evening. 120 capsule 03/26/2025 Active traZODone (DESYREL) 50 MG tablet Take 0.5 tablets (25 mg total) by mouth 3 (three) times a day. 45 tablet 04/28/2025 Active traZODone (DESYREL) 50 MG tablet Take 0.5 tablets (25 mg total) by mouth 3 (three) times a day as needed (agitation, agression). 15 tablet 04/28/2025 Active Active Problems Problem Noted Date Diagnosed Date [...] (Patient refuses and pulled out all IVs). FLOWER PICKER-discussed with psychiatry raise questions about intermittent Lamictal use and risk for Calero-Ho syndrome. *Neurosurgery was reconsulted and did state that there was a risk for SJS as patient's lamotrigine level was,2.0. He did note that discontinuing the medication was not simple and that his primary neurologist Dr. Laurel Cabral at [facility] should contacted for further guidance as discontinuing [...] maintenance dose ordered. - EKG NSR with CA interval 170 ms - Patient mental status [...] invoked Geriatrics consult to evaluate for dementia. Porcelain Finish Sprayer not available till next week. 04/26 Patient [...] invoked Geriatrics consult to evaluate for dementia. Porcelain Finish Sprayer not available till next week. Assessment & [...] some time according to , I had power screwdriver operator see him today for fu. -CT head was negative for any acute intracranial pathology. -EEG abnormal in encephalopathic state, no sz -Neuro rec loading with phenytoin and maintenance. Consult initially recommended continuous EEG, transfer though discussed with [facility] transfer line and neuro attending, Dr. Almodovar, [...] transfer for continuous EEG monitoring -Dr. Cabral, [facility] outpatient Neurologist had been contacted, I left [...] obtained which showed slowing no seizure activity. 12/27 discussed with neurology patient did not appear [...] Today the patient knows he is at [facility], knows the year and the month as [...] further seizures -He was evaluated with the Ceribell by ICU and had seizure burden of [...] also get lyme studies. Status epilepticus 05/15/2020 0 Long Q-T syndrome 10/10/2017 12/20/2023 Assessment & [...] Encounters Date Type Department Care Team Description 06/03/2025 Orders Only [facility] [address] [place] [address] Homehealth, Interface Provider, 06/03/2025 Telephone [facility] [address] [place] [address] Naveed Carter RN 05/21/2025 Telephone [facility] [address] [place] [address] Naveed Carter RN ED, Unsafe, [facility] 05/06/2025 Patient Outreach [facility] [address] [place] [address] Josefina Glaser PVI support 04/29/2025 Telephone [facility] [address] [place] [address] Naveed Carter RN Personality Changes; escalating behavior risk seizure risk 04/27/2025 Orders Only [facility] [address] [place] [phone] Homehealth, Interface ProviderMD 04/22/2025 7:32 AM EDT - 04/28/2025 3:53 PM EDT Hospital Encounter [facility] [address] [address] Price Castaneda MD Arepally, Sandeep, MD Barbosa-Angles, Brianna R, DO, MPH Angy Collado MD Altman, Evan K, DO, MPH Discharge Disposition: Home or Self Care 03/25/2025 Orders Only [facility] [address] [place] [address] Homehealth, Interface Provider, 03/24/2025 8:30 AM EDT - 03/26/2025 1:02 PM EDT Hospital Encounter [facility] Tele[facility] [address] [address] Christiano Broussard MD Kielbasa, Shasta A, MD Anser, Maham, MD Discharge Disposition: Home or Self Care 03/24/2025 Procedure Pass [facility], Ct Scan - [facility] [address] [place] [address] from Last 3 Months Immunizations Immunization Administration [...] Orientation Straight 11/19/2017 4: 38 PM EST Last Filed Vital Signs Vital [...] Description 01/08/2026 8:30 AM EDT Office Visit [facility] [address] [place] [place] [address] Philip Lara DO [address] [place] [address] [email or web address] Health Maintenance Due Date Last Done Comments [...] 01/18/2021 11/23/2020 Adult Td,Tdap Booster 10/20/2023 10/20/2013 INFLUENZA VACCINE (#1) 2025 , 09/15/2019, 10/24/2017, Additional history exists COVID-19 VACCINE ( - season) 2025 09/23/2021, 12/08/2020 DEPRESSION SCREENING 12/26/2025 12/26/2024, 12/27/19 PHENYTOIN (DILANTIN) [...] FREE DILANTIN 1.0 1.0 - 2.0 mcg/mL [facility] DPT OF LAB MED AND PAT+ Blood 04/28/2025 12:4 1 PM EDT 04/28/2025 12:53 PM EDT Mihir Mcguire DO, MPH LAB BLOOD ORDERABLES Final Result [facility] DPT OF LAB MED AND PAT+ [address] [place] [address] * Dilantin level (04/28/2025 12:41 PM EDT) Only the most recent of2 resultswithin the time period is included. DILANTIN 10.4 10 - 20 ug/mL [facility] Blood 04/28/2025 12:4 1 PM EDT 04/28/2025 12:53 PM EDT Mihir Mcguire DO, MPH LAB BLOOD ORDERABLES Final Result [facility] [address] [place] [address] * ECG 12-LEAD (04/27/2025 8:11 AM EDT) Only the most recent of3 resultswithin the time period is included. Ventricular Rate EKG/MIN 78 BPM [facility] Atrial Rate 78 BPM [facility] CA Interval 160 ms [facility] QRS Duration 82 ms [facility] QT Interval 394 ms [facility] QTC Interval 449 ms [facility] P [place]ide 43 degrees [facility] R Wave [place] 60 degrees [facility] T Wave [place] 42 degrees [facility] 04/27/2025 8:11 AM EDT 04/28/2025 8:48 AM EDT Narrative [facility] - 04/28/2025 8:49 AM EDT Normal sinus rhythm Normal ECG When compared with ECG of 22-Apr-2025 07:39, No significant change was found Confirmed by Antolin Car ([id number]) on 04/28/2025 8:48:54 AM us Angy Collado MD ECG ORDERABLES Final Result Performing Organization Address [facility]/[place] de Phone Number [facility] * (ABNORMAL) Lacosamide Level (04/25/2025 11:03 AM EDT) LACOSAMIDE 10.7(H) 1.0 - 10.0 mcg/mL [facility] Comment: (NOTE) ADDITIONAL INFORMATION This test was developed and its performance characteristics determined by [facility] in a manner consistent with CLIA requirements. This test has not been cleared or approved by the U.S. Food and Drug Administration. Blood 04/25/2025 11:0 3 AM EDT 04/25/2025 11:12 AM EDT us Angy Collado MD LAB BLOOD ORDERABLES Final Resu lt Performing Organization Address City/[facility] [address] [facility]/ZIP Co de Phone Number [facility] [address] [place] [address] * Lamotrigine level (04/25/2025 11:03 AM EDT) Only the most recent of2 resultswithin the time period is included. LAMOTRIGINE 8.3 4.0 - 18.0 mcg/mL [facility] Comment:This test was develo ped and its performance characteristics determined by the [facility]. It has not been cleared or approved by the US Food and Drug Administration. This laboratory is certified under CLIA as qualified to perform high complexity clinical laboratory testing. Blood 04/25/2025 11:0 3 AM EDT 04/25/2025 11:12 AM EDT us Angy Collado MD LAB BLOOD ORDERABLES Final Resu lt [address] [address] * Comprehensive metabolic panel (04/25/2025 5:34 AM EDT) Only the most recent of3 resultswithin the time period is included. SODIUM 142 133 - 146 mmol/L [facility] POTASSIUM 3.8 3.3 - 5.1 mmol/L [facility] CHLORIDE 105 96 - 108 mmol/L [facility] CO2 23 21 - 35 mmol/L [facility] BUN 7 6 - 19 mg/dL [facility] CREATININE 0.70 0.5 - 1.5 mg/dL [facility] GLUCOSE 88 70 - 99 mg/dL [facility] ALBUMIN 4.2 3.9 - 4.8 g/dL [facility] TOTAL PROTEIN 6.6 6.5 - 8.0 g/dL [facility] CALCIUM 9.0 8.4 - 10.3 mg/dL [facility] ALKALINE PHOSPHATASE 102 39 - 117 U/L [facility] TOTAL BILIRUBIN 0.6 0.0 - 1.2 mg/dL [facility] AST 13 0 - 37 U/L [facility] ALT 12 0 - 40 U/L [facility] GLOBULIN 2.4 1 - 4.8 g/dL [facility] EGFR 107 >59 mL/min/1.7 3m2 [facility] Comment:Estimated glomerular filtration rate calculated using the CKD-EPI refit equation. ANION GAP 18 10 - 20 mmol/L [facility] Blood 04/25/2025 5:34 AM EDT 04/25/2025 5:58 AM EDT Ceasar Loyd MD LAB BLOOD ORDERABLES Final R esult Performing Organization Address City/[facility] [address] [facility]/ZIP Co de Phone Number [address] [address] * (ABNORMAL) CBC (04/25/2025 5:34 AM EDT) Only the most recent of3 resultswithin the time period is included. WBC 4.10 4.00 - 11.00 K/uL [facility] RBC 4.52 4.50 - 5.90 M/uL [facility] HGB 13.9 13.5 - 17.5 g/dL [facility] HCT 39.3(L) 41.0 - 53.0 % [facility] PLT 164 150 - 450 K/uL [facility] MCV 86.9 80.0 - 100.0 fL [facility] MCH 30.8 27.0 - 31.0 pg [facility] MCHC 35.4 32.0 - 36.0 g/dL [facility] RDW 12.7 11.5 - 14.5 % [facility] MPV 8.6 8.4 - 12.0 fL [facility] NRBC 0.00 0.00 /100 WBCs [facility] ABSOLUTE NRBC 0.00 0.00 K/uL [facility] Blood 04/25/2025 5:34 AM EDT 04/25/2025 5:58 AM EDT Ceasar Loyd MD LAB BLOOD ORDERABLES Final R esult Performing Organization Address City/[facility] [address]/ZIP Co de Phone Number [address] [address] * Phosphorus (04/25/2025 5:34 AM EDT) Only the most recent of5 resultswithin the time period is included. PHOSPHORUS 3.1 2.7 - 4.5 mg/dL [facility] Blood 04/25/2025 5:34 AM EDT 04/25/2025 5:58 AM EDT Ceasar Loyd MD LAB BLOOD ORDERABLES Final R esult Performing Organization Address City/[facility] [address]/ZIP Co de Phone Number [address] [address] * Magnesium (04/25/2025 5:34 AM EDT) Only the most recent of6 resultswithin the time period is included. MAGNESIUM 2.1 1.6 - 2.6 mg/dL [facility] Blood 04/25/2025 5:34 AM EDT 04/25/2025 5:58 AM EDT Ceasar Loyd MD LAB BLOOD ORDERABLES Final R esult Performing Organization Address [facility] [address]/[place] de Phone Number [address] [address] * (ABNORMAL) Urinalysis w/reflex Urine Culture (04/24/2025 4:43 AM EDT) Pathologist [facility] COLOR Yellow Yellow [facility] CLARITY HAZY [facility] GLUCOSE Negative Negative [facility] BILI 1+(A) Negative [facility] KETONES Negative Negative [facility] SPECIFIC GRAVITY 1.025 1.005 - 1.030 [facility] BLOOD Negative Negative [facility] PH 5.5 5.0 - 8.0 [facility] Protein-UA Negative Negative [facility] NITRITE Negative Negative [facility] Leukocyte esterase, ur Negative Negative [facility] Urine (Urine) 04/24/2025 4:4 3 AM EDT 04/24/2025 4:48 AM EDT Price Castaneda MD URINE ORDERABLES Final Result [address] [address] * TSH with reflex (04/23/2025 6:03 AM EDT) TSH 0.92 0.27 - 4.20 uIU/mL [facility] Blood 04/23/2025 6:03 AM EDT 04/23/2025 6:10 AM EDT us Ceasar Loyd MD LAB BLOOD ORDERABLES Final R esult Performing Organization Address [facility]/[place] Co de Phone Number [address] [address] * (ABNORMAL) POCT Glucose (04/22/2025 9:03 AM EDT) Only the most recent of2 resultswithin the time period is included. Glucose, POCT 130(H) 70 - 100 mg/dL [facility] 04/22/2025 9:03 AM EDT 04/22/2025 9:04 AM EDT us Unknown Unknown POINT OF CARE TEST ORDERABLES Final Result Performing Organization Address [facility]/[place] Co de Phone Number [address] [address] * Ethanol, blood (04/22/2025 8:26 AM EDT) ETHANOL <10 <10 mg/dL [facility] Blood 04/22/2025 8:26 AM EDT 04/22/2025 8:34 AM EDT us Price Castaneda MD LAB BLOOD ORDERABLES Final Resu lt Performing Organization Address [facility]/[place] Co de Phone Number [address] [address] * (ABNORMAL) LFTs (hepatic panel) (04/22/2025 8:26 AM EDT) Only the most recent of2 resultswithin the time period is included. ALKALINE PHOSPHATASE 123(H) 39 - 117 U/L [facility] TOTAL BILIRUBIN 0.4 0.0 - 1.2 mg/dL [facility] DIRECT BILIRUBIN 0.1 0.0 - 0.2 mg/dL [facility] Bilirubin (Indirect) NOT CALCULATED 0 - 1.5 mg/dL [facility] AST 20 0 - 37 U/L [facility] ALT 20 0 - 40 U/L [facility] TOTAL PROTEIN 7.3 6.5 - 8.0 g/dL [facility] ALBUMIN 4.7 3.9 - 4.8 g/dL [facility] GLOBULIN 2.6 1 - 4.8 g/dL [facility] A/G Ratio 1.81 1.00 - 4.80 RATIO [facility] Blood 04/22/2025 8:26 AM EDT 04/22/2025 8:34 AM EDT us Price Castaneda MD LAB BLOOD ORDERABLES Final Resu lt [facility] [address] [place], [place] [id number] * (ABNORMAL) CBC and differential (04/22/2025 8:26 AM EDT) Only the most recent of4 resultswithin the time period is included. WBC 7.08 4.00 - 11.00 K/uL [facility] RBC 5.14 4.50 - 5.90 M/uL [facility] HGB 15.7 13.5 - 17.5 g/dL [facility] HCT 45.5 41.0 - 53.0 % [facility] PLT 181 150 - 450 K/uL [facility] MCV 88.5 80.0 - 100.0 fL [facility] MCH 30.5 27.0 - 31.0 pg [facility] MCHC 34.5 32.0 - 36.0 g/dL [facility] RDW 12.5 11.5 - 14.5 % [facility] MPV 8.7 8.4 - 12.0 fL [facility] NRBC 0.00 0.00 /100 WBCs [facility] ABSOLUTE NRBC 0.00 0.00 K/uL [facility] DIFF METHOD Auto [facility] NEUTS 87.4(H) 48.0 - 76.0 % [facility] LYMPHS 5.5(L) 18.0 - 41.0 % [facility] MONOS 5.1 4.0 - 11.0 % [facility] EOS 0.0 0.0 - 5.0 % [facility] BASOS 0.6 0.0 - 1.5 % [facility] Granulocytes, immature (%) 1.4(H) 0.0 - 0.9 % [facility] ABSOLUTE NEUTS 6.19 1.92 - 7.60 K/uL [facility] ABSOLUTE LYMPHS 0.39(L) 0.72 - 4.10 K/uL [facility] ABSOLUTE MONOS 0.36 0.16 - 1.10 K/uL [facility] ABSOLUTE EOS 0.00 0.00 - 0.50 K/uL [facility] ABSOLUTE BASOS 0.04 0.00 - 0.15 K/uL [facility] Granulocytes, immature 0.10(H) 0.00 - 0.09 K/uL [facility] Blood 04/22/2025 8:26 AM EDT 04/22/2025 8:34 AM EDT us Price Castaneda MD LAB BLOOD ORDERABLES Final Resu lt Performing Organization Address City/State/[place] Co de Phone Number [address] [address] * (ABNORMAL) Basic metabolic panel (04/22/2025 8:26 AM EDT) Only the most recent of4 resultswithin the time period is included. SODIUM 141 133 - 146 mmol/L [facility] CHLORIDE 104 96 - 108 mmol/L [facility] POTASSIUM 3.7 3.3 - 5.1 mmol/L [facility] CO2 13(LL) 21 - 35 mmol/L [facility] Comment: Critical value: Results called to and read back by: MIRTHA Velázquez ED 3865 BUN 10 6 - 19 mg/dL [facility] CREATININE 0.90 0.5 - 1.5 mg/dL [facility] GLUCOSE 143(H) 70 - 99 mg/dL [facility] CALCIUM 9.5 8.4 - 10.3 mg/dL [facility] EGFR 100 >59 mL/min/1.7 3m2 [facility] Comment:Estimated glomerular filtration rate calculated using the CKD-EPI refit equation. ANION GAP 28(H) 10 - 20 mmol/L [facility] Blood 04/22/2025 8:26 AM EDT 04/22/2025 8:34 AM EDT us Price Castaneda MD LAB BLOOD ORDERABLES Final Resu lt Performing Organization Address City/[facility]/[place] Co de Phone Number [facility] [address] [place] [address] * Vitamin B1 (thiamine) (03/26/2025 5:58 AM EDT) Pathologist [facility] VITAMIN B1 144 70 - 180 nmol/L [facility] Comment: (NOTE) ADDITIONAL INFORMATION This test was developed and its performance characteristics determined by [facility] in a manner consistent with CLIA requirements. This test has not been cleared or approved by the U.S. Food and Drug Administration. Blood 03/26/2025 5:58 AM EDT 03/26/2025 6:33 AM EDT us Maris Mary MD LAB BLOOD ORDERABLES Final Resul t [facility] [address] [place] [address] * CT HEAD WITHOUT CONTRAST (03/24/2025 4:01 PM EDT) Anatomical Region Laterality Modality Head Computed Tomogra phy 03/24/2025 4:10 PM EDT Impressions 03/24/2025 4:13 PM EDT 1. No acute intracranial findings. Narrative 03/24/2025 4:[address] HEAD WITHOUT CONTRAST Referring clinician's provided indication for this examination in [facility]: * Seizure, abnormal neuro exam TECHNIQUE: Multidetector-row [...] clinician's provided indication for this examination in [facility]: *Seizure, abnormal neuro exam TECHNIQUE: Multidetector-row CT [...] IMPRESSION: 1. No acute intracranial findings. Rhina Sena FLOWER PICKER IMG CT HEAD/NECK Final R esult * ENDOSCOPY, COLON (06/18/2023 1:55 PM EDT) Narrative Transcriptions Marcial Noguera MD - 06/18/2023 1:55 PM EDT [facility] Patient Name: Arash Hernandez Attending MD:: MARCIAL NOGUERA MD, , Procedure Date: 06/18/2023 1:55 PM Date of : 1970 Age: 53 Admit Type: Outpatient Gender: Male Room: [place] [address] Referring MD: Phyllis Bello Exam Type: Colonoscopy [...] bowel preparation was evaluated using the BBPS (Whiting Bowel Preparation Scale)with scores of: Right Colon [...] 1:55 PM Procedure Code(s): --- Professional --- 16699, Colonoscopy, flexible; with removal of tumor(s), polyp(s), or other lesion(s) by snare technique --- Technical --- 25817, Colonoscopy, flexible; with removal of tumor(s), polyp(s), [...] colon K64.8, Other hemorrhoids CPT copyright 2021 [employer]. All rights reserved. The codes documented in this report are preliminary and upon trackmobile operator reviewmay be revised to meet current compliance requirements. Procedure Date: 06/18/2023 1:55:[address] [place] [address] Phyllis CABRALES GI PROCEDURE ORDERABLES Fi nal Result * (ABNORMAL) Liver fibrosis test (03/20/2018 11:22 AM EDT) Cow Milk Conv Class 0.24 [facility] DPT OF LAB MED AND PAT+ Neuron Specific Enolase (NOTE) [facility] DPT OF LAB MED AND PAT+ Comment:RESULT: F0-F1 Interleukin 2 no fibrosis [facility] DPT OF LAB MED AND PAT+ Comment: (NOTE) FibroTest estimates liver fibrosis FibroTest Score Stage Interpretation 0.00-0.21 F0 no fibrosis 0.21-0.27 F0-F1 no fibrosis 0.27-0.31 F1 minimal fibrosis 0.31-0.48 F1-F2 minimal fibrosis 0.48-0.58 F2 moderate fibrosis 0.58-0.72 F3 advanced fibrosis 0.72-0.74 F3-F4 advanced fibrosis 0.74-1.00 F4 severe fibrosis (Cirrhosis) ActiTest Score 0.06 [facility] DPT OF LAB MED AND PAT+ ANCA YOANNA at 1:20 dilution A0 [facility] DPT OF LAB MED AND PAT+ ActiTest Interpretation no activity [facility] DPT OF LAB MED AND PAT+ Comment: (NOTE) ActiTest estimates necroinflammatory activity ActiTest Score Grade Interpretation 0.00-0.17 A0 no activity 0.17-0.29 A0-A1 no activity 0.29-0.36 A1 minimal activity 0.36-0.52 A1-A2 minimal activity 0.52-0.60 A2 significant activity 0.60-0.62 A2-A3 significant activity 0.62-1.00 A3 severe activity FibroTest-ActiTest Comment SEE NOTE [facility] DPT OF LAB MED AND PAT+ Comment: (NOTE) The reliability of results is dependent on compliance with the preanalytical and analytical conditions recommended by [employer]. The tests have to be deferred for: [...] developed and its performance characteristics determined by [facility] in a manner consistent with CLIA requirements. This test has not been cleared or approved by the U.S. Food and Drug Administration. [employer] Serial Number [id number] [facility] DPT OF LAB MED AND PAT+ Apolipoprotein A1, S 121 >=120 mg/dL [facility] DPT OF LAB MED AND PAT+ [id number], S 148 100 - 280 mg/dL [facility] DPT OF LAB MED AND PAT+ Haptoglobin, S 146 30 - 200 mg/dL [facility] DPT OF LAB MED AND PAT+ Alanine Aminotransferase (ALT), S 18 7 - 55 U/L [facility] DPT OF LAB MED AND PAT+ Gamma Glutamyltransferase (GGT), S 62(H) 8 - 61 U/L [facility] DPT OF LAB MED AND PAT+ Bilirubin, Total, S 0.6 <=1.2 mg/dL [facility] DPT OF LAB MED AND PAT+ Blood 03/20/2018 11:2 2 AM EDT 03/20/2018 11:34 AM EDT us Vee CABRALES LAB BLOOD ORDERABLES Final Result [facility] DPT OF LAB MED AND PAT+ [address] [place] [address] from Last 3 Months or Most Recently Relevant to Health Maintenance [place] [address] [place] [address] [employer] [facility] [place] [place] [facility] A[facility] [place] [facility] [place] [address] [place] [address] ACO Advance Directives For more information, please contact: [phone] (9AM - 5PM [facility], Sunday-Sunday) Documents on File Type Date Recorded Patient Uniform Designer Expl anation Healthcare Proxy 05/19/2020 2:36 PM [...] Agent (Proxy form on file) Care Teams Linen Room Worker Relationship Specialty Start Date End Date Phyllis Bello PA [address] [place] [id number] PCP - General Physician Order Packer 06/18/23 Phyllis Bello PA [address] [place] [address] [place] [id number] Historical LMR Provider 07/09/17 Nate Ritter MD [address] [place] [id number] Neurology 06/24/19 Nate Ritter MD [address] [place] [address] Neurology 01/10/22 Philip Lara DO [address] [place] [address] Geriatric Medicine 01/01/24 Additional Source Comments The information contained in this document represents components of the legal health record. It is not the complete legal health record.[facility]
--- OUTSIDE RECORDS SUMMARY | 2025-06-10 19:29 | XMS_ITS | Encounter Summary ---
Author Organization [facility] Address [address] [place] [address] Phone Care Team Providers Care Char Belt Operator Name Role Phone Phyllis Bello Unavailable [phone] Nate Ritter MD Unavailable [phone] Nate Ritter MD Unavailable +[phone] Phyllis Bello Primary Care Provider +[phone] Philip Lara DO Unavailable +[phone] Encounter Details Date Type Department Care Team (Late st Contact Info) Description 04/22/2024 Procedure Pass [facility], Ct Scan - [address] [id number] Social History Tobacco Use Types Packs/Day Years [...] 4:00 PM EDT Cherise Edge RN * [place] Suicide Severity Rating Scale (Screener/Recent Self-Report) Question [...] 8:30 AM EDT Office Visit [facility] [address] [place] [address] Philip Lara DO 22 [place] [address] [email or web address] documented as of this encounter Visit Diagnoses [...] documented as of this encounter Care Teams Char Belt Operator Relationship Specialty Start Date End Date Phyllis Bello PA [address] [place] [address] PCP - General Physician Museum Exhibit Technician 06/18/23 Phyllis Bello PA [address] [place] [address] Historical LMR Provider 07/09/17 Nate Ritter MD [address] [place] [address], [address] [address] Neurology 06/24/19 Nate Ritter MD [address] [place] [address], [address] [address] Neurology 01/10/22 Philip Lara DO [address] [place] [address] [email or web address] Geriatric Medicine 01/01/24 documented as of this encounter Additional Source Comments The information contained in this document represents components of the legal health record. It is not the complete legal health record.[facility]
--- OUTSIDE RECORDS SUMMARY | 2025-06-10 19:29 | XMS_ITS | Encounter Summary ---
Author Organization [facility] Address [address] [place] [address] [place] [address] Phone Care Team Providers Care Diesel Scoop Operator Name Role Phone Zohra Saenz MD Unavailable Estelita Bobby NP Unavailable Phyllis Bello Unavailable +[phone] Nate Dockery MD Unavailable +[phone] Phyllis Bello Primary Care Provider + [phone] Nate Ritter MD Unavailable +[phone] Rod Cunningham Unavailable +[phone] Josy Hernandez MD Unavailable +[phone] Prakash Tolentino MD Unavailable +[phone] Josy Hernadnez MD Unavailable +[phone] Nate Ritter MD Unavailable +[phone] Josy Hernandez MD Primary Care Provider [phone] Phyllis Bello Primary Care Provider + [phone] Philip Lara DO Unavailable +[phone] Encounter Details Date Type Department Care Team (Late st Contact Info) Description 2021 Procedure Pass [facility], Ct Scan - [facility] [address] [place] [address] Social History Tobacco Use Types Packs/Day Years [...] Description 01/08/2026 8:30 AM EDT Office Visit [facility] 22 [place] [address] Philip Lara DO [address] [place] [address] [email or web address] documented as of this encounter Visit Diagnoses [...] documented as of this encounter Care Teams Diesel Scoop Operator Relationship Specialty Start Date End Date Phyllis Bello PA [address] [place] [address] PCP - General Vascular Sonographer 08/09/17 03/02/23 Josy Hernandez MD 238 [place] [address] [email or web address] PCP - General Family Medicine 03/03/23 06/17/23 Phyllis Bello PA [address] [place] [address] PCP - General Physician Glazing Superintendent 06/18/23 Zohra Saenz MD [address] [place] [address] Historical LMR Provider 07/09/17 2 Estelita Bobby, JOSEPHINE [address] [place] [address] 2_[place] [address] [email or web address] Historical LMR Provider 07/09/17 10/01/21 Phyllis Bello PA [address] [place] [address] [place] [address] Historical LMR Provider 07/09/17 Nate Dockery MD [address] [place] [address], [address] [place], [place] [id number] [email or web address] Historical LMR Provider 07/09/17 2 Nate Ritter MD [address] [place] [address], [address] [place] [address] Neurology 06/24/19 Rod Cunningham [address] [address] iCMP Social Work 08/23/20 06/13/22 Josy Hernandez MD [address] [place] [address] Insurance Assigned Provider 04/02/21 06/04/21 Prakash Tolentino MD [address] [place] [address] Insurance Assigned Provider 06/04/21 07/30/21 Jsoy Hernandez MD [address] [place] [address] Insurance Assigned Provider 07/30/21 06/03/22 Nate Ritter MD [address] [place] [address], [address] [place] [address] Neurology 01/10/22 Philip Lara DO [address] [place] [address] Geriatric Medicine 01/01/24 documented as of this encounter Additional Source Comments The information contained in this document represents components of the legal health record. It is not the complete legal health record.[facility]
--- OUTSIDE RECORDS SUMMARY | 2025-06-10 19:29 | XMS_ITS | Encounter Summary ---
Author Organization [facility] Address [address] [place] [address] [place] [address] Phone Care Team Providers Care Independent Film Maker Name Role Phone Zohra Saenz MD Unavailable Estelita Bobby NP Unavailable [phone] Phyllis Bello Unavailable +[phone] Nate Dockery MD Unavailable +[phone] Phyllis Bello Primary Care Provider + Josy Hernandez MD Unavailable + Nate Ritter MD Unavailable +[phone] Prakash Tolentino MD Unavailable + Rod Cunningham Unavailable [phone] Josy Hernandez MD Unavailable + Prakash Tolentino MD Unavailable + Josy Hernandez MD Unavailable + Prakash Tolentino MD Unavailable + Josy Hernandez MD Unavailable + Nate Ritter MD Unavailable +[phone] Josy Hernandez MD Primary Care Provider +[phone] Phyllis Bello Primary Care Provider +[phone] Philip Lara DO Unavailable [phone] Encounter Details Date Type Department Care Team (Late Contact Info) Description 07/18/2018 Procedure Pass [facility], Ct Scan - [facility] [address] [place] [address] Social History Tobacco Use Types Packs/Day Years [...] Office Visit [facility] 22 [place] [address] Philip Lara, [address] [place] [address] [email or web address] documented as of this encounter Visit [...] documented as of this encounter Care Teams Independent Film Maker Relationship Specialty Start Date End Date Phyllis Bello PA [address] [place] [address] PCP - General Capacitor Inspector 08/09/17 03/02/23 Josy Hernandez MD 10 [place] [address] [email or web address] PCP - General Family Medicine 03/03/23 06/17/23 Phyllis Bello PA [address] [place] [address] PCP - General Physician Truck Manager 06/18/23 Zohra Saenz MD [address] [place] [address] Historical LMR Provider 07/09/17 2 Estelita Bobby NP [address] [place] [address] 2_[place] [address] [email or web address] Historical LMR Provider 07/09/17 10/01/21 Phyllis Bello PA [address] [place] [address] [place] [address] Historical LMR Provider 07/09/17 Nate Dockery MD 22 [facility], [address] [place] [address] [email or web address] Historical LMR Provider 07/09/17 2 Josy Hernandez MD [address] [place] [address] [email or web address] Insurance Assigned Provider 12/22/17 08/30/19 Nate Ritter MD [address] [place] [address], [address] [place] [address] [email or web address] Neurology 06/24/19 Prakash Tolentino MD [address] [place] [address] [email or web address] Insurance Assigned Provider 08/30/19 08/29/20 Rod Cunningham, [address] [address] [email or web address] [email or web address] Social Work 08/23/20 06/13/22 Josy Hernandez MD [address] [place] [address] [email or web address] Insurance Assigned Provider 08/29/20 02/27/21 Prakash Tolentino MD [address] [place] [address] [email or web address] Insurance Assigned Provider 02/27/21 04/02/21 Josy Hernandez MD [address] [place] [address] [email or web address] Insurance Assigned Provider 04/02/21 06/04/21 Prakash Tolentino MD [address] [place] [address] [email or web address] Insurance Assigned Provider 06/04/21 07/30/21 Josy Hernandez MD [address] [place] [address] [email or web address] Insurance Assigned Provider 07/30/21 06/03/22 Nate Ritter MD [address] [place], [place] [address] [place] [address] [email or web address] Neurology 01/10/22 Philip Lara DO [address] [place] [address] [email or web address] Geriatric Medicine 01/01/24 documented as of this encounter Additional Source Comments The information contained in this document represents components of the legal health record. It is not the complete legal health record.[facility]
--- OUTSIDE RECORDS SUMMARY | 2025-06-10 19:29 | XMS_ITS | Clinical Summary ---
Author Organization [facility] Address [address] [place] [address] Care Team Providers Care Business Systems Administrator Name Role Phone Phyllis Bello Primary Care Provider [phone] Allergies Active Allergy Reactions Criticality Noted Date [...] (ZOFRAN ODT) 4 mg disintegrating tablet 03/30/20 25 Active zonisamide (ZONEGRAN) 100 mg capsuleIndications :Focal epilepsy with impairment of consciousness, intractable (HCC) Take 4 capsules (400 mg total) by mouth once a day. 120 capsule 05/06/20 25 Active lamoTRIgine (LaMICtal) 150 mg tabletIndications: Focal epilepsy with impairment of consciousness, intractable (HCC) Take 1 tablet (150 mg total) by mouth 2 times a day. 180 tablet 05/06/20 25 Active lacosamide (VIMPAT) 200 mg tablet tabletIndications: Focal epilepsy with impairment of consciousness, intractable (HCC) Take 1 tablet (200 mg total) by mouth every 12 hours. 60 tablet 05/06/20 25 Active phenytoin (DILANTIN) 50 mg chewable tablet Chew and swallow 3 tablets (150 mg total) by mouth 2 times a day. 180 tablet 05/06/20 25 025 Active Problems Problem Noted Date Diagnosed Date [...] Description 05/06/2025 4:00 PM EDT Office Visit [facility] [address] [place] [address] Yoandy Galaviz PA Focal epilepsy with impairment [...] Description 12/22/2025 10:00 AM EDT Office Visit [facility] [address] [place] [address] Laurel Cabral MD [address] [place] [address] Health Maintenance Due Date Last Done Comments [...] (2 - Td or Tdap) 10/20/2023 10/20/2013 Alcohol/Substance Use Screening 09/24/2024 Depression Screening and Follow-Up 09/24/2024 Social Drivers of Health Genna ual Screening 09/24/2024 COVID-19 Vaccine (3 - 2024-2 6 season) 2025 09/23/2021, 12/08/2020 Influenza Vaccine (#1) 2025 , 09/15/2019, 10/24/2017, Additional history exists RSV Vaccine (60+ years old a nd patients) (1 - 1-dose 75+ series) 2043 Insurance [place] [id number] Care Teams Business Systems Administrator Relationship Specialty Start Date End Date Phyllis Bello [address] [place] [address] PCP - General 04/10/22
--- OUTSIDE RECORDS SUMMARY | 2025-06-10 19:29 | XMS_ITS | Encounter Summary ---
Author Organization [facility] Address [address] [place] [address] [place] [address] Phone Care Team Providers Care Broke Beater Machine Operator Name Role Phone Zohra Saenz MD Unavailable Estelita Bobby NP Unavailable Phyllis Bello Unavailable [phone] Nate Dockery MD Unavailable [phone] Phyllis Bello Primary Care Provider +[phone] Nate Ritter MD Unavailable [phone] Prakash Tolentino MD Unavailable +[phone] Rod Cunningham Unavailable [phone] Josy Hernandez MD Unavailable +[phone] Prakash Tolentino MD Unavailable + Josy Hernandez MD Unavailable [phone] Prakash Tolentino MD Unavailable + Josy Hernandez MD Unavailable [phone] Nate Ritter MD Unavailable [phone] Josy Hernandez MD Primary Care Provider [phone] Phyllis Bello Primary Care Provider +[phone] Philip Lara DO Unavailable Encounter Details Date Type Department Care Team (Late st Contact Info) Description 05/15/2020 Procedure Pass [facility], Ct Scan - [facility] [address] [place] [address] Social History Tobacco Use Types Packs/Day Years [...] Description 01/08/2026 8:30 AM EDT Office Visit [facility] [address] [place] [address] Philip Lara, [address] [place] [address] [email or web address] documented as of this encounter Visit Diagnoses [...] documented as of this encounter Care Teams Broke Beater Machine Operator Relationship Specialty Start Date End Date Phyllis Bello PA [address] [place] [address] PCP - General Parliamentary Counsel 08/09/17 03/02/23 Josy Hernandez MD [address] [place] [address] [email or web address] PCP - General Family Medicine 03/03/23 06/17/23 Phyllis Bello PA [address] [place] [address] PCP - General Physician Health And Safety Instructor 06/18/23 Zohra Cisneros MD [address] [place] [address] Historical LMR Provider 07/09/17 2 Estelita Bobby NP [address] [place] [address] 2_[place] [address] [email or web address] Historical LMR Provider 07/09/17 10/01/21 Phyllis Bello PA [address] [place] [address] [place] [address] Historical LMR Provider 07/09/17 Nate Dockery MD [address] [place] [address], [address] [place] [address] [email or web address] Historical LMR Provider 07/09/17 2 Nate Ritter MD [address] [place] [address], [address] [place] [address] [email or web address] Neurology 06/24/19 Prakash Tolentino MD [address] [place] [address] [email or web address] Insurance Assigned Provider 08/30/19 08/29/20 Rod Cunningham, [address] [address] [email or web address] Work 08/23/20 06/13/22 Josy Hernandez MD [address] [place] [address] [email or web address] Insurance Assigned Provider 08/29/20 02/27/21 Prakash Tolentino MD [address] [place] [address] [email or web address] Insurance Assigned Provider 02/27/21 04/02/21 Josy Hernandez MD [address] [place] [address] [email or web address] Insurance Assigned Provider 04/02/21 06/04/21 Prakash Tolentino MD [address] [place] [address] [email or web address] Insurance Assigned Provider 06/04/21 07/30/21 Josy Hernandez MD [address] [place] [address] [email or web address] Insurance Assigned Provider 07/30/21 06/03/22 Nate Ritter MD [address] [place] [address], [address] [place] [address] Neurology 01/10/22 Philip Lara DO [address] [place] [address] Geriatric Medicine 01/01/24 documented as of this encounter Additional Source Comments The information contained in this document represents components of the legal health record. It is not the complete legal health record.[facility]
--- OUTSIDE RECORDS SUMMARY | 2025-06-10 19:29 | XMS_ITS | Encounter Summary ---
Author Organization [facility] Address [address] [place] [address] [place] [address] Phone Care Team Providers Care Masking Machine Operator Name Role Phone Zohra Saenz MD Unavailable Estelita Bobby NP Unavailable Phyllis Bello Unavailable [phone] Nate Dockery MD Unavailable [phone] Phyllis Bello Primary Care Provider + [phone] Nate Ritter MD Unavailable +[phone] Rod CunninghamSW Unavailable [phone] Prakash Tolentino MD Unavailable +[phone] Josy Hernandez MD Unavailable +[phone] Nate Ritter MD Unavailable +[phone] Josy Hernandez MD Primary Care Provider [phone] Phyllis Bello Primary Care Provider + [phone] Philip Lara DO Unavailable [phone] Encounter Details Date Type Department Care Team (Late st Contact Info) Description 06/29/2021 Procedure Pass [facility], Ct Scan - [address] [id number] Social History Tobacco Use Types Packs/Day Years [...] 4:00 AM EDT Sherri Still RN * [place] Suicide Severity Rating Scale (Screener/Recent Self-Report) Question [...] Description 01/08/2026 8:30 AM EDT Office Visit [facility] Ger[facility] [address] [place] [address] [place] [address] Philip Lara DO [address] [place] [address] [email or web address] documented as of this encounter Visit Diagnoses [...] documented as of this encounter Care Teams Masking Machine Operator Relationship Specialty Start Date End Date Phyllis Bello PA [address] [place] [address] PCP - General Second Operator 08/09/17 03/02/23 Josy Hernandez MD [address] [place] [address] [email or web address] PCP - General Family Medicine 03/03/23 06/17/23 Phyllis Bello PA [address] [place] [address] PCP - General Physician Sba Underwriter 06/18/23 Zohra Saenz MD [address] [place] [address] Historical LMR Provider 07/09/17 2 Estelita Bobby NP [address] [place] [address] 2_[place] [address] [email or web address] Historical LMR Provider 07/09/17 10/01/21 Phyllis Bello PA [address] [place] [address] [place] [address] Historical LMR Provider 07/09/17 Nate Dockery MD [address] [place] [address], [address] [place] [address] Historical LMR Provider 07/09/17 2 Nate Ritter MD [address] [place] [address], [address] [place] [address] Neurology 06/24/[address] [address] iCMP Social Work 08/23/20 06/13/22 Prakash Tolentino MD [address] [place] [address] Insurance Assigned Provider 06/04/21 07/30/21 Josy Hernandez MD [address] [place] [address] Insurance Assigned Provider 07/30/21 06/03/22 Nate Ritter MD [address] [place] [address], [address] [place] [address] Neurology 01/10/22 Philip Lara DO [address] [place] [address] Geriatric Medicine 01/01/24 documented as of this encounter Additional Source Comments The information contained in this document represents components of the legal health record. It is not the complete legal health record.[facility]
--- OUTSIDE RECORDS SUMMARY | 2025-06-10 19:29 | XMS_ITS | Encounter Summary ---
Author Organization [facility] Address [address] [place] [address] [place] [address] Phone Care Team Providers Care Section Laborer Name Role Phone Phyllis Bello Unavailable [phone] Phyllis Bello Primary Care Provider + [phone] Nate Ritter MD Unavailable +[phone] MarisaRodSW Unavailable [phone] Josy Hernandez MD Unavailable +[phone] Nate Ritter MD Unavailable +[phone] Josy Hernandez MD Primary Care Provider [phone] Phyllis Bello Primary Care Provider + [phone] Philip Lara DO Unavailable +[phone] Encounter Details Date Type Department Care Team (Late st Contact Info) Description 12/23/2021 Procedure Pass [facility], Ct Scan - [address] [address] Social History Tobacco Use Types Packs/Day Years [...] AM EDT Wilmar Eddy i, RN * [place] Suicide Severity Rating Scale (Screener/Recent Self-Report) Question [...] Description 01/08/2026 8:30 AM EDT Office Visit [facility] [address] [place] [address] Philip Lara DO [address] [place] [address] [email or web address] documented as of this encounter Visit Diagnoses [...] documented as of this encounter Care Teams Section Laborer Relationship Specialty Start Date End Date Phyllis Bello PA [address] [place] [address] PCP - General Counter Weigher 08/09/17 03/02/23 Josy Hernandez MD [address] [place] [address] PCP - General Family Medicine 03/03/23 06/17/23 Phyllis Bello PA [address] [place] [address] PCP - General Physician Stain Wiper 06/18/23 Phyllis Bello PA [address] [place] [address] [place] [address] Historical LMR Provider 07/09/17 Nate Ritter MD [address] [place] [address], [address] [address] Neurology 06/24/19 Rod Cunningham, [employer] [address] [place] [address] iCMP Social Work 08/23/20 06/13/22 Josy Hernandez MD [address] [place] [address] Insurance Assigned Provider 07/30/21 06/03/22 Nate Ritter MD NPI: [id number] [place] [address], [address] [place] [address] Neurology 01/10/22 Philip Lara DO [address] [place] [address] [email or web address] Geriatric Medicine 01/01/24 documented as of this encounter Additional Source Comments The information contained in this document represents components of the legal health record. It is not the complete legal health record.[facility]
--- OUTSIDE RECORDS SUMMARY | 2025-06-10 19:29 | XMS_ITS | Encounter Summary ---
Author Organization [facility] Address [address] [place] [address] [place] [address] Phone Care Team Providers Care Pulp Making Plant Operator Name Role Phone Zohra Saenz MD Unavailable Estelita Bobby NP Unavailable [phone] Phyllis Bello Unavailable [phone] Nate Dockery MD Unavailable [phone] Phyllis Bello Primary Care Provider + Josy Hernandez MD Unavailable + Nate Ritter MD Unavailable [phone] Prakash Tolentino MD Unavailable + Rod Cunningham Unavailable +[phone] Josy Hernadnez MD Unavailable + Prakash Tolentino MD Unavailable + Josy Hernandez MD Unavailable + Prakash Tolentino MD Unavailable + Josy Hernandez MD Unavailable + Nate Ritter MD Unavailable +[phone] Josy Hernandez MD Primary Care Provider +[phone] Phyllis Bello Primary Care Provider +[phone] Philip Lara DO Unavailable Encounter Details Date Type Department Care Team (Late st Contact Info) Description 10/17/2017 Procedure Pass [facility], Ct Scan - [facility] [address] [place] [address] Social History Tobacco Use Types Packs/Day Years [...] Description 01/08/2026 8:30 AM EDT Office Visit [facility] [address] [place] [address] Philip Lara, [address] [place] [address] [email or web address] documented as of [...] documented as of this encounter Care Teams Pulp Making Plant Operator Relationship Specialty Start Date End Date Phyllis Bello PA [address] [place] [address] PCP - General Pipe Line Inspector 08/09/17 03/02/23 Josy Hernandez MD [address] [place] [address] [email or web address] PCP - General Family Medicine 03/03/23 06/17/23 Phyllis Bello PA [address] [place] [address] PCP - General Physician Accounting Associate 06/18/23 Zohra Saenz MD [address] [place] [address] Historical LMR Provider 07/09/17 2 Estelita Bobby NP [address] [place] [address] 2_[place] [address] [email or web address] Historical LMR Provider 07/09/17 10/01/21 Phyllis Bello PA [address] [place] [address] [place] [phone] Historical LMR Provider 07/09/17 Nate Dockery MD [address] [place] [address], [address] [place] [address] [email or web address] Historical LMR Provider 07/09/17 2 Josy Hernandez MD [address] [place] [address] [email or web address] Insurance Assigned Provider 12/22/17 08/30/19 Nate Ritter MD [address] [place] [address], [address] [place] [address] [email or web address] Neurology 06/24/19 Prakash Tolentino MD [address] [place] [address] [email or web address] Insurance Assigned Provider 08/30/19 08/29/20 Rod Cunningham [address] [address] [email or web address] iCMP Social Work 08/23/20 06/13/22 Josy Hernandez MD [address] [place] [address] [email or web address] Insurance Assigned Provider 08/29/20 02/27/21 Prakash Tolentino MD [address] [place] [address] [email or web address] Insurance Assigned Provider 02/27/21 04/02/21 Josy Hernandez MD [address] [place] [address] [email or web address] Insurance Assigned Provider 04/02/21 06/04/21 Prakash Tolentino MD [address] [place] [address] [email or web address] Insurance Assigned Provider 06/04/21 07/30/21 Josy Hernandez MD [address] [place] [address] [email or web address] Insurance Assigned Provider 07/30/21 06/03/22 Nate Ritter MD [address] [place] [address], [address] [place] [address] [email or web address] Neurology 01/10/22 Philip Lara DO [address] [place] [address] [email or web address] Geriatric Medicine 01/01/24 documented as of this encounter Additional Source Comments The information contained in this document represents components of the legal health record. It is not the complete legal health record.[facility]
--- OUTSIDE RECORDS SUMMARY | 2025-06-10 19:29 | XMS_ITS | Encounter Summary ---
Author Organization [facility] Address [address] [place] [address] [place] [address] Phone Care Team Providers Care Metal Drilling Machine Operator Name Role Phone Zohra Saenz MD Unavailable Estelita Bobby NP Unavailable Phyllis Bello Unavailable [phone] Nate Dockery MD Unavailable Phyllis Bello Primary Care Provider + [phone] Nate Rittre MD Unavailable [phone] Rod CunninghamSW Unavailable [phone] Prakash Tolentino MD Unavailable +[phone] Josy Hernandez MD Unavailable [phone] Nate Ritter MD Unavailable +[phone] Josy Hernandez MD Primary Care Provider [phone] Phyllis Bello Primary Care Provider + [phone] Philip Lara DO Unavailable [phone] Encounter Details Date Type Department Care Team (Late st Contact Info) Description 07/29/2021 Procedure Pass [facility] [address] [place], [place] [phone] Social History Tobacco Use Types Packs/Day Years [...] 01/08/2026 8:30 AM EDT Office Visit [facility] [address] [place] [address] Philip Lara DO [address] [place] [address] [email or web address] documented as of this encounter Visit Diagnoses [...] documented as of this encounter Care Teams Metal Drilling Machine Operator Relationship Specialty Start Date End Date Phyllis Bello PA [address] [place] [address] PCP - General Certified Performance Technologist 08/09/17 03/02/23 Josy Hernandez MD [address] [place] [address] PCP - General Family Medicine 03/03/23 06/17/23 Phyllis Bello PA [address] [place] [address] PCP - General Physician S[employer] Security 06/18/23 Zohra Cisneros MD [address] [place] [address] Historical LMR Provider 07/09/17 Estelita Caceres NP [address] [place] [address] 2_[place] [address] [email or web address] Historical LMR Provider 07/09/17 10/01/21 Phyllis Bello PA [address] [place] [phone] Historical LMR Provider 07/09/17 Nate Dockery MD [address] [place] [address], [address] [place] [address] [email or web address] Historical LMR Provider 07/09/17 2 Nate Ritter MD [address] [place] [address], [address] [place] [address] Neurology 06/24/19 Rod Cunningham, [address] [address] iCMP Social Work 08/23/20 06/13/22 Prakash Tolentino MD [address] [place] [address] Insurance Assigned Provider 06/04/21 07/30/21 Josy Hernandez MD [address] [place] [address] Insurance Assigned Provider 07/30/21 06/03/22 Nate Ritter MD [address] [place] [address], [address] [place] [address] Neurology 01/10/22 Philip Lara DO [address] [place] [address] Geriatric Medicine 01/01/24 documented as of this encounter Additional Source Comments The information contained in this document represents components of the legal health record. It is not the complete legal health record.[facility]
--- OUTSIDE RECORDS SUMMARY | 2025-06-10 19:29 | XMS_ITS | Encounter Summary ---
Author Organization [facility] Address [address] [place] [address] [place] [address] Phone Care Team Providers Care Cement Tile Maker Name Role Phone Phyllis Bello Unavailable [phone] Phyllis Bello Primary Care Provider + [phone] Nate Ritter MD Unavailable [phone] MarisaRodSW Unavailable [phone] Josy Hernandez MD Unavailable [phone] Nate Ritter MD Unavailable +[phone] Josy Hernandez MD Primary Care Provider [phone] Phyllis Bello Primary Care Provider + [phone] Philip Lara DO Unavailable [phone] Encounter Details Date Type Department Care Team (Late st Contact Info) Description 12/27/2021 Procedure Pass [facility], [address] [address] Social History Tobacco Use Types Packs/Day Years [...] Description 01/08/2026 8:30 AM EDT Office Visit [facility] [address] [place] [address] Philip Lara DO [address] [place] [address] [email or web address] documented as of this encounter Visit Diagnoses [...] documented as of this encounter Care Teams Cement Tile Maker Relationship Specialty Start Date End Date Phyllis Bello PA [address] [place] [address] PCP - General Oil Processing Technician 08/09/17 03/02/23 Josy Hernandez MD [address] [place] [address] PCP - General Family Medicine 03/03/23 06/17/23 Phyllis Bello PA [address] [place] [address] PCP - General Physician Nursing Techn 06/18/23 Phyllis Bello PA [address] [place] [address] [place] [address] Historical LMR Provider 07/09/17 Nate Ritter MD [address] [place] [address], [address] [address] Neurology 06/24/19 Rod Cunningham, [address] [address] iCMP Social Work 08/23/20 06/13/22 Josy Hernandez MD [address] [place] [address] Insurance Assigned Provider 07/30/21 06/03/22 Nate Ritter MD [address] [place] [address], [address] [address] Neurology 01/10/22 Philip Lara DO [address] [place] [address] Geriatric Medicine 01/01/24 documented as of this encounter Additional Source Comments The information contained in this document represents components of the legal health record. It is not the complete legal health record.[facility]
--- OUTSIDE RECORDS SUMMARY | 2025-06-10 19:29 | XMS_ITS | Encounter Summary ---
Author Organization [facility] Address [address] [place] [address] [place] [address] Phone Care Team Providers Care File Clerk Data Entry Name Role Phone Zohra Saenz MD Unavailable Estelita Bobby NP Unavailable [phone] Phyllis Bello Unavailable [phone] Nate Dockery MD Unavailable [phone] Phyllis Bello Primary Care Provider + Josy Hernandez MD Unavailable + Nate Ritter MD Unavailable [phone] Prakash Tolentino MD Unavailable + Rod Cunningham Unavailable [phone] Josy Hernandez MD Unavailable + Prakash Tolentino MD Unavailable + Josy Hernandez MD Unavailable + Prakash Tolentino MD Unavailable + Josy Hernandez MD Unavailable + Nate Ritter MD Unavailable [phone] Josy Hernandez MD Primary Care Provider [phone] Phyllis Bello Primary Care Provider [phone] Philip Lara DO Unavailable [phone] Encounter Details Date Type Department Care Team ([facility] Contact Info) Description 11/02/2017 Documentation [facility] Infectious Disease Virtual Department [address] [place] [address] Pcp, Not Required [address] [place] [address] Social History Tobacco Use Types Packs/Day Years [...] Upcoming Encounters Date Type Department Care Team ([facility] Contact Info) Description 01/08/2026 8:30 AM EDT Office Visit [facility] [address] [place] [address] Philip Lara DO [address] [place] [address] [email or web address] documented as of [...] documented as of this encounter Care Teams File Clerk Data Entry Relationship Specialty Start Date End Date Phyllis Bello PA [address] [place] [address] PCP - General Account Installer 08/09/17 03/02/23 Josy Hernandez MD [address] [place] [address] [email or web address] PCP - General Family Medicine 03/03/23 06/17/23 Phyllis Bello PA [address] [place] [address] PCP - General Physician Automotive Electrician 06/18/23 Zohra Saenz MD [address] [place] [address] Historical LMR Provider 07/09/17 2 Estelita Bobby NP [address] [place] [address] 2_[place] [address] [email or web address] Historical LMR Provider 07/09/17 10/01/21 Phyllis Bello PA [address] [place] [address] [place] [address] Historical LMR Provider 07/09/17 Nate Dockery MD [address] [place] [address], [address] [place] [address] [email or web address] Historical LMR Provider 07/09/17 2 Josy Hernandez MD [address] [place] [address] [email or web address] Insurance Assigned Provider 12/22/17 08/30/19 Nate Ritter MD [address] [place] [address], [address] [place] [address] [email or web address] Neurology 06/24/19 Prakash Tolentino MD [address] [place] [address] [email or web address] Insurance Assigned Provider 08/30/19 08/29/20 Rod Cunningham [address] [address] [email or web address] iCMP Social Work 08/23/20 06/13/22 Josy Hernandez MD [address] [place] [address] [email or web address] Insurance Assigned Provider 08/29/20 02/27/21 Prakash Tolentino MD [address] [place] [address] [email or web address] Insurance Assigned Provider 02/27/21 04/02/21 Josy Hernandez MD [address] [place] [address] Insurance Assigned Provider 04/02/21 06/04/21 Prakash Tolentino MD [address] [place] [address] [email or web address] Insurance Assigned Provider 06/04/21 07/30/21 Josy Hernandez MD [address] [place] [address] [email or web address] Insurance Assigned Provider 07/30/21 06/03/22 Nate Ritter MD [address] [place], [place] [address] [place] [address] Neurology 01/10/22 Philip Lara DO [address] [place] [address] [email or web address] Geriatric Medicine 01/01/24 documented as of this encounter Additional Source Comments The information contained in this document represents components of the legal health record. It is not the complete legal health record.[facility]
--- OUTSIDE RECORDS SUMMARY | 2025-06-10 19:29 | XMS_ITS | Encounter Summary ---
Author Organization [facility] Address [address] [place] [address] Phone Care Team Providers Care Machine Riveter Name Role Phone Phyllis Bello Unavailable [phone] Nate Ritter MD Unavailable [phone] Nate Ritter MD Unavailable [phone] Phyllis Bello Primary Care Provider [phone] Philip Lara DO Unavailable [phone] Encounter Details Date Type Department Care Team (Late st Contact Info) Description 03/24/2025 Procedure Pass [facility], Ct Scan - [address] [phone] Social History Tobacco Use Types Packs/Day Years [...] 9:00 PM EDT Chelsie Fishman RN * [place] Suicide Severity Rating Scale (Screener/Recent Self-Report) Question [...] Description 01/08/2026 8:30 AM EDT Office Visit [facility] [address] [place] [address] Philip Lara DO [address] [place] [address] [email or web address] documented as of this encounter Visit Diagnoses Not on filedocumented in this encounter Additional Health Concerns Assessment Noted Time PHQ-9 Depression Total Score: 6 12/27/19 9:55 AM EDT PHQ-2 Depression Total Score: 0 12/27/19 9:55 AM EDT documented as of this encounter Care Teams Machine Riveter Relationship Specialty Start Date End Date Phyllis Bello PA [address] [place] [address] PCP - General Physician Health Safety Engineer 06/18/23 Phyllis Bello PA [address] [place] [address] [place] [address] Historical LMR Provider 07/09/17 Nate Ritter MD [address] [place] [address], [address] [place] [address] Neurology 06/24/19 Nate Ritter MD [address] [place] [address], [address] [place] [address] [email or web address] Neurology 01/10/22 Philip Lara DO [address] [place] [address] [email or web address] Geriatric Medicine 01/01/24 documented as of this encounter Additional Source Comments The information contained in this document represents components of the legal health record. It is not the complete legal health record.[facility]
--- OUTSIDE RECORDS SUMMARY | 2025-06-10 19:29 | XMS_ITS | Encounter Summary ---
Author Organization [facility] Address [address] [place] [address] [place] [address] Phone Care Team Providers Care Flooring Helper Name Role Phone Zohra Saenz MD Unavailable Estelita Bobby NP Unavailable [phone] Phyllis Bello Unavailable [phone] Nate Dockery MD Unavailable [phone] Phyllis Bello Primary Care Provider + Josy Hernandez MD Unavailable + Nate Ritter MD Unavailable [phone] Prakash Tolentino MD Unavailable + Rod Cunningham Unavailable [phone] Josy Hernandez MD Unavailable + Prakash Tolentino MD Unavailable + Josy Hernandez MD Unavailable + Prakash Tolentino MD Unavailable + Josy Hernandez MD Unavailable + Nate Ritter MD Unavailable [phone] Josy Hernandez MD Primary Care Provider +[phone]- Phyllis Bello Primary Care Provider + [phone] Philip Larash DO Unavailable [phone] Encounter Details Date Type Department Care Team (Latest Contact Info) Description 03/20/2018 Transcribe Orders [facility] [address] [place] [address] Vee Peraza PA [address] [place] [address] Other cirrhosis of liver (Primary Dx) Social [...] 01/08/2026 8:30 AM EDT Office Visit [facility] [address] [place] [address] Philip Larash, [address] [place] [address] [email or web address] documented as of this encounter Results * PT-INR (03/20/2018 11:22 AM EDT) PT 11.0 10.2 - 12.9 sec [facility] INR 1.0 0.9 - 1.1 [facility] Comment:Therapeutic range fo r oral Vitamin K antagonists: 2.0-3.5 Blood 03/20/2018 11:2 2 AM EDT 03/20/2018 11:34 AM EDT us Vee [facility] BLOOD ORDERABLES Final Result Performing Organization Address City/[facility]/ZIP Co de Phone Number [address] [address] * Ferritin (03/20/2018 11:22 AM EDT) FERRITIN 320 30 - 400 ug/L [facility] Blood 03/20/2018 11:2 2 AM EDT 03/20/2018 11:34 AM EDT us Vee [facility] BLOOD ORDERABLES Final Result Performing Organization Address [facility] Co de Phone Number [address] [address] * Hepatitis C antibody, qualitative (03/20/2018 11:22 AM EDT) HCV Negative Negative [facility] Comment: This is a screening test and should be confirmed with molecular testing Blood 03/20/2018 11:2 2 AM EDT 03/20/2018 11:34 AM EDT Vee [facility] BLOOD ORDERABLES Final Result Performing Organization Address [facility] Co de Phone Number [address] [address] * (ABNORMAL) Liver fibrosis test (03/20/2018 11:22 AM EDT) Cow Milk Conv Class 0.24 [facility] DPT OF LAB MED AND PAT+ Neuron Specific Enolase (NOTE) [facility] DPT OF LAB MED AND PAT+ Comment:RESULT: F0-F1 Interleukin 2 no fibrosis [facility] DPT OF LAB MED AND PAT+ Comment: (NOTE) FibroTest estimates liver fibrosis FibroTest Score Stage Interpretation 0.00-0.21 F0 no fibrosis 0.21-0.27 F0-F1 no fibrosis 0.27-0.31 F1 minimal fibrosis 0.31-0.48 F1-F2 minimal fibrosis 0.48-0.58 F2 moderate fibrosis 0.58-0.72 F3 advanced fibrosis 0.72-0.74 F3-F4 advanced fibrosis 0.74-1.00 F4 severe fibrosis (Cirrhosis) ActiTest Score 0.06 [facility] DPT OF LAB MED AND PAT+ ANCA YOANNA at 1:20 dilution A0 [facility] DPT OF LAB MED AND PAT+ ActiTest Interpretation no activity [facility] DPT OF LAB MED AND PAT+ Comment: (NOTE) ActiTest estimates necroinflammatory activity ActiTest Score Grade Interpretation 0.00-0.17 A0 no activity 0.17-0.29 A0-A1 no activity 0.29-0.36 A1 minimal activity 0.36-0.52 A1-A2 minimal activity 0.52-0.60 A2 significant activity 0.60-0.62 A2-A3 significant activity 0.62-1.00 A3 severe activity FibroTest-ActiTest Comment SEE NOTE [facility] DPT OF LAB MED AND PAT+ Comment: (NOTE) The reliability of results is dependent on compliance with the preanalytical and analytical conditions recommended by [employer]. The tests have to be deferred for: [...] and its performance characteristics determined by [facility] in a manner consistent with CLIA requirements. This test has not been cleared or approved by the U.S. Food and Drug Administration. BioPredictive Serial Number [id number] [facility] DPT OF LAB MED AND PAT+ Apolipoprotein A1, S 121 >=120 mg/dL [facility] DPT OF LAB MED AND PAT+ Aojob-1-Bscdudljgefcs, S 148 100 - 280 mg/dL [facility] DPT OF LAB MED AND PAT+ Haptoglobin, S 146 30 - 200 mg/dL [facility] DPT OF LAB MED AND PAT+ Alanine Aminotransferase (ALT), S 18 7 - 55 U/L [facility] DPT OF LAB MED AND PAT+ Gamma Glutamyltransferase (GGT), S 62(H) 8 - 61 U/L [facility] DPT OF LAB MED AND PAT+ Bilirubin, Total, S 0.6 <=1.2 mg/dL [facility] DPT OF LAB MED AND PAT+ Blood 03/20/2018 11:2 2 AM EDT 03/20/2018 11:34 AM EDT us Vee [facility] BLOOD ORDERABLES Final Result [facility] DPT OF LAB MED AND PAT+ [address] [place] [address] * (ABNORMAL) Comprehensive metabolic panel (03/20/2018 11:22 AM EDT) SODIUM 136 133 - 146 mmol/L [facility] POTASSIUM 4.6 3.3 - 5.1 mmol/L [facility] CHLORIDE 94(L) 96 - 108 mmol/L [facility] CO2 28 21 - 35 mmol/L [facility] BUN 5(L) 6 - 19 mg/dL [facility] CREATININE 0.60 0.5 - 1.5 mg/dL [facility] GLUCOSE 95 70 - 99 mg/dL [facility] ALBUMIN 4.9(H) 3.9 - 4.8 g/dL [facility] TOTAL PROTEIN 8.1(H) 6.5 - 8.0 g/dL [facility] CALCIUM 9.9 8.4 - 10.3 mg/dL [facility] ALKALINE PHOSPHATASE 116 39 - 117 U/L [facility] TOTAL BILIRUBIN 0.6 0.0 - 1.2 mg/dL [facility] AST 16 0 - 37 U/L [facility] ALT 17 0 - 40 U/L [facility] GLOBULIN 3.2 1 - 4.8 g/dL [facility] EGFR 118 >59 mL/min/1.7 3m2 [facility] Comment:If patient is black, multiply result by 1.159. Estimated glomerular filtration rate calculated using the CKD-EPI equation. ANION GAP 19 10 - 20 mmol/L [facility] Blood 03/20/2018 11:2 2 AM EDT 03/20/2018 11:34 AM EDT us Vee [facility] BLOOD ORDERABLES Final Result [address] [address] * (ABNORMAL) CBC (03/20/2018 11:22 AM EDT) WBC 6.14 3.40 - 11.20 K/uL [facility] RBC 4.97 4.50 - 5.50 M/uL [facility] HGB 15.4 13.0 - 17.0 g/dL [facility] HCT 41.6 40.0 - 51.0 % [facility] PLT 197 130 - 400 K/uL [facility] MCV 83.7 79.0 - 98.0 fL [facility] MCH 31.0 27.0 - 34.8 pg [facility] MCHC 37.0(H) 31.5 - 36.0 g/dL [facility] RDW 12.3 10.8 - 14.6 % [facility] MPV 9.3(L) 9.4 - 12.4 fl [facility] NRBC 0.00 /100 WBCs [facility] ABSOLUTE NRBC 0.00 K/uL [facility] Blood 03/20/2018 11:2 2 AM EDT 03/20/2018 11:34 AM EDT us Vee [facility] BLOOD ORDERABLES Final Result Performing Organization Address City/[facility]/ZIP Co de Phone Number [address] [address] * Smooth Muscle Antibody (03/20/2018 11:22 AM EDT) ANTI-SMOOTH MUSCLE AB Negative Negative [facility] DPT OF LAB MED AND PAT+ Comment: (NOTE) ADDITIONAL INFORMATION This test was developed and its performance characteristics determined by [facility] in a manner consistent with CLIA requirements. This test has not been cleared or approved by the U.S. Food and Drug Administration. Blood 03/20/2018 11:2 2 AM EDT 03/20/2018 11:33 AM EDT us Vee [facility] BLOOD ORDERABLES Final Result Performing Organization Address [facility] Co de Phone Number [facility] DPT OF LAB MED AND PAT+ [address] [place] [address] * (ABNORMAL) Antinuclear antibody (YOANNA) (03/20/2018 11:22 AM EDT) Pathologist [facility] YOANNA SCREEN ON HEP 2 Positive(A ) Negative [facility] Comment:An YOANNA Titer has bee n reflexed. The results will follow. Blood 03/20/2018 11:2 2 AM EDT 03/20/2018 11:34 AM EDT us Vee [facility] BLOOD ORDERABLES Final Result Performing Organization Address City/[facility] Co de Phone Number [address] [address] * Anti-Mitochondrial Antibody (AMA) (03/20/2018 11:22 AM EDT) MITOCHONDRIAL AB M2 <0.1 <0.1 (Negative) U [facility] DPT OF LAB MED AND PAT+ Blood 03/20/2018 11:2 2 AM EDT 03/20/2018 11:33 AM EDT Vee [facility] BLOOD ORDERABLES Final Result Performing Organization Address City/[facility]/ZIP Co de Phone Number [facility] DPT OF LAB MED AND PAT+ [address] [place] [address] * AFP (non-maternal specimens) (03/20/2018 11:22 AM EDT) AFP (NON-MATERNAL) 2.3 0.8 - 7.5 ng/mL [facility] Blood 03/20/2018 11:2 2 AM EDT 03/20/2018 11:34 AM EDT Vee [facility] BLOOD ORDERABLES Final Result Performing Organization Address [facility] Co de Phone Number [facility] [address] [place] [address] * Lfzrk-5-yebdzgvqjcl phenotyping (03/20/2018 11:22 AM EDT) ALPHA 1 ANTITRYPSIN 178 100 - 190 mg/dL [facility] DPT OF LAB MED AND PAT+ A1A PHENOTYPE MM bands [facility] DPT OF LAB MED AND PAT+ Comment: (NOTE) A single M isoform is detected. In the context of a normal cddxy-7-pmdzpizudzt concentration, this is consistent with an MM phenotype. Blood 03/20/2018 11:2 2 AM EDT 03/20/2018 11:33 AM EDT Vee [facility] BLOOD ORDERABLES Final Result Performing Organization Address City/[facility] Co de Phone Number [facility] DPT OF LAB MED AND PAT+ [address] [place] [address] documented in this encounter Visit Diagnoses Diagnosis [...] documented as of this encounter Care Teams Flooring Helper Relationship Specialty Start Date End Date Phyllis Bello PA [address] [place] [address] PCP - General Aluminum Welder 08/09/17 03/02/23 Josy Hernandez MD [address] [place] [address] [email or web address] PCP - General Family Medicine 03/03/23 06/17/23 Phyllis Bello PA [address] [place] [address] PCP - General Physician Patient Scheduler 06/18/23 Zohra Saenz MD [address] [place] [address] Historical LMR Provider 07/09/17 2 Estelita Bobby NP [address] [place] [address] 2_[place] [address] [email or web address] Historical LMR Provider 07/09/17 10/01/21 Phyllis Bello PA [address] [place] [address] [place] [address] Historical LMR Provider 07/09/17 Nate Dockery MD [address] [place] [address], [address] [place] [address] [email or web address] Historical LMR Provider 07/09/17 2 Josy Hernandez MD [address] [place] [address] Insurance Assigned Provider 12/22/17 08/30/19 Nate Ritter MD [address] [place] [address], [address] [place] [address] Neurology 06/24/19 Prakash Tolentino MD [address] [place] [address] Insurance Assigned Provider 08/30/19 08/29/20 Rod Cunningham, [address] [address] iCMP Social Work 08/23/20 06/13/22 Josy Hernandez MD [address] [place] [address] Insurance Assigned Provider 08/29/20 02/27/21 Prakash Tolentino MD [address] [place] [address] [email or web address] Insurance Assigned Provider 02/27/21 04/02/21 Josy Hernandez MD [address] [place] [address] [email or web address] Insurance Assigned Provider 04/02/21 06/04/21 Prakash Tolentino MD [address] [place] [address] [email or web address] Insurance Assigned Provider 06/04/21 07/30/21 Josy Hernandez MD [address] [place] [address] [email or web address] Insurance Assigned Provider 07/30/21 06/03/22 Nate Ritter MD [address] [place], [place] [address] [place] [address] Neurology 01/10/22 Philip Lara DO [address] [place] [address] [email or web address] Geriatric Medicine 01/01/24 documented as of this encounter Additional Source Comments The information contained in this document represents components of the legal health record. It is not the complete legal health record.[facility]
--- OUTSIDE RECORDS SUMMARY | 2025-06-10 19:29 | XMS_ITS | Encounter Summary ---
Author Organization [facility] Address [address] [place] [address] [place] [address] Phone Care Team Providers Care Plant Breeder Scientist Name Role Phone Zohra Saenz MD Unavailable Estelita Bobby NP Unavailable Phyllis Bello Unavailable [phone] Nate Dockery MD Unavailable [phone] Phyllis Bello Primary Care Provider + Nate Ritter MD Unavailable [phone] Rod Cunningham Unavailable Josy Hernandez MD Unavailable + Prakash Tolentino MD Unavailable + Josy Hernandez MD Unavailable + Prakash Tolentino MD Unavailable + Josy Hernandez MD Unavailable + Nate Ritter MD Unavailable [phone] Josy Hernandez MD Primary Care Provider [phone] Phyllis Bello Primary Care Provider [phone] Philip Lara DO Unavailable Encounter Details Date Type Department Care Team (Late st Contact Info) Description 10/22/2020 Procedure Pass [facility], Ct Scan - [address] [address] Social History Tobacco Use Types Packs/Day Years [...] Description 01/08/2026 8:30 AM EDT Office Visit [facility] [address] [place] [address] Philip Lara DO [address] [place] [address] [email or web address] documented as of this encounter Visit Diagnoses [...] documented as of this encounter Care Teams Plant Breeder Scientist Relationship Specialty Start Date End Date Bello, Phyllis Renetta, PA [address] [place] [address] PCP - General Tobacco Sample Puller 08/09/17 03/02/23 Josy Hernandez MD [address] [place] [address] [email or web address] PCP - General Family Medicine 03/03/23 06/17/23 Phyllis Bello PA [address] [place] [address] PCP - General Physician Advance Seal Delivery System Maintainer 06/18/23 Zohra Saenz MD [address] [place] [address] Historical LMR Provider 07/09/17 2 Estelita Bobby NP [address] [place] [address] 2_[place] [address] [email or web address] Historical LMR Provider 07/09/17 10/01/21 Phyllis Bello PA [address] [place] [address] [place] [address] Historical LMR Provider 07/09/17 Nate Dockery MD [address] [place] [address], [address] [place] [address] [email or web address] Historical LMR Provider 07/09/17 2 Nate Ritter MD [address] [place] [address] [address] [place] [address] [email or web address] Neurology 06/24/19 Rod Cunningham, [facility] [address] [place] [address] [email or web address] Work 08/23/20 06/13/22 Josy Hernandez MD [address] [place] [address] [email or web address] Insurance Assigned Provider 08/29/20 02/27/21 Prakash Tolentino MD [address] [place] [address] [email or web address] Insurance Assigned Provider 02/27/21 04/02/21 Josy Hernandez MD [address] [place] [address] [email or web address] Insurance Assigned Provider 04/02/21 06/04/21 Prakash Tolentino MD [address] [place] [address] [email or web address] Insurance Assigned Provider 06/04/21 07/30/21 Josy Hernandez MD [address] [place] [address] [email or web address] Insurance Assigned Provider 07/30/21 06/03/22 Nate Ritter MD [address] [place] [address], [address] [place] [address] Neurology 01/10/22 Philip Lara DO [address] [place], [place] [phone] [email or web address] Geriatric Medicine 01/01/24 documented as of this encounter Additional Source Comments The information contained in this document represents components of the legal health record. It is not the complete legal health record.[facility]
--- OUTSIDE RECORDS SUMMARY | 2025-06-10 19:29 | XMS_ITS | Encounter Summary ---
Author Organization [facility] Address [address] [place] [address] [place] [address] Phone Care Team Providers Care Tin Can Feeder Name Role Phone Zohra Saenz MD Unavailable Estelita Bobby NP Unavailable [phone] Phyllis Bello Unavailable [phone] Nate Dockeyr MD Unavailable [phone] Phyllis Bello Primary Care Provider + Josy Hernandez MD Unavailable + Nate Ritter MD Unavailable [phone] Prakash Tolentino MD Unavailable + Rod Cunningham Unavailable [phone] Josy Hernandez MD Unavailable + Prakash Tolentino MD Unavailable + Josy Hernandez MD Unavailable + Prakash Tolentino MD Unavailable + Josy Hernandez MD Unavailable + Nate Ritter MD Unavailable [phone] Josy Hernandez MD Primary Care Provider [phone] Phyllis Bello Primary Care Provider [phone] Philip Lara DO Unavailable [phone] Encounter Details Date Type Department Care Team (Late Contact Info) Description 10/19/2017 Procedure Pass [facility] Endoscopy Admitting Dept Virtual Department [address] [place] [address] Social History Tobacco Use Types Packs/Day Years [...] Upcoming Encounters Date Type Department Care Team ([facility] Contact Info) Description 01/08/2026 8:30 AM EDT Office Visit [facility] [address] [place] [address] Philip Lara DO [address] [place] [address] [email or web address] documented as of this encounter [...] documented as of this encounter Care Teams Tin Can Feeder Relationship Specialty Start Date End Date Phyllis Bello PA [address] [place] [address] PCP - General Vp Ancillary 08/09/17 03/02/23 Josy Hernandez MD [address] [place] [address] [email or web address] PCP - General Family Medicine 03/03/23 06/17/23 Phyllis Bello PA [address] [place] [address] PCP - General Physician Psychiatric Social Worker 06/18/23 SalazarZohra De La Garza MD [address] [place] [address] Historical LMR Provider 07/09/17 2 Estelita Bobby INTERNAL RECRUITER [address] [place] [address] 2_[place] [address] [email or web address] Historical LMR Provider 07/09/17 10/01/21 Phyllis Bello PA [address] [place] [address] [place] [address] Historical LMR Provider 07/09/17 Nate Dockery MD [address] [place] [address], [address] [place] [address] [email or web address] Historical LMR Provider 07/09/17 2 Josy Hernandez MD [address] [place] [address] [email or web address] Insurance Assigned Provider 12/22/17 08/30/19 Nate Ritter MD [address] [place] [address], [address] [place] [address] [email or web address] Neurology 06/24/19 Prakash Tolentino MD [address] [place] [address] [email or web address] Insurance Assigned Provider 08/30/19 08/29/20 Rod Cunningham [address] [address] [email or web address] Social Work 08/23/20 06/13/22 Josy Hernandez MD [address] [place] [address] [email or web address] Insurance Assigned Provider 08/29/20 02/27/21 Prakash Tolentino MD [address] [place] [address] [email or web address] Insurance Assigned Provider 02/27/21 04/02/21 Josy Hernandez MD [address] [place] [address] [email or web address] Insurance Assigned Provider 04/02/21 06/04/21 Prakash Tolentino MD [address] [place] [address] [email or web address] Insurance Assigned Provider 06/04/21 07/30/21 Josy Hernandez MD [address] [place] [address] [email or web address] Insurance Assigned Provider 07/30/21 06/03/22 Nate Rtiter MD [address] [place] [address], [address] [place] [address] [email or web address] Neurology 01/10/22 Philip Lara DO [address] [place] [address] [email or web address] Geriatric Medicine 01/01/24 documented as of this encounter Additional Source Comments The information contained in this document represents components of the legal health record. It is not the complete legal health record.[facility]
--- OUTSIDE RECORDS SUMMARY | 2025-06-10 19:29 | XMS_ITS | Encounter Summary ---
Author Organization [facility] Address [address] [place] [address] [place] [address] Phone Care Team Providers Care Research And Development Scientist Name Role Phone Zohra Saenz MD Unavailable Estelita Bobby NP Unavailable Phyllis Bello Unavailable [phone] Nate Dockery MD Unavailable [phone] Phyllis Bello Primary Care Provider + Nate Ritter MD Unavailable +[phone] Rod Cunningham Unavailable [phone] Josy Hernandez MD Unavailable + Prakash Tolentino MD Unavailable + Josy Hernandez MD Unavailable + Prakash Tolentino MD Unavailable + Josy Hernandez MD Unavailable + Nate Ritter MD Unavailable +[phone] Josy Hernandez MD Primary Care Provider +[phone] Phyllis Bello Primary Care Provider +[phone] Philip Lara DO Unavailable Encounter Details Date Type Department Care Team (Late st Contact Info) Description 12/01/2020 Procedure Pass [facility], Ct Scan - [address] [address] Social History Tobacco Use Types Packs/Day Years [...] Description 01/08/2026 8:30 AM EDT Office Visit [facility] Ger[facility] 22 [place] [address] Philip Lara DO 22 [place] [address] [email or web address] documented as [...] documented as of this encounter Care Teams Research And Development Scientist Relationship Specialty Start Date End Date Bello, Phyllis Renetta, PA [address] [place] [address] PCP - General Merchandise Director 08/09/17 03/02/23 Josy Hernandez MD [address] [place] [address] [email or web address] PCP - General Family Medicine 03/03/23 06/17/23 Phyllis Bello PA [address] [place] [address] PCP - General Physician Airline Stewardess 06/18/23 Zohra Saenz MD [address] [place] [address] Historical LMR Provider 07/09/17 2 Estelita Bobby NP [address] [place] [address] 2_[place] [address] [email or web address] Historical LMR Provider 07/09/17 10/01/21 Phyllis Bello PA [address] [place] [address] [place] [address] Historical LMR Provider 07/09/17 Nate Dockery MD [address] [place] [address], [address] [place] [address] [email or web address] Historical LMR Provider 07/09/17 2 Nate Ritter MD [address] [place] [address] [address] [place] [address] [email or web address] Neurology 06/24/19 Rod Cunningham, [facility] [address] [place] [address] [email or web address] iCMP Social Work 08/23/20 06/13/22 Josy Hernandez MD [address] [place] [address] [email or web address] Insurance Assigned Provider 08/29/20 02/27/21 Prakash Tolentino MD [address] [place] [address] [email or web address] Insurance Assigned Provider 02/27/21 04/02/21 Josy Hernandez MD [address] [place] [address] [email or web address] Insurance Assigned Provider 04/02/21 06/04/21 Prakash Tolentino MD [address] [place] [address] [email or web address] Insurance Assigned Provider 06/04/21 07/30/21 Josy Hernandez MD [address] [place] [address] [email or web address] Insurance Assigned Provider 07/30/21 06/03/22 Nate Ritter MD [address] [place] [address], [address] [place] [address] Neurology 01/10/22 Philip Lara DO [address] [place], [place] [address] [email or web address] Geriatric Medicine 01/01/24 documented as of this encounter Additional Source Comments The information contained in this document represents components of the legal health record. It is not the complete legal health record.[facility]
--- OUTSIDE RECORDS SUMMARY | 2025-06-10 19:29 | XMS_ITS | Encounter Summary ---
Author Organization [facility] Address [address] [place] [address] [place] [address] Phone Care Team Providers Care Director Of Channel Marketing Name Role Phone Zohra Saenz MD Unavailable Estelita Bobby NP Unavailable [phone] Phyllis Bello Unavailable +[phone] Nate Dockery MD Unavailable [phone] Phyllis Bello Primary Care Provider + Josy Hernandez MD Unavailable + Nate Ritter MD Unavailable +[phone] Prakash Tolentino MD Unavailable + Rod Cunningham Unavailable [phone] Josy Hernandez MD Unavailable + Prakash Tolentino MD Unavailable + Josy Hernandez MD Unavailable + Prakash Tolentino MD Unavailable + Josy Hernandez MD Unavailable + Nate Ritter MD Unavailable +[phone] Josy Hernandez MD Primary Care Provider +1- Phyllis Bello Primary Care Provider +[phone] Philip Lara DO Unavailable Encounter Details Date Type Department Care Team (Late st Contact Info) Description 10/09/2017 Procedure Pass [facility], Ct Scan - [facility] [address] [place] [address] Social History Tobacco Use Types Packs/Day Years [...] 01/08/2026 8:30 AM EDT Office Visit [facility] Geriatrics [address] [place] [address] Philip Lara, [address] [place] [address] [email or web address] documented as of this encounter Visit Diagnoses [...] documented as of this encounter Care Teams Director Of Channel Marketing Relationship Specialty Start Date End Date Phyllis Bello PA [address] [place] [address] PCP - General Repair Tech 08/09/17 03/02/23 Josy Hernandez MD [address] [place] [address] [email or web address] PCP - General Family Medicine 03/03/23 06/17/23 Phyllis Bello PA [address] [place] [address] PCP - General Physician Railroad Shop Inspector 06/18/23 Zohra Saenz MD [address] [place] [address] Historical LMR Provider 07/09/17 2 Estelita Bobby NP [address] [place] [address] 2_[place] [address] [email or web address] Historical LMR Provider 07/09/17 10/01/21 Phyllis Bello PA [address] [place] [address] [place] [id number] Historical LMR Provider 07/09/17 Nate Dockery MD [address] [place] [address], [address] [place] [address] [email or web address] Historical LMR Provider 07/09/17 2 Josy Hernandez MD [address] [place] [address] [email or web address] Insurance Assigned Provider 12/22/17 08/30/19 Nate Ritter MD [address] [place] [address], [address] [place] [address] [email or web address] Neurology 06/24/19 Prakash Tolentino MD [address] [place] [address] [email or web address] Insurance Assigned Provider 08/30/19 08/29/20 Rod Cunningham [address] [address] [email or web address] iCMP Social Work 08/23/20 06/13/22 Josy Hernandez MD [address] [place] [address] [email or web address] Insurance Assigned Provider 08/29/20 02/27/21 Prakash Tolentino MD [address] [place] [address] [email or web address] Insurance Assigned Provider 02/27/21 04/02/21 Josy Hernandez MD [address] [place] [address] [email or web address] Insurance Assigned Provider 04/02/21 06/04/21 Prakash Tolentino MD [address] [place] [address] [email or web address] Insurance Assigned Provider 06/04/21 07/30/21 Josy Hernandez MD [address] [place] [address] [email or web address] Insurance Assigned Provider 07/30/21 06/03/22 Nate Ritter MD [address] [place] [address], [address] [place] [address] [email or web address] Neurology 01/10/22 Philip Lara DO [address] [place] [address] [email or web address] Geriatric Medicine 01/01/24 documented as of this encounter Additional Source Comments The information contained in this document represents components of the legal health record. It is not the complete legal health record.[facility]
--- OUTSIDE RECORDS SUMMARY | 2025-06-10 19:29 | XMS_ITS | Encounter Summary ---
Author Organization [facility] Address [email or web address] [place] [address] Phone Care Team Providers Care Lgsw Name Role Phone Phyllis Bello Unavailable [phone] Nate Ritter MD Unavailable [phone] Nate Ritter MD Unavailable [phone] Phyllis Bello Primary Care Provider [phone] Philip Lara DO Unavailable Encounter Details Date Type Department Care Team (Late st Contact Info) Description 10/30/2024 Procedure Pass [facility], Ct Scan - [address] [id number] Social History Tobacco Use Types Packs/Day Years [...] 8:30 AM EDT Office Visit [facility] Geriatrics [address] [place] [address] [place] [address] Philip Lara, [address] [place] [address] documented as of this encounter Visit Diagnoses [...] documented as of this encounter Care Teams Lgsw Relationship Specialty Start Date End Date Phyllis Bello PA [address] [place] [address] PCP - General Physician Bench Hand Machine 06/18/23 Phyllis Bello PA [address] [place] [address] [place] [address] Historical LMR Provider 07/09/17 Nate Ritter MD [address] [place] [address] Neurology 06/24/19 Nate Ritter MD [address] [place] [address] Neurology 01/10/22 Philip Lara DO 22 [place] [address] [email or web address] Geriatric Medicine 01/01/24 documented as of this encounter Additional Source Comments The information contained in this document represents components of the legal health record. It is not the complete legal health record.[facility]
--- OUTSIDE RECORDS SUMMARY | 2025-06-10 19:29 | XMS_ITS | Encounter Summary ---
Author Organization [facility] Address [address] [place] [address] [place] [address] Phone Care Team Providers Care Undercar Specialist Name Role Phone Zohra Saenz MD Unavailable Estelita Bobby NP Unavailable [phone] Phyllis Bello Unavailable [phone] Nate Dockery MD Unavailable [phone] Phyllis Bello Primary Care Provider + Josy Hernandez MD Unavailable + Nate Ritter MD Unavailable [phone] Prakash Tolentino MD Unavailable + Rod Cunningham Unavailable [phone] Josy Hernandez MD Unavailable + Prakash Tolentino MD Unavailable + Josy Hernandez MD Unavailable + Prakash Tolentino MD Unavailable + Josy Hernandez MD Unavailable + Nate Ritter MD Unavailable +[phone] Josy Hernandez MD Primary Care Provider +[phone]- Phyllis Bello Primary Care Provider +[phone] Philip Lara DO Unavailable [phone] Encounter Details Date Type Department Care Team (Latest Contact Info) Description 07/08/2019 Transcribe Orders Virtual Department 30 [place] [address] Nate Ritter MD [address] [place] [address], [address] [place] [address] [email or web address] Episode of change in speech (Primary [...] Description 01/08/2026 8:30 AM EDT Office Visit [facility] Geriatrics 22 [place] [address] Philip Lara, [address] [place] [address] [email or web address] documented as of this encounter Visit Diagnoses [...] documented as of this encounter Care Teams Undercar Specialist Relationship Specialty Start Date End Date Phyllis Bello PA [address] [place] [address] PCP - General Supply Controller 08/09/17 03/02/23 Josy Hernandez MD [address] [place] [address] [email or web address] PCP - General Family Medicine 03/03/23 06/17/23 Phyllis Bello PA [address] [place] [address] PCP - General Physician [employer] 06/18/23 Zohra Saenz MD [address] [place] [address] Historical LMR Provider 07/09/17 2 Estelita Bobby NP [address] [place] [address] 2_[place] [address] [email or web address] Historical LMR Provider 07/09/17 10/01/21 Phyllis Bello PA [address] [place] [address] [place] [address] Historical LMR Provider 07/09/17 Nate Dockery MD [address] [place] [address], [address] [place] [address] [email or web address] Historical LMR Provider 07/09/17 2 Josy Hernandez MD [address] [place] [address] Insurance Assigned Provider 12/22/17 08/30/19 Nate Ritter MD [address] [place] [address], [address] [place] [address] Neurology 06/24/19 Prakash Tolentino MD [address] [place] [address] Insurance Assigned Provider 08/30/19 08/29/20 Rod Cunningham, [address] [address] iCMP Social Work 08/23/20 06/13/22 Josy Hernandez MD [address] [place] [address] Insurance Assigned Provider 08/29/20 02/27/21 Prakash Tolentino MD [address] [place] [address] Insurance Assigned Provider 02/27/21 04/02/21 Josy Hernandez MD [address] [place] [address] [email or web address] Insurance Assigned Provider 04/02/21 06/04/21 Prakash Tolentino MD [address] [place] [address] [email or web address] Insurance Assigned Provider 06/04/21 07/30/21 Josy Hernandez MD [address] [place] [address] [email or web address] Insurance Assigned Provider 07/30/21 06/03/22 Nate Ritter MD [address] [place] [address], [address] [place] [address] Neurology 01/10/22 Philip Lara DO [address] [place] [address] [email or web address] Geriatric Medicine 01/01/24 documented as of this encounter Additional Source Comments The information contained in this document represents components of the legal health record. It is not the complete legal health record.[facility]
--- OUTSIDE RECORDS SUMMARY | 2025-06-10 19:29 | XMS_ITS | Encounter Summary ---
Author Organization [facility] Address [address] [place] [address] [place] [address] Phone Care Team Providers Care Manufacturers Agent Name Role Phone Zohra Saenz MD Unavailable Estelita Bobby NP Unavailable Phyllis Bello Unavailable [phone] Nate Dockery MD Unavailable [phone] Phyllis Bello Primary Care Provider [phone] Nate Rittre MD Unavailable [phone] Prakash Tolentino MD Unavailable +[phone] Rod Cunningham Unavailable [phone] Josy Hernandez MD Unavailable +[phone] Prakash Tolentino MD Unavailable + Josy Hernandez MD Unavailable +[phone] Prakash Tolentino MD Unavailable + Josy Hernandez MD Unavailable +[phone] Nate Ritter MD Unavailable [phone] Josy Hernandez MD Primary Care Provider [phone] Phyllis Bello Primary Care Provider [phone] Philip Lara DO Unavailable Encounter Details Date Type Department Care Team (Late st Contact Info) Description 05/15/2020 Procedure Pass [facility], Ct Scan - [facility] 30 [place] [address] Social History Tobacco Use Types Packs/Day Years [...] Description 01/08/2026 8:30 AM EDT Office Visit [facility] Geriatrics 22 [place] [address] Philip Lara, [address] [place] [address] [email or web address] documented as of this encounter Visit Diagnoses [...] documented as of this encounter Care Teams Manufacturers Agent Relationship Specialty Start Date End Date Phyllis Bello PA [address] [place] [address] PCP - General Command And Control 08/09/17 03/02/23 Josy Hernandez MD [address] [place] [address] [email or web address] PCP - General Family Medicine 03/03/23 06/17/23 Phyllis Bello PA [address] [place] [address] PCP - General Physician Video Production Specialist 06/18/23 Zohra Cisneros MD [address] [place] [address] Historical LMR Provider 07/09/17 2 Estelita Bobby NP [address] [place] [address] 2_[place] [address] [email or web address] Historical LMR Provider 07/09/17 10/01/21 Phyllis Bello PA [address] [place] [address] [place] [address] Historical LMR Provider 07/09/17 Nate Dockery MD [address] [place] [address], [address] [place] [address] [email or web address] Historical LMR Provider 07/09/17 2 Nate Ritter MD [address] [place] [address], [address] [place] [address] [email or web address] Neurology 06/24/19 Prakash Tolentino MD [address] [place] [address] [email or web address] Insurance Assigned Provider 08/30/19 08/29/20 Rod Cunningham, [address] [address] [email or web address] Work 08/23/20 06/13/22 Josy Hernandez MD [address] [place] [address] [email or web address] Insurance Assigned Provider 08/29/20 02/27/21 Prakash Tolentino MD [address] [place] [address] [email or web address] Insurance Assigned Provider 02/27/21 04/02/21 Josy Hernandez MD [address] [place] [address] [email or web address] Insurance Assigned Provider 04/02/21 06/04/21 Prakash Tolentino MD [address] [place] [address] [email or web address] Insurance Assigned Provider 06/04/21 07/30/21 Josy Hernandez MD [address] [place] [address] [email or web address] Insurance Assigned Provider 07/30/21 06/03/22 Nate Ritter MD [address] [place] [address], [address] [place] [address] Neurology 01/10/22 Philip Lara DO [address] [place] [address] Geriatric Medicine 01/01/24 documented as of this encounter Additional Source Comments The information contained in this document represents components of the legal health record. It is not the complete legal health record.[facility]
--- OUTSIDE RECORDS SUMMARY | 2025-06-10 19:29 | XMS_ITS | Encounter Summary ---
Author Organization [facility] Address [address] [place] [address] [place] [address] Phone Care Team Providers Care Motion Graphics Artist Name Role Phone Zohra Saenz MD Unavailable Estelita Bobby NP Unavailable [phone] Phyllis Bello Unavailable +[phone] Nate Dockery MD Unavailable [phone] Phyllis Bello Primary Care Provider + Josy Hernandez MD Unavailable + Nate Ritter MD Unavailable [phone] Prakash Tolentino MD Unavailable + Rod Cunningham Unavailable [phone] Josy Hernandez MD Unavailable + Prakash Tolentino MD Unavailable + Josy Hernandez MD Unavailable + Prakash Tolentino MD Unavailable + Josy Hernandez MD Unavailable + Nate Ritter MD Unavailable +[phone] Josy Hernandez MD Primary Care Provider +1- Phyllis Bello Primary Care Provider +[phone] Philip Lara DO Unavailable Encounter Details Date Type Department Care Team (Late st Contact Info) Description 10/15/2017 Procedure Pass [facility], Ct Scan - [facility] [address] [place] [address] Social History Tobacco Use Types Packs/Day Years [...] Description 01/08/2026 8:30 AM EDT Office Visit [facility] Geriatrics [address] [place] [address] Philip Lara, [address] [place] [address] [email or web address] documented [...] documented as of this encounter Care Teams Motion Graphics Artist Relationship Specialty Start Date End Date Phyllis Bello PA [address] [place] [address] PCP - General Vp Training 08/09/17 03/02/23 Josy Hernandez MD [address] [place] [address] [email or web address] PCP - General Family Medicine 03/03/23 06/17/23 Phyllis Bello PA [address] [place] [address] PCP - General Physician Student Life Advisor 06/18/23 Zohra Saenz MD [address] [place] [address] Historical LMR Provider 07/09/17 2 Estelita Bobby NP [address] [place] [address] 2_[place] [address] [email or web address] Historical LMR Provider 07/09/17 10/01/21 Phyllis Bello PA [address] [place] [address] [place] [phone] Historical LMR Provider 07/09/17 Nate Dockery MD [address] [place] [address], [address] [place] [address] [email or web address] Historical LMR Provider 07/09/17 2 Josy Hernandez MD [address] [place] [address] [email or web address] Insurance Assigned Provider 12/22/17 08/30/19 Nate Ritter MD [address] [place] [address], [address] [place] [address] [email or web address] Neurology 06/24/19 Prakash Tolentino MD [address] [place] [address] [email or web address] Insurance Assigned Provider 08/30/19 08/29/20 Rod Cunningham [address] [address] [email or web address] iCMP Social Work 08/23/20 06/13/22 Josy Hernandez MD [address] [place] [address] [email or web address] Insurance Assigned Provider 08/29/20 02/27/21 Prakash Tolentino MD [address] [place] [address] [email or web address] Insurance Assigned Provider 02/27/21 04/02/21 Josy Hernandez MD [address] [place] [address] [email or web address] Insurance Assigned Provider 04/02/21 06/04/21 Prakash Tolentino MD [address] [place] [address] [email or web address] Insurance Assigned Provider 06/04/21 07/30/21 Josy Hernandez MD [address] [place] [address] [email or web address] Insurance Assigned Provider 07/30/21 06/03/22 Nate Ritter MD [address] [place] [address], [address] [place] [address] [email or web address] Neurology 01/10/22 Philip Lara DO [address] [place] [address] [email or web address] Geriatric Medicine 01/01/24 documented as of this encounter Additional Source Comments The information contained in this document represents components of the legal health record. It is not the complete legal health record.[facility]
--- OUTSIDE RECORDS SUMMARY | 2025-06-10 19:29 | XMS_ITS | Encounter Summary ---
Author Organization [facility] Address [address] [place] [address] [place] [address] Phone Care Team Providers Care Project Production Engineer Name Role Phone Zohra Saenz MD Unavailable Estelita Bobby NP Unavailable [phone] Phyllis Bello Unavailable +[phone] Nate Dockery MD Unavailable [phone] Phyllis Bello Primary Care Provider + Josy Hernandez MD Unavailable + Nate Ritter MD Unavailable +[phone] Prakash Tolentino MD Unavailable + Rod Cunningham Unavailable +[phone] Josy Hernandez MD Unavailable + Prakash Tolentino MD Unavailable + Josy Hernandez MD Unavailable + Prakash Tolentino MD Unavailable + Josy Hernandez MD Unavailable + Nate Ritter MD Unavailable +[phone] Josy Hernandez MD Primary Care Provider +[phone]- Phyllis Bello Primary Care Provider + [phone] Philip Lara DO Unavailable [phone] Encounter Details Date Type Department Care Team (Latest Contact Info) Description 07/08/2019 Transcribe Orders Virtual Department [address] [place] [address] Nate Ritter MD [address] [place] [address], [address] [place] [address] [email or web address] Episode of change in speech (Primary [...] Description 01/08/2026 8:30 AM EDT Office Visit [facility] [address] [place] [address] Philip Lara, [address] [place] [address] [email or web address] documented as of this encounter Results * [...] documented as of this encounter Care Teams Project Production Engineer Relationship Specialty Start Date End Date Phyllis Bello PA [address] [place] [address] PCP - General Hip Hop Dancer 08/09/17 03/02/23 Josy Hernandez MD [address] [place] [address] [email or web address] PCP - General Family Medicine 03/03/23 06/17/23 Phyllis Bello PA [address] [place] [address] PCP - General Physician Operations Vocational Instructor 06/18/23 Zohra Saenz MD [address] [place] [address] Historical LMR Provider 07/09/17 2 Estelita Bobby NP [address] [place] [address] 2_[place] [address] [email or web address] Historical LMR Provider 07/09/17 10/01/21 Phyllis Bello PA [address] [place] [address] [place] [address] Historical LMR Provider 07/09/17 Nate Dockery MD [address] [place] [address], [address] [place] [address] [email or web address] Historical LMR Provider 07/09/17 2 Josy Hernandez MD [address] [place] [address] Insurance Assigned Provider 12/22/17 08/30/19 Nate Ritter MD [address] [place] [address], [address] [place] [address] Neurology 06/24/19 Prakash Tolentino MD [address] [place] [address] Insurance Assigned Provider 08/30/19 08/29/20 Rod Cunningham [address] [address] iCMP Social Work 08/23/20 06/13/22 Josy Hernandez MD [address] [place] [address] [email or web address] Insurance Assigned Provider 08/29/20 02/27/21 Prakash Tolentino MD [address] [place] [address] [email or web address] Insurance Assigned Provider 02/27/21 04/02/21 Josy Hernandez MD [address] [place] [address] [email or web address] Insurance Assigned Provider 04/02/21 06/04/21 Prakash Tolentino MD [address] [place] [address] [email or web address] Insurance Assigned Provider 06/04/21 07/30/21 Josy Hernandez MD [address] [place] [address] [email or web address] Insurance Assigned Provider 07/30/21 06/03/22 Nate Ritter MD [address] [place] [address], [address] [place] [address] Neurology 01/10/22 Philip Lara DO [address] [place] [address] [email or web address] Geriatric Medicine 01/01/24 documented as of this encounter Additional Source Comments The information contained in this document represents components of the legal health record. It is not the complete legal health record.[facility]
--- OUTSIDE RECORDS SUMMARY | 2025-06-10 19:29 | XMS_ITS | Encounter Summary ---
Author Organization [facility] Address [address] [place] [address] [place] [address] Phone Care Team Providers Care Launch Check Out Name Role Phone Zohra Saenz MD Unavailable Estelita Bobby NP Unavailable Phyllis Bello Unavailable [phone] Nate Dockery MD Unavailable [phone] Phyllis Bello Primary Care Provider + [phone] Nate Ritter MD Unavailable +[phone] Rod CunninghamSW Unavailable [phone] Prakash Tolentino MD Unavailable +[phone] Josy Hernandez MD Unavailable +[phone] Nate Ritter MD Unavailable +[phone] Josy Hernandez MD Primary Care Provider [phone] Phyllis Bello Primary Care Provider + [phone] Philip Lara DO Unavailable [phone] Encounter Details Date Type Department Care Team (Late st Contact Info) Description 07/01/2021 Procedure Pass [facility], [address] [id number] Social History Tobacco Use Types Packs/Day Years [...] 01/08/2026 8:30 AM EDT Office Visit [facility] 22 [place] [address] Philip Lara DO [address] [place] [address] [email or web address] documented as of this encounter Visit [...] documented as of this encounter Care Teams Launch Check Out Relationship Specialty Start Date End Date Phyllis Bello PA [address] [place] [address] PCP - General Business Records Manager 08/09/17 03/02/23 Josy Hernandez MD [address] [place] [address] [email or web address] PCP - General Family Medicine 03/03/23 06/17/23 Phyllis Bello PA [address] [place] [address] PCP - General Physician Claim Taker 06/18/23 Zohra Saenz MD [address] [place] [address] Historical LMR Provider 07/09/17 2 Estelita Bobby, JOSEPHINE [address] [place] [address] 2_[place] [address] [email or web address] Historical LMR Provider 07/09/17 10/01/21 Phyllis Bello PA [address] [place] [address] [place] [address] Historical LMR Provider 07/09/17 Nate Dockery MD [address] [place] [address], [address] [place], [place] [phone] [email or web address] Historical LMR Provider 07/09/17 2 Nate Ritter MD [address] [place] [address], [address] [place], [place] [phone] Neurology 06/24/19 Rod Cunningham, [facility] [address] [place] [address] iCMP Social Work 08/23/20 06/13/22 Prakash Tolentino MD [address] [place] [address] Insurance Assigned Provider 06/04/21 07/30/21 Josy Hernandez MD [address] [place] [address] Insurance Assigned Provider 07/30/21 06/03/22 Nate Ritter MD [address] [place], [place] [address] [place] [address] Neurology 01/10/22 Philip Lara DO [address] [place] [address] [email or web address] Geriatric Medicine 01/01/24 documented as of this encounter Additional Source Comments The information contained in this document represents components of the legal health record. It is not the complete legal health record.[facility]
--- OUTSIDE RECORDS SUMMARY | 2025-06-10 19:29 | XMS_ITS | Encounter Summary ---
Author Organization [facility] Address [address] [place] [address] [place] [address] Phone Care Team Providers Care Supervisor Poultry Processing Name Role Phone Phyllis Bello Unavailable [phone] Phyllis Bello Primary Care Provider + [phone] Nate Ritter MD Unavailable +[phone] MarisaRodSW Unavailable [phone] Josy Hernandez MD Unavailable +[phone] Nate Ritter MD Unavailable +[phone] Josy Hernandez MD Primary Care Provider [phone] Phyllis Bello Primary Care Provider + [phone] Philip Lara DO Unavailable [phone] Encounter Details Date Type Department Care Team (Late st Contact Info) Description 01/08/2022 Procedure Pass [facility], Ct Scan - [address] [phone] Social History Tobacco Use Types Packs/Day Years [...] 3:00 PM EDT Rhina Carreon RN * [place] Suicide Severity Rating Scale (Screener/Recent Self-Report) Question [...] Office Visit [facility] [address] [place] [address] Philip Lara DO [address] [place] [address] [email or web address] documented as of this encounter Visit Diagnoses [...] documented as of this encounter Care Teams Supervisor Poultry Processing Relationship Specialty Start Date End Date Phyllis Bello PA [address] [place] [address] PCP - General Career Orientation Teacher 08/09/17 03/02/23 Josy Hernandez MD [address] [place] [address] PCP - General Family Medicine 03/03/23 06/17/23 Phyllis Bello PA [address] [place] [address] PCP - General Physician Cook Helper 06/18/23 Phyllis Bello PA [address] [place] [address] [place] [address] Historical LMR Provider 07/09/17 Nate Ritter MD [address] [place] [address], [address] [place] [address] Neurology 06/24/19 Rod Cunningham, [address] [address] iCMP Social Work 08/23/20 06/13/22 Josy Hernandez MD [address] [place] [address] Insurance Assigned Provider 07/30/21 06/03/22 Nate Ritter MD [address] [place] [address], [address] [place] [address] [email or web address] Neurology 01/10/22 Philip Lara DO [address] [place] [address] [email or web address] Geriatric Medicine 01/01/24 documented as of this encounter Additional Source Comments The information contained in this document represents components of the legal health record. It is not the complete legal health record.[facility]
--- OUTSIDE RECORDS SUMMARY | 2025-06-10 19:29 | XMS_ITS | Encounter Summary ---
Author Organization [facility] Address [address] [place] [address] [place] [address] Phone Care Team Providers Care Customer Service Representative Teacher Name Role Phone Zohra Saenz MD Unavailable Estelita Bobby NP Unavailable [phone] Phyllis Bello Unavailable +[phone] Nate Dockery MD Unavailable [phone] Phyllis Bello Primary Care Provider + Josy Hernandez MD Unavailable + Nate Ritter MD Unavailable [phone] Prakash Tolentino MD Unavailable + Rod Cunningham Unavailable [phone] Josy Hernandez MD Unavailable + Prakash Tolentino MD Unavailable + Josy Hernandez MD Unavailable + Prakash Tolentino MD Unavailable + Josy Hernandez MD Unavailable + Nate Ritter MD Unavailable [phone] Josy Hernandez MD Primary Care Provider +[phone]- Phyllis Bello Primary Care Provider +[phone] Philip Lara DO Unavailable Encounter Details Date Type Department Care Team (Late st Contact Info) Description 10/23/2017 Procedure Pass [facility], [address] [place] [address] Social History Tobacco Use Types Packs/Day Years [...] Description 01/08/2026 8:30 AM EDT Office Visit [facility] [address] [place] [address] Philip Lara, [address] [place] [address] [email or web address] documented as of this encounter Visit Diagnoses [...] documented as of this encounter Care Teams Customer Service Representative Teacher Relationship Specialty Start Date End Date Phyllis Bello PA [address] [place] [address] PCP - General Warp Doffer 08/09/17 03/02/23 Josy Hernandez MD [address] [place] [address] [email or web address] PCP - General Family Medicine 03/03/23 06/17/23 Phyllis Bello PA [address] [place] [address] PCP - General Physician Cake Stripper 06/18/23 Zohra Saenz MD [address] [place] [address] Historical LMR Provider 07/09/17 2 Estelita Bobby NP [address] [place] [address] 2_[place] [address] [email or web address] Historical LMR Provider 07/09/17 10/01/21 Phyllis Bello PA [address] [place] [address] [place] [address] Historical LMR Provider 07/09/17 Nate Dockery MD [address] [facility], [address] [place] [address] [email or web address] Historical LMR Provider 07/09/17 2 Josy Hernandez MD [address] [place] [address] [email or web address] Insurance Assigned Provider 12/22/17 08/30/19 Nate Ritter MD [address] [place] [address], [address] [place] [address] [email or web address] Neurology 06/24/19 Prakash Tolentino MD [address] [place] [address] [email or web address] Insurance Assigned Provider 08/30/19 08/29/20 Rod Cunningham [address] [address] [email or web address] iCMP Social Work 08/23/20 06/13/22 Josy Hernandez MD [address] [place] [address] [email or web address] Insurance Assigned Provider 08/29/20 02/27/21 Prakash Tolentino MD [address] [place] [address] [email or web address] Insurance Assigned Provider 02/27/21 04/02/21 Josy Hernandez MD [address] [place] [address] [email or web address] Insurance Assigned Provider 04/02/21 06/04/21 Prakash Tolentino MD [address] [place] [address] [email or web address] Insurance Assigned Provider 06/04/21 07/30/21 Josy Hernandez MD [address] [place] [address] [email or web address] Insurance Assigned Provider 07/30/21 06/03/22 Nate Ritter MD [address] [place], [place] [address] [place] [address] [email or web address] Neurology 01/10/22 Philip Lara DO [address] [place] [address] [email or web address] Geriatric Medicine 01/01/24 documented as of this encounter Additional Source Comments The information contained in this document represents components of the legal health record. It is not the complete legal health record.[facility]
--- OUTSIDE RECORDS SUMMARY | 2025-06-10 19:29 | XMS_ITS | Encounter Summary ---
Author Organization [facility] Address [address] [place] [address] [place] [address] Phone Care Team Providers Care District Fire Management Officer Name Role Phone Zohra Saenz MD Unavailable Estelita Bobby NP Unavailable [phone] Phyllis Bello Unavailable +[phone] Nate Dockery MD Unavailable [phone] Phyllis Bello Primary Care Provider + Josy Hernandez MD Unavailable + Nate Ritter MD Unavailable +[phone] Prakash Tolentino MD Unavailable + Rod Cunningham Unavailable +[phone] Josy Hernandez MD Unavailable + Prakash Tolentino MD Unavailable + Josy Hernandez MD Unavailable + Prakash Tolentino MD Unavailable + Josy Hernandez MD Unavailable + Nate Ritter MD Unavailable +[phone] Josy Hernandez MD Primary Care Provider +[phone]- Phyllis Bello Primary Care Provider +[phone] Philip Lara DO Unavailable [phone] Encounter Details Date Type Department Care Team (Late st Contact Info) Description 10/17/2017 Procedure Pass [facility], Ct Scan - [facility] [address] [place] [address] Social History Tobacco Use Types Packs/Day Years [...] 8:30 AM EDT Office Visit [facility] [address] [place] [address] Philip Lara, [address] [place] [address] [email or web address] documented as of this [...] documented as of this encounter Care Teams District Fire Management Officer Relationship Specialty Start Date End Date Phyllis Bello PA [address] [place] [address] PCP - General Teleprinter 08/09/17 03/02/23 Josy Hernandez MD [address] [place] [address] [email or web address] PCP - General Family Medicine 03/03/23 06/17/23 Phyllis Bello PA [address] [place] [address] PCP - General Physician Cash Sales Audit Clerk 06/18/23 Zohra Saenz MD [address] [place] [address] Historical LMR Provider 07/09/17 2 Estelita Bobby NP [address] [place] [address] 2_[place] [address] [email or web address] Historical LMR Provider 07/09/17 10/01/21 Phyllis Bello PA [address] [place] [address] [place] [phone] Historical LMR Provider 07/09/17 Nate Dockery MD [address] [place] [address], [address] [place] [address] [email or web address] Historical LMR Provider 07/09/17 2 Josy Hernandez MD [address] [place] [address] [email or web address] Insurance Assigned Provider 12/22/17 08/30/19 Nate Ritter MD [address] [place] [address], [address] [place] [address] [email or web address] Neurology 06/24/19 Prakash Tolentino MD [address] [place] [address] [email or web address] Insurance Assigned Provider 08/30/19 08/29/20 Rod Cunningham [address] [address] [email or web address] iCMP Social Work 08/23/20 06/13/22 Josy Hernandez MD [address] [place] [address] [email or web address] Insurance Assigned Provider 08/29/20 02/27/21 Prakash Tolentino MD [address] [place] [address] [email or web address] Insurance Assigned Provider 02/27/21 04/02/21 Josy Hernandez MD [address] [place] [address] [email or web address] Insurance Assigned Provider 04/02/21 06/04/21 Prakash Tolentino MD [address] [place] [address] [email or web address] Insurance Assigned Provider 06/04/21 07/30/21 Josy Hernandez MD [address] [place] [address] [email or web address] Insurance Assigned Provider 07/30/21 06/03/22 Nate Ritter MD [address] [place] [address], [address] [place] [address] [email or web address] Neurology 01/10/22 Philip Lara DO [address] [place] [address] [email or web address] Geriatric Medicine 01/01/24 documented as of this encounter Additional Source Comments The information contained in this document represents components of the legal health record. It is not the complete legal health record.[facility]
--- OUTSIDE RECORDS SUMMARY | 2025-06-10 19:29 | XMS_ITS | Encounter Summary ---
Author Organization [facility] Address [address] [place] [address] Phone Care Team Providers Care Date Puller Name Role Phone Phyllis Bello Unavailable [phone] Nate Ritter MD Unavailable [phone] Nate Ritter MD Unavailable +[phone] Phyllis Bello Primary Care Provider [phone] Philip Lara DO Unavailable [phone] Encounter Details Date Type Department Care Team (Late st Contact Info) Description 01/30/2025 Procedure Pass [facility], [address] [phone] Social History Tobacco Use Types Packs/Day Years [...] 6:29 AM EDT Lisa Obando RN * [place] Suicide Severity Rating Scale (Screener/Recent Self-Report) Question [...] Description 01/08/2026 8:30 AM EDT Office Visit [facility] [address] [place] [address] Philip Lara DO [address] [place] [address] [email or web address] documented as of this encounter Visit Diagnoses [...] documented as of this encounter Care Teams Date Puller Relationship Specialty Start Date End Date Phyllis Bello PA [address] [place] [address] PCP - General Physician City Planning Aide 06/18/23 Phyllis Bello PA [address] [place] [address] [place] [address] Historical LMR Provider 07/09/17 Nate Ritter MD [address] [place] [address], [address] [place] [address] [email or web address] Neurology 06/24/19 Nate Ritter MD [address] [place] [address], [address] [place] [address] Neurology 01/10/22 Philip Lara DO [address] [place] [address] [email or web address] Geriatric Medicine 01/01/24 documented as of this encounter Additional Source Comments The information contained in this document represents components of the legal health record. It is not the complete legal health record.[facility]
--- OUTSIDE RECORDS SUMMARY | 2025-06-10 19:30 | XMS_ITS | Encounter Summary ---
Author Organization [facility] Address [address] [place] [address] [place] [address] Phone Care Team Providers Care Feller Seam Operator Name Role Phone Zohra Saenz MD Unavailable Estelita Bobby NP Unavailable +[phone] Phyllis Bello Unavailable +[phone] Nate Dockery MD Unavailable [phone] Phyllis Bello Primary Care Provider + Josy Hernandez MD Unavailable + Nate Ritter MD Unavailable +[phone] Prakash Tolentino MD Unavailable + Rod Cunningham Unavailable +[phone] Josy Hernandez MD Unavailable + Prakash Tolentino MD Unavailable + Josy Hernandez MD Unavailable + Prakash Tolentino MD Unavailable + Josy Hernandez MD Unavailable + Nate Ritter MD Unavailable +[phone] Josy Hernandez MD Primary Care Provider +1- Phyllis Bello Primary Care Provider +[phone] Philip Lara DO Unavailable Encounter Details Date Type Department Care Team (Late st Contact Info) Description 06/04/2018 Procedure Pass [facility] Endoscopy Admitting Dept Virtual Department 30 [place] [address] Social History Tobacco Use Types Packs/Day Years [...] Description 01/08/2026 8:30 AM EDT Office Visit [facility] Geriatrics 22 [place] [address] Philip Lara, [address] [place] [address] [email or web address] documented as of [...] documented as of this encounter Care Teams Feller Seam Operator Relationship Specialty Start Date End Date Phyllis Bello PA [address] [place] [address] PCP - General Director Of Quality Control 08/09/17 03/02/23 Josy Hernandez MD [address] [place] [address] [email or web address] PCP - General Family Medicine 03/03/23 06/17/23 Phyllis Bello PA [address] [place] [address] PCP - General Physician Disaster Recovery Coordinator 06/18/23 Zohra Saenz MD [address] [place] [address] Historical LMR Provider 07/09/17 2 Estelita Bobby NP [address] [place] [address] 2_[place] [address] [email or web address] Historical LMR Provider 07/09/17 10/01/21 Phyllis Bello PA [address] [place] [address] [place] [phone] Historical LMR Provider 07/09/17 Nate Dockery MD [address] [facility], [address] [place] [address] [email or web address] Historical LMR Provider 07/09/17 2 Josy Hernandez MD [address] [place] [address] [email or web address] Insurance Assigned Provider 12/22/17 08/30/19 Nate Ritter MD [address] [place] [address], [address] [place] [address] [email or web address] Neurology 06/24/19 Prakash Tolentino MD [address] [place] [address] [email or web address] Insurance Assigned Provider 08/30/19 08/29/20 Rod Cunningham [address] [address] [email or web address] iCMP Social Work 08/23/20 06/13/22 Josy Hernandez MD [address] [place] [address] [email or web address] Insurance Assigned Provider 08/29/20 02/27/21 Prakash Tolentino MD [address] [place] [address] [email or web address] Insurance Assigned Provider 02/27/21 04/02/21 Josy Hernandez MD [address] [place] [address] [email or web address] Insurance Assigned Provider 04/02/21 06/04/21 Prakash Tolentino MD [address] [place] [address] [email or web address] Insurance Assigned Provider 06/04/21 07/30/21 Josy Hernandez MD [address] [place] [address] [email or web address] Insurance Assigned Provider 07/30/21 06/03/22 Nate Ritter MD [address] [place] [address], [address] [place] [address] [email or web address] Neurology 01/10/22 Philip Lara DO [address] [place] [address] [email or web address] Geriatric Medicine 01/01/24 documented as of this encounter Additional Source Comments The information contained in this document represents components of the legal health record. It is not the complete legal health record.[facility]
--- OUTSIDE RECORDS SUMMARY | 2025-06-10 19:30 | XMS_ITS | Encounter Summary ---
Author Organization [facility] Address [address] [place] [address] [place] [address] Phone Care Team Providers Care Emergency Planning And Response Manager Name Role Phone Zohra Saenz MD Unavailable Estelita Bobby NP Unavailable [phone] Phyllis Bello Unavailable +[phone] Nate Dockery MD Unavailable [phone] Phyllis Bello Primary Care Provider + Josy Hernandez MD Unavailable + Nate Ritter MD Unavailable +[phone] Prakash Tolentino MD Unavailable + Rod Cunningham Unavailable [phone] Josy Hernandez MD Unavailable + Prakash Tolentino MD Unavailable + Josy Hernandez MD Unavailable + Prakash Tolentino MD Unavailable + Josy Hernandez MD Unavailable + Nate Ritter MD Unavailable +[phone] Josy Hernandez MD Primary Care Provider +1- Phyllis Bello Primary Care Provider +- [phone] Marco Philip Dash DO Unavailable Encounter Details Date Type Department Care Team (Late Contact Info) Description 03/26/2018 Ancillary Orders Virtual Department 30 [place] [address] Vee Peraza PA [address] [place] [address] Hepatic cirrhosis, unspecified hepatic cirrhosis type, unspecified [...] 8:30 AM EDT Office Visit [facility] Ger[facility]s 22 [place] [address] MarcoPhilip quiroz, [address] [place] [address] [email or web address] documented as of this encounter Results * [...] changed. TOTAL CTDIvol: 6.8 mGy POS - [id number] Edited by: Kaylynn Stevens on 04/30/2018 12:05 [...] changed. TOTAL CTDIvol: 6.8 mGy POS - [id number] Edited by: Kaylynn Stevens on 04/30/2018 12:05 [...] documented as of this encounter Care Teams Emergency Planning And Response Manager Relationship Specialty Start Date End Date Phyllis Bello PA [address] [place] [address] PCP - General Char Filter Tank Tender Head 08/09/17 03/02/23 Josy Hernandez MD [address] [place] [address] [email or web address] PCP - General Family Medicine 03/03/23 06/17/23 Phyllis Bello PA [address] [place] [address] PCP - General Physician Snake Charmer 06/18/23 SalazarZohra Cisneros MD [address] [place] [address] Historical LMR Provider 07/09/17 2 Estelita Bobby NP [address] [place] [address] 2_[place] [address] [email or web address] Historical LMR Provider 07/09/17 10/01/21 Phyllis Bello PA [address] [place] [address] [place] [phone] Historical LMR Provider 07/09/17 Nate Dockery MD [address] [place] [address], [address] [place] [address] [email or web address] Historical LMR Provider 07/09/17 2 Josy Hernandez MD [address] [place] [address] [email or web address] Insurance Assigned Provider 12/22/17 08/30/19 Nate Ritter MD [address] [place] [address], [address] [place] [address] [email or web address] Neurology 06/24/19 Prakash Tolentino MD [address] [place] [address] [email or web address] Insurance Assigned Provider 08/30/19 08/29/20 Rod Cunningham [address] [address] [email or web address] iCMP Social Work 08/23/20 06/13/22 Josy Hernandez MD [address] [place] [address] [email or web address] Insurance Assigned Provider 08/29/20 02/27/21 Prakash Tolentino MD [address] [place] [address] [email or web address] Insurance Assigned Provider 02/27/21 04/02/21 Josy Hernandez MD [address] [place] [address] [email or web address] Insurance Assigned Provider 04/02/21 06/04/21 Prakash Tolentino MD [address] [place] [address] [email or web address] Insurance Assigned Provider 06/04/21 07/30/21 Josy Hernandez MD [address] [place] [address] Insurance Assigned Provider 07/30/21 06/03/22 Nate Ritter MD [address] [place] [address], [address] [place] [address] [email or web address] Neurology 01/10/22 Philip Lara DO [address] [place] [address] [email or web address] Geriatric Medicine 01/01/24 documented as of this encounter Additional Source Comments The information contained in this document represents components of the legal health record. It is not the complete legal health record.[facility]
--- OUTSIDE RECORDS SUMMARY | 2025-06-10 19:30 | XMS_ITS | Encounter Summary ---
Author Organization [facility] Address [address] [place] [address] [place] [address] Phone Care Team Providers Care Freight Conductor Name Role Phone Zohra Saenz MD Unavailable Estelita Bobby NP Unavailable [phone] Phyllis Bello Unavailable +[phone] Nate Dockery MD Unavailable [phone] Phyllis Bello Primary Care Provider + Josy Hernandez MD Unavailable + Nate Rtiter MD Unavailable [phone] Prakash Tolentino MD Unavailable + Rod Cunningham Unavailable [phone] Josy Hernandez MD Unavailable + Prakash Tolentino MD Unavailable + Josy Hernandez MD Unavailable + Prakash Tolentino MD Unavailable + Josy Hernandez MD Unavailable + Nate Ritter MD Unavailable +[phone] Josy Hernandez MD Primary Care Provider +1- Phyllis Bello Primary Care Provider +[phone] Philip Lara DO Unavailable Encounter Details Date Type Department Care Team (Late Contact Info) Description 03/22/2018 Procedure Pass [facility] Endoscopy Admitting Dept Virtual Department 30 [place] [address] Social History Tobacco Use Types Packs/Day Years [...] Description 01/08/2026 8:30 AM EDT Office Visit [facility] Geriatrics 22 [place] [address] Philip Lara DO [address] [place] [address] [email or web address] documented as of this encounter Visit Diagnoses [...] documented as of this encounter Care Teams Freight Conductor Relationship Specialty Start Date End Date Phyllis Bello PA [address] [place] [address] PCP - General Scoop Machine Operator 08/09/17 03/02/23 Josy Hernandez MD [address] [place] [address] [email or web address] PCP - General Family Medicine 03/03/23 06/17/23 Phyllis Bello PA [address] [place] [address] PCP - General Physician Envelope Sealing Machine Operator 06/18/23 Zohra Saenz MD [address] [place] [address] Historical LMR Provider 07/09/17 2 Estelita Bobby NP [address] [place] [address] 2_[place] [address] [email or web address] Historical LMR Provider 07/09/17 10/01/21 Phyllis Bello PA [address] [place] [address] [place] [phone] Historical LMR Provider 07/09/17 Nate Dockery MD 22 [facility], [address] [place] [address] [email or web address] Historical LMR Provider 07/09/17 2 Josy Hernandez MD [address] [place] [address] [email or web address] Insurance Assigned Provider 12/22/17 08/30/19 Nate Ritter MD [address] [place] [address], [address] [place] [address] [email or web address] Neurology 06/24/19 Prakash Tolentino MD [address] [place] [address] [email or web address] Insurance Assigned Provider 08/30/19 08/29/20 Rod Cunningham [address] [address] [email or web address] iCMP Social Work 08/23/20 06/13/22 Josy Hernandez MD [address] [place] [address] [email or web address] Insurance Assigned Provider 08/29/20 02/27/21 Prakash Tolentino MD [address] [place] [address] [email or web address] Insurance Assigned Provider 02/27/21 04/02/21 Josy Hernandez MD [address] [place] [address] [email or web address] Insurance Assigned Provider 04/02/21 06/04/21 Prakash Tolentino MD [address] [place] [address] [email or web address] Insurance Assigned Provider 06/04/21 07/30/21 Josy Hernandez MD [address] [place] [address] [email or web address] Insurance Assigned Provider 07/30/21 06/03/22 Nate Ritter MD [address] [place] [address], [address] [place] [address] [email or web address] Neurology 01/10/22 Philip Lara DO [address] [place] [address] [email or web address] Geriatric Medicine 01/01/24 documented as of this encounter Additional Source Comments The information contained in this document represents components of the legal health record. It is not the complete legal health record.[facility]
--- OUTSIDE RECORDS SUMMARY | 2025-06-10 19:30 | XMS_ITS | Encounter Summary ---
Author Organization [facility] Address [address] [place] [address] [place] [address] Phone Care Team Providers Care Customer Support Consultant Name Role Phone Zohra Saenz MD Unavailable Estelita Bobby NP Unavailable [phone] Phyllis Bello Unavailable +[phone] Nate Dockery MD Unavailable [phone] Phyllis Bello Primary Care Provider + Josy Hernandez MD Unavailable + Nate Ritter MD Unavailable +[phone] Prakash Tolentino MD Unavailable + Rod Cunningham Unavailable [phone] Josy Hernandez MD Unavailable + Prakash Tolentino MD Unavailable + Josy Hernandez MD Unavailable + Prakash Tolentino MD Unavailable + Josy Hernandez MD Unavailable + Nate Ritter MD Unavailable +[phone] Josy Hernandez MD Primary Care Provider +1- Phyllis Bello Primary Care Provider +- [phone] Philip Lara DO Unavailable [phone] Encounter Details Date Type Department Care Team (Late Contact Info) Description 11/12/2018 Ancillary Orders Virtual Department 30 [place] [address] Nate Ritter MD [address] [place] [address], [address] [place] [address] [email or web address] TIA (transient ischemic attack) Social History [...] Description 01/08/2026 8:30 AM EDT Office Visit [facility] Geriatrics [address] [place] [address] Philip Lara, [address] [place] [address] [email or web address] documented as of this encounter Visit Diagnoses [...] as of this encounter Care Teams Customer Support Consultant Relationship Specialty Start Date End Date Phyllis Bello PA [address] [place] [address] PCP - General Associate Project Manager 08/09/17 03/02/23 Josy Hernandez MD [address] [place] [address] [email or web address] PCP - General Family Medicine 03/03/23 06/17/23 Phyllis Bello PA [address] [place] [address] PCP - General Physician Weatherization Administrator 06/18/23 Zohra Saenz MD [address] [place] [address] Historical LMR Provider 07/09/17 2 Estelita Bobby NP [address] [place] [address] 2_[place] [address] [email or web address] Historical LMR Provider 07/09/17 10/01/21 Phyllis Bello PA [address] [place] [address] [place] [phone] Historical LMR Provider 07/09/17 Nate Dockery MD [address] [place] [address], [address] [place] [address] [email or web address] Historical LMR Provider 07/09/17 2 Josy Hernandez MD [address] [place] [address] Insurance Assigned Provider 12/22/17 08/30/19 Nate Ritter MD [address] [place] [address], [address] [place] [address] Neurology 06/24/19 Prakash Tolentino MD [address] [place] [address] Insurance Assigned Provider 08/30/19 08/29/20 Rod Cunningham, [address] [address] iCMP Social Work 08/23/20 06/13/22 Josy Hernandez MD [address] [place] [address] Insurance Assigned Provider 08/29/20 02/27/21 Prakash Tolentino MD [address] [place] [address] Insurance Assigned Provider 02/27/21 04/02/21 Josy Hernandez MD [address] [place] [address] Insurance Assigned Provider 04/02/21 06/04/21 Prakash Tolentino MD [address] [place] [address] Insurance Assigned Provider 06/04/21 07/30/21 Josy Hernandez MD [address] [place] [address] Insurance Assigned Provider 07/30/21 06/03/22 Nate Ritter MD [address] [place], [place] [address] [place] [address] Neurology 01/10/22 Philip Lara DO [address] [place] [address] [email or web address] Geriatric Medicine 01/01/24 documented as of this encounter Additional Source Comments The information contained in this document represents components of the legal health record. It is not the complete legal health record.[facility]
--- OUTSIDE RECORDS SUMMARY | 2025-06-10 19:30 | XMS_ITS | Encounter Summary ---
Author Organization [facility] Address [address] [place] [address] [place] [address] Phone Care Team Providers Care Pattern Storage Clerk Name Role Phone Zohra Saenz MD Unavailable Estelita Bobby NP Unavailable +[phone] Phyllis Bello Unavailable +[phone] Nate Dockery MD Unavailable [phone] Phyllis Bello Primary Care Provider + Josy Hernandez MD Unavailable + Nate Ritter MD Unavailable +[phone] Prakash Tolentino MD Unavailable + Rod Cunningham Unavailable [phone] Josy Hernandez MD Unavailable + Prakash Tolentino MD Unavailable + Josy Hernandez MD Unavailable + Prakash Tolentino MD Unavailable + Josy Hernandez MD Unavailable + Nate Ritter MD Unavailable +[phone] Josy Hernandez MD Primary Care Provider +1- Phyllis Bello Primary Care Provider +[phone] Philip Lara DO Unavailable [phone] Encounter Details Date Type Department Care Team (Late Contact Info) Description 03/26/2018 Procedure Pass [employer] [address] [place] [address] Social History Tobacco Use Types Packs/Day Years [...] AM EDT Office Visit [facility]iatrics 22 [place] [address] Philip Lara, [address] [place] [address] [email or web address] documented as of this encounter Visit Diagnoses [...] documented as of this encounter Care Teams Pattern Storage Clerk Relationship Specialty Start Date End Date Phyllis Bello PA [address] [place] [address] PCP - General Elevator Serviceman 08/09/17 03/02/23 Josy Hernandez MD 10 [place] [address] [email or web address] PCP - General Family Medicine 03/03/23 06/17/23 Phyllis Bello PA [address] [place] [address] PCP - General Physician After School Program Coordinator 06/18/23 Zohra Saenz MD [address] [place] [address] Historical LMR Provider 07/09/17 2 Estelita Bobby NP [address] [place] [address] 2_[place] [address] [email or web address] Historical LMR Provider 07/09/17 10/01/21 Phyllis Bello PA [address] [place] [address] [place] [address] Historical LMR Provider 07/09/17 Nate Dockery MD 22 [facility], [address] [place] [address] [email or web address] Historical LMR Provider 07/09/17 2 Josy Hernandez MD [address] [place] [address] [email or web address] Insurance Assigned Provider 12/22/17 08/30/19 Nate Ritter MD [address] [place] [address], [address] [place] [address] [email or web address] Neurology 06/24/19 Prakash Tolentino MD [address] [place] [address] [email or web address] Insurance Assigned Provider 08/30/19 08/29/20 Rod Cunningham, [address] [address] [email or web address] iCMP Social Work 08/23/20 06/13/22 Josy Hernandez MD [address] [place] [address] [email or web address] Insurance Assigned Provider 08/29/20 02/27/21 Prakash Tolentino MD [address] [place] [address] [email or web address] Insurance Assigned Provider 02/27/21 04/02/21 Josy Hernandez MD [address] [place] [address] [email or web address] Insurance Assigned Provider 04/02/21 06/04/21 Prakash Tolentino MD [address] [place] [address] [email or web address] Insurance Assigned Provider 06/04/21 07/30/21 Josy Hernandez MD [address] [place] [address] [email or web address] Insurance Assigned Provider 07/30/21 06/03/22 Nate Ritter MD [address] [place], [place] [address] [place] [address] [email or web address] Neurology 01/10/22 Philip Lara DO [address] [place] [address] [email or web address] Geriatric Medicine 01/01/24 documented as of this encounter Additional Source Comments The information contained in this document represents components of the legal health record. It is not the complete legal health record.[facility]
--- OUTSIDE RECORDS SUMMARY | 2025-06-10 19:30 | XMS_ITS | Encounter Summary ---
Author Organization [facility] Address [address] [place] [address] [place] [phone] Phone Care Team Providers Care Community Service Officer Name Role Phone Zohra Saenz MD Unavailable Estelita Bobby NP Unavailable [phone] Phyllis Bello Unavailable [phone] Nate Dockery MD Unavailable [phone] Phyllis Bello Primary Care Provider + Josy Hernandez MD Unavailable + Nate Ritter MD Unavailable [phone] Prakash Tolentino MD Unavailable + Rod Cunningham Unavailable [phone] Josy Hernandez MD Unavailable + Prakash Tolentino MD Unavailable + Josy Hernandez MD Unavailable + Prakash Toelntino MD Unavailable + Josy Hernandez MD Unavailable + Nate Ritter MD Unavailable [phone] Josy Hernandez MD Primary Care Provider [phone]- Phyllis Bello Primary Care Provider [phone] Philip Lara DO Unavailable Encounter Details Date Type Department Care Team ([facility] Contact Info) Description 09/05/2018 Procedure Pass [facility] Endoscopy Admitting Dept Virtual Department [address] [place] [address] Social History Tobacco Use Types Packs/Day Years [...] Description 01/08/2026 8:30 AM EDT Office Visit [facility] [address] [place] [phone] Philip Lara, [address] [place] [phone] [email or web address] documented as of this [...] documented as of this encounter Care Teams Community Service Officer Relationship Specialty Start Date End Date Phyllis Bello PA [address] [place] [address] PCP - General Senior Power Plant Operator 08/09/17 03/02/23 Josy Hernandez MD [address] [place] [phone] [email or web address] PCP - General Family Medicine 03/03/23 06/17/23 Phyllis Bello PA [address] [place] [phone] PCP - General Physician Auger Mill Operator 06/18/23 Zohra Saenz MD [address] [place] [phone] Historical LMR Provider 07/09/17 2 Estelita Bobby NP [address] [place] [address] 2_[place] [address] [email or web address] Historical LMR Provider 07/09/17 10/01/21 Phyllis Bello PA [address] [place] [address] [place] [address] Historical LMR Provider 07/09/17 Nate Dockery MD [address] [place] [address], [address] [place] [address] [email or web address] Historical LMR Provider 07/09/17 2 Josy Hernandez MD [address] [place] [phone] Insurance Assigned Provider 12/22/17 08/30/19 Nate Ritter MD [address] [place] [address], [address] [place] [address] Neurology 06/24/19 Prakash Tolentino MD [address] [place] [phone] Insurance Assigned Provider 08/30/19 08/29/20 Rod Cunningham, [address] [address] [email or web address] Social Work 08/23/20 06/13/22 Josy Hernandez MD [address] [place] [phone] Insurance Assigned Provider 08/29/20 02/27/21 Prakash Tolentino MD [address] [place] [phone] Insurance Assigned Provider 02/27/21 04/02/21 Josy Hernandez MD [address] [place] [address] [email or web address] Insurance Assigned Provider 04/02/21 06/04/21 Prakash Tolentino MD [address] [place] [address] [email or web address] Insurance Assigned Provider 06/04/21 07/30/21 Josy Hernandez MD [address] [place] [address] [email or web address] Insurance Assigned Provider 07/30/21 06/03/22 Nate Ritter MD [address] [place], [place] [id number] [place] [address] Neurology 01/10/22 Philip Lara DO [address] [place] [address] [email or web address] Geriatric Medicine 01/01/24 documented as of this encounter Additional Source Comments The information contained in this document represents components of the legal health record. It is not the complete legal health record.[facility]
--- NOTE | 2025-06-10 21:32 | PC.NURSE ---
pt D/C order in, RN signed out pts harvey campoverde back to pt. Pt waiting for ems to go back to [facility].
--- NOTE | 2025-06-10 21:52 | PC.NURSE ---
per provider pt appropriate to go to overflow.
--- NOTE | 2025-06-10 22:14 | PC.NURSE ---
RN called overflow to give report to RN assuming care for this pt. RN #2 asked for MD to put a code status for pt- MD aware.
[2025-06-10 22:29] VITALS: BP 158/86; PULSE 81; RESP 16; TEMP 36.8; O2SAT 100
--- NOTE | 2025-06-10 22:50 | PC.NURSE ---
transport was ready to take pt to overflow; pt became combative and refused to go. security was called. Pt moved to Pod instead. to be medicated per mar per orders placed by .
[2025-06-10] MEDS: diazePAM 10 MG/2 ML CARTRIDGE 2.5 MG IM (22:55)
[2025-06-10] MEDS: OLANZapine 10 MG VIAL 5 MG IM (22:56)
[2025-06-11 00:50] VITALS: PULSE 74; RESP 16; O2SAT 100
--- NOTE | 2025-06-11 01:38 | PC.NURSE ---
Late Entry: Pt brought over from ED via stretcher due to increased agitation. Upon arrival, pt agitated, kicking at staff, pt physically moved from stretcher to bed in 5 by security and ER staff. Pt continued to be aggressive, attempting to hit, kick and bite staff. Pt given IM injections with a physical hold. pt was removed from physical hold and allowed to sit in room. Pt noted to be picking at clothing and not calming down. Pt then attempted to exit room, trying to throw door at tech as well as hit them. Pt was subsequently placed in four point velcro restraints by security and another IM injection as administered. Pt remained in four point restraints for 1.25 hours, removed from restraints at 0049. Pt is now sleeping, respirations are even and unlabored, equal chest rise noted, no apparent distress
--- NOTE | 2025-06-11 03:59 | PC.NURSE ---
Pt woke up, proceeded to urinate on wall in room and then laid back down, now sleeping, respirations even and unlabored, no apparent distress noted
[2025-06-11 05:16] VITALS: BP 134/83; PULSE 79; RESP 17; TEMP 36.6; O2SAT 100
--- NOTE | 2025-06-11 05:17 | PC.NURSE ---
Pt up, ambulating to bathroom with assistance from GEORGE Garcia. Pt calmer at this time, allowed for vitals, is now getting settled back into bed
[2025-06-11 05:33] LABS: Cannabinoid Screen Urine Not Detected (Not Detect)
--- NOTE | 2025-06-11 07:24 | PC.NURSE ---
Assumed care, report received. Pt wakes slowly, he needs assist with setting up his breakfast, he presents disoriented and currently calm.
[2025-06-11] MEDS: Phenytoin Chewable 50 MG TAB.CHEW 150 MG PO ×2 (08:47→22:09)
[2025-06-11 11:31] VITALS: BP 151/87; PULSE 90; RESP 20; TEMP 36.7; O2SAT 100
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
--- NOTE | 2025-06-11 14:05 | MHC.CM.ED ---
Addendum entered by Rizwana Bah 06/11/25 16:02: Received notification from Magaly of [facility]. , Beverly, has an appointment scheduled for tomorrow 06/12 at 330pm. Original Note: Received case management consult from Dr Barrow. Patient was d/c'd from [facility] on 06/03/25. SNF placement was trying to be found at that time without success. Patient returned home with his and 29 year old son. Patient returned to the ER on 06/10. Cleared by Care Team and psych for needing inpatient level of care. Patient has a history of Korsokoff's, TBI, and PTSD. Spoke with patient's /HCP, Beverly, via telephone at [phone]. Beverly verifies that she can't safely care for patient any longer. Patient currently has [employer] [facility] Insurance. Will need [facility]. Medicaid Questionaire and LTC list of required documents sent to Beverly. Referral to [facility] will be sent. Beverly aware LTC placement could be anywhere in [facility]. Also aware SNF will take disability check if patient admits to LTC. Continue to monitor for d/c needs.
[2025-06-11 14:53] VITALS: PULSE 90
--- NOTE | 2025-06-11 21:14 | PC.NURSE ---
akier text sent to pharmacy as phenytoin and zonisamide are not in pod pyxis.
--- NOTE | 2025-06-11 22:17 | PC.NURSE ---
pt noted to have some difficulty following directions taking his pills. seemed very confused. Meds should be given crushed to avoid issues taking them.
[2025-06-12 06:32] VITALS: BP 143/75; PULSE 83; RESP 20; TEMP 36.6; O2SAT 100
--- NOTE | 2025-06-12 07:47 | PC.NURSE ---
Assumed care, report received. Pt is awake and walks around the unit. He remains confused, calm and cooperative. He needs continued re-direction to find his room and what to do next. a paper is placed on his door with his name to help him identify it. He plays with cards in his room and eats breakfast.
[2025-06-12] MEDS: Phenytoin Chewable 50 MG TAB.CHEW 150 MG PO ×2 (08:20→21:01)
--- NOTE | 2025-06-12 09:20 | MHC.CM.ED ---
Patient remains in ER. Has history of dementia, PTSD. /HCP, Beverly, working with [facility] financial counselors to transition [facility] to [facility] shelter care. Referral broadcasted with 25 miles at this time. Medicaid questionnaire completed by and returned to CM. Continue to monitor for d/c needs.
--- NOTE | 2025-06-12 14:15 | PHA.MEDREC ---
Pharmacy Consult ? Medication Reconciliation Pharmacy has reviewed the medication reconciliation completed by nursing.
[2025-06-12 14:22] VITALS: BP 126/73; PULSE 98; RESP 18; TEMP 36.7; O2SAT 100
--- NOTE | 2025-06-12 19:22 | PC.NURSE ---
Pt has been calm and cooperative throughout the shift. he has remained confused and in need of frequent redirection. His came in for a short visit and made him very upset. His sister came in after his . He has been isolating and angry since they laft. He refuses to talk to this scientific writer. he has been offered multiple coping skills but has chosen to sit in his room.
--- NOTE | 2025-06-13 00:29 | PC.NURSE ---
Assumed care of this patient at 23:00. Patient sleeping in bed, respirations even and unlabored, no apparent distress is noted.
[2025-06-13] MEDS: Phenytoin Chewable 50 MG TAB.CHEW 150 MG PO (08:43)
--- NOTE | 2025-06-13 11:18 | MHC.CM.PN ---
PT CONTINUES TO BOARD IN ED ( BED) AWAITING [facility]TO CONVERSION FOR LTC PLACEMENT VIA [facility] CM WILL CONT TO FOLLOW.
[2025-06-13 14:00] VITALS: BP 158/97; PULSE 98; RESP 18; TEMP 36.8; O2SAT 97
[2025-06-13 19:54] VITALS: BP 161/99; PULSE 99; RESP 18; TEMP 37.1; O2SAT 99
--- NOTE | 2025-06-14 01:49 | PC.NURSE ---
Patient wandered around the unit. He remains to be confused, calm, but not redirectible. Patient refused his bedtime and PRN medications. After dinner patient refused to go to his room and was sitting in common area in in the chair hyper fixating on his clothing trying to button and unbutton his lefty. Patient agreed to go to his room around 01:54 am, he got in bed, warm blankets given to patient. Patient currently resting in bed, watching TV, in no distress.
[2025-06-14] MEDS: Phenytoin Chewable 50 MG TAB.CHEW 150 MG PO ×3 (02:35→21:34)
--- NOTE | 2025-06-14 02:39 | PC.NURSE ---
At 02:30 patient took his medications, refused only Zonegran 400 mg.
--- NOTE | 2025-06-14 08:30 | PC.NURSE ---
this nurse obtained report from alie, patient alert to self, walking around unit attempting to leave but trying the doors. intermittently sleeping- was up most of the night per report. rr equal/non labored, will attempt to give patient medications as ordered however patient has been refusing medications per report. plan of care ongoing
--- NOTE | 2025-06-14 08:48 | PC.NURSE ---
pt took all meds whole with gingerale, pt was reassured prior to administration of meds that they are the same as his home medications even if they maybe a different color/shape or size. pt took meds 1-2 at a time and was reassured throughout taking them that they are his home medications.
[2025-06-14 11:22] VITALS: BP 123/82; PULSE 99; RESP 16; TEMP 36.1; O2SAT 100
--- NOTE | 2025-06-14 15:19 | PC.NURSE ---
Assumed care of patient at 1445, patient currently standing by back door to pod, remains exit seeking and is minimally redirectable. Continue plan of care for case management follow up
--- NOTE | 2025-06-14 15:41 | PC.NURSE ---
Unable to scan pt bracelet due to patient refusing to let this absorber operator bracelet. Pt did take afternoon medications as well as PRN Zyprexa to assist with increased restlessness
[2025-06-14 21:48] VITALS: BP 155/69; PULSE 80; RESP 16; TEMP 36.4; O2SAT 100
--- NOTE | 2025-06-15 07:27 | PC.NURSE ---
Assumed care, report received. Pt is awake and eating breakfast. He is calm and cooperative and needs assist for simple tasks and direction of what to do, his door remains labeled with his name.
[2025-06-15 07:42] VITALS: BP 131/75; PULSE 82; RESP 18; TEMP 36.7; O2SAT 100
[2025-06-15] MEDS: Phenytoin Chewable 50 MG TAB.CHEW 150 MG PO ×2 (07:55→22:35)
[2025-06-15 14:00] VITALS: RESP 18
--- NOTE | 2025-06-15 14:46 | MHC.CM.ED ---
Patient remains in ER. Patient's , Beverly, met with Theresa of [facility] on Sunday. Beverly is actively obtaining necessary documents. [facility]ia Martinez is reviewing patient clinicals. Continue to monitor for d/c needs.
--- NOTE | 2025-06-15 15:03 | PC.NURSE ---
Pt is in good spirits, he showers in the AM, he is assisted with meal set up and needs frequent reminders where his bed is. His door is labeled with his name. he is slow to take medicaitons.
[2025-06-15 22:35] VITALS: BP 147/77; PULSE 68; RESP 16; O2SAT 97
--- NOTE | 2025-06-15 23:00 | PC.NURSE ---
pt took PO meds well, getting ready for bed, easily redirectable.
[2025-06-16 06:12] VITALS: RESP 16
--- NOTE | 2025-06-16 07:18 | PC.NURSE ---
Assumed care, report received. Pt is awake and eating his breakfast, he is calm and cooperative.
[2025-06-16] MEDS: Phenytoin Chewable 50 MG TAB.CHEW 150 MG PO ×2 (08:23→20:47)
--- NOTE | 2025-06-16 13:02 | MHC.CM.ED ---
Patient remains in ER. Erica Martinez is not able to offer a bed. , Beverly, is scheduled to meet with Theresa of [facility] financial counseling late this week to complete MH application. Continue to monitor for d/c needs.
[2025-06-16 14:00] VITALS: RESP 18
[2025-06-17 03:44] VITALS: BP 125/72; PULSE 92; RESP 17; TEMP 36.4; O2SAT 100
--- NOTE | 2025-06-17 07:05 | PC.NURSE ---
Assumed care, report received. Pt is awake and playing with/ eating his breakfast. he remains confused, calm and cooperative.
[2025-06-17 07:57] VITALS: BP 138/76; PULSE 90; RESP 16; TEMP 36.9; O2SAT 100
[2025-06-17] MEDS: Phenytoin Chewable 50 MG TAB.CHEW 150 MG PO ×2 (07:59→23:00)
[2025-06-17 14:53] VITALS: RESP 16
--- NOTE | 2025-06-17 20:45 | PC.NURSE ---
Assumed care of pt at 1900. Verbal report received from Lauren Day shift RN. PT watching TV in community room, and is in no acute distress at this time. Safety checks in place- 15 minute checks remain, video monitoring on. plan of care ongoing
[2025-06-17 21:38] VITALS: BP 117/70; PULSE 95; RESP 16; TEMP 36.9; O2SAT 97
--- NOTE | 2025-06-17 23:10 | PC.NURSE ---
PT medicated as per mar- delay in administration due to caring for other patients.
--- NOTE | 2025-06-17 23:36 | PC.NURSE ---
Addendum entered by Deann Boudreaux RN 06/17/25 23:58: PT awake, and appearing restless. Ambulated to the bathroom independently and urinated a significant amount. PT requesting second dose of trazadone. Full edit completed and medication administered as per order. Original Note: Second dose of trazadone not given at pt is sleeping soundly0 order is MRX1 if needed.
[2025-06-18 06:19] VITALS: BP 138/84; PULSE 86; RESP 17; TEMP 36.6; O2SAT 99
--- NOTE | 2025-06-18 06:45 | PC.NURSE ---
Assumed care of patient at 0645, patient currently standing by back door to pod, remains exit seeking and is minimally redirectable. Continue plan of care for case management follow up
--- NOTE | 2025-06-18 07:50 | MHC.EDTECH ---
Patient ambulated to the bathroom with steady gait, was able to shower himself and was assisted with combing his hair. All current needs met.
[2025-06-18] MEDS: Phenytoin Chewable 50 MG TAB.CHEW 150 MG PO ×2 (08:04→22:30)
--- NOTE | 2025-06-18 08:21 | PC.NURSE ---
Pt provided with PRN Zyprexa due to increasing restlessness
[2025-06-18 08:43] VITALS: BP 132/75; PULSE 84; RESP 15; TEMP 36.7; O2SAT 99
--- NOTE | 2025-06-18 11:06 | MHC.CM.ED ---
Addendum entered by Rizwana Bah 06/18/25 12:21: Received notification from Theresa that she is waiting for 's social security/disability info before LTC sharon can be submitted. Beverly is working on getting this info to Theresa. Original Note: Patient remains in ER. On , 06/17, , Beverly, met with [facility] and provided all financial paperwork. Theresa will complete sharon and send to today. Will provide CM with a copy. Continue to monitor for d/c needs.
--- NOTE | 2025-06-18 11:51 | PC.NURSE ---
Pt calm and cooperative, resting in chair in common area, no apparent distress
[2025-06-18 15:10] VITALS: BP 149/83; PULSE 84; RESP 16; TEMP 36.1; O2SAT 98
--- NOTE | 2025-06-18 23:13 | PC.NURSE ---
Patient medicated per MAR, currently sleeping in bed, no s/s of apparent distress noted.
[2025-06-19 06:16] VITALS: BP 123/74; PULSE 82; RESP 14; TEMP 36.5; O2SAT 100
--- NOTE | 2025-06-19 07:16 | PC.NURSE ---
Assumed care of patient at 0645, patient currently sitting in hallway, talking with other patients, no apparent distress is noted at this time. Continue plan of care for case management follow up
[2025-06-19 07:47] VITALS: BP 113/74; PULSE 83; RESP 18; TEMP 37.1; O2SAT 100
[2025-06-19] MEDS: Phenytoin Chewable 50 MG TAB.CHEW 150 MG PO ×2 (08:11→21:28)
--- NOTE | 2025-06-19 14:56 | PC.NURSE ---
Pt starting to become restless, unable to calm himself down, pacing. PO Zyprexa administered per MAR
[2025-06-19 17:45] VITALS: BP 121/78; PULSE 78; TEMP 36.4; O2SAT 100
--- NOTE | 2025-06-19 20:13 | PC.NURSE ---
ASSUMED CARE OF PT AT APPROXIMATELY 1845. PT HAS BEEN IN BED MOST OF THAT TIME. HE IS ABLE TO ADVOCATE FOR HIS NEEDS. NO APPARENT DISTRESS. NO CONCERNS AT THIS TIME. CONTINUE CASE MANAGEMENT.
[2025-06-20 06:00] VITALS: BP 120/71; PULSE 71; RESP 16; TEMP 36.7; O2SAT 100
--- NOTE | 2025-06-20 06:00 | PC.NURSE ---
Took over care at 23:00 pt awake walking in room, pt has been redirect no distress.
--- NOTE | 2025-06-20 07:25 | PC.NURSE ---
Assumed care, report received. Pt is awake, calm and eating his breakfast. He remains confused and difficulty with word finding. He is easily re-directed.
[2025-06-20] MEDS: Phenytoin Chewable 50 MG TAB.CHEW 150 MG PO ×2 (08:33→20:12)
--- NOTE | 2025-06-20 14:27 | MHC.CM.ED ---
Patient remains in ER. is working with [facility] to complete [facility] application for calibration specialist care placement for patient. Continue to monitor for d/c needs.
[2025-06-20 15:29] VITALS: BP 122/80; PULSE 83; RESP 14; TEMP 36.1; O2SAT 100
[2025-06-20 20:03] VITALS: BP 138/74; PULSE 89; RESP 16; TEMP 36.5; O2SAT 100
[2025-06-21 06:33] VITALS: RESP 16
--- NOTE | 2025-06-21 07:20 | PC.NURSE ---
Assumed care, report received. Pt is awake and showers in the AM. he is calm and cooperative. safety maintained.
[2025-06-21] MEDS: Phenytoin Chewable 50 MG TAB.CHEW 150 MG PO ×2 (08:06→20:05)
[2025-06-21 08:37] VITALS: BP 110/69; PULSE 80; RESP 14; TEMP 36.2; O2SAT 100
[2025-06-21 14:48] VITALS: BP 145/70; PULSE 89; RESP 16; TEMP 36.4; O2SAT 95
[2025-06-22 06:24] VITALS: BP 117/64; PULSE 69; RESP 16; TEMP 36.2; O2SAT 98
[2025-06-22] MEDS: Phenytoin Chewable 50 MG TAB.CHEW 150 MG PO ×2 (08:05→21:25)
--- NOTE | 2025-06-22 09:10 | MHC.EDTECH ---
This ED Bridge Repairer called Beverly (Spouse) to get permission to shave the patient as she is his caregiver. Beverly (Spouse) Consented to having the patient shaved. She states the patient likes to be clean shaven.
--- NOTE | 2025-06-22 11:28 | PC.NURSE ---
pt has been pleasantly confused this morning, steady gait in the unit, ate breakfast, medicated as ordered, nad, pleasant and polite
[2025-06-22 14:00] VITALS: BP 138/72; PULSE 81; RESP 15; TEMP 36.7; O2SAT 99
--- NOTE | 2025-06-22 14:25 | MHC.CM.ED ---
Patient remains in ER. Received notification patient's , Beverly, provided rest of the documents needed for [facility] application and it was submitted on Tuesday 06/19 at 6pm. T/W is attempting to obtain a copy of sharon in order to look for LTC placement under [facility] pending. Continue to monitor for d/c needs.
[2025-06-22 21:29] VITALS: BP 119/70; PULSE 72; RESP 18; TEMP 36.1; O2SAT 100
--- NOTE | 2025-06-22 21:50 | PC.NURSE ---
Addendum entered by Jackie Dangelo RN 06/23/25 05:28: pt remained calm and cooperative throughout the night, pt did not display any behavioral concerns or symptoms of concern. plan of care ongoing. Original Note: pt awake and alert, calm and cooperative in bed watching tv. pt took meds whole with no issues. pts needs met at this time, VSS. plan of care ongoing
[2025-06-23] MEDS: Phenytoin Chewable 50 MG TAB.CHEW 150 MG PO ×2 (08:34→21:17)
--- NOTE | 2025-06-23 08:58 | PC.NURSE ---
Assumed care, report received. Pt wakes easily, he showers in the am. Medications are given. He is calm and cooperative.
--- NOTE | 2025-06-23 12:53 | MHC.CM.ED ---
Addendum entered by Rizwana Bah 06/23/25 13:00: [facility] does not have a bed available. Referral will be broadcasted within 50 miles. Original Note: Patient remains in ER. Copy of [facility] appplication obtained. Sent to [facility] for review. Continue to monitor for d/c needs.
[2025-06-23 14:00] VITALS: BP 119/70; PULSE 72; RESP 18
--- NOTE | 2025-06-23 15:15 | PC.NURSE ---
Pt is calm and cooperative throughout the shift. He showers in the AM, he spends time with staff doing a puzzle but needing much direction. He walks the unit with staff for exercise and spends time watching TV. He continues to need reminders where his room is even with the sign on the door.
[2025-06-23 21:11] VITALS: BP 119/63; PULSE 75; RESP 16; TEMP 36.2; O2SAT 97
[2025-06-24 06:29] VITALS: RESP 16
--- NOTE | 2025-06-24 08:27 | PC.NURSE ---
Assumed care, report received. Pt is awake, showers and eats his breakfast. safety is maintained.
[2025-06-24] MEDS: Phenytoin Chewable 50 MG TAB.CHEW 150 MG PO ×2 (08:55→20:25)
--- NOTE | 2025-06-24 11:54 | MHC.EDTECH ---
pt 1 assisted/standby with shower. fresh clothes given, warm blanket given, rn aware
[2025-06-24 16:04] VITALS: BP 114/66; PULSE 83; RESP 14; TEMP 37; O2SAT 100
--- NOTE | 2025-06-24 19:35 | PC.NURSE ---
Pt has been calm and cooperative. He had a visit form his and son today that went very well. Pt was not upset or angry after the visit. He ate and showered today. He spent time walking with staff, coloring and listening to music.
[2025-06-24 21:43] VITALS: RESP 14
--- NOTE | 2025-06-25 02:34 | PC.NURSE ---
Pt got up to use the bathroom, pt did begin showering. with redirection pt went back to his room, now back in bed, sleeping, respirations even and unlabored
[2025-06-25 06:00] VITALS: BP 129/69; PULSE 77; RESP 16; TEMP 36.4; O2SAT 99
--- NOTE | 2025-06-25 06:29 | MHC.EDTECH ---
Patient is asleep. Vitals will be done when patient wakes up.
--- NOTE | 2025-06-25 08:28 | PC.NURSE ---
Assumed care, report received. Pt is awake, calm and cooperative. He eats breakfast and is compliant with meds.
[2025-06-25] MEDS: Phenytoin Chewable 50 MG TAB.CHEW 150 MG PO ×2 (08:49→20:34)
--- NOTE | 2025-06-25 09:26 | MHC.CM.ED ---
Addendum entered by Iqra Cruz RN 06/26/25 07:32: Patient is a 55 year-old male with hx of Major Neurocognitive disorder who has been seen in the past by psychiatry due to increase combative behaviors. Pt was recently discharged from medical floor and it appears he was discharged back home with who in the past had reported she is no longer able to care for him. He apparently became combative, and attempted to grab some knives. Pt in the ED initially presented as combative and received IM medications including droperidol 5mg, olanzapine 5mg, benadryl 50mg im and valium 2.5mg IM. Patient alert and coopertive. Flat affect noted. Lungs clear bilat. Respirations even and non-labored. Abdomen soft, non-tender with positive bowel sounds. Positive pedal pulses with no edema. [facility] LTC is pending and then possibly [facility]. Original Note: Patient remains in ER. No [facility] LTC pending bed offers at this time. [facility] will be able to offer a bed when LTC in place. Continue to monitor for d/c needs.
[2025-06-25 14:56] VITALS: BP 136/74; PULSE 86; RESP 14; TEMP 36.7; O2SAT 100
--- NOTE | 2025-06-25 17:48 | PC.NURSE ---
Pt has been calm and cooperative through the day. He has showered spent time reading the newspaper and watching TV.
--- NOTE | 2025-06-25 20:40 | MHC.EDTECH ---
pt room mopped and swept with environmental
--- NOTE | 2025-06-25 23:37 | PC.NURSE ---
calm and cooperative from pod to overflow, in bed with fall precautions, camera in place
[2025-06-26 01:14] VITALS: RESP 18
--- NOTE | 2025-06-26 03:38 | PC.NURSE ---
alerted by bed alarm and VMT of patient getting OOB. RN and tech redirected patient, calm and cooperative, states he is stretching his legs, now back in bed, fall precautions in place, call damon in reach, patient demonstrated use
[2025-06-26 06:08] VITALS: BP 131/79; PULSE 80; RESP 14; TEMP 36.7; O2SAT 100
--- NOTE | 2025-06-26 07:24 | PC.NURSE ---
Medical History Mood disorder Seizure disorder Traumatic brain injury
[2025-06-26] MEDS: Phenytoin Chewable 50 MG TAB.CHEW 150 MG PO ×2 (09:20→20:24)
--- NOTE | 2025-06-26 11:54 | MHC.EDTECH ---
pt ate 100% of his lunch tray
--- NOTE | 2025-06-26 12:22 | PC.NURSE ---
Skin assessment performed. Skin pink, warm and dry with no evidence of skin breakdown noted.
[2025-06-26 12:23] VITALS: BP 144/78; PULSE 69; RESP 16; TEMP 36.6; O2SAT 99
--- NOTE | 2025-06-26 19:00 | PC.NURSE ---
calm, ambulating steadily ad carolina without assist, eating dinner in common area at table now
[2025-06-26 20:20] VITALS: BP 110/74; PULSE 75; RESP 16; TEMP 36.6; O2SAT 99
--- NOTE | 2025-06-26 20:38 | PC.NURSE ---
Spoke with pts Beverly to give an update. T/w informed her of pt having matted hair, the hydraulic controls technician was unable to comb his hair and he received a haircut with patients approval and she also states this was okay. She also relates she will be in to visit with patient tomorrow. She was also informed that patient remains in the POD at this time and denies any other questions at this time. Due to high risk for elopement patient is not to be placed in Overflow. Pt to stay in the POD or in the main ED with a 1:1 sitter.
[2025-06-27 05:17] VITALS: BP 129/73; PULSE 75; RESP 16; TEMP 36.4; O2SAT 100
--- NOTE | 2025-06-27 07:35 | PC.NURSE ---
Assumed care of patient at 0645, patient currently laying in bed, respirations even and unlabored, no apparent distress is noted at this time. Continue plan of care for case management follow up
[2025-06-27] MEDS: Phenytoin Chewable 50 MG TAB.CHEW 150 MG PO ×2 (09:32→20:06)
[2025-06-27 16:52] VITALS: BP 124/77; PULSE 73; RESP 14; TEMP 36.7; O2SAT 100
--- NOTE | 2025-06-27 16:53 | PC.NURSE ---
Pt has had uneventful day today, wandering around unit, took am shower, watching TV with other patients in the mile[place].
--- NOTE | 2025-06-27 18:54 | PC.NURSE ---
Assumed care of patient at this time, patient currently resting in bed, even chest wall rise and fall noted, no s/s of apparent distress, plan of care ongoing.
[2025-06-27 19:47] VITALS: BP 122/69; PULSE 74; RESP 18; TEMP 36.2; O2SAT 100
--- NOTE | 2025-06-27 20:14 | PC.NURSE ---
Patient medicated per MAR with bedtime medications, warm blanket given to patient per his request. Patient currently resting in bed, watching TV, offers no complaints at present.
[2025-06-28 06:11] VITALS: BP 111/66; PULSE 72; RESP 16; TEMP 36.4; O2SAT 99
--- NOTE | 2025-06-28 07:28 | PC.NURSE ---
Assumed care of patient at 0645, patient currently in shower, no apparent distress is noted at this time. Continue plan of care for case management follow up
[2025-06-28] MEDS: Phenytoin Chewable 50 MG TAB.CHEW 150 MG PO ×2 (08:06→20:23)
[2025-06-28 20:39] VITALS: BP 134/82; PULSE 71; RESP 18; TEMP 36.1; O2SAT 100
[2025-06-29 06:20] VITALS: BP 119/71; PULSE 66; RESP 16; TEMP 36.6; O2SAT 98
--- NOTE | 2025-06-29 07:51 | PC.NURSE ---
Assumed care, report received. Pt is awake, calm and cooperative. He eats his breakfast, reads the newspaper and takes a shower.
--- NOTE | 2025-06-29 08:21 | MHC.EDTECH ---
Patient ambulated to bathroom with steady gait, showered and completed ADL'S with some guidance. Patient hair brushed and all current needs met.
[2025-06-29] MEDS: Phenytoin Chewable 50 MG TAB.CHEW 150 MG PO ×2 (08:55→20:49)
--- NOTE | 2025-06-29 14:02 | MHC.CM.ED ---
Patient remains in ER. [facility] LTC is still pending. [facility] can offer a bed when [facility] is in place. Continue to monitor for d/c needs.
[2025-06-29 14:39] VITALS: BP 120/67; PULSE 75; RESP 16; TEMP 36.2; O2SAT 100
--- NOTE | 2025-06-29 14:50 | MHC.EDTECH ---
Patient declined lunch tray.
--- NOTE | 2025-06-29 16:23 | MHC.OT.ID ---
[facility] Office [address] [facility] [phone] F: [phone] F: [phone] Occupational Therapy Inpatient Daily Note Patient Name: Arash Ng Start Time: End Time: Visit Duration: Billable Time: Pain Score: Pain Location: Self-Care Feeding: Grooming: Washing: Dressing: Toileting: Functional Mobility Bed Mobility: Transfers: Ambulation: Therapeutic Activities IADL/Homecare: Balance: Therapeutic Exercise: Cognition: OT evaluation was ordered secondary to pts ongoing confusion. Pt [place] [facility] [place] three [place] awaiting placement secondary to h/o alcohol use d/o, Korsakoff's dementia, TBI and overall decline in function and combative behaviors. Family can no longer manage pt at home. Pt presents verbally tangential, defensive and irritable upon approach but OT gained therapeutic rapport over time. His verbal narrative has no meaningful content, he is MOD to MAX A for ADLs. Pt cannot sequence simple tasks and he has very limited attention. Pt is unable to attend to either the MOCA or the [place] Cognitve Level Screen secondary to advanced dementia. OT provided sensory, gross motor engagement toys/tools for ED staff to engage with pt Assessment. Assessment: Plan Plan of Care: D/C Today: Electronically Signed By: Mariah Lux OTR/L Reviewed/agree with student documentation: Therapist:
--- NOTE | 2025-06-29 19:43 | PC.NURSE ---
Assumed care of pt at 1900. PT ambulating through [place] with a steady gait, needing some redirection and required prompting to utilize bathroom. Safety checks remain. Plan of care ongoing
--- NOTE | 2025-06-29 20:58 | PC.NURSE ---
Pt medicated as per MAR. needing prompting to take meds, appears to forget sequencing. safety precautions in place- 15 mins check remain. Video monitoring on, call damon within reach. Plan of care ongoing
[2025-06-29 23:33] VITALS: BP 113/63; PULSE 78; RESP 16; TEMP 36.5; O2SAT 99
--- NOTE | 2025-06-30 07:43 | PC.NURSE ---
Assumed care, report received. Pt is awake, calm and cooperative. he is given breakfast and showers with some assist. He continues to need reminders to use soap.
[2025-06-30] MEDS: Phenytoin Chewable 50 MG TAB.CHEW 150 MG PO ×2 (08:54→21:04)
--- NOTE | 2025-06-30 09:05 | MHC.EDTECH ---
Patient ate 100% of breakfast, ambulated to bathroom with steady gait for morning shower. Assist with ADL's, reminders to brush teeth putting toothpaste on brush, placed shampoo on hair and prompted washing.
[2025-06-30 09:46] VITALS: BP 125/74; PULSE 83; RESP 16; TEMP 37; O2SAT 99
--- NOTE | 2025-06-30 10:46 | MHC.EDTECH ---
Complete bed change performed today. Patients bed and pillows cleaned and linens changed.
--- NOTE | 2025-06-30 12:12 | MHC.EDTECH ---
Patient walking through pod, engaging in OT play with RN and tech hitting balloon back and forth.
[2025-06-30 15:20] VITALS: PULSE 74; RESP 16
--- NOTE | 2025-06-30 17:46 | PC.NURSE ---
Pt has remained in a good mood all shift, he has spent time with staff talking, reading the news paper, doing a puzzle, batting a balloon back and forth, walking with this insurance underwriter sales for 20 min. Pt has been compliant with meals and medications. His sister called to check on him and plans to visit on .
--- NOTE | 2025-06-30 21:21 | PC.NURSE ---
Pt is sleeping, he is woken up for medication administration and takes them well, he does not require the second trazodone. He remains calm and cooperative
--- NOTE | 2025-06-30 23:47 | PC.NURSE ---
This RN assumed pt care @ 2300. Pt alert to self, no signs of distress. Pt ambulates with slow steady gait. Pt at nurses station. Pt assisted back into room Plan of care ongoing.
--- NOTE | 2025-07-01 03:10 | PC.NURSE ---
Assumed care of pt at 0310. Report received from Lamont Lee. Pt resting quietly, eyes closed, respirations even and unlabored. Safety precautions in place- 15 minutes checks remain, video monitoring on. Plan of care ongoing
[2025-07-01 05:59] VITALS: BP 131/67; PULSE 73; RESP 16; TEMP 36.3; O2SAT 100
[2025-07-01 07:27] VITALS: BP 106/63; PULSE 69; RESP 16; TEMP 36.6; O2SAT 100
[2025-07-01] MEDS: Phenytoin Chewable 50 MG TAB.CHEW 150 MG PO ×2 (08:52→20:33)
--- NOTE | 2025-07-01 19:45 | PC.NURSE ---
Assumed care of patient at 1845, patient calm and cooperative, resting in common area, offering no complaints to this RN. Continue plan of care for case management followup
[2025-07-01 23:36] VITALS: BP 132/84; PULSE 64; RESP 14; TEMP 36.6; O2SAT 99
[2025-07-02 06:37] VITALS: BP 118/61; PULSE 75; RESP 18; TEMP 36.3; O2SAT 98
[2025-07-02] MEDS: Phenytoin Chewable 50 MG TAB.CHEW 150 MG PO ×2 (08:08→20:10)
--- NOTE | 2025-07-02 11:06 | PC.NURSE ---
Assumed care, report received. Pt is calm and cooperative. He is currently watching TV,
--- NOTE | 2025-07-02 18:21 | PC.NURSE ---
Pt has remained calm and cooperative. His sister came to visit for afew hours, he enjoyed the visit and remained in a good mood after the visit. Pt has showered, had his hair combed multiple times, played with a balloon multiple times/ volleyball. looked at the news paper, walked laps with staff, done 2 puzzles and eaten 100% of his meals.
--- NOTE | 2025-07-02 19:16 | PC.NURSE ---
Assumed care of patient at 1845, patient calm and cooperative, wandering around BH pod, offering no complaints to this RN. Continue plan of care for case management follow up
[2025-07-02 20:46] VITALS: BP 135/74; PULSE 81; RESP 18; TEMP 36.4; O2SAT 100
--- NOTE | 2025-07-02 22:27 | PC.NURSE ---
Pt now resting in bed, no apparent distress at this time, respirations even and unlabored
--- NOTE | 2025-07-03 01:25 | PC.NURSE ---
Pt currently sleeping, respirations are even and unlabored, no apparent distress is noted at this time
[2025-07-03 06:35] VITALS: BP 119/65; PULSE 79; RESP 17; TEMP 36.6; O2SAT 99
[2025-07-03] MEDS: Phenytoin Chewable 50 MG TAB.CHEW 150 MG PO ×2 (08:06→20:37)
[2025-07-03 20:16] VITALS: BP 122/76; PULSE 75; RESP 18; TEMP 36.4; O2SAT 99
--- NOTE | 2025-07-03 20:43 | PC.NURSE ---
pt sitting in the common area working on a puzzle. no apparent distress noted at this time. took medications well.
--- NOTE | 2025-07-04 05:31 | MHC.EDTECH ---
Patient awoke and wandered out of room. Patient oriented to pod and explained the time of morning. This tech guided patient to bathroom. Patient attempted to shower and was redirected again by this tech the time of day it was and that the patient could shower after breakfast. Patient toileted, ambulated back to his room with guidance. Warm blanket provided, patient covered and falling back to sleep.
--- NOTE | 2025-07-04 07:35 | PC.NURSE ---
Assumed care, report received. Pt is just waking up. Safety maintained.
[2025-07-04 07:57] VITALS: BP 121/66; PULSE 72; RESP 16; TEMP 36.5; O2SAT 97
[2025-07-04] MEDS: Phenytoin Chewable 50 MG TAB.CHEW 150 MG PO ×2 (08:02→20:14)
--- NOTE | 2025-07-04 09:08 | MHC.EDTECH ---
Patient ambulated with steady gait to bathroom for morning shower and ADL's.
[2025-07-04 16:18] VITALS: BP 122/69; PULSE 81; RESP 14; TEMP 36.6; O2SAT 100
--- NOTE | 2025-07-04 16:20 | PC.NURSE ---
Pt is in good spirits, he had a good visit with his sister and son. He spends time after the visit in his room rearranging the room, taking off his gown and putting it back on. he is calm and cooperative.
--- NOTE | 2025-07-04 17:31 | MHC.EDTECH ---
This tech spent time through out the day on OT games with patient. Balloon, puzzles, reading magazines and walking the pod. Patient showered x2, brushed teeth, and had hair combed.
--- NOTE | 2025-07-04 22:11 | PC.NURSE ---
patient is restless requiring multiple efforts of redirection and verbal reassurance. scheduled dose of trazodone given per nov. patient is making his bed in his room at this time.
--- NOTE | 2025-07-04 22:46 | PC.NURSE ---
patient remains restless, will attempt prn at this time and reassess.
--- NOTE | 2025-07-04 22:54 | PC.NURSE ---
patient given prn per mar. attempted to ask patient what was bothering him/if he was in pain. patient slow to respond, stated i don't know, i just don't feel good... mentally. pt agreed to PRN meds as he also verbalized having trouble sleeping. assisted him back to his room and helped him into bed, covered with blankets. turned lights and tv off per request. patient is resting comfortably now.
--- NOTE | 2025-07-05 06:10 | PC.NURSE ---
patient is awake, ambulated with steady gait to bathroom.
[2025-07-05 06:19] VITALS: BP 110/69; PULSE 75; RESP 16; TEMP 36.1; O2SAT 100
[2025-07-05] MEDS: Phenytoin Chewable 50 MG TAB.CHEW 150 MG PO ×2 (08:05→21:17)
--- NOTE | 2025-07-05 09:14 | PC.NURSE ---
Assumed care, report received. Pt wakes early, he showers, hair is combed, he eats breakfast and takes his meds without difficulty. He needs some direction for daily tasks. Safety is maintained.
[2025-07-05 13:46] VITALS: BP 128/79; PULSE 84; RESP 18; TEMP 36.3; O2SAT 100
--- NOTE | 2025-07-05 14:35 | MHC.EDTECH ---
OT performed with patient. Played balloon volley ball, patient engaging with play and chuckling, after patient laid on lounge chair in back community area of pod and took a short nap. Up and ambulating through pod now, watching tv in front common area while looking a newspaper.
[2025-07-06 04:31] VITALS: BP 124/70; PULSE 82; RESP 14; TEMP 36.7; O2SAT 97
--- NOTE | 2025-07-06 07:44 | PC.NURSE ---
Assumed care, report received. Pt is awake, he has eaten breakfast and is currently watching TV. He is calm and cooperative.
[2025-07-06] MEDS: Phenytoin Chewable 50 MG TAB.CHEW 150 MG PO ×2 (07:58→20:15)
--- NOTE | 2025-07-06 12:50 | MHC.EDTECH ---
Patient took shower with prompting from this tech, hair washed, again with prompting. Patient hair brushed and is resting in his room looking at a magazine.
[2025-07-06 14:26] VITALS: BP 111/67; PULSE 82; RESP 14; TEMP 36.3; O2SAT 100
[2025-07-06 20:16] VITALS: BP 150/81; PULSE 80; RESP 16; TEMP 36.4; O2SAT 98
[2025-07-07 06:33] VITALS: RESP 16
--- NOTE | 2025-07-07 08:15 | PC.NURSE ---
pt requesting to take a shower. personal hygiene products provided to pt. [facility] attire provided as well. pt otherwise has no complaints. plan of care ongoing.
[2025-07-07 08:18] VITALS: BP 101/61; PULSE 73; RESP 15; TEMP 36.3; O2SAT 100
[2025-07-07] MEDS: Phenytoin Chewable 50 MG TAB.CHEW 150 MG PO ×2 (08:36→20:11)
--- NOTE | 2025-07-07 09:02 | PC.NURSE ---
pt medicated per provider order. slight redirection needed while administering medication. pt seemingly disoriented as this racebook writer had to redirect patient how to place medicine cup to lips/consume medications/drink water. no difficulties in swallowing noted. pt otherwise resting in no apparent distress. pending authorization via insurance. plan of care ongoing.
--- NOTE | 2025-07-07 13:28 | MHC.CM.ED ---
Patient remains in ER. Still waiting for [facility] for LTC placement. Continue to monitor for d/c needs.
[2025-07-07 20:09] VITALS: BP 132/77; PULSE 76; RESP 16; TEMP 36.6; O2SAT 99
--- NOTE | 2025-07-07 21:03 | PC.NURSE ---
Assumed care of pt at 1900. PT was found calmly sitting in a chair reading a magazine. PT denied any complaints of SI/HI denies pain or any other complaints. Medication given crushed in pudding tolerate well and all ordered meds administered. PT resting comfortably in bed currently. Plan of care ongoing.
--- NOTE | 2025-07-08 04:31 | MHC.EDTECH ---
patient awake, ambulated with steady gait to bathroom, voided urine, assisted back to bed by this tech, patients blankets straightened out, additional warm blanket provided. Patient resting quietly in bed.
--- NOTE | 2025-07-08 06:00 | MHC.EDTECH ---
Patient awake, ambulated with stead gait through pod, requesting shower. Toiletries provided. Patient prompted to wash hair, patient able to wash hair once prompted. Complete bed/linen change performed. Floor swept.
--- NOTE | 2025-07-08 06:30 | MHC.EDTECH ---
Patient hair combed after shower by this tech. Patient sitting in his room looking through his magazines.
[2025-07-08 06:35] VITALS: BP 102/73; PULSE 73; RESP 14; TEMP 36.7; O2SAT 97
[2025-07-08] MEDS: Phenytoin Chewable 50 MG TAB.CHEW 150 MG PO ×2 (08:20→20:19)
--- NOTE | 2025-07-08 20:11 | PC.NURSE ---
Assumed care of patient at 1845, patient calm and cooperative, sitting in common area, offering no complaints to this RN. Continue plan of care for Case Management follow up
[2025-07-08 20:22] VITALS: BP 116/68; PULSE 75; RESP 17; TEMP 37; O2SAT 100
--- NOTE | 2025-07-08 22:00 | PC.NURSE ---
Pt tucked himself into bed, no apparent distress is noted at this time
--- NOTE | 2025-07-09 06:16 | PC.NURSE ---
Pt showered this am without difficulty
[2025-07-09 06:29] VITALS: BP 114/73; PULSE 73; RESP 16; TEMP 36.7; O2SAT 100
[2025-07-09] MEDS: Phenytoin Chewable 50 MG TAB.CHEW 150 MG PO ×2 (08:08→21:23)
--- NOTE | 2025-07-09 09:00 | PC.NURSE ---
Assumed care, report received. Pt is awake early, he showers, eats breakfast, and is reading the paper. HE is calm and cooperative.
--- NOTE | 2025-07-09 13:05 | MHC.CM.ED ---
Patient remains in ER. Received notification from Theresa of [facility] [employer] that [facility] sent request for more documents on 07/01. On 07/07 the requested documents where sent to the [facility] [employer]. Continue to monitor for d/c needs.
[2025-07-09 16:42] VITALS: BP 125/71; PULSE 83; RESP 18; TEMP 36.6; O2SAT 100
[2025-07-09 21:40] VITALS: BP 142/86; PULSE 91; RESP 14; TEMP 36.6; O2SAT 100
--- NOTE | 2025-07-10 07:20 | PC.NURSE ---
Assumed care, report received. Pt is awake and showered, he is provided breakfast and is eating in his room.
[2025-07-10 07:35] VITALS: BP 119/66; PULSE 74; RESP 16; TEMP 36.8; O2SAT 99
[2025-07-10] MEDS: Phenytoin Chewable 50 MG TAB.CHEW 150 MG PO ×2 (08:09→20:23)
--- NOTE | 2025-07-10 15:15 | PC.NURSE ---
Pt has been in good spirits, he has showered, spent time with staff using playdough and batting a balloon. He is compliant with meals and medications.
[2025-07-10 15:47] VITALS: BP 122/68; PULSE 80; RESP 17; TEMP 36.8; O2SAT 100
--- NOTE | 2025-07-11 03:02 | PC.NURSE ---
pt ambulated to bathroom with steady gate.
[2025-07-11 06:19] VITALS: BP 113/71; PULSE 76; TEMP 36.1; O2SAT 100
[2025-07-11] MEDS: Phenytoin Chewable 50 MG TAB.CHEW 150 MG PO ×2 (08:02→20:56)
--- NOTE | 2025-07-11 08:11 | PC.NURSE ---
Assumed care of patient at 0645, patient calm and cooperative, sitting in hallway listening to music, no apparent distress is noted at this time. Continue plan of care for Case Management follow up
[2025-07-11 08:28] VITALS: BP 123/75; PULSE 70; RESP 16; TEMP 36.3; O2SAT 95
--- NOTE | 2025-07-11 12:10 | PC.NURSE ---
RE: Medication Restraint Medications Administered: - Geodon 10mg IM - Benadryl 25mg IM - Valium 5mg IM Physical Hold? Yes Details: Throughout morning between the hours of 7am and 10am patient has been increasing in agitation, pacing around BH pod, remaining extremely intrusive, unable to maintain personal boundaries with other individuals. Pt oscillates between being calm/cooperative and disruptive and agitated. Pt appears to be occasionally responding to internal stimuli and appears to be struggling with delusions regarding ceci and his family. Pt was provided with headphones for music, food/drink as well as consistent staff to walk around with. Pt continued to escalate, entering other patient's rooms, making derogatory comments towards peers, invading personal space. Pt also began elevating his voice, yelling and agitating other patients. Dr. Sen came to bedside to assess, due to patient's escalating behaviors and inability to maintain boundaries with others, plan for IM. Pt was escorted to his room by this RN and security. Pt took IMs in bilateral deltoids with security holding his arms for safety. Pt became verbally aggressive with this RN fuck you, I will fucking kill you, you're a fucking bitch for this, you just want to see me suffer . Pt reassured by this RN that the medication will help with his rapid thought process and is to help him feel calmer. Pt continued to verbally harass this RN, yelling swears and threats. After about 30-45 minutes, pt began calming down, no longer threatening this RN but continues pacing around unit. Pt listening to music at this time
--- NOTE | 2025-07-11 12:21 | PC.NURSE ---
Patient calm and cooperative, mildly agitated by activity in pod but redirectable
--- NOTE | 2025-07-11 14:18 | PC.NURSE ---
Pt increasingly confused and disoriented, provided with Zyprexa PRN
--- NOTE | 2025-07-11 20:45 | PC.NURSE ---
Assumed care of patient at 1900, patient appears to be in no apparent distress at this time, resting on the table in the common area, respirations even and unlabored. Continue plan of care.
--- NOTE | 2025-07-11 21:52 | PC.NURSE ---
RN crushed pts meds- mixed it in pudding. RN fed the pudding to pt- pt tolerated well.
--- NOTE | 2025-07-12 03:40 | PC.NURSE ---
Report received and care assumed at approx 0245. Pt has not been up out of the bed/room. Resting in bed at this time with eyes closed and respirations even and unlabored
--- NOTE | 2025-07-12 04:49 | PC.NURSE ---
Pt up out of bed independently and with ease. He was observed to independently ambulate to the restroom and returned back to his room without issue. He offered no complaints/concerns. Staff assisted with turning his room tv on and will continue to monitor him
[2025-07-12 05:59] VITALS: BP 102/62; PULSE 79; RESP 18; TEMP 36.5; O2SAT 97
--- NOTE | 2025-07-12 07:23 | PC.NURSE ---
Assumed care of patient at 0645, patient appears to be in no apparent distress this morning, ambulating independently to the shower, took shower and now is eating breakfast. Continue plan of care for Case Management Follow Up
[2025-07-12] MEDS: Phenytoin Chewable 50 MG TAB.CHEW 150 MG PO ×2 (08:02→20:17)
[2025-07-12 08:04] VITALS: BP 114/60; PULSE 78; RESP 16; TEMP 36.5; O2SAT 100
--- NOTE | 2025-07-12 16:11 | MHC.CM.ED ---
Pt continues to board in the ED awaiting LTC placement: Pt requires additional documents for payor - ED CM following
--- NOTE | 2025-07-12 16:19 | PC.NURSE ---
Family at bedside visiting
--- NOTE | 2025-07-12 19:01 | PC.NURSE ---
This RN assumed pt care @ 1845. Pt sitting in front of nurses station. Pt a&ox4, no signs of distress. Pt back in his room sitting at desk. Plan of care ongoing.
[2025-07-12 19:48] VITALS: BP 120/76; PULSE 78; RESP 18; TEMP 36.1; O2SAT 100
--- NOTE | 2025-07-12 20:09 | PC.NURSE ---
Pt ambulates independently to restroom and back into room Plan of care ongoing.
--- NOTE | 2025-07-12 20:28 | PC.NURSE ---
This RN crushed and fed meds to pt in pudding. Pt tolerated medical administrative specialist well Pt requested and given drink Pt sitting on bed looking thru magazines Plan of care ongoing.
--- NOTE | 2025-07-12 23:33 | PC.NURSE ---
Took over care at 23:00, pt sleeping at this time.
--- NOTE | 2025-07-13 04:41 | PC.NURSE ---
pt is sleeping at this time, no sign of distress.
--- NOTE | 2025-07-13 06:07 | PC.NURSE ---
Pt assist to the rest room.
--- NOTE | 2025-07-13 07:08 | PC.NURSE ---
Assumed care, report received. Pt is awake and spending in his room, breakfast is provided.
[2025-07-13 07:59] VITALS: BP 122/72; PULSE 83; RESP 16; TEMP 36.3; O2SAT 100
[2025-07-13] MEDS: Phenytoin Chewable 50 MG TAB.CHEW 150 MG PO ×2 (09:00→21:06)
--- NOTE | 2025-07-13 14:45 | MHC.CM.ED ---
[facility] ER[facility] [place]. Theresa [facility] Financial Counselor is waiting for [facility] General Warehouse Associate to review requested documents. Continue to monitor for d/c needs.
[2025-07-13 22:00] VITALS: RESP 17
--- NOTE | 2025-07-13 23:51 | PC.NURSE ---
Assumed care at 1845. Patient resting in bed, chest rise and fall observed. A&Ox4. Presents with flat affect and clear speech. Required multiple prompting during medication administration such as Grab the cup. Sip the water. Adherent to HS scheduled medications, did not utilize PRN's. Accepted medications crushed with pudding. No complaints of pain/discomfort. Hygiene intact. Denies SI/HI. Agreeable to alert staff if feeling unsafe. [address] Plan of care ongoing.
[2025-07-14 05:58] VITALS: BP 137/78; PULSE 74; RESP 16; TEMP 36.3; O2SAT 99
--- NOTE | 2025-07-14 07:41 | PC.NURSE ---
Assumed care, report received. Pt is awake, calm and cooperative. he is eating breakfast and watching TV.
--- NOTE | 2025-07-14 08:49 | MHC.CM.ED ---
Patient remains in ER. Received notification from Theresa of [facility] Financial Counseling that the [facility] rn field case manager has given permission to find a LTC facility. [facility] Continue to monitor for d/c needs.
[2025-07-14] MEDS: Phenytoin Chewable 50 MG TAB.CHEW 150 MG PO ×2 (08:55→21:43)
--- NOTE | 2025-07-14 08:55 | MHC.EDTECH ---
Complete bed linen change.
[2025-07-14 14:13] VITALS: BP 123/78; PULSE 78; RESP 14; TEMP 36.2; O2SAT 100
[2025-07-14 21:39] VITALS: BP 126/69; PULSE 77; RESP 18; TEMP 36.1; O2SAT 100
[2025-07-15 06:00] VITALS: BP 127/75; PULSE 71; RESP 16; TEMP 36.1; O2SAT 99
--- NOTE | 2025-07-15 08:13 | PC.NURSE ---
Assumed care, report received. Pt is awake and eating breakfast. he is calm and cooperative.
[2025-07-15] MEDS: Phenytoin Chewable 50 MG TAB.CHEW 150 MG PO ×2 (09:54→20:57)
--- NOTE | 2025-07-15 12:56 | MHC.CM.ED ---
Patient remains in ER overflow. [facility] She is reviewing clinical information. Continue to monitor for d/c needs.
[2025-07-15 22:00] VITALS: RESP 17
--- NOTE | 2025-07-15 22:50 | PC.NURSE ---
A&Ox4. Presents as calm and cooperative. Visible on the milieu, watching tv and looking through personal magazines. Adherent to HS scheduled medications. Utilized PRN Melatonin for sleep. Continues to require step by step prompting for tasks. Requires medications to be crushed with applesauce or pudding, pt observed trying to chew medications. No complaints of pain/discomfort. No restlessness/irritability/paranoia observed. 15 minute safety checks ongoing. Plan of care ongoing.
[2025-07-16 04:06] VITALS: BP 136/79; PULSE 75; RESP 17; TEMP 36.4; O2SAT 99
[2025-07-16 05:33] VITALS: RESP 17
--- NOTE | 2025-07-16 07:43 | PC.NURSE ---
Assumed care of patient at 0645, patient appears to be in no apparent distress this am, calm and cooperative, ambulating around BH pod with steady gait. pt ate 100% of breakfast today. Continue plan of care for case management follow up
[2025-07-16] MEDS: Phenytoin Chewable 50 MG TAB.CHEW 150 MG PO ×2 (08:12→21:34)
[2025-07-16 15:05] VITALS: BP 140/76; PULSE 79; RESP 18; TEMP 36.1; O2SAT 99
[2025-07-16 22:00] VITALS: RESP 16
--- NOTE | 2025-07-16 23:00 | PC.NURSE ---
Second dose of trazadone not given, pt sleeping soundly. Respirations even and unlabored.
--- NOTE | 2025-07-17 07:08 | PC.NURSE ---
Assumed care of patient at 0645, patient appears to be in no apparent distress this am, calm and cooperative, ambulating around BH pod with steady gait Continue plan of care for case management follow up
[2025-07-17] MEDS: Phenytoin Chewable 50 MG TAB.CHEW 150 MG PO ×2 (08:14→20:49)
--- NOTE | 2025-07-17 08:21 | MHC.CM.ED ---
Patient remains in ER. Spoke with Domonique of [facility]. Patient is accepted clinically. Their business office has a form patient's will have to sign to be able to speak with [employer]. Anticipate patient will not be able to transfer before Sunday. Continue to monitor for d/c needs.
[2025-07-17 08:50] VITALS: BP 109/69; PULSE 75; RESP 14; TEMP 36.2; O2SAT 100
--- NOTE | 2025-07-17 11:52 | PC.NURSE ---
Resumed care of patient at 1100, he is currently ambulating around unit with a steady gait, interacting with staff in his room and in common area. Denies any complaints at this time, all needs met.
[2025-07-17 15:03] VITALS: BP 130/73; PULSE 83; RESP 12; TEMP 36.4; O2SAT 99
--- NOTE | 2025-07-17 15:13 | PC.NURSE ---
This RN encouraed pt to take a shower at this time, new cloths provided, bed linen changed while pt in the shower, and son visiting with pt now in common area.
--- NOTE | 2025-07-17 17:54 | PC.NURSE ---
this RN assumed care of this pt at this time, pt noted to be sitting at milieu table eating sandwich and watching television, no apparent distress noted at this time
--- NOTE | 2025-07-17 17:54 | MHC.EDTECH ---
pt showered independently, clean clothes and warm blankets given, hair brushed
--- NOTE | 2025-07-17 18:30 | MHC.EDTECH ---
pt ate 100% of dinner tray
[2025-07-18 06:22] VITALS: RESP 16
[2025-07-18] MEDS: Phenytoin Chewable 50 MG TAB.CHEW 150 MG PO ×2 (08:50→20:08)
--- NOTE | 2025-07-18 09:40 | PC.NURSE ---
Assumed care, report received. Pt is awake, calm and cooperative. He showers and eats breakfast. He is compliant with meals and medications.
--- NOTE | 2025-07-18 09:53 | MHC.EDTECH ---
Patient ambulated with steady gait to bathroom, showered independently, with prompting from this tech to wash hair. Hair combed and patient resting in room looking at magazine pictures.
[2025-07-18 10:58] VITALS: BP 123/76; PULSE 76; RESP 18; TEMP 36.8; O2SAT 100
--- NOTE | 2025-07-18 13:53 | PC.NURSE ---
Pt is calm and cooperative. He spends his morning showering, eating breakfast and meds are given, he needs much direction in taking his pills. He wanders into a peers room often and looks at his magazines most of the day.
[2025-07-18 17:38] VITALS: BP 136/78; PULSE 78; RESP 16; TEMP 36.7; O2SAT 100
[2025-07-18 20:10] VITALS: BP 149/83; PULSE 80; RESP 18; TEMP 36.6; O2SAT 100
[2025-07-19 02:31] LABS: COVID-19 Test Negative (Negative); IDNOW Serial# 55D5AD1C; IDNOW Serial# 58CA691E; Influenza B2 Negative (Negative)
[2025-07-19 06:39] VITALS: RESP 16
[2025-07-19 08:07] VITALS: BP 128/92; PULSE 73; RESP 16; TEMP 36.3; O2SAT 100
[2025-07-19] MEDS: Phenytoin Chewable 50 MG TAB.CHEW 150 MG PO ×2 (08:45→20:55)
[2025-07-19 14:25] VITALS: BP 115/67; PULSE 85; RESP 16; TEMP 37.1; O2SAT 100
--- NOTE | 2025-07-20 06:15 | PC.NURSE ---
Pt calm and cooperative. Alert to self. Sat in the common area until around 2129. Medicated with night meds as per NOV with no issues/concerns. Pt then went to bed and slept throughout the night. No apparent distress noted. Breaths remained even regular and unlabored with equal chest rises. Monitoring is ongoing.
[2025-07-20 06:30] VITALS: BP 119/73; PULSE 75; RESP 16; TEMP 36.8; O2SAT 100
--- NOTE | 2025-07-20 07:00 | PC.NURSE ---
Assumed care, report received. Pt is awake and eating breakfast.
[2025-07-20] MEDS: Phenytoin Chewable 50 MG TAB.CHEW 150 MG PO ×2 (08:02→21:24)
--- NOTE | 2025-07-20 12:55 | MHC.CM.ED ---
Patient remains in ER. Waiting for [place] to speak with [email or web address]. Possible d/c Saturday 07/21. Continue to monitor for d/c needs.
[2025-07-20 21:15] VITALS: BP 173/67; PULSE 66; RESP 16; TEMP 36.2; O2SAT 100
--- NOTE | 2025-07-21 02:22 | PC.NURSE ---
Assumed care at 1845. Presents as calm and cooperative. Visible on the POD, sorting through magazines. Denies pain/current discomfort. Adherent to HS scheduled medications. 15 minute safety checks ongoing. Plan of care ongoing.
[2025-07-21 06:00] VITALS: RESP 17
--- NOTE | 2025-07-21 07:06 | PC.NURSE ---
Assumed care of pt. Pt up sitting at the table in the common area. no s/s of distress. RR even and unlabored.
[2025-07-21 07:33] VITALS: BP 121/73; PULSE 67; RESP 16; TEMP 36.8; O2SAT 100
[2025-07-21] MEDS: Phenytoin Chewable 50 MG TAB.CHEW 150 MG PO ×2 (08:10→20:12)
--- NOTE | 2025-07-21 14:57 | MHC.CM.ED ---
Patient remains in ER. [facility] has accepted clinically. [facility]'s business office is still trying to verify with [facility] office that patient is [facility] LTC eligible. Patient's , Beverly made aware. Continue to monitor for d/c needs.
--- NOTE | 2025-07-21 15:35 | PC.NURSE ---
pt is calm, cooperative. Pt wandered a bit to ED1 but was easily redirectable. Pt is now by the tv in the common area.
[2025-07-21 20:22] VITALS: BP 118/71; PULSE 76; RESP 16; TEMP 36.4; O2SAT 100
--- NOTE | 2025-07-21 22:33 | PC.NURSE ---
Assumed care at 1845. Presents as calm and cooperative. Speech clear and concise. Visible on the unit, watching tv and sorting through magazine collection. Adherent to HS scheduled medications (crushed with pudding). Mouth checks completed. Denies pain/discomfort. No current behavioral concerns. 15 minute safety checks ongoing. Plan of care ongoing.
[2025-07-22 05:36] VITALS: RESP 18
--- NOTE | 2025-07-22 07:27 | PC.NURSE ---
Assumed care of patient at 0645, patient appears to be in no apparent distress this am, calm and cooperative, offering no complaints to this RN. Continue plan of care for case management follow up
[2025-07-22] MEDS: Phenytoin Chewable 50 MG TAB.CHEW 150 MG PO ×2 (08:28→21:28)
[2025-07-22 09:24] VITALS: BP 105/66; PULSE 79; RESP 14; TEMP 36.6; O2SAT 96
--- NOTE | 2025-07-22 09:54 | MHC.EDTECH ---
Patient had to be prompted to shower today. Ambulated with steady gait to bathroom. This tech assisted with turning the water on and prompting patient to get into the shower. Shampoo applied to hair, patient washed it without assistance.
--- NOTE | 2025-07-22 10:15 | MHC.EDTECH ---
Complete linen change/room clean.
--- NOTE | 2025-07-22 13:11 | MHC.CM.ED ---
Patient remains in ER. Received notification from Domonique of [facility] that they can accept patient tomorrow. [facility] booked for 07/23 at 9am. Patient can transfer as long [facility] receives [facility] PASRR Level 2 and [facility] LOC from [facility]. Level 1 and MDS completed and [facility] to [facility]. Patient, Vee Paul RN and Dr Bah aware. Continue to monitor for d/c needs.
--- NOTE | 2025-07-22 15:36 | PC.NURSE ---
Pt it good spirits today, playing games with [facility] tech Hannah, walking around pod, calm and cooperative today
[2025-07-22 15:37] VITALS: BP 118/66; PULSE 79; RESP 16; TEMP 36.3; O2SAT 100
--- NOTE | 2025-07-22 18:48 | PC.NURSE ---
Assumed care of patient at this time. patient calm and cooperative. Sitting in common area
[2025-07-22 21:35] VITALS: BP 118/65; PULSE 72; RESP 17; TEMP 36.4; O2SAT 100
[2025-07-23 06:26] VITALS: BP 111/72; PULSE 81; RESP 16; TEMP 36.4; O2SAT 100
--- NOTE | 2025-07-23 07:34 | PC.NURSE ---
Assumed care of patient at 0645, patient appears to be in no apparent distress this am, calm and cooperative, ambulating with steady gait around BH pod. Continue plan of care for transport to [facility] this am at 9
[2025-07-23] MEDS: Phenytoin Chewable 50 MG TAB.CHEW 150 MG PO (08:23)
--- NOTE | 2025-07-23 09:04 | PC.NURSE ---
Addendum entered by Alexandria Peters RN 07/23/25 09:07: This RN sat down with patient, played music and asked if he would like to take medicine for calming down, he agreed. Pt willingly took Zyprexa PO with apple juice Original Note: Pt refused some am medications
[2025-07-23 09:55] VITALS: BP 111/72; PULSE 81; RESP 16; TEMP 36.4; O2SAT 100
--- NOTE | 2025-07-27 09:33 | MHC.CM.ED ---
Addendum entered by Rizwana Bah 07/27/25 09:38: [facility]. Original Note: When patient was in ER referrals were sent and denied by: [facility], [facility], [facility], [facility], [facility], [facility], [facility], [facility], [facility], [facility], [facility], [facility], [facility], [facility], [facility], [facility], [facility], [facility], [facility], [facility], [facility], [facility], [facility], [facility], [facility], [facility], [facility], [facility], [facility], [facility], [facility], [facility], [facility], [facility], [facility], [facility], [facility], and [facility].
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
== END 2025-07-23 09:56 | disposition skilled nursing facility (03) ==
PROVIDERS: Emergency Medicine; Emergency Provider Student in an Organized Health Care Education/Training Program; PCP Physician Assistant Medical
DX: R41.82 Altered mental status, unspecified (principal); F02.818 Dementia in other diseases classified elsewhere, unspecified severity, with other behavioral disturbance; R41.2 Retrograde amnesia; F03.911 Unspecified dementia, unspecified severity, with agitation; R45.6 Violent behavior; F10.96 Alcohol use, unspecified with alcohol-induced persisting amnestic disorder; Y90.9 Presence of alcohol in blood, level not specified; Z87.820 Personal history of traumatic brain injury; Z79.899 Other long term (current) drug therapy; Z11.52 Encounter for screening for COVID-19; Z51.81 Encounter for therapeutic drug level monitoring
CPT/HCPCS: 36415; 80053; 80307; 81003; 85025; 85652; 86140; 87502; 87635; 96372; 99285; J1200; J1790; J2359; J3360; S9485

== ENCOUNTER → 2025-06-10 18:13 | Outpatient (BNV) | payer OTHER, SELFPAY | PROVIDERS: Emergency Provider Student in an Organized Health Care Education/Training Program; Visit Provider Social Worker | DX: F02.818 Dementia in other diseases classified elsewhere, unspecified severity, with other behavioral disturbance (principal) | CPT/HCPCS: 99285 ==